=== PATIENT | male | born 1930 | race Caucasian/White ===

== ENCOUNTER 2017-07-25 10:52 | Outpatient (CLI) | END 2017-07-25 10:53 | disposition home or self-care (01) | LOC: LAB 10:52 | PROVIDERS: ATTEND Internal Medicine | DX: D64.9 Anemia, unspecified (principal) | CPT/HCPCS: 82272 ==

== ENCOUNTER 2018-10-27 13:25 | Emergency (ER) | payer OTHER ==
[2018-10-27 13:37] VITALS: BP 143/61; TEMP 97; BMI 21.4
--- NOTE | 2018-10-27 13:46 | ED.PDOC ---
General ED Provider: Dr. 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 Has been constipated with no BM x 4-5 days. Has taken OTC laxative pills without relief. Time Seen by Physician: 13:42 Mode of Arrival: Wheelchair Information Source: Patient, Family Primary Care Provider: RONI GALVEZ Nursing and Triage Documentation Reviewed and Agree: Yes Does patient meet sepsis criteria?: No System Inflammatory Response Syndrome: Not Applicable Sepsis Protocol: For patient's 13 years and over: Temp is 96.8 and below OR 101 and greater Pulse >90 BPM Resp >20/minute Acutely Altered Mental Status Are patient's symptoms suggestive of a new infection, such as: -Pneumonia -Skin, Soft Tissue -Endocarditis -UTI -Bone, Joint Infection -Implantable Device -Acute Abdominal Infection -Wound Infection -Meningitis -Blood Stream Catheter Infection -Unknown Review of Systems - Review Of Systems Constitutional: Reports: Loss of appetite Ears, Nose, Mouth, Throat: Reports: No symptoms Respiratory: Reports: No symptoms Cardiac: Reports: No symptoms GI: Reports: Constipated, Poor appetite : Reports: No symptoms Musculoskeletal: Reports: Back pain Skin: Reports: No symptoms Neurological: Reports: Anxiety Endocrine: Reports: No symptoms Hematologic/Lymphatic: Reports: No symptoms All Other Systems: Reviewed and Negative Past Medical History - Past Medical History Previously Healthy: Yes Endocrine: Reports: Dyslipidemia Cardiovascular: Reports: Hypertension Respiratory: Reports: None Hematological: Reports: Anemia Gastrointestinal: Reports: None Genitourinary: Reports: None Neuro/Psych: Reports: None Musculoskeletal: Reports: None Cancer: Reports: None - Surgical History General Surgical History: Reports: Unknown - Family History Family History: Reports: Unknown - Social History Smoking Status: Never smoker Hx Substance Use: No Alcohol Screening: None Physical Exam - Physical Exam Appearance: Well-appearing Pain Distress: Moderate Interpretation - Radiology Interpretation Radiology Interpretation By: Radiologist Radiology Results: No acute changes Exam Interpreted: CT Scan (Abdomen and Pelvis ) Re-Evaluation - Re-Evaluation Time of Re-Evaluation: 15:50 Status: Improved Pain Level: better Critical Care Note - Critical Care Note Total Time (mins): 0 Course - Course Hematology/Chemistry: 10/27/18 14:37 10/27/18 14:37 Orders, Labs, Meds: Lab Review 10/27/18 10/27/18 10/27/18 14:37 14:37 15:16 WBC 5.07 RBC 2.55 L Hgb 8.3 L Hct 24.6 L MCV 96.5 H MCH 32.5 H MCHC 33.7 RDW Coeff of Tika 13.9 Plt Count 122 L Immature Gran % (Auto) 0.8 Neut % (Auto) 71.4 Lymph % (Auto) 19.1 [place] % (Auto) 8.3 Eos % (Auto) 0.2 Baso % (Auto) 0.2 Immature Gran # (Auto) 0.0 Neut # (Auto) 3.6 Lymph # (Auto) 1.0 [place] # (Auto) 0.4 Eos # (Auto) 0.0 Baso # (Auto) 0.0 Sodium 132.0 L Potassium 4.22 Chloride 98.8 Carbon Dioxide 24.7 Anion Gap 12.72 BUN 38.0 H Creatinine 1.62 H Estimated GFR (MDRD) 41.00 BUN/Creatinine Ratio 23.45 Glucose 105.8 Calcium 8.41 Total Bilirubin 0.63 AST 42.5 ALT 21.9 Alkaline Phosphatase 64.9 Total Protein 5.72 L Albumin 3.33 L Globulin 2.39 Albumin/Globulin Ratio 1.39 Amylase 77.2 Lipase 249.1 Urine Color Yellow Urine Clarity Slightly Urine pH 7.5 Ur Specific [place] 1.015 Urine Protein Negative Urine Glucose (UA) Negative Urine Ketones Negative Urine Blood Negative Urine Nitrite Negative Urine Bilirubin Negative Urine Urobilinogen 4.0 Ur Leukocyte Esterase Negative Orders Category Date Time Status ED IV/MEDIPORT/POWERPORT .ONCE EMERGENCY 10/27/18 14:12 Active AMYLASE Stat LAB 10/27/18 14:37 Completed CBC W/ AUTO DIFF Stat LAB 10/27/18 14:37 Completed COMPREHENSIVE METABOLIC PANEL Stat LAB 10/27/18 14:37 Completed LIPASE Stat LAB 10/27/18 14:37 Completed UA [URINALYSIS C & S IF INDICATED] Stat LAB 10/27/18 15:16 Completed Morphine Sulfate [Morphine 2 mg/ml Syringe] MEDS 10/27/18 14:37 Discontinued 2 mg IM ONCE STA CT ABDOMEN/PELVIS WO CONTRAST Stat RADS 10/27/18 13:48 Completed Medications Discontinued Medications Generic Name Dose Route Start Last Admin Trade Name Freq PRN Reason Stop Dose Admin Morphine Sulfate 2 mg 10/27/18 14:37 10/27/18 15:09 Morphine 2 Mg/Ml Syringe IM 10/27/18 14:38 2 mg ONCE STA Administration Vital Signs: Temp Pulse Resp BP Pulse Ox 10/27/18 13:28 97.0 F L 73 20 143/61 H 98 Departure - Departure Time of Disposition: 15:55 Disposition: HOME SELF-CARE Discharge Problem: Back pain Qualifiers: Back pain location: low back pain Chronicity: acute Back pain laterality: bilateral Sciatica presence: without sciatica Qualified Code(s): M54.5 - Low back pain Constipation Qualifiers: Constipation type: slow transit constipation Qualified Code(s): K59.01 - Slow transit constipation Instructions: Constipation (DC), Back Pain (ED) Condition: Stable Pt referred to PMD for follow-up: Yes IPMP verified?: No Additional Instructions: Push fluids Take Medications as needed for pain Followup with PCP in 3 days Prescriptions: Magnesium Citrate [Citrate of Magnesia] 5 oz PO ONCE #1 ml Polyethylene Glycol 3350 [Miralax] 17 gm PO DAILY #510 powd.pack Sennosides/Docusate Sodium [Senna-S Tablet] 1 each PO DAILY LAB #30 tablet Tramadol HCl [Ultram] 50 mg PO Q6H PRN #14 tablet PRN Reason: Severe Pain Allergies/Adverse Reactions: Allergies No Known Allergies Allergy (Unverified 10/27/18 13:37) Home Medications: Ambulatory Orders Aspirin 325 mg PO DAILY 10/27/18 Benazepril HCl [Lotensin] 40 mg PO BEDTIME 10/27/18 Fenofibrate,Micronized [Fenofibrate] 134 mg PO EVERY OTHER DAY 10/27/18 Ferrous Sulfate, Dried [Iron] 159 mg PO DAILY 10/27/18 Lisinopril/Hydrochlorothiazide [Zestoretic 20-12.5 mg Tab] 1 tab PO DAILY Lovastatin [Mevacor] 20 mg PO BEDTIME 10/27/18 Magnesium Citrate [Citrate of Magnesia] 5 oz PO ONCE #1 ml 10/27/18 Polyethylene Glycol 3350 [Miralax] 17 gm PO DAILY #510 powd.pack 10/27/18 Sennosides/Docusate Sodium [Senna-S Tablet] 1 each PO DAILY LAB #30 tablet 10/27 Tramadol HCl [Ultram] 50 mg PO Q6H PRN #14 tablet 10/27/18
--- NOTE | 2018-10-27 14:33 | CT ---
EXAM: CT abdomen and pelvis without contrast. HISTORY: Lower back pain with constipation TECHNIQUE: Multi-slice transaxial helical CT. Coronal and sagittal reformatons were performed. COMPARISON: None FINDINGS: The heart is normal in size. Heavily calcified coronary arteries are seen. Minimal fibrotic changes of the lung bases are seen. Evaluation of the solid organs is limited without IV contrast. The spleen is normal in size and cont ains calcified granulomas. Numerous calcified gallstones are present within the normal sized gallbla dder. No pericholecystic inflammation is seen. The pancreas and the bilateral adrenal glands appear grossly unremarkable. Punctate nonobstructing stones are seen within the right kidney. Multiple le ft-sided renal cysts are seen measuring up to 3.6 cm in size. No evidence of hydronephrosis is seen. No intrahepatic biliary ductal dilation is seen. Exophytic solid lesion from the lateral right live r is seen measuring approximately 19 x 7 mm in size as seen on axial image 42. The bowel is not dilated. Prostate is mildly enlarged measuring up to 4.6 cm in transverse diameter. Scattered diverticuli are seen within the colon. Moderate amount of stool throughout the colon is seen. The appendix is not definitively identified. A duodenal diverticulum is seen which measures up to 2.9 cm in size. No pelvic free fluid is seen. Heavy calcified plaques are present within the ab dominal aorta and its major branch vessels. High-grade stenotic lesion is suggested at the superior mesenteric artery secondary calcified plaques. The bones are osteopenic. The hip joint space narrow ing is present. Mild compression fracture of L1 is suggested. Focal concavity in the superior endpl ate of L2 is seen. Focal concavity in the superior endplate of L3 is seen. IMPRESSION: 1. No acute abdominal findings. 2. Moderate stool throughout the colon which is nonspecific. 3. Cholelithiasis. 4. Colonic and duodenal diverticulosis. 5. Indeterminate exophytic solid lesion at the right liver measuring up to 19 mm. Recommend MRI of the abdomen before and after administration of IV contrast for further evaluation. 6. Punctate nonobstructing right renal calculi. No hydronephrosis. 7. Mild prostatic enlargement. 8. Heavy atherosclerosis including coronary disease. 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 9. Other incidental findings as detailed above.
[2018-10-27] MEDS ORDERED: MORPHINE 2 MG/ML SYRINGE IM STA (14:37)
== END 2018-10-27 15:50 | disposition home or self-care (01) ==
LOC: ED 13:25
DX: K59.01 Slow transit constipation (principal); R63.0 Anorexia; M54.5 Low back pain; F41.8 Other specified anxiety disorders
CPT/HCPCS: 36415; 80053; 81001; 82150; 83690; 85025; 96372; 99283

== ENCOUNTER 2018-10-30 08:40 | Inpatient (IN) ==
--- NOTE | 2018-10-30 09:11 | ED.PDOC ---
General ED Provider: Dr. ANNIE RANDOLPH Chief Complaint: Constipation Stated Complaint: Remain constipated with lower abdominal pain and low back pain. Was here this past Sunday for similar problems. Given Miralax and Mag Citrate. Has taken Mag citrate with out results and did not take Miralax until last PM. Denied Rectal Bleeding. State hx Iron Defiency. States has never had a colonoscopy,. In ER was given Morphine for his back pain and was prescribe NARCOTICS for home for his pain Time Seen by Physician: 08:50 Mode of Arrival: Wheelchair Information Source: Patient Exam Limitations: No limitations Primary Care Provider: RONI GALVEZ Referred to ED by: PCP Seen Within Last 72 Hours for Same Complaint By: ED Nursing and Triage Documentation Reviewed and Agree: Yes Does patient meet sepsis criteria?: No System Inflammatory Response Syndrome: Not Applicable Sepsis Protocol: For patient's 13 years and over: Temp is 96.8 and below OR 101 and greater Pulse >90 BPM Resp >20/minute Acutely Altered Mental Status Are patient's symptoms suggestive of a new infection, such as: -Pneumonia -Skin, Soft Tissue -Endocarditis -UTI -Bone, Joint Infection -Implantable Device -Acute Abdominal Infection -Wound Infection -Meningitis -Blood Stream Catheter Infection -Unknown GI Complaint Exam - Abdominal Pain Complaint/Exam Onset: Gradual Duration: Several weeks Symptoms Are: Still present Timing: Constant Initial Severity: Moderate Current Severity: Moderate Location of Pain: RUQ, RLQ, LUQ Character: Reports: Dull, Cramping Aggravating: Reports: None Alleviating: Reports: None Associated Signs and Symptoms: Reports: Back pain. Denies: Diaphoresis, Fever, Cough, Chest pain, Dizziness, Constipation, Blood in stool, Dysuria, Urinary frequency, Decreased urine output, Decreased appetite, Discharge, Nausea, Vomiting, Diarrhea, Decreased activity Related History: Reports: Similar episode AAA Risk Factors: Reports: None Cardiac Risk Factors: Reports: None Testicular Torsion Risk Factors: Reports: None Surgical Obstruction Risk Factors: Reports: None Related Surgical History: Reports: None Abdominal Findings: Present: None Differential Diagnoses: Constipation Review of Systems - Review Of Systems Constitutional: Reports: Weakness Eyes: Reports: No symptoms Ears, Nose, Mouth, Throat: Reports: No symptoms Respiratory: Reports: No symptoms Cardiac: Reports: No symptoms GI: Reports: Constipated, Poor appetite, Poor fluid intake : Reports: No symptoms Musculoskeletal: Reports: Back pain Skin: Reports: Dryness Neurological: Reports: No symptoms Endocrine: Reports: No symptoms Hematologic/Lymphatic: Reports: Anemia, Easy bleeding, Easy bruising All Other Systems: Reviewed and Negative Past Medical History - Past Medical History Previously Healthy: Yes Endocrine: Reports: Dyslipidemia Cardiovascular: Reports: Hypertension Respiratory: Reports: None Hematological: Reports: Anemia Gastrointestinal: Reports: None Genitourinary: Reports: None Neuro/Psych: Reports: None Musculoskeletal: Reports: None Cancer: Reports: None - Surgical History General Surgical History: Reports: Unknown - Family History Family History: Reports: Unknown - Social History Smoking Status: Never smoker Hx Substance Use: No Alcohol Screening: None Physical Exam - Physical Exam Appearance: Ill-appearing, Thin (Frail) Pain Distress: Mild Eyes: NICOLASA, EOMI, Conjunctiva clear ENT: Ears normal, Nose normal, Oropharynx normal Neck: Supple Respiratory: Airway patent, Breath sounds clear, Breath sounds equal, Respirations nonlabored Cardiovascular: RRR, Pulses normal, No rub, No murmur GI/: Soft, Nontender, No masses, Bowel sounds normal, No Organomegaly Musculoskeletal: Normal strength Skin: Warm, Dry, Normal color Neurological: Sensation intact, Motor intact, Reflexes intact, Cranial nerves intact, Alert, Oriented Psychiatric: Affect appropriate Physician Notification - Case Discussed Physician Notified: Dr Galvez-agreed to treat patient for symptomatic anemia/ constipaiton Time of Notification: 11:45 Critical Care Note - Critical Care Note Total Time (mins): 60 Course - Course Hematology/Chemistry: 10/30/18 09:20 10/30/18 09:20 Orders, Labs, Meds: Lab Review 10/30/18 10/30/18 10/30/18 09:20 09:20 09:20 WBC 5.49 RBC 2.33 L Hgb 7.5 L Hct 22.9 L MCV 98.3 H MCH 32.2 H MCHC 32.8 RDW Coeff of Tika 13.8 Plt Count 129 L Immature Gran % (Auto) 0.4 Neut % (Auto) 77.8 Lymph % (Auto) 12.6 [place] % (Auto) 8.6 Eos % (Auto) 0.4 Baso % (Auto) 0.2 Reticulocyte % (Auto) Immature Gran # (Auto) 0.0 Neut # (Auto) 4.3 Lymph # (Auto) 0.7 [place] # (Auto) 0.5 Eos # (Auto) 0.0 Baso # (Auto) 0.0 Absolute Retic Retic Hgb Equivalent Sodium 129.0 L Potassium 4.38 Chloride 94.5 L Carbon Dioxide 26.3 Anion Gap 12.58 BUN 39.5 H Creatinine 1.98 H Estimated GFR (MDRD) 32.00 BUN/Creatinine Ratio 19.94 Glucose 87.5 Calcium 8.12 L Iron TIBC % Saturation Ferritin 21.20 Total Bilirubin 0.71 AST 36.5 ALT 23.0 Alkaline Phosphatase 68.3 Total Protein 5.56 L Albumin 3.18 L Globulin 2.38 Albumin/Globulin Ratio 1.33 Vitamin B12 TSH 1.570 Free T4 Stl Occult Blood (IFOB) Stool Occult Blood #2 Stool Occult Blood #3 Blood Type 10/30/18 10/30/18 10/30/18 09:20 09:20 09:20 WBC RBC Hgb Hct MCV MCH MCHC RDW Coeff of Tika Plt Count Immature Gran % (Auto) Neut % (Auto) Lymph % (Auto) [place] % (Auto) Eos % (Auto) Baso % (Auto) Reticulocyte % (Auto) 4.13 Immature Gran # (Auto) Neut # (Auto) Lymph # (Auto) [place] # (Auto) Eos # (Auto) Baso # (Auto) Absolute Retic 0.0966 Retic Hgb Equivalent 33.8 Sodium Potassium Chloride Carbon Dioxide Anion Gap BUN Creatinine Estimated GFR (MDRD) BUN/Creatinine Ratio Glucose Calcium Iron 36.8 L TIBC 375 % Saturation 10 Ferritin Total Bilirubin AST ALT Alkaline Phosphatase Total Protein Albumin Globulin Albumin/Globulin Ratio Vitamin B12 736 TSH Free T4 1.53 Stl Occult Blood (IFOB) Stool Occult Blood #2 Stool Occult Blood #3 Blood Type 10/30/18 10/30/18 09:20 10:02 WBC RBC Hgb Hct MCV MCH MCHC RDW Coeff of Tika Plt Count Immature Gran % (Auto) Neut % (Auto) Lymph % (Auto) Coal % (Auto) Eos % (Auto) Baso % (Auto) Reticulocyte % (Auto) Immature Gran # (Auto) Neut # (Auto) Lymph # (Auto) [place] # (Auto) Eos # (Auto) Baso # (Auto) Absolute Retic Retic Hgb Equivalent Sodium Potassium Chloride Carbon Dioxide Anion Gap BUN Creatinine Estimated GFR (MDRD) BUN/Creatinine Ratio Glucose Calcium Iron TIBC % Saturation Ferritin Total Bilirubin AST ALT Alkaline Phosphatase Total Protein Albumin Globulin Albumin/Globulin Ratio Vitamin B12 TSH Free T4 Stl Occult Blood (IFOB) Negative Stool Occult Blood #2 No specimen received Stool Occult Blood #3 No specimen received Blood Type A POSITIVE Orders Category Date Time Status ORDER H&H 1HR POST TRANSFUSION ONCE CARE 10/30/18 10:27 Active PRBC LEUKOREDUCED ONCE CARE 10/30/18 10:27 Active IV [ED IV/MEDIPORT/POWERPORT] .ONCE EMERGENCY 10/30/18 10:08 Active CBC W/ AUTO DIFF Stat LAB 10/30/18 09:20 Completed CMP [COMPREHENSIVE METABOLIC PANEL] Stat LAB 10/30/18 09:20 Completed FERRITIN Stat LAB 10/30/18 09:20 Completed FOLATE Routine LAB 10/30/18 09:20 Received FREE T4 (FREE THYROXINE) Stat LAB 10/30/18 09:20 Completed IRON AND TIBC Stat LAB 10/30/18 09:20 Completed OCCULT BLOOD, STOOL Stat LAB 10/30/18 10:02 Completed PACKED CELLS Routine LAB 10/30/18 10:40 Received RETIC COUNT Routine LAB 10/30/18 09:20 Completed THYROID STIMULATING HORMONE Stat LAB 10/30/18 09:20 Completed TRANSFERRIN Routine LAB 10/30/18 09:20 Received TYPE AND SCREEN Routine LAB 10/30/18 10:40 Received VITAMIN B12 Routine LAB 10/30/18 09:20 Received 0.9 % Sodium Chloride [Saline Flush] MEDS 10/30/18 10:08 Active 1 syr IVF PRN PRN Diphenhydramine HCl [Benadryl] MEDS 10/30/18 10:27 Discontinued 25 mg PO ONCE STA Hydrocortisone Sod Succ/Pf [Solu-Cortef 250 mg] MEDS 10/30/18 10:31 Discontinued 125 mg IVP ONCE STA Sodium Chloride 0.9% [Sodium Chloride] 1,000 ml MEDS 10/30/18 10:08 Active IV 125 mls/hr ABDOMEN, SERIES FLAT & UPRIGHT Stat RADS 10/30/18 09:14 Completed CHEST, 2 VIEWS PA & LAT Stat RADS 10/30/18 09:14 Completed Medications Generic Name Dose Route Start Last Admin Trade Name Freq PRN Reason Stop Dose Admin Sodium Chloride 1,000 mls @ 125 mls/hr 10/30/18 10:08 10/30/18 10:31 Sodium Chloride IV 10/30/18 18:07 125 mls/hr .Q8H STA Administration Sodium Chloride 1 syr 10/30/18 10:08 10/30/18 10:34 Saline Flush IVF 1 syr PRN PRN Administration To flush IV Discontinued Medications Generic Name Dose Route Start Last Admin Trade Name Freq PRN Reason Stop Dose Admin Diphenhydramine HCl 25 mg 10/30/18 10:27 10/30/18 10:33 Benadryl PO 10/30/18 10:28 25 mg ONCE STA Administration Hydrocortisone Sodium Succinate 125 mg 10/30/18 10:31 10/30/18 10:33 Solu-Cortef 250 Mg IVP 10/30/18 10:32 125 mg ONCE STA Administration Vital Signs: Temp Pulse Resp BP Pulse Ox 10/30/18 08:42 97.4 F L 64 20 100/59 L 92 L Departure - Departure Time of Disposition: 10:35 Disposition: PLACED OBSERVATION Discharge Problem: Symptomatic anemia, Weakness, Constipation, Hyponatremia, Dehydration, Iron deficiency Condition: Fair Pt referred to PMD for follow-up: Yes IPMP verified?: No Allergies/Adverse Reactions: Allergies No Known Allergies Allergy (Unverified 10/27/18 13:37) Home Medications: Ambulatory Orders Aspirin 325 mg PO DAILY 10/27/18 Benazepril HCl [Lotensin] 40 mg PO BEDTIME 10/27/18 Fenofibrate,Micronized [Fenofibrate] 134 mg PO EVERY OTHER DAY 10/27/18 Ferrous Sulfate, Dried [Iron] 159 mg PO DAILY 10/27/18 Lisinopril/Hydrochlorothiazide [Zestoretic 20-12.5 mg Tab] 1 tab PO DAILY Lovastatin [Mevacor] 20 mg PO BEDTIME 10/27/18 Magnesium Citrate [Citrate of Magnesia] 5 oz PO ONCE #1 ml 10/27/18 Polyethylene Glycol 3350 [Miralax] 17 gm PO DAILY #510 powd.pack 10/27/18 Sennosides/Docusate Sodium [Senna-S Tablet] 1 each PO DAILY LAB #30 tablet 10/27 Tramadol HCl [Ultram] 50 mg PO Q6H PRN #14 tablet 10/27/18 Clopidogrel Bisulfate [Plavix] 75 mg PO DAILY 10/30/18
--- NOTE | 2018-10-30 10:03 | DI ---
EXAM: CHEST FRONTAL AND LATERAL VIEWS HISTORY: Pain. COMPARISON: None FINDINGS: Heart size is within normal limits. Moderate atherosclerotic disease. There is diffuse, chronic appearing interstitial accentuation. Mild hyperinflation. No acute infiltrates are seen. N o vascular congestion. There is no consolidation, visible pleural fluid or pneumothorax. A wedge-sh aped compression deformity of the upper lumbar vertebral body which is likely chronic. IMPRESSION: 1. Atherosclerosis. No acute cardiopulmonary process.
--- NOTE | 2018-10-30 10:06 | DI ---
EXAM: KUB supine, KUB upright HISTORY: Constipation. FINDINGS / IMPRESSION: There is excess fecal retention suggested within the right and portions of th e transverse colon. Otherwise the colon has normal retention and there is no evidence of fecal impac tion of the rectum or abnormal bowel gas pattern. There is no free air. Multiple gallstones are not ed. Vascular calcifications are present.
[2018-10-30] MEDS ORDERED: SODIUM CHLORIDE 1,000 ML IV STA (10:08)
[2018-10-30] MEDS ORDERED: BENADRYL PO STA (10:27)
[2018-10-30] MEDS ORDERED: SOLU-CORTEF 250 MG IVP STA (10:31)
[2018-10-30] MEDS ORDERED: CITRATE OF MAGNESIA PO STA (11:38)
[2018-10-30 11:48] VITALS: BMI 22.5
[2018-10-30] MEDS: TORADOL IVP SCH ×2 (12:03→20:33)
[2018-10-30] MEDS: MIRALAX PO SCH (13:13)
--- NOTE | 2018-10-30 15:09 | DI ---
EXAM: Lumbar spine five views HISTORY: Low back pain FINDINGS: Bones are demineralized. No noticeable scoliosis. Moderate arthropathy of the sacroiliac joints. Lateral projections reveal diffuse moderate degenerative disc and facet disease. Multileve l mild loss of vertebral body height secondary to compression deformities. This is most noticeable p robably at L1 where there is about 20% loss of height. None of these fractures appear obviously acut e radiographically. Oblique views reveal intact pars interarticularis structures. There is no spond ylolisthesis. Heavy vascular calcifications. Multiple gallstones are incidentally noted. IMPRESSION: 1. Demineralization and diffuse degenerative and compression deformities of the spine.
--- NOTE | 2018-10-30 15:13 | DI ---
EXAM: Thoracic spine three view HISTORY: Low back pain for 2 weeks COMPARISON: None FINDINGS: Minimal compression deformity T11 suggested with sclerosis superior endplate, age indeterm inate. Mild compression deformity L1, age indeterminate. Central concavity inferior endplate L2. Mi ld multilevel chronic discogenic degenerative disease with intervertebral disc space narrowing, andrea nal osteophyte formation. IMPERSSION: 1. Minimal compression deformity T11 and mild compression deformity L1, age indeterminate. Central cavity inferior endplate L2. 2. Chronic discogenic degenerative disease.
[2018-10-30] MEDS ORDERED: NORVASC PO PRN (16:44)
[2018-10-30] MEDS ORDERED: LOTENSIN PO ONE (16:46)
[2018-10-30] MEDS ORDERED: LOTENSIN ONE (17:03)
[2018-10-30] MEDS: PROTONIX PO SCH (17:19)
[2018-10-30] MEDS ORDERED: NORCO 5-325 PO PRN (17:33)
[2018-10-30] MEDS: LOTENSIN PO SCH (20:32)
[2018-10-30] MEDS ORDERED: NON-FORMULARY MEDICATION (Benazepril Hcl [Lotensin] 40 MG) PO SCH (21:00)
[2018-10-31] MEDS ORDERED: SODIUM CHLORIDE 1,000 ML IV SCH (01:30)
[2018-10-31] MEDS: TORADOL IVP SCH ×3 (05:31→20:24)
[2018-10-31] MEDS: PROTONIX PO SCH ×2 (05:31→16:19)
[2018-10-31] MEDS ORDERED: NON-FORMULARY MEDICATION (Sennosides/Docusate Sodium [Senna-S Tablet] 1 EACH) PO SCH (06:00)
[2018-10-31] MEDS: MIRALAX PO SCH (08:45)
[2018-10-31] MEDS ORDERED: COLACE PO SCH (09:00)
[2018-10-31] MEDS ORDERED: SENNA PO SCH (09:00)
--- NOTE | 2018-10-31 09:21 | PCM.PROG ---
Attending Provider: ATTENDING PROVIDER: Dr. RONI GALVEZ DATE OF SERVICE: 10/31/18 SUBJECTIVE: This 87 year old WHITE/ M was hospitalized 10/30/18 with anemia. The patient has no evidence of active GI bleed. Hemoglobin 9.2 with hematocrit of 27. Yesterday hemoglobin was 10 with hematocrit of 30 after 2 units of PRBCs. Likely, the patient had hemodilution or fluctuations in the lab technique. Creatinine and BUN stable. He looks better and hydration status improved. REVIEW OF SYSTEMS: CONSTITUTIONAL: No night sweats. No fatigue, malaise, lethargy. No fever or chills. HEENT: Eyes: No visual changes. No eye pain. No eye discharge. ENT: No runny nose. No epistaxis. No sinus pain. No odynophagia. No congestion. RESPIRATORY: No cough, no congestion. No hemoptysis. No shortness of breath. CARDIOVASCULAR: No angina symptoms. No CHF symptoms. No atypical chest pain for CAD. No palpitations. No orthopnea.. GASTROINTESTINAL: No abdominal pain. No nausea or vomiting. No diarrhea or constipation. No hematemesis. No hematochezia. GENITOURINARY: No urgency. No frequency. No dysuria. No hematuria. No obstructive symptoms. No discharge. No pain. No significant abnormal bleeding. MUSCULOSKELETAL: No musculoskeletal pain; no joint swelling. NEUROLOGICAL: Awake, alert, oriented to time, place and person. No headache. No neck pain. No syncope. No seizures. No dizziness. PSYCHIATRIC: Not anxious. No depression. No suicidal thoughts. No homicidal thoughts. SKIN: No rash. No lesions. No wounds. ENDOCRINE: No unexplained weight loss. No weight gain. HEMATOLOGIC/LYMPHATIC: No anemia. No purpura. No petechiae. No prolonged or excessive bleeding. No palpable lymph nodes. PHYSICAL EXAMINATION: GENERAL: The patient is awake, alert and oriented, lying in bed in no distress. VITAL SIGNS: Temperature 97.7 F, Pulse 60, Respiratory Rate 17, BP 137/45, Pulse Ox 100% HEENT: Head normocephalic, atraumatic. Eyes: Extraocular muscles are intact. Pupils are equal, round and reactive to light and accommodation. Ears: No lesions. Nose appeared normal. Throat: No exudate or erythema. NECK: Supple. No JVD, no carotid bruit. No lymphadenopathy or thyromegaly. LUNGS: Clear to auscultation. Percussion note normal. Chest symmetrical. HEART: S1, S2, no S3. No murmurs. No cyanosis or clubbing. No ascites. Pulses: Dorsalis pedis and posterior tibial pulses feeble bilaterally. ABDOMEN: Soft. Non-tender. Bowel sounds active. No CVA tenderness. No mass felt. EXTREMITIES: No edema. Full range of motion of all extremities, equal. NEUROLOGIC: No focal deficit. Cranial nerves II through XII are grossly intact. No headache, no double vision or headache. SKIN: Warm and dry. Intact. Turgor-normal. LYMPHATIC: No palpable lymph nodes/no lymphedema. MUSCULOSKELETAL: Normal joints with no swelling. Muscle tone is normal. LAB REVIEW: 10/31/18 05:05 10/31/18 05:05 10/31/18 05:05: Sodium 131.2 L, Potassium 4.49, Chloride 99.2, Carbon Dioxide 26.8, Anion Gap 9.69, BUN 40.1 H, Creatinine 1.74 H, Estimated GFR (MDRD) 37.00 , BUN/Creatinine Ratio 23.04, Glucose 97.9, Calcium 7.35 L, Total Bilirubin 1.08 , AST 34.4, ALT 21.4, Alkaline Phosphatase 64.6, Total Protein 4.86 L, Albumin 2.65 L, Globulin 2.21, Albumin/Globulin Ratio 1.19 10/31/18 05:05: WBC 5.36, RBC 2.95 L, Hgb 9.2 L, Hct 27.5 L, MCV 93.2 D, MCH 31.2 H, MCHC 33.5, RDW Coeff of [place] 15.0 H, Plt Count 93 L, Immature Gran % ( Auto) 0.9, Neut % (Auto) 78.0, Lymph % (Auto) 12.9, [place] % (Auto) 8.0, Eos % ( Auto) 0.2, Baso % (Auto) 0.0, Immature Gran # (Auto) 0.1, Neut # (Auto) 4.2, Lymph # (Auto) 0.7, [place] # (Auto) 0.4, Eos # (Auto) 0.0, Baso # (Auto) 0.0 10/30/18 20:27: Hgb 10.2 L, Hct 30.8 L D 10/30/18 13:17: Urine Color Yellow, Urine Clarity Clear, Urine pH 6.0, Ur Specific [place] 1.010, Urine Protein Negative, Urine Glucose (UA) Negative, Urine Ketones Negative, Urine Blood Negative, Urine Nitrite Negative, Urine Bilirubin Negative, Urine Urobilinogen 0.2, Ur Leukocyte Esterase Negative 10/30/18 10:40: Blood Type A POSITIVE, Antibody Screen Negative, Crossmatch (AHG ) See Detail 10/30/18 10:02: Stl Occult Blood (IFOB) Negative, Stool Occult Blood #2 Positive , Stool Occult Blood #3 No specimen received 10/30/18 09:20: Blood Type A POSITIVE 10/30/18 09:20: Transferrin 279 10/30/18 09:20: Vitamin B12 736 10/30/18 09:20: Folate 13.40 10/30/18 09:20: Reticulocyte % (Auto) 4.13, Absolute Retic 0.0966, Retic Hgb Equivalent 33.8 10/30/18 09:20: Iron 36.8 L, TIBC 375, % Saturation 10, Free T4 1.53 10/30/18 09:20: Ferritin 21.20, TSH 1.570 10/30/18 09:20: Sodium 129.0 L, Potassium 4.38, Chloride 94.5 L, Carbon Dioxide 26.3, Anion Gap 12.58, BUN 39.5 H, Creatinine 1.98 H, Estimated GFR (MDRD) 32.00 , BUN/Creatinine Ratio 19.94, Glucose 87.5, Calcium 8.12 L, Total Bilirubin 0.71 , AST 36.5, ALT 23.0, Alkaline Phosphatase 68.3, Total Protein 5.56 L, Albumin 3.18 L, Globulin 2.38, Albumin/Globulin Ratio 1.33 10/30/18 09:20: WBC 5.49, RBC 2.33 L, Hgb 7.5 L, Hct 22.9 L, MCV 98.3 H, MCH 32.2 H, MCHC 32.8, RDW Coeff of [place] 13.8, Plt Count 129 L, Immature Gran % (Auto ) 0.4, Neut % (Auto) 77.8, Lymph % (Auto) 12.6, [place] % (Auto) 8.6, Eos % (Auto) 0.4, Baso % (Auto) 0.2, Immature Gran # (Auto) 0.0, Neut # (Auto) 4.3, Lymph # ( Auto) 0.7, [place] # (Auto) 0.5, Eos # (Auto) 0.0, Baso # (Auto) 0.0 ASSESSMENT: 1. Anemia, etiology unknown. 2. Renal azotemia. 3. Dehydration. 4. The patient has severe carotid occlusive disease. The patient elected not to do anything about the severe carotid stenosis for the past 10 years. He has no history of TIA in the past 2 to 3 years. PLAN: 1. The patient's overall condition is stable. The POA wants the patient to be placed in swing bed or further PT at the intermediate. The patient lives alone and is not being taken care of properly. 2. Resume Plavix. 3. Ferrous Sulfate. 4. Encouraged the patient to eat more protein. 5. D/C IV fluids to 50 cc/hr. Plan and coordination of the patient's care discussed in the presence of Clinical Support Associate and nurse. CONDITION: Stable SCRIBED BY: SHASTA THOMPSON Top Lift Scourer scribed while in presence of service performed by Dr. RONI GALVEZ on 10/31/18 ([id number])
[2018-10-31] MEDS ORDERED: ULTRAM PO PRN (09:22)
[2018-10-31] MEDS ORDERED: NON-FORMULARY MEDICATION (Aspirin [Aspirin] 325 MG) PO SCH (09:30)
[2018-10-31] MEDS ORDERED: FERROUS SULFATE DRIED 65 MG PO SCH (09:30)
[2018-10-31] MEDS ORDERED: NON-FORMULARY MEDICATION (Fenofibrate,Micronized [Fenofibrate] 134 MG) PO SCH (09:30)
[2018-10-31] MEDS: PLAVIX PO SCH (10:11)
[2018-10-31] MEDS: ZESTORETIC 20-12.5 MG TAB PO SCH (10:11)
--- NOTE | 2018-10-31 13:48 | HP ---
DATE OF SERVICE: 10/30/18 HISTORY OF PRESENT ILLNESS: 87-year-old white male who presented to the emergency room for the second time complaining of constipation, low back pain. He was previously at the emergency room two days ago with a hemoglobin of 8.3. Today he is being seen with a hemoglobin of 7.5 and still no bowel movement. PAST MEDICAL HISTORY: Chronic kidney disease History of anemia Hypertension Dyslipidemia Forgetfulness Generalized osteoarthritis PAST SURGICAL HISTORY: Unknown REVIEW OF SYSTEMS: CONSTITUTIONAL: Positive for generalized weakness. No night sweats. No fatigue , malaise, lethargy. No fever or chills. HEENT: Eyes: No visual changes. No eye pain. No eye discharge. ENT: No runny nose. No epistaxis. No sinus pain. No sore throat. No odynophagia. No ear pain. No congestion. RESPIRATORY: No cough, no congestion. No hemoptysis. No shortness of breath. CARDIOVASCULAR: No angina symptoms. No CHF symptoms. No atypical chest pain for CAD. No palpitations. No PND. No orthopnea. GASTROINTESTINAL: Constipation. No abdominal pain. No nausea or vomiting. No diarrhea. No hematemesis. No hematochezia. GENITOURINARY: No urgency. No frequency. No dysuria. No hematuria. No obstructive symptoms. No discharge. No pain. No significant abnormal bleeding. MUSCULOSKELETAL: Back pain. NEUROLOGICAL: Forgetfulness. No headache. No neck pain. No syncope. No seizures. No dizziness. PSYCHIATRIC: Not anxious. No depression. No suicidal thoughts. No homicidal thoughts. SKIN: No rash. No lesions. No wounds. ENDOCRINE: No unexplained weight loss. No weight gain. HEMATOLOGIC/LYMPHATIC: No anemia. No purpura. No petechiae. No prolonged or excessive bleeding. No palpable lymph nodes. PERSONAL/FAMILY/SOCIAL HISTORY: He is unmarried. He lives alone. He is a jensne. No alcohol or ilicit drug use. MEDICATIONS: (HOME) Lisinopril/Hydrochlorothiazide one tab p.o. daily Fenofibrate 134 mg p.o. every other day Lotensin 40 mg p.o. bedtime Aspirin 325 mg p.o. daily Miralax 17 gm p.o. daily Sennosides/Docusate one each p.o. daily Ultram 50 mg p.o. q.6hr p.r.n. Lovastatin 20 mg p.o. bedtime Magnesium Citrate 5 oz p.o. once Plavix 75 mg p.o. aily Ferrous Sulfate 65 mg p.o. daily ALLERGIES: NKDA PHYSICAL EXAMINATION: GENERAL: The patient is alert and oriented to person, place and time. Pallor positive. VITAL SIGNS: Temperature 97.4, heart rate 64, respirations 20, BP 100/59, pulse ox 92% on room air. HEENT: Head normocephalic, atraumatic. Eyes: Extraocular muscles are intact. Pupils are equal, round and reactive to light and accommodation. Ears: No lesions. Nose appeared normal. Throat: No exudate or erythema. NECK: Supple. No JVD, no carotid bruit. No lymphadenopathy or thyromegaly. LUNGS: Diminished breath sounds bilaterally. Clear to auscultation. Percussion note normal. Chest symmetrical. HEART: S1, S2, no S3. No murmurs. No cyanosis or clubbing. No ascites. Pulses: Dorsalis pedis and posterior tibial pulses +1 to +2 bilaterally. ABDOMEN: Abdominal firmness, tenderness to the lumbar spine. Bowel sounds active. No CVA tenderness. No mass felt. EXTREMITIES: No edema. Full range of motion of all extremities, equal. NEUROLOGIC: The patient is alert No focal deficit. Cranial nerves II through XII are grossly intact. No headache, no double vision or headache. SKIN: Not dry. Intact. Turgor - normal. LYMPHATIC: No palpable lymph nodes/no lymphedema. MUSCULOSKELETAL: Normal joints with no swelling. Muscle tone is normal. LABS: White count 5.49, hemoglobin 7.5, hematocrit 22.9, platelets 129. Sodium 129, potassium 4.3, BUN 39.5, creatinine 1.98, glucose 87. CT of the abdomen shows diffuse constipation. No impaction or obstruction. Chest x-ray is normal. ASSESSMENT: 1. SYMPTOMATIC ANEMIA 2. DEHYDRATION 3. ACUTE ON CHRONIC RENAL FAILURE 4. HYPONATREMIA 5. CONSTIPATION 6. ACUTE LOW BACK PAIN PLAN: 1. We will admit. 2. Type and cross and administer 2 units of packed red blood cells. 3. CBC, CMP daily. 4. Routine telemetry orders. 5. Stool for occult blood. 6. Anemia profile. 7. One bottle of Mag Citrate and if no results within two hours Fleet's enema. 8. Protonix 40 mg p.o. b.i.d. 9. Toradol [address] [facility] for back pain. 10. X-rays of the L-spine and T-spine. 11. Normal Saline IV at 125 cc/hr. 12. Regular diet. 13. Continue all home medications. 14. Oxygen at 1 to 2L as needed. 15. CBC, CMP daily. 16. Anemia profile. 17. We will follow closely. TIME SPENT: More than 70 minutes. MTDD
--- NOTE | 2018-10-31 14:56 | PN ---
DATE OF SERVICE: 10/30/18 SUBJECTIVE: Mr. Farnsworth was hospitalized with hemoglobin of 8.3 with high BUN and creatinine with evidence of dehydration on physical exam with dry skin, symptomatic with anemia because of shortness of breath, weakness and fatigue. The patient was seen and examined two days ago in the emergency room and was sent home. Hemoglobin has dropped further and with hydration the patient's hemoglobin will drop further and I expect it to be lower than even 7. He will be given two units of packed red cells. His cardiovascular status will be monitored. He also has severe constipation and will workup on that while the patient is in the hospital. The patient has ASHD and severe carotid artery stenosis for which he has decided a long time ago not to be operated on. The patient was seen and examined with the nurse practitioner. The History and Physical was done by Geovanna Johnson, Nurse Practitioner and other evaluations were all done under supervision. TIME SPENT: More than 30 minutes. Plan and coordination of the patient's care discussed in the presence of nurse. HERMES
[2018-10-31] MEDS: SODIUM CHLORIDE 1,000 ML IV SCH (15:24)
[2018-10-31] MEDS: MEVACOR PO SCH (16:19)
[2018-10-31] MEDS ORDERED: LOTENSIN PO ONE (16:46)
[2018-10-31] MEDS: SENNA PO SCH (20:24)
[2018-10-31] MEDS: LOTENSIN PO SCH (20:24)
[2018-11-01] MEDS: TORADOL IVP SCH ×3 (05:51→21:12)
[2018-11-01] MEDS: FERROUS SULFATE PO SCH (05:51)
[2018-11-01] MEDS: PROTONIX PO SCH ×2 (05:51→16:37)
[2018-11-01] MEDS ORDERED: ZOFRAN 4 MG/2 ML IVP PRN (08:13)
[2018-11-01] MEDS: MIRALAX PO SCH (08:30)
[2018-11-01] MEDS: CARAFATE PO SCH ×3 (08:30→16:37)
[2018-11-01] MEDS: PLAVIX PO SCH (08:31)
[2018-11-01] MEDS: ASPIRIN EC PO SCH (08:31)
[2018-11-01] MEDS: ZESTORETIC 20-12.5 MG TAB PO SCH (08:31)
[2018-11-01] MEDS: BACTROBAN TP SCH ×2 (08:36→21:14)
--- NOTE | 2018-11-01 08:37 | PCM.PROG ---
Attending Provider: ATTENDING PROVIDER: Dr. RONI GALVEZ This patient is seen with Geovanna Johnson, Nurse Practitioner. DATE OF SERVICE: 11/01/18 SUBJECTIVE: This 87 year old WHITE/ M was hospitalized 10/30/18. The patient is lying in bed resting comfortably. He states he is not feeling well this morning , doesn't have much appetite. Hemoglobin is down to 8.8. He is slightly short of breath, had several large bowel movements yesterday. REVIEW OF SYSTEMS: CONSTITUTIONAL: Positive for fatigue and weakness. No night sweats. No malaise, lethargy. No fever or chills. HEENT: Eyes: No visual changes. No eye pain. No eye discharge. ENT: No runny nose. No epistaxis. No sinus pain. No odynophagia. No congestion. RESPIRATORY: No cough, no congestion. No hemoptysis. Shortness of breath. CARDIOVASCULAR: No angina symptoms. No CHF symptoms. No atypical chest pain for CAD. No palpitations. No orthopnea.. GASTROINTESTINAL: No abdominal pain. No nausea or vomiting. No diarrhea or constipation. No hematemesis. No hematochezia. GENITOURINARY: No urgency. No frequency. No dysuria. No hematuria. No obstructive symptoms. No discharge. No pain. No significant abnormal bleeding. MUSCULOSKELETAL: No musculoskeletal pain; no joint swelling. NEUROLOGICAL: Awake, alert, oriented to time, place and person. No headache. No neck pain. No syncope. No seizures. No dizziness. PSYCHIATRIC: Not anxious. No depression. No suicidal thoughts. No homicidal thoughts. SKIN: No rash. No lesions. No wounds. ENDOCRINE: No unexplained weight loss. No weight gain. HEMATOLOGIC/LYMPHATIC: Anemia. No purpura. No petechiae. No prolonged or excessive bleeding. No palpable lymph nodes. PHYSICAL EXAMINATION: GENERAL: The patient is awake, alert and oriented, lying in bed in no distress. Pallor positive. VITAL SIGNS: Temperature 98 F, Pulse 60, Respiratory Rate 20, BP 122/56, Pulse Ox 93% HEENT: Head normocephalic, atraumatic. Eyes: Extraocular muscles are intact. Pupils are equal, round and reactive to light and accommodation. Ears: No lesions. Nose appeared normal. Throat: No exudate or erythema. NECK: Supple. No JVD, no carotid bruit. No lymphadenopathy or thyromegaly. LUNGS: Diminished breath sounds. Clear to auscultation. Percussion note normal. Chest symmetrical. HEART: S1, S2, no S3. No murmurs. No cyanosis or clubbing. No ascites. Pulses: Dorsalis pedis and posterior tibial pulses +1 to +2 both sides. ABDOMEN: Soft. Non-tender. Bowel sounds active. No CVA tenderness. No mass felt. EXTREMITIES: No edema. Full range of motion of all extremities, equal. NEUROLOGIC: No focal deficit. Cranial nerves II through XII are grossly intact. No headache, no double vision or headache. SKIN: Not dry. Intact. Turgor-normal. LYMPHATIC: No palpable lymph nodes/no lymphedema. MUSCULOSKELETAL: Normal joints with no swelling. Muscle tone is normal. LAB REVIEW: 11/01/18 04:55 11/01/18 04:55 11/01/18 04:55: Sodium 130.5 L, Potassium 4.72, Chloride 101.0, Carbon Dioxide 24.9, Anion Gap 9.32, BUN 45.8 H, Creatinine 1.67 H, Estimated GFR (MDRD) 39.00 , BUN/Creatinine Ratio 27.42, Glucose 90.6, Calcium 6.89 L, Total Bilirubin 0.55 , AST 31.1, ALT 18.2, Alkaline Phosphatase 61.1, Total Protein 4.42 L, Albumin 2.26 L, Globulin 2.16, Albumin/Globulin Ratio 1.04 11/01/18 04:55: WBC 5.16, RBC 2.87 L, Hgb 8.8 L, Hct 26.9 L, MCV 93.7, MCH 30.7 , MCHC 32.7, RDW Coeff of [place] 15.0 H, Plt Count 84 L, Immature Gran % (Auto) 0.4 , Neut % (Auto) 79.8, Lymph % (Auto) 11.4, [place] % (Auto) 7.6, Eos % (Auto) 0.6, Baso % (Auto) 0.2, Immature Gran # (Auto) 0.0, Neut # (Auto) 4.1, Lymph # (Auto ) 0.6, [place] # (Auto) 0.4, Eos # (Auto) 0.0, Baso # (Auto) 0.0 10/31/18 10:10: Stl Occult Blood (IFOB) Positive, Stool Occult Blood #2 No specimen received, Stool Occult Blood #3 No specimen received ASSESSMENT: 1. Anemia, etiology unknown. 2. Renal azotemia. 3. Dehydration. 4. The patient has severe carotid occlusive disease. The patient elected not to do anything about the severe carotid stenosis for the past 10 years. He has no history of TIA in the past 2 to 3 years. PLAN: 1. Continue slow IV fluids. 2. Will monitor hemoglobin. 3. Carafate before meals. 4. Zofran 4 mg IV q.6hr p.r.n. for nausea. 5. Bactroban to left arm twice a day. 6. Stool for occult blood. Plan and coordination of the patient's care discussed in the presence of Loan Auditor and nurse. CONDITION: Stable SCRIBED BY: SHASTA THOMPSON Food Stylist scribed while in presence of service performed by Dr. Galvez/Geovanna Johnson APRN on 11/01/18 ([id number])
[2018-11-01] MEDS ORDERED: BACTROBAN OINTMENT 1 GRAM APPLICATOR (ER) TP SCH (09:00)
[2018-11-01] MEDS ORDERED: COLACE PO SCH (13:00)
[2018-11-01] MEDS: SODIUM CHLORIDE 1,000 ML IV SCH (13:19)
[2018-11-01] MEDS ORDERED: DECADRON 4 MG/ML SDV IM STA (14:41)
[2018-11-01] MEDS: MEVACOR PO SCH (16:37)
[2018-11-01] MEDS: LOTENSIN PO SCH (21:11)
[2018-11-01] MEDS: SENNA PO SCH (21:12)
[2018-11-02 05:17] VITALS: BP 143/53; TEMP 97.4
[2018-11-02] MEDS: TORADOL IVP SCH (05:30)
[2018-11-02] MEDS: FERROUS SULFATE PO SCH (05:32)
[2018-11-02] MEDS: PROTONIX PO SCH (05:32)
[2018-11-02] MEDS: CARAFATE PO SCH (05:32)
[2018-11-02] MEDS ORDERED: NON-FORMULARY MEDICATION (Fenofibrate,Micronized [Fenofibrate] 134 MG) PO SCH (08:00)
[2018-11-02] MEDS: MIRALAX PO SCH (08:30)
[2018-11-02] MEDS: ZESTORETIC 20-12.5 MG TAB PO SCH (08:31)
[2018-11-02] MEDS: ASPIRIN EC PO SCH (08:31)
[2018-11-02] MEDS: PLAVIX PO SCH (08:31)
[2018-11-02] MEDS: BACTROBAN TP SCH (08:36)
--- NOTE | 2018-11-04 11:43 | PN ---
DATE OF SERVICE: 11/01/18 SUBJECTIVE: Mr. Farnsworth was seen and examined with the nurse practitioner. The patient's condition is stable. He is going to be in the swing bed. Hemoglobin and hematocrit is stable. The patient's status has improved. Kidney functions are improving. The patient is going to be in the swing bed with IV fluids and for renal failure. TIME SPENT: More than 30 minutes. Plan and coordination of the patient's care discussed in the presence of nurse. HERMES
--- NOTE | 2018-11-05 14:48 | DS ---
DATE OF SERVICE: 11/02/18 (DISCHARGE FROM ACUTE) FINAL DIAGNOSIS: 1. SYMPTOMATIC ANEMIA 2. GI BLEED 3. DEHYDRATION 4. ACUTE ON CHRONIC RENAL FAILURE 5. COMPRESSION FRACTURES WITH INTRACTABLE BACK PAIN OF THE T-SPINE 6. MULTIPLE COMPRESSION FRACTURES 7. CORONARY ARTERY DISEASE 8. SIGNIFICANT CAROTID STENOSIS DISCHARGE INSTRUCTIONS: Admission to Transitional Care. MEDICATIONS AT DISCHARGE: Lisinopril/Hydrochlorothiazide one tab p.o. daily Fenofibrate 134 mg p.o. every other day Benazepril 40 mg p.o. bedtime Aspirin 325 mg p.o. daily Miralax 17 gm p.o. daily Sennosides/Docusate Sodium one each p.o. daily Tramadol 50 mg p.o. q.6h p.r.n. Lovastatin 20 mg p.o. bedtime Magnesium Citrate 5 oz p.o. once Plavix 75 mg p.o. daily Ferrous Sulfate 65 mg p.o. daily NEW PRESCRIPTIONS: None DISCONTINUED MEDICATIONS: None DIET INSTRUCTIONS: Regular diet ACTIVITY: As patient tolerates SMOKING: N/A DISEASE SPECIFIC EDUCATION: Admission to Transitional Care HOSPITAL COURSE: This is an 87-year-old white male who had presented to the emergency room twice. Initially two days before admission he had presented to the emergency room, had not had a bowel movement in five days. His hemoglobin was 8.3. He was sent home by the emergency room. We came upon this information, called the patient and he was still having extreme back pain and constipation, went back to the emergency room and we then admitted him with a hemoglobin of 7.8. He was short of breath, pale, very weak. He was having intractable back pain. We typed, crossed and administered two units of packed red blood cells. We did hold his Plavix. His kidney function was significantly elevated. We placed him on Normal Saline at 125 cc an hour times one liter and then on 100 cc/hr as we did not want to fluid overload him. He was hypotensive on admission. We started him on Protonix 40 mg b.i.d. along with Carafate. His hemoglobin did improve after the administration of two units. Then over a couple of days his hemoglobin began to drop again. His kidney function was not improving quickly enough and we felt that he was going to require additional blood as well as continuation of slow IV fluids as not to fluid overload him. He was still requiring IV pain medication for his back pain. X-rays of the T-spine and L- spine revealed multiple compression fractures. His stool was positive for occult blood so we felt that he qualifies for swing bed admission for continuation of slow IV fluids and stabilization of hemoglobin and hematocrit as well as for pain control. TIME SPENT: More than 60 minutes. MTDD
== END 2018-11-02 08:45 | disposition swing bed (61) | DRG 378 ==
LOC: ED 08:40 → MEDSURG B 10:33
PROVIDERS: ADMIT Internal Medicine; ATTEND Internal Medicine
DX: K92.2 Gastrointestinal hemorrhage, unspecified (principal); N17.9 Acute kidney failure, unspecified; E87.1 Hypo-osmolality and hyponatremia; S22.009A Unspecified fracture of unspecified thoracic vertebra, initial encounter for closed fracture; N18.9 Chronic kidney disease, unspecified; E86.0 Dehydration; E61.1 Iron deficiency; D64.9 Anemia, unspecified; M54.5 Low back pain; I25.10 Atherosclerotic heart disease of native coronary artery without angina pectoris; I65.29 Occlusion and stenosis of unspecified carotid artery; R10.9 Unspecified abdominal pain; R53.1 Weakness; R63.0 Anorexia; R79.89 Other specified abnormal findings of blood chemistry
CPT/HCPCS: 36415; 36430; 80053; 81001; 82272; 82607; 82728; 82746; 82962; 83540; 83550; 84439; 84443; 84466; 85014; 85018; 85025; 85045; 86850; 86900; 86922; 93005; 93010; 96374; 97802; 99284

== ENCOUNTER 2018-11-02 08:46 | Inpatient (IN) ==
[2018-11-02] MEDS ORDERED: ULTRAM PO PRN ×2 (10:04→10:18)
[2018-11-02] MEDS ORDERED: NORCO 5-325 PO PRN (10:09)
[2018-11-02] MEDS ORDERED: ZOFRAN 4 MG/2 ML IVP PRN (10:15)
[2018-11-02] MEDS: SODIUM CHLORIDE 1,000 ML IV SCH (10:20)
[2018-11-02] MEDS: CARAFATE PO SCH ×2 (10:35→16:20)
[2018-11-02] MEDS ORDERED: NORVASC PO PRN (11:24)
[2018-11-02] MEDS: COLACE PO SCH (12:00)
[2018-11-02] MEDS: TORADOL IVP SCH ×2 (13:53→21:11)
[2018-11-02] MEDS: MEVACOR PO SCH (16:21)
[2018-11-02] MEDS: PROTONIX PO SCH (16:21)
[2018-11-02] MEDS: LOTENSIN PO SCH (20:57)
[2018-11-02] MEDS: BACTROBAN TP SCH (20:58)
[2018-11-02] MEDS ORDERED: SENNA PO SCH (21:00)
[2018-11-02] MEDS ORDERED: NON-FORMULARY MEDICATION (Benazepril Hcl [Lotensin] 40 MG) PO SCH (21:00)
[2018-11-02] MEDS ORDERED: NORVASC PO SCH (21:00)
[2018-11-03] MEDS: TORADOL IVP SCH ×3 (04:46→20:45)
[2018-11-03] MEDS: FERROUS SULFATE PO SCH (05:41)
[2018-11-03] MEDS: PROTONIX PO SCH ×2 (05:41→16:07)
[2018-11-03] MEDS: CARAFATE PO SCH ×3 (05:42→16:07)
[2018-11-03] MEDS: SODIUM CHLORIDE 1,000 ML IV SCH (05:42)
[2018-11-03] MEDS: MIRALAX PO SCH (08:36)
[2018-11-03] MEDS: PLAVIX PO SCH (08:37)
[2018-11-03] MEDS: ASPIRIN EC PO SCH (08:37)
[2018-11-03] MEDS: BACTROBAN TP SCH ×2 (08:37→20:46)
[2018-11-03] MEDS: ZESTORETIC 20-12.5 MG TAB PO SCH (08:37)
[2018-11-03] MEDS ORDERED: NON-FORMULARY MEDICATION (Aspirin [Aspirin] 325 MG) PO SCH (09:00)
[2018-11-03] MEDS: COLACE PO SCH (12:57)
[2018-11-03] MEDS: MEVACOR PO SCH (16:07)
[2018-11-03] MEDS: LOTENSIN PO SCH (20:45)
[2018-11-04] MEDS: SODIUM CHLORIDE 1,000 ML IV SCH ×2 (01:09→13:18)
[2018-11-04] MEDS: PROTONIX PO SCH ×2 (05:44→16:48)
[2018-11-04] MEDS: CARAFATE PO SCH ×3 (05:44→16:47)
[2018-11-04] MEDS: FERROUS SULFATE PO SCH (05:44)
[2018-11-04] MEDS: TORADOL IVP SCH (05:44)
[2018-11-04] MEDS ORDERED: TORADOL IVP PRN (08:14)
[2018-11-04] MEDS ORDERED: NON-FORMULARY MEDICATION (Fenofibrate,Micronized [Fenofibrate] 134 MG) PO SCH (09:00)
--- NOTE | 2018-11-04 10:02 | PCM.PROG ---
Attending Provider: ATTENDING PROVIDER: Dr. RONI GALVEZ This patient is seen with Geovanna Johnson, Nurse Practitioner. DATE OF SERVICE: 11/04/18 SUBJECTIVE: This 87 year old WHITE/ M was hospitalized 11/02/18. The patient is resting comfortably. He states that he is still having some mild back pain due to compression fracture. He is have regular bowel movements. Kidney function improving. Hgb slowly going down. Diminished appetite REVIEW OF SYSTEMS: CONSTITUTIONAL: No night sweats. No fatigue, malaise, lethargy. No fever or chills. HEENT: Eyes: No visual changes. No eye pain. No eye discharge. ENT: No runny nose. No epistaxis. No sinus pain. No odynophagia. No congestion. RESPIRATORY: No cough, no congestion. No hemoptysis. No shortness of breath. CARDIOVASCULAR: No angina symptoms. No CHF symptoms. No atypical chest pain for CAD. No palpitations. No orthopnea.. GASTROINTESTINAL: No abdominal pain. No nausea or vomiting. No diarrhea or constipation. No hematemesis. No hematochezia. GENITOURINARY: No urgency. No frequency. No dysuria. No hematuria. No obstructive symptoms. No discharge. No pain. No significant abnormal bleeding. MUSCULOSKELETAL: No musculoskeletal pain; no joint swelling. Back pain. Weakness. NEUROLOGICAL: Awake, alert, oriented to time, place and person. No headache. No neck pain. No syncope. No seizures. No dizziness. PSYCHIATRIC: Not anxious. No depression. No suicidal thoughts. No homicidal thoughts. SKIN: No rash. No lesions. No wounds. ENDOCRINE: No unexplained weight loss. No weight gain. HEMATOLOGIC/LYMPHATIC: Anemia. No purpura. No petechiae. No prolonged or excessive bleeding. No palpable lymph nodes. PHYSICAL EXAMINATION: GENERAL: The patient is awake, alert and oriented, lying in bed in no distress. VITAL SIGNS: Temperature 97.5 F, Pulse 63, Respiratory Rate 16, BP 131/51, Pulse Ox 99% HEENT: Head normocephalic, atraumatic. Eyes: Extraocular muscles are intact. Pupils are equal, round and reactive to light and accommodation. Ears: No lesions. Nose appeared normal. Throat: No exudate or erythema. NECK: Supple. No JVD, no carotid bruit. No lymphadenopathy or thyromegaly. LUNGS: Diminished breath sounds. Clear to auscultation. Percussion note normal. Chest symmetrical. HEART: S1, S2, no S3. No murmurs. No cyanosis or clubbing. No ascites. Pulses: Dorsalis pedis and posterior tibial pulses +1 to +2 both sides. ABDOMEN: Soft. Non-tender. Bowel sounds active. No CVA tenderness. No mass felt. EXTREMITIES: No edema. Full range of motion of all extremities, equal. NEUROLOGIC: No focal deficit. Cranial nerves II through XII are grossly intact. No headache, no double vision or headache. SKIN: Not dry. Intact. Turgor-normal. Pallor. LYMPHATIC: No palpable lymph nodes/no lymphedema. MUSCULOSKELETAL: Normal joints with no swelling. Muscle tone is normal. LAB REVIEW: 11/04/18 04:50 11/04/18 04:50 11/04/18 04:50: Sodium 133.2 L, Potassium 4.20, Chloride 106.7, Carbon Dioxide 23.9, Anion Gap 6.80, BUN 41.8 H, Creatinine 1.57 H, Estimated GFR (MDRD) 42.00 , BUN/Creatinine Ratio 26.62, Glucose 80.1, Calcium 7.11 L, Total Bilirubin 0.47 , AST 31.1, ALT 17.7, Alkaline Phosphatase 68.0, Total Protein 4.09 L, Albumin 1.96 L, Globulin 2.13, Albumin/Globulin Ratio 0.92 11/04/18 04:50: WBC 3.45 L, RBC 2.59 L, Hgb 8.0 L, Hct 24.4 L, MCV 94.2 H, MCH 30.9, MCHC 32.8, RDW Coeff of [place] 14.5, Plt Count 90 L, Immature Gran % (Auto) 0.9, Neut % (Auto) 69.2, Lymph % (Auto) 20.9, [place] % (Auto) 6.4, Eos % (Auto) 2.3, Baso % (Auto) 0.3, Immature Gran # (Auto) 0.0, Neut # (Auto) 2.4, Lymph # ( Auto) 0.7, [place] # (Auto) 0.2 L, Eos # (Auto) 0.1, Baso # (Auto) 0.0 ASSESSMENT: Please see below. 1. Acute anemia 2. Acute on chronic renal failure 3. Compression fracture, T spine PLAN: 1. Type and hold one unit packed red blood cells 2. Discontinue IV fluids 3. Toradol 30mg PRN 4. [place] 5-325 twice a day Plan and coordination of the patient's care discussed in the presence of Grid Trimmer and nurse. SCRIBED BY: EVA MCNEIL Levelman scribed while in presence of service performed by Dr. Galvez/Geovanna Johnson APRN on 11/04/18 ([id number])
--- NOTE | 2018-11-04 10:11 | RS.PTINEVL ---
Subjective - Patient information Date of Evaluation: 11/04/18 Date of Arrival on Unit: 11/02/18 Admitted From:: Facility Transfer (pt transferred to swing bed.) Diagnosis: symptomatic anemia, weakness, lumbar compression fx Usual Living Arrangement: Alone Living Arrangement Comments: has a nephew who checks on him. Home Environment: House, Stairs (few), Rail Medical History: Hypertension Medical History Comments:: dehydration, BLE edema, constipation LATEX ALLERGY?: No Surgical History Comments:: cataract surgery Medications: see chart Subjective Information/ Patient Comments:: pt states that he is doing better. States he would like to get up and walk. - Level of function Prior to this admission, the patient could do the following:: Independent ADL's , Independent Ambulation Abilities prior to this admission: pt amb short distances with walking stick. Current Level of Function: Partially Dependent Current Equipment Used at Home: Walking stick Pain Assessement - Location low back pain Description: Aching Intensity: 5 (with movement) Effects of Pain: pt states at rest no pain Interventions - Objective Patient Orientation: Person, Place, Time Observation: pt seen in bed, had just gotten back in bed from [facility] independently. Range of Motion - ROM Right Upper Extremity AROM: WFL's Left Upper Extremity AROM: WFL's Right Lower Extremity AROM: WFL's Left Lower Extremity AROM: WFL's Muscle Strength - Muscle Strength Right Upper Extremity Strength: Mild Weakness (grossly 4/5) Left Upper Extremity Strength: Mild Weakness (grossly 4/5) Right Lower Extremity Strength: Mild Weakness (grossly 4 to 4+/5) Left Lower Extremity Strength: Mild Weakness (grossly 4 to 4+/5) Sensation - Sensation Right Upper Extremity Sensation: Intact/Normal Left Upper Extremity Sensation: Intact/Normal Right Lower Extremity Sensation: Intact/Normal Left Lower Extremity Sensation: Intact/Normal Palpation Palpation Findings: None/Normal Balance - Sitting Balance and Reactions Static Sitting Balance: Good Dynamic Sitting Balance: Good - Standing Balance and Reactions Static Standing Balance: Good Dynamic Standing Balance: Fair - Comments Balance Assessment Comments: pt stood independently without LOB while buttoning shirt, as well as pulling up jeans Functional Mobility - Bed Mobility Rolling R/L: Independent Scooting: Independent Supine to Sit: Independent Sit to Supine: Independent - Transfers Sit to Stand: Supervision Stand to Sit: Supervision - Safety Awareness Safety Awareness: Fair JAMARI INDEX SCORE: 90 Ambulation - Ambulation Assistive Device Used: Rolling Walker Orthotic/Prosthetic Device: No Distance: 300+ Assistance needed with Ambulation: Supervision Ambulation Comments: pt amb with flexed posture and decreased step length. Feel pt would benefit from rolling walker for home. pt c/o some low back pain with amb. Factors Affecting Ambulation: Pain, Weakness Treatment time - Time with patient Length of Evaluation: 21 Total treatment time: 24 Patient Education - Education Patient Education: Home Exercise Program, Education of Plan of Care Teaching Recipient: Patient Teaching Methods: Discussion Assessment - Assessment Further Therapy Indicated?: No Candidate for Swing Bed for Therapy Services?: pt is not a candidiate for swing bed for therapy due to pt is independent with transfers, amb with SBA. Recommend pt amb with nursing for supervision with rolling walker Comments: pt will need a rolling walker for home if dc home and may benefit from home health PT if dc home to instruct on safety with rwx in the home. Evaluation Complexity: HISTORY: Low, EXAM OF BODY SYSTEMS: Low, CLINICAL PRESENTATION: Low, CLINICAL DECISION MAKING: Low Plan Other:: eval only pt does not require skilled PT at this time. Frequency of Treatment: One time treatment Duration of Treatment: One Time Treatment Anticipated Discharge Destination: Group Home Care Facility (per case management) Treatment Diagnosis (ICD 10 Codes): m 62.81 Has the Physician been added for Co-signature?: Yes
[2018-11-04] MEDS: MIRALAX PO SCH (10:41)
[2018-11-04] MEDS: ZESTORETIC 20-12.5 MG TAB PO SCH (10:42)
[2018-11-04] MEDS: NORCO 5-325 PO SCH ×2 (10:42→21:43)
[2018-11-04] MEDS: PLAVIX PO SCH (10:42)
[2018-11-04] MEDS: BACTROBAN TP SCH ×2 (10:46→21:42)
[2018-11-04] MEDS: ASPIRIN EC PO SCH (10:48)
--- NOTE | 2018-11-04 12:58 | HP ---
DATE OF SERVICE: 11/02/18 - SWING BED ADMISSION HISTORY OF PRESENT ILLNESS: 87-year-old white male hospitalized with symptomatic anemia. The patient is feeling better. He has been given two units of packed red cells and his hemoglobin is 9.8 with hematocrit of 26. The patient's potassium is 4.7, creatinine 1.7, BUN 42 complaining of back pain as usual which is less than when he came in with. The patient has compression fractures. 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 History of hypertension Dyslipidemia PAST SURGICAL HISTORY: Bilateral cataracts removed 2011 REVIEW OF SYSTEMS: CONSTITUTIONAL: No night sweats. No fatigue, malaise, lethargy. No fever or chills. HEENT: Eyes: No visual changes. No eye pain. No eye discharge. ENT: No runny nose. No epistaxis. No sinus pain. No sore throat. No odynophagia. No ear pain. No congestion. RESPIRATORY: No cough, no congestion. No hemoptysis. No shortness of breath. CARDIOVASCULAR: No angina symptoms. No CHF symptoms. No atypical chest pain for CAD. No palpitations. No PND. No orthopnea. GASTROINTESTINAL: No abdominal pain. No nausea or vomiting. No diarrhea or constipation. No hematemesis. No hematochezia. GENITOURINARY: No urgency. No frequency. No dysuria. No hematuria. No obstructive symptoms. No discharge. No pain. No significant abnormal bleeding. MUSCULOSKELETAL: No musculoskeletal pain. No joint swelling. No arthritis. NEUROLOGICAL: No headache. No neck pain. No syncope. No seizures. No dizziness. PSYCHIATRIC: Not anxious. No depression. No suicidal thoughts. No homicidal thoughts. SKIN: No rash. No lesions. No wounds. ENDOCRINE: No unexplained weight loss. No weight gain. HEMATOLOGIC/LYMPHATIC: No anemia. No purpura. No petechiae. No prolonged or excessive bleeding. No palpable lymph nodes. PERSONAL/FAMILY/SOCIAL HISTORY: The patient is , lives by himself. He does all activity of daily living. He is somewhat forgetful but still intelligent. His family is his nephew, Aron Farnsworth. MEDICATIONS: Aspirin Benazepril Fenofibrate Lovastatin Tramadol Clopidogrel Ferrous Sulfate ALLERGIES: NKDA PHYSICAL EXAMINATION: GENERAL: The patient is oriented to time, place and person, looks somewhat pale but the color looks a lot better than when he came in with temperature 97.4 , pulse 58, respiratory rate 18, blood pressure 140/53, pulse ox 96%. HEENT: Head normocephalic, atraumatic. Eyes: Extraocular muscles are intact. Pupils are equal, round and reactive to light and accommodation. Ears: No lesions. Nose appeared normal. Throat: No exudate or erythema. NECK: Supple. No JVD. Mild bruit on the right side. No lymphadenopathy or thyromegaly. LUNGS: Decreased breath sounds but clear to auscultation. Percussion note normal. Chest symmetrical. HEART: S1, S2, no S3. No murmurs. No cyanosis or clubbing. No ascites. Pulses: Dorsalis pedis and posterior tibial pulses feeble bilaterally. ABDOMEN: Soft. Nontender. Bowel sounds active. No CVA tenderness. No mass felt. EXTREMITIES: No edema. Full range of motion of all extremities, equal. NEUROLOGIC: No focal deficit. Cranial nerves II through XII are grossly intact. No headache, no double vision or headache. SKIN: Not dry. Intact. Turgor - normal. LYMPHATIC: No palpable lymph nodes/no lymphedema. MUSCULOSKELETAL: Normal joints with no swelling. Muscle tone is normal. ASSESSMENT/PLAN: 1. Dehydration with renal failure. 2. The patient has history of TIA. 3. Severe carotid occlusive disease. The patient is off plavix because recently some drop with blood pressure, possibility of GI bleed. The patient doesn't want any EGD or colonoscopy. I explained to the nephew and he is also of the same opinion. The patient will need IV fluids. We will monitor CBC because of the symptomatic anemia. 4. The patient's appetite is improving. His main problem at the present time is back pain which is being treated with IV Toradol. helping him some. The patient has compression fracture. CONDITION: Stable. TIME SPENT: More than 70 minutes. [facility]
--- NOTE | 2018-11-04 13:28 | RS.OTINEVL ---
Subjective - Patient information Date of Evaluation: 11/04/18 Date of Arrival on Unit: 11/02/18 Admitted From:: Facility Transfer (pt transferred to swing bed.) Diagnosis: cardiac disorders, hypercholesterolemia PRECAUTIONS: Anemia Usual Living Arrangement: Alone Living Arrangement Comments: has a nephew who checks on him. Home Environment: House, Stairs (few), Rail Medical History: Hypertension Medical History Comments:: dehydration, BLE edema, constipation LATEX ALLERGY?: No Surgical History Comments:: cataract surgery Medications: see chart Subjective Information/ Patient Comments:: "Yes. I moved from that to the bed by myself." - Level of function Prior to this admission, the patient could do the following:: Independent ADL's , Independent Ambulation Abilities prior to this admission: Pt was living at home alone. Pt was independent with his self cares. Current Level of Function: Independent Current Equipment Used at Home: Walking stick Pain Assessment - Pain Pain Score: 3 Side: bilateral Pain Location Body Site: Back Pain Aggravating Factors: ADL's, Changing Position Pain Alleviating Factors: Medication Interventions - Objective Patient Orientation: Person, Place, Time Observation: Pt sat up to EOB independently. Pt reported his completed personal hygiene after toileting on the BSC. Pt then dressed himself independently both UB and LB. Pt then stood independently and grabbed the walker to walk. Interventions - ROM Right Upper Extremity AROM: No movement - Strength Right Upper Extremity Strength: Normal Left Upper Extremity Strength: Normal - Sensation Right Upper Extremity Sensation: Intact/Normal Left Upper Extremity Sensation: Intact/Normal Balance - Sitting Balance Static Sitting Balance: Good Dynamic Sitting Balance: Good - Standing Balance Static Standing Balance: Fair Dynamic Standing Balance: Fair ADL Skills - Self Feeding Self Feeding: Independent - Grooming Grooming: Independent - Dressing Dressing UE: Independent Dressing LE: Independent - Toilet Management Toileting Management: Independent Functional Mobility - Bed Mobility Rolling R/L: Independent Scooting: Independent Supine to Sit: Independent Sit to Supine: Independent - Transfers Sit to Stand: Independent Stand to Sit: Independent Stand Pivot Transfers: Independent Comments:: Pt is independent with a rolling walker to transfer. - Ambulation Weight Bearing Status: FWB Assistive Device Used: Rolling Walker Assistance needed with Ambulation: Independent - Safety Awareness Safety Awareness: Fair JAMARI INDEX SCORE: . Additional Treatment Performed - Time with patient Length of Evaluation: 20 Total treatment time: 20 Activities Do you enjoy playing games?: No Would you be interested in leaving your room for activities?: Yes Would you enjoy group activities?: Yes Do you have difficulty with your vision?: Yes Patient Interests:: Watching Television Patient Education Patient Education: Education of diagnosis, Education of Plan of Care Teaching Recipient: Patient Teaching Methods: Discussion Assessment Further Therapy Indicated?: No Candidate for Swing Bed for Therapy Services?: No Comments: Pt functioning on a high level at this time. Evaluation Complexity: HISTORY: Low, EXAM OF BODY SYSTEMS: Low, CLINICAL DECISION MAKING: Low Plan Treatment Diagnosis (ICD 10 Codes): M62.81 Has the Physician been added for Co-signature?: Yes
[2018-11-04] MEDS: COLACE PO SCH (13:31)
[2018-11-04] MEDS: MEVACOR PO SCH (16:48)
[2018-11-04] MEDS: LOTENSIN PO SCH (21:43)
[2018-11-05] MEDS: FERROUS SULFATE PO SCH (05:54)
[2018-11-05] MEDS: CARAFATE PO SCH ×3 (05:54→16:39)
[2018-11-05] MEDS: PROTONIX PO SCH ×2 (05:55→16:39)
[2018-11-05] MEDS: BACTROBAN TP SCH (09:56)
[2018-11-05] MEDS: ASPIRIN EC PO SCH (10:00)
[2018-11-05] MEDS: PLAVIX PO SCH (10:01)
[2018-11-05] MEDS: MIRALAX PO SCH (10:01)
[2018-11-05] MEDS: ZESTORETIC 20-12.5 MG TAB PO SCH (10:01)
[2018-11-05] MEDS: NORCO 5-325 PO SCH ×2 (10:01→21:12)
[2018-11-05] MEDS: COLACE PO SCH (13:18)
[2018-11-05] MEDS: MEVACOR PO SCH (16:39)
[2018-11-05] MEDS: LOTENSIN PO SCH (21:12)
[2018-11-06] MEDS: FERROUS SULFATE PO SCH (05:43)
[2018-11-06] MEDS: CARAFATE PO SCH ×2 (05:43→11:53)
[2018-11-06] MEDS: PROTONIX PO SCH (05:43)
--- NOTE | 2018-11-06 08:16 | HP ---
DATE OF SERVICE: 11/02/18 - SWING BED ADMISSION HISTORY OF PRESENT ILLNESS: 87-year-old white male who presented to the emergency room with weakness, back pain, constipation. He was found to have a hemoglobin of 7.8, required several units of packed red blood cells. He was in acute renal failure, severely dehydrated with hypernatremia. He was in acute care, placed on IV fluids and given packed red blood cells although his hemoglobin is still falling. Kidney function is not quite improved so he was placed on swing bed. After continuation of slow IV fluids, stabilization of H & H as well as pain control as he is still receiving IV Toradol for his intractable back pain. PAST MEDICAL HISTORY: Recent multiple level compression fractures of the T-spine and L-spine Symptomatic anemia Acute GI bleed Stool positive for occult blood Dehydration Acute on chronic renal failure Hyponatremia Hypertension Coronary artery disease Carotid stenosis Dyslipidemia History of iron deficiency anemia PAST SURGICAL HISTORY: None REVIEW OF SYSTEMS: CONSTITUTIONAL: Positive for weakness, pallor. No night sweats. No malaise, lethargy. No fever or chills. HEENT: Eyes: No visual changes. No eye pain. No eye discharge. ENT: No runny nose. No epistaxis. No sinus pain. No sore throat. No odynophagia. No ear pain. No congestion. RESPIRATORY: No cough, no congestion. No hemoptysis. No shortness of breath. CARDIOVASCULAR: No angina symptoms. No CHF symptoms. No atypical chest pain for CAD. No palpitations. No PND. No orthopnea. GASTROINTESTINAL: No abdominal pain. No nausea or vomiting. No diarrhea or constipation. No hematemesis. No hematochezia. GENITOURINARY: No urgency. No frequency. No dysuria. No hematuria. No obstructive symptoms. No discharge. No pain. No significant abnormal bleeding. MUSCULOSKELETAL: Back pain. NEUROLOGICAL: No headache. No neck pain. No syncope. No seizures. No dizziness. PSYCHIATRIC: Not anxious. No depression. No suicidal thoughts. No homicidal thoughts. SKIN: No rash. No lesions. No wounds. ENDOCRINE: No unexplained weight loss. No weight gain. HEMATOLOGIC/LYMPHATIC: No anemia. No purpura. No petechiae. No prolonged or excessive bleeding. No palpable lymph nodes. PERSONAL/FAMILY/SOCIAL HISTORY: The patient is , lives by himself. No alcohol or illicit drug use. MEDICATIONS: Aspirin Benazepril Fenofibrate Lovastatin Tramadol Clopidogrel Ferrous Sulfate ALLERGIES: NKDA PHYSICAL EXAMINATION: GENERAL: Pallor. HEENT: Head normocephalic, atraumatic. Eyes: Extraocular muscles are intact. Pupils are equal, round and reactive to light and accommodation. Ears: No lesions. Nose appeared normal. Throat: No exudate or erythema. NECK: Supple. No JVD. Mild bruit on the right side. No lymphadenopathy or thyromegaly. LUNGS: Diminished breath sounds but clear to auscultation. Percussion note normal. Chest symmetrical. HEART: S1, S2, no S3. No murmurs. No cyanosis or clubbing. No ascites. Pulses: Dorsalis pedis and posterior tibial pulses feeble bilaterally. ABDOMEN: Soft. Nontender. Bowel sounds active. No CVA tenderness. No mass felt. EXTREMITIES: No edema. Full range of motion of all extremities, equal. NEUROLOGIC: No focal deficit. Cranial nerves II through XII are grossly intact. No headache, no double vision or headache. SKIN: Not dry. Intact. Turgor - normal. LYMPHATIC: No palpable lymph nodes/no lymphedema. MUSCULOSKELETAL: Normal joints with no swelling. Muscle tone is normal. LABS: 11/02/18 WBC 5.59, RBC 2.82, Hgb 8.8, HCT 26.5, platelet count 104. Sodium 131.8 , potassium 4.52, chloride 103.1, carbon dioxide 24.2, BUN 42.4, creatinine 1.70 , glucose 92.2, calcium 7.15, AST 25.1, ALT 18.1, alkaline phosphatase 66.7, total protein 4.36, albumin 2.23. ASSESSMENT: 1. SYMPTOMATIC ANEMIA 2. ACUTE ON CHRONIC RENAL FAILURE 3. ACUTE DEHYDRATION 4. GI BLEED - POSITIVE STOOL FOR OCCULT BLOOD 5. ACUTE COMPRESSION FRACTURES OF THE T-SPINE MULTILEVEL WITH INTRACTABLE BACK PAIN. PLAN: 1. We will admit to swing bed. 2. We will type, cross and hold two units again. 3. CBC, CMP daily to monitor his kidney function and hemoglobin. 4. He will continue with IV Toradol. 5. We will attempt to place him on p.o. medication to see if this can control his pain. 6. Continue IV fluids, Normal Saline at 75 cc/hr. 7. Continue Protonix. 8. We will follow him closely. CONDITION: Stable. TIME SPENT: More than 70 minutes. MTDD
[2018-11-06] MEDS ORDERED: CITRATE OF MAGNESIA PO STA (08:18)
--- NOTE | 2018-11-06 08:43 | PCM.PROG ---
Attending Provider: ATTENDING PROVIDER: Dr. RONI GALVEZ This patient is seen with Geovanna Johnson, Nurse Practitioner. DATE OF SERVICE: 11/06/18 SUBJECTIVE: This 87 year old WHITE/ M was hospitalized 11/02/18. The patient is resting comfortably. His back pain seems to be under control with Hydrocodone. Hgb is stable as well as kidney function. He is in agreement that he wants no further evaluation for anemia or coronary stenosis. Agreed to go to [facility] for rehab. REVIEW OF SYSTEMS: CONSTITUTIONAL: No night sweats. No fatigue, malaise, lethargy. No fever or chills. Weakness. HEENT: Eyes: No visual changes. No eye pain. No eye discharge. ENT: No runny nose. No epistaxis. No sinus pain. No odynophagia. No congestion. RESPIRATORY: No cough, no congestion. No hemoptysis. No shortness of breath. CARDIOVASCULAR: No angina symptoms. No CHF symptoms. No atypical chest pain for CAD. No palpitations. No orthopnea.. GASTROINTESTINAL: No abdominal pain. No nausea or vomiting. No diarrhea or constipation. No hematemesis. No hematochezia. GENITOURINARY: No urgency. No frequency. No dysuria. No hematuria. No obstructive symptoms. No discharge. No pain. No significant abnormal bleeding. MUSCULOSKELETAL: No musculoskeletal pain; no joint swelling. Back pain. NEUROLOGICAL: Awake, alert, oriented to time, place and person. No headache. No neck pain. No syncope. No seizures. No dizziness. PSYCHIATRIC: Not anxious. No depression. No suicidal thoughts. No homicidal thoughts. SKIN: No rash. No lesions. No wounds. ENDOCRINE: No unexplained weight loss. No weight gain. HEMATOLOGIC/LYMPHATIC: Anemia. No purpura. No petechiae. No prolonged or excessive bleeding. No palpable lymph nodes. PHYSICAL EXAMINATION: GENERAL: The patient is awake, alert and oriented, lying in bed in no distress. VITAL SIGNS: Temperature 98.8 F, Pulse 59, Respiratory Rate 16, BP 155/59, Pulse Ox 96% HEENT: Head normocephalic, atraumatic. Eyes: Extraocular muscles are intact. Pupils are equal, round and reactive to light and accommodation. Ears: No lesions. Nose appeared normal. Throat: No exudate or erythema. NECK: Supple. No JVD, no carotid bruit. No lymphadenopathy or thyromegaly. LUNGS: Diminished breath sounds. Clear to auscultation. Percussion note normal. Chest symmetrical. HEART: S1, S2, no S3. No murmurs. No cyanosis or clubbing. No ascites. Pulses: Dorsalis pedis and posterior tibial pulses +1 to +2 both sides. ABDOMEN: Soft. Non-tender. Bowel sounds active. No CVA tenderness. No mass felt. EXTREMITIES: No edema. Full range of motion of all extremities, equal. NEUROLOGIC: No focal deficit. Cranial nerves II through XII are grossly intact. No headache, no double vision or headache. SKIN: Not dry. Intact. Turgor-normal. LYMPHATIC: No palpable lymph nodes/no lymphedema. MUSCULOSKELETAL: Normal joints with no swelling. Muscle tone is normal. LAB REVIEW: 11/06/18 05:05 11/06/18 05:05 11/06/18 05:05: Sodium 133.5 L, Potassium 4.25, Chloride 105.8, Carbon Dioxide 24.1, Anion Gap 7.85, BUN 34.5 H, Creatinine 1.49 H, Estimated GFR (MDRD) 45.00 , BUN/Creatinine Ratio 23.15, Glucose 75.7, Calcium 7.53 L, Total Bilirubin 0.54 , AST 30.5, ALT 17.7, Alkaline Phosphatase 82.3, Total Protein 4.24 L, Albumin 2.16 L, Globulin 2.08, Albumin/Globulin Ratio 1.03 11/06/18 05:05: WBC 3.53 L, RBC 2.77 L, Hgb 8.5 L, Hct 26.2 L, MCV 94.6 H, MCH 30.7, MCHC 32.4, RDW Coeff of Tika 14.3, Plt Count 101 L, Immature Gran % (Auto) 0.8, Neut % (Auto) 57.3, Lymph % (Auto) 30.3, [place] % (Auto) 8.2, Eos % (Auto) 2.8, Baso % (Auto) 0.6, Immature Gran # (Auto) 0.0, Neut # (Auto) 2.0, Lymph # ( Auto) 1.1, [place] # (Auto) 0.3 L, Eos # (Auto) 0.1, Baso # (Auto) 0.0 ASSESSMENT: Please see below. 1. Anemia, stable 3. Chronic kidney disease 3. Multiple compression fractures to T spine, pain controlled with Hydrocodone. 4. Generalized weakness. 5. Constipation. PLAN: 1. Discharge to [facility] today 2. CBC on Sunday 3. Bottle of Magnesium Citrate 4. Discontinue aspirin 5. Will continue Plavix due to severe carotid stenosis for which he refuses further treatment. 6. Megace 40mg daily 7. [place] three times a day 8. Movantik 12.5 QAM one hour before meals. 9. Norvasc 10mg at bedtime 10.Discussed anemia in detail with the patient and he does not wish for GI evaluation for colonoscopy. Plan and coordination of the patient's care discussed in the presence of Sand Technician and nurse. SCRIBED BY: Virgil JANE scribed while in presence of service performed by Dr. Galvez/Geovanna Johnson APRN on 11/06/18 ([id number])
[2018-11-06] MEDS: ASPIRIN EC PO SCH (08:57)
[2018-11-06] MEDS: MIRALAX PO SCH (08:59)
[2018-11-06] MEDS ORDERED: MEGACE PO SCH (09:00)
[2018-11-06] MEDS ORDERED: HYDROCHLOROTHIAZIDE PO SCH (09:00)
[2018-11-06] MEDS ORDERED: LOTENSIN PO SCH (09:00)
[2018-11-06] MEDS: NORCO 5-325 PO SCH ×2 (09:01→15:46)
[2018-11-06] MEDS: PLAVIX PO SCH (09:01)
[2018-11-06 10:11] VITALS: BP 120/60; TEMP 98.6
--- NOTE | 2018-11-06 11:05 | CM.DICTOOL ---
ADMISSION: 11/02/18 08:46 DISCHARGE: NOVEMBER 06, 2018 DATE OF SERVICE: 11/06/18 FINAL DIAGNOSIS DEHYDRATION, RESOLVED ANEMIA, STABLE HYPONATREMIA CHRONIC RENAL FAILURE WEAKNESS CONSTIPATION RENAL AZOTEMIA IRON DEFICIT WEAKNESS CONSTIPATION HYPERTENSION HYPERLIPIDEMIA CAROTID OCCLUSIVE DISEASE COMPRESSION FRACTURE T11, L1 DEGENERATIVE DISK DISEASE BILATERAL CATARACT 2011 LAST VITALS Temp Pulse Resp BP Pulse Ox 98.6 F 60 L 18 120/60 99% 11/06/18 10:00 11/06/18 10:00 11/06/18 10:00 11/06/18 10:00 11/06/18 10:00 TAKE THESE MEDICATIONS AT HOME Hydrocodone Bitart/Acetaminophen ([place] 5-325) 1 tab PO TID [facility] Amlodipine Besylate (Norvasc) 10 mg PO BEDTIME [facility] Benazepril HCl (Lotensin) 40 mg PO DAILY [facility] Clopidogrel Bisulfate (Plavix) 75 mg PO DAILY [facility] Last Admin: 11/05/18 10:01 Dose: 75 mg Docusate Sodium (Colace) 100 mg PO 1300 [facility] Last Admin: 11/05/18 13:18 Dose: 100 mg Ferrous Sulfate (Ferrous Sulfate) 324 mg PO QDAC [facility] Last Admin: 11/06/18 05:43 Dose: 324 mg Hydrochlorothiazide (Hydrochlorothiazide) 12.5 mg PO DAILY [facility] Lovastatin (Mevacor) 20 mg PO QPM [facility] Last Admin: 11/05/18 16:39 Dose: 20 mg Megestrol Acetate (Megace) 40 mg PO DAILY [facility] Pantoprazole Sodium (Protonix) 40 mg PO BIDAC [facility] Last Admin: 11/06/18 05:43 Dose: 40 mg Polyethylene Glycol (Miralax) 17 gm PO DAILY [facility] Last Admin: 11/05/18 10:01 Dose: 17 gm Sucralfate (Carafate) 1 gm PO TIDAC [facility] Last Admin: 11/06/18 05:43 Dose: 1 gm ALLERGIES No Known Allergies Allergy (Unverified 10/27/18 13:37) DISCONTINUED MEDICATIONS Aspirin (Aspirin Ec) 81 mg PO DAILYWM [facility] Lisinopril/HCTZ (Zestoretic 20-12.5 Mg Tab) 1 tab PO DAILY [facility] Non-Formulary Medication (Fenofibrate,Micronized [Fenofibrate]) 134 mg PO EVERY OTHER DAY [facility] Last Admin: 11/04/18 10:43 Dose: 134 mg Tramadol (Ultram) 50 mg PO Q6HR PRN NEW PRESCRIPTIONS: MOVANTIK 12.5 MG 1 TABLET BY MOUTH EVERY MORNING; ONE HOUR PRIOR TO BREAKFAST MEGACE 40 MG PO DAILY, TO BE GIVEN IN THE MORNING NORCO 5/325 MG 1 TABLET BY MOUTH THREE TIMES A DAY, INCREASED FROM TWICE A DAY NORVASC 10 MG 1 TABLET BY MOUTH AT BEDTIME; INCREASED FROM 5 MG BID NEEDED LOTENSIN 40 MG 1 TABLET BY MOUTH DAILY, TO BE GIVEN IN THE MORNING INSTEAD OF AT BEDTIME HYDROCHLOROTHIAZIDE 12.5 MG 1 TABLET BY MOUTH DAILY; TO BE GIVEN EVERY MORNING. CARAFATE 1 GRAM BY MOUTH THREE TIMES A DAY BEFORE MEALS. SMOKING: NON SMOKER DISEASE SPECIFIC EDUCATION: DEHYDRATION ANEMIA CHRONIC PAIN CONSTIPATION LAB REVIEW: 11/06/18 05:05 11/06/18 05:05 11/06/18 05:05: Sodium 133.5 L, Potassium 4.25, Chloride 105.8, Carbon Dioxide 24.1, Anion Gap 7.85, BUN 34.5 H, Creatinine 1.49 H, Estimated GFR (MDRD) 45.00 , BUN/Creatinine Ratio 23.15, Glucose 75.7, Calcium 7.53 L, Total Bilirubin 0.54 , AST 30.5, ALT 17.7, Alkaline Phosphatase 82.3, Total Protein 4.24 L, Albumin 2.16 L, Globulin 2.08, Albumin/Globulin Ratio 1.03 11/06/18 05:05: WBC 3.53 L, RBC 2.77 L, Hgb 8.5 L, Hct 26.2 L, MCV 94.6 H, MCH 30.7, MCHC 32.4, RDW Coeff of Tika 14.3, Plt Count 101 L, Immature Gran % (Auto) 0.8, Neut % (Auto) 57.3, Lymph % (Auto) 30.3, [place] % (Auto) 8.2, Eos % (Auto) 2.8, Baso % (Auto) 0.6, Immature Gran # (Auto) 0.0, Neut # (Auto) 2.0, Lymph # ( Auto) 1.1, [place] # (Auto) 0.3 L, Eos # (Auto) 0.1, Baso # (Auto) 0.0 PLAN: DISCHARGE TO [facility] TODAY 11/06/2018 DIET: REGULAR DIET WITH REGULAR CONSISTENCY AND THIN LIQUIDS INCREASE PROTEIN FOODS ACTIVITY: UP TO DINING ROOM FOR MEALS MAY PARTICIPATE IN ACTIVITY PROGRAM VITAL SIGNS DAILY FOR ONE WEEK, THEN WEEKLY WEIGHT MONTHLY CBC ON SundayOctober, CALL RESULTS CBC, CMP EVERY 3 MONTHS LIPIDS, TSH EVERY 6 MONTHS PT/OT EVALUATION PATIENT TO BE SEEN ON NURSING ROUNDS BY NIESHA ZAVALA APRN IN 7-10 DAYS CODE STATUS: FULL CODE ALERT, ORIENTED TIMES THREE. HE IS AWARE OF DISCHARGE TO [facility] FOR THERAPY. HIS NEPHEW SIOBHAN IS AGREEABLE WITH PLAN. SPEECH IS CLEAR. HE IS ABLE TO PERFORM ALL ACTIVITIES OF DAILY LIVING WITH MINIMAL ASSISTANCE WITH BATHING. HE IS ABLE TO TRANSFER WITH ONE ASSIST AND ROLLING WALKER. HE IS CONTINENT OF BOWEL AND BLADDER. APPETITE IS POOR. SKIN TURGOR HAS IMPROVED. HYDRATION STATUS IS ADEQUATE. SKIN IS INTACT. RONI GALVEZ M.D. NIESHA ZAVALA APRN
[2018-11-06] MEDS: COLACE PO SCH (13:24)
--- NOTE | 2018-11-06 13:54 | PN ---
DATE OF SERVICE: 11/05/18 SUBJECTIVE: The patient is seen and examined with the nurse practitoner. The patient's condition is stable. He is feeling better. Hemoglobin and hematocrit seem to be dropping slow. Hemoglobin and hematocrit seem to be up today at 8.5 and 26. The IV fluids have been discontinued. Creatinine 1.6 and BUN 39 practically more or less stable. Mobility seems to be improving with physical therapy. CONDITION: Stable. TIME SPENT: More than 30 minutes. Plan and coordination of the patient's care discussed in the presence of nurse. HERMES
[2018-11-06] MEDS ORDERED: NORVASC PO SCH (21:00)
--- NOTE | 2018-11-08 14:42 | PN ---
DATE OF SERVICE: 11/06/18 SUBJECTIVE: The patient was seen and examined with Nurse Practitioner. The patient's condition is stable. The patient [facility]. Hgb and hct is stable. He denied any colonoscopy, he declined any further workup in a way of carotid scan and declined EGD. He doesn't want any further testing. The patient is full code. He is oriented to time, place and person. CONDITION: Stable. TIME SPENT: More than 30 minutes. Plan and coordination of the patient's care discussed in the presence of nurse. HERMES
--- NOTE | 2018-11-08 14:43 | PN ---
11/02/18: Level 5 11/03/18: Intermediate 11/04/18: Intermediate 11/05/18: Intermediate 11/06/18: D as in discharge MTDD
--- NOTE | 2018-11-14 14:03 | DS ---
DATE OF SERVICE: 11/06/18 (DISCHARGED FROM [facility]) FINAL DIAGNOSIS: 1. DEHYDRATION, RESOLVED 2. ANEMIA, STABLE 3. HYPONATREMIA 4. CHRONIC RENAL FAILURE 5. WEAKNESS 6. CONSTIPATION 7. RENAL AZOTEMIA 8. IRON DEFICIT 9. WEAKNESS 10. CONSTIPATION 11. HYPERTENSION 12. HYPERLIPIDEMIA 13. CAROTID OCCLUSIVE DISEASE 14. COMPRESSION FRACTURE T11, L1 15. DEGENERATIVE DISK DISEASE 16. BILATERAL CATARACT 2011 DISCHARGE INSTRUCTIONS: 1. DISCHARGE TO [facility] TODAY 11/06/2018 2. VITAL SIGNS DAILY FOR ONE WEEK, THEN WEEKLY 3. WEIGHT MONTHLY 4. CBC ON SundayOctober, CALL RESULTS 5. CBC, CMP EVERY 3 MONTHS 6. LIPIDS, TSH EVERY 6 MONTHS 7. PT/OT EVALUATION 8. PATIENT TO BE SEEN ON NURSING ROUNDS BY NIESHA ZAVALA APRN IN 7-10 DAYS MEDICATIONS AT DISCHARGE: Hydrocodone Bitart/Acetaminophen ([place] 5-325) 1 tab PO TID [facility] Amlodipine Besylate (Norvasc) 10 mg PO BEDTIME [facility] Benazepril HCl (Lotensin) 40 mg PO DAILY [facility] Clopidogrel Bisulfate (Plavix) 75 mg PO DAILY [facility] Last Admin: 11/05/18 10:01 Dose: 75 mg Docusate Sodium (Colace) 100 mg PO 1300 [facility] Last Admin: 11/05/18 13:18 Dose: 100 mg Ferrous Sulfate (Ferrous Sulfate) 324 mg PO QDAC [facility] Last Admin: 11/06/18 05:43 Dose: 324 mg Hydrochlorothiazide (Hydrochlorothiazide) 12.5 mg PO DAILY [facility] Lovastatin (Mevacor) 20 mg PO QPM [facility] Last Admin: 11/05/18 16:39 Dose: 20 mg Megestrol Acetate (Megace) 40 mg PO DAILY [facility] Pantoprazole Sodium (Protonix) 40 mg PO BIDAC [facility] Last Admin: 11/06/18 05:43 Dose: 40 mg Polyethylene Glycol (Miralax) 17 gm PO DAILY [facility] Last Admin: 11/05/18 10:01 Dose: 17 gm Sucralfate (Carafate) 1 gm PO TIDAC [facility] Last Admin: 11/06/18 05:43 Dose: 1 gm NEW PRESCRIPTIONS: MOVANTIK 12.5 MG 1 TABLET BY MOUTH EVERY MORNING; ONE HOUR PRIOR TO BREAKFAST MEGACE 40 MG PO DAILY, TO BE GIVEN IN THE MORNING NORCO 5/325 MG 1 TABLET BY MOUTH THREE TIMES A DAY, INCREASED FROM TWICE A DAY NORVASC 10 MG 1 TABLET BY MOUTH AT BEDTIME; INCREASED FROM 5 MG BID NEEDED LOTENSIN 40 MG 1 TABLET BY MOUTH DAILY, TO BE GIVEN IN THE MORNING INSTEAD OF AT BEDTIME HYDROCHLOROTHIAZIDE 12.5 MG 1 TABLET BY MOUTH DAILY; TO BE GIVEN EVERY MORNING. CARAFATE 1 GRAM BY MOUTH THREE TIMES A DAY BEFORE MEALS. DISCONTINUED MEDICATIONS: Aspirin (Aspirin Ec) 81 mg PO DAILYWM [facility] Lisinopril/HCTZ (Zestoretic 20-12.5 Mg Tab) 1 tab PO DAILY [facility] Non-Formulary Medication (Fenofibrate,Micronized [Fenofibrate]) 134 mg PO EVERY OTHER DAY [facility] Last Admin: 11/04/18 10:43 Dose: 134 mg Tramadol (Ultram) 50 mg PO Q6HR PRN DIET INSTRUCTIONS: REGULAR DIET WITH REGULAR CONSISTENCY AND THIN LIQUIDS INCREASE PROTEIN FOODS ACTIVITY: UP TO DINING ROOM FOR MEALS MAY PARTICIPATE IN ACTIVITY PROGRAM SMOKING: NON SMOKER DISEASE SPECIFIC EDUCATION: DEHYDRATION ANEMIA CHRONIC PAIN CONSTIPATION HOSPITAL COURSE: This is an 87-year-old white male who initially presented for acute care to the emergency room with back pain, constipation, was found to have a hemoglobin of 8.3. He was given two units of packed red blood cells. Stool was positive for occult blood. He was severely dehydrated. We placed him on swing bed for continuation of IV fluids as well as to monitor his hemoglobin. For the past two days, his hemoglobin on the was 8, has been 8.5 both the and . We stopped his IV fluids two days ago. His kidney function has stabilized and today his BUN is 34 and creatinine 1.4, which is the best it has been. On the BUN was 41 and creatinine 1.5 and this has been off of IV fluids. He did have some hyponatremia initially. This has since resolved. He is going to be discharged in stable condition. He has declined a referral to Gi for blood loss for evaluation of a colonoscopy. He has agreed to go to [facility] for physical therapy. He did have severe constipation on admission as well as multilevel compression fractures of the T- spine. He was also continued on swing bed for pain control. For the past two days I have discontinued the IV Toradol and he has been getting p.o. [place] so we believe his pain will be controlled with [place] 5 t.i.d. which he will have at the halfway. His blood pressure was elevated. We have increased his blood pressure medication and changed it. We discontinued his Zestoretic and added Norvasc 10 at bedtime, Lotensin 40 in the morning and hydrochlorothiazide 12.5 every morning. We also started him on Protonix and Carafate which he will continue. Will start him on Megace 40 mg daily in hopes to increase his appetite. He is a full code. We have discussed this in great detail. He continues to wish to be a full code however he does not want any further evaluation for the blood loss as well as he has carotid occlusive disease which he has refused treatment and evaluation for a number of years. We will repeat a CBC on Sunday and that will be sent here to the office. I will follow with him in the halfway. He has been up walking with assistance of his walker. Today on day of discharge, blood pressure stable at 120/60. Again hemoglobin is 8.5, kidney function has improved. We will monitor at the halfway and followup with him closely. He is discharged in stable condition. TIME SPENT: More than 60 minutes. HERMES
== END 2018-11-06 15:55 | DRG 812 ==
LOC: MEDSURG B 08:46
PROVIDERS: ADMIT Internal Medicine; ATTEND Internal Medicine
DX: D64.9 Anemia, unspecified (principal); E87.1 Hypo-osmolality and hyponatremia; M48.54XA Collapsed vertebra, not elsewhere classified, thoracic region, initial encounter for fracture; N18.9 Chronic kidney disease, unspecified; R53.1 Weakness; K59.00 Constipation, unspecified; I10 Essential (primary) hypertension; E78.5 Hyperlipidemia, unspecified; I65.29 Occlusion and stenosis of unspecified carotid artery
CPT/HCPCS: 36415; 80053; 85025; 86850; 86900; 97802

== ENCOUNTER 2019-01-14 11:14 | Inpatient (IN) ==
--- NOTE | 2019-01-14 12:19 | ED.PDOC ---
General ED Provider: Dr. ANNIE RANDOLPH Chief Complaint: Back Pain Stated Complaint: Back and pelvic pain. Weakness. Brought to ER from his residence by his POA who states he went to check on him this morning and found him on the floor where he had been all night. Apparently fell and could not get up. C/ O severe low back pain. Known Past hx of Lumbar 1 compression fracture prev managed conservatively. Prev consult by Dr Lechuga ortho patient financial services specialist. POA stated he was advised Bashir was not a surgical candidate and procedure to risky due to advanced age and comorbid conditions. In additon he stated Bashir preiously stated he would not consent to any surgical interventon. Had prev been in rehab assisted living but most recently has been living at home. Currently pt complains up previoulsy having difficulty with up ambulation and currently has similar problem. Denies radiculating sx in BL-LE Time Seen by Physician: 12:05 Mode of Arrival: Wheelchair Information Source: Patient Primary Care Provider: RONI STEVEN Nursing and Triage Documentation Reviewed and Agree: Yes Does patient meet sepsis criteria?: No System Inflammatory Response Syndrome: Not Applicable Sepsis Protocol: For patient's 13 years and over: Temp is 96.8 and below OR 101 and greater Pulse >90 BPM Resp >20/minute Acutely Altered Mental Status Are patient's symptoms suggestive of a new infection, such as: -Pneumonia -Skin, Soft Tissue -Endocarditis -UTI -Bone, Joint Infection -Implantable Device -Acute Abdominal Infection -Wound Infection -Meningitis -Blood Stream Catheter Infection -Unknown Musculoskeletal Complaint Exam - Back Pain Complaint/Exam Mechanism of Injury: Reports: Trauma Onset/Duration: chronic/acute on chronic Symptoms Are: Worse Timing: Intermittent Episodes Lasting: Minutes Initial Severity: Moderate Current Severity: Moderate Location: Reports: Diffuse Character: Reports: Sharp, Aching Aggravating: Reports: Movements Alleviating: Reports: Rest Associated Signs and Symptoms: Reports: Weakness. Denies: Swelling, Redness, Bruising, Fever, Numbness, Tingling, Abdominal pain, Flank pain, Bladder incontinence, Bowel incontinence, Weight loss, Pain with weight bearing Related History: Reports: Similar episode TAD Risk Factors: Reports: None AAA Risk Factors: Reports: None Cauda Equina Risk Factors: Reports: Lower extremity weakness Epidural Abcess Risk Factors: Reports: None Related Surgical History: Reports: None Focal Tenderness: Yes Paraspinal Muscle Tenderness: Yes Paraspinal Muscle Spasm: No Scoliosis: No Lordosis: No Kyphosis: No SLR Test: Right Negative, Left Negative Hip Motion Testing Pain: Right Negative, Left Negative Focal Weakness: Present: None Focal Sensory Loss: Present: None Gait: Present: Unable Differential Diagnoses: Arthritis, Strain, Other (compression fractures) Review of Systems - Review Of Systems Constitutional: Reports: No symptoms Eyes: Reports: No symptoms Ears, Nose, Mouth, Throat: Reports: No symptoms Respiratory: Reports: No symptoms Cardiac: Reports: No symptoms GI: Reports: No symptoms : Reports: No symptoms Musculoskeletal: Reports: Back pain Skin: Reports: No symptoms Neurological: Reports: No symptoms Endocrine: Reports: No symptoms Hematologic/Lymphatic: Reports: No symptoms All Other Systems: Reviewed and Negative Past Medical History - Past Medical History Previously Healthy: Yes Endocrine: Reports: Dyslipidemia Cardiovascular: Reports: Hypertension Respiratory: Reports: None Hematological: Reports: Anemia Gastrointestinal: Reports: None Genitourinary: Reports: None Neuro/Psych: Reports: None Musculoskeletal: Reports: None Cancer: Reports: None - Surgical History General Surgical History: Reports: Unknown - Family History Family History: Reports: Unknown - Social History Smoking Status: Never smoker Hx Substance Use: No Alcohol Screening: None Physical Exam - Physical Exam Appearance: Ill-appearing Ill-appearing: Moderate Pain Distress: Moderate Eyes: NICOLASA, EOMI, Conjunctiva clear ENT: Ears normal, Nose normal, Oropharynx normal Neck: Supple Respiratory: Airway patent, Breath sounds clear, Breath sounds equal, Respirations nonlabored Cardiovascular: RRR, Pulses normal, No rub, No murmur GI/: Soft, Nontender, No masses, Bowel sounds normal, No Organomegaly Musculoskeletal: Normal strength, Limited ROM, Limited strength Skin: Warm, Dry, Normal color Neurological: Sensation intact, Motor intact, Reflexes intact, Cranial nerves intact, Alert, Oriented Psychiatric: Affect appropriate, Mood appropriate Physician Notification - Case Discussed Physician Notified: Dr Steven Time of Notification: 14:00 (agreed to accept patient for admit) Critical Care Note - Critical Care Note Total Time (mins): 60 Course - Course Hematology/Chemistry: 01/14/19 12:30 01/14/19 12:30 Orders, Labs, Meds: Lab Review 01/14/19 01/14/19 01/14/19 12:30 12:30 12:30 WBC 7.14 RBC 2.87 L Hgb 9.5 L Hct 28.3 L MCV 98.6 H MCH 33.1 H MCHC 33.6 RDW Coeff of Tika 15.3 H Plt Count 104 L Immature Gran % (Auto) 0.7 Neut % (Auto) 87.4 Lymph % (Auto) 4.5 L [place] % (Auto) 7.4 Eos % (Auto) 0.0 Baso % (Auto) 0.0 Immature Gran # (Auto) 0.1 Neut # (Auto) 6.2 Lymph # (Auto) 0.3 L [place] # (Auto) 0.5 Eos # (Auto) 0.0 Baso # (Auto) 0.0 Sodium 135.8 Potassium 4.65 Chloride 102.0 Carbon Dioxide 23.3 Anion Gap 15.15 BUN 29.3 H Creatinine 1.16 H Estimated GFR (MDRD) 60.00 BUN/Creatinine Ratio 25.25 Glucose 99.9 Calcium 8.11 L Magnesium 2.16 Iron 60.6 TIBC 286 % Saturation 21 Total Bilirubin 2.32 H AST 62.9 H ALT 28.8 Alkaline Phosphatase 113.4 Total Protein 5.70 L Albumin 3.00 L Globulin 2.70 Albumin/Globulin Ratio 1.11 Orders Category Date Time Status EKG-(ED ONLY) Stat CARDIO 01/14/19 12:15 Completed IV [ED IV/MEDIPORT/POWERPORT] .ONCE EMERGENCY 01/14/19 13:34 Active CBC W/ AUTO DIFF Stat LAB 01/14/19 12:30 Completed CMP [COMPREHENSIVE METABOLIC PANEL] Stat LAB 01/14/19 12:30 Completed IRON AND TIBC Stat LAB 01/14/19 12:30 Completed MAGNESIUM Stat LAB 01/14/19 12:30 Completed UA [URINALYSIS C & S IF INDICATED] Stat LAB 01/14/19 16:58 Completed 0.9 % Sodium Chloride [Saline Flush] MEDS 01/14/19 13:34 Active 1 syr IVF PRN PRN Sodium Chloride 0.9% [Sodium Chloride] 1,000 ml MEDS 01/14/19 13:34 Discontinued IV BOLUS CHEST, 1V AP ONLY Stat RADS 01/14/19 12:[address] ABDOMEN/PELVIS WO CONTRAST Stat RADS 01/14/19 12:[address] LUMBAR SPINE W/O CONTRAST Stat RADS 01/14/19 12:16 Completed Medications Generic Name Dose Route Start Last Admin Trade Name Yonathanq PRN Reason Stop Dose Admin Benazepril HCl 10 mg 01/15/19 09:00 Lotensin PO DAILY [facility] Clopidogrel Bisulfate 75 mg 01/14/19 15:00 01/14/19 15:19 Plavix PO 75 mg DAILY [facility] Administration Docusate Sodium 100 mg 01/15/19 13:00 Colace PO 1300 [facility] Docusate Sodium 100 mg 01/15/19 09:00 Colace PO DAILY [facility] Enoxaparin Sodium 30 mg 01/14/19 15:00 01/14/19 15:20 Lovenox SUBCUT 30 mg DAILY [facility] Administration Ferrous Sulfate 324 mg 01/15/19 06:30 Ferrous Sulfate PO QDAC [facility] Hydrochlorothiazide 12.5 mg 01/15/19 09:00 Hydrochlorothiazide PO DAILY [facility] Hydromorphone HCl 1 mg 01/14/19 14:35 Dilaudid 1 Mg/Ml Syringe IVP Q4HR PRN Severe Pain Sodium Chloride 1,000 mls @ 75 mls/hr 01/14/19 15:00 01/14/19 16:47 Sodium Chloride IV 75 mls/hr .[id number] [facility] Administration Lovastatin 20 mg 01/14/19 21:00 Mevacor PO BEDTIME [facility] Megestrol Acetate 40 mg 01/15/19 09:00 Megace PO DAILY [facility] Non-Formulary Medication 12.5 mg 01/15/19 09:00 Naloxegol Oxalate [Movantik] PO DAILY [facility] Ondansetron HCl 4 mg 01/14/19 14:35 Zofran 4 Mg/2 Ml IVP Q6H PRN Nausea and vomiting Oxycodone/Acetaminophen 1 tab 01/14/19 14:35 Percocet 5-325 PO Q6H PRN MODERATE PAIN Pantoprazole Sodium 40 mg 01/15/19 06:30 Protonix PO QDAC [facility] Polyethylene Glycol 17 gm 01/15/19 09:00 Miralax PO DAILY [facility] Sennosides 8.6 mg 01/15/19 09:00 Senna PO DAILY [facility] Sodium Chloride 1 syr 01/14/19 13:34 Saline Flush IVF PRN PRN To flush IV Discontinued Medications Generic Name Dose Route Start Last Admin Trade Name Shahbaz PRN Reason Stop Dose Admin Sodium Chloride 1,000 mls @ 500 mls/hr 01/14/19 13:34 01/14/19 14:19 Sodium Chloride IV 01/14/19 15:33 500 mls/hr BOLUS STA Administration Non-Formulary Medication 1 each 01/15/19 09:00 Benazepril/Hydrochlorothiazide [Lotensin Hct 10-12.5 Mg Tablet] PO DAILY [facility] Non-Formulary Medication 1 each 01/15/19 09:00 Sennosides/Docusate Sodium [Senna-S Tablet] PO DAILY [facility] Oxycodone/Acetaminophen tab 01/14/19 14:45 Percocet 5-325 PO Q6HR PRN severe low back pain Vital Signs: Temp Pulse Resp BP Pulse Ox 01/14/19 11:15 98.6 F 72 20 125/55 L 100 Departure - Departure Time of Disposition: 14:30 Disposition: ADMITTED INPATIENT Discharge Problem: Dehydration, Compression fracture of lumbar vertebra, Chronic anemia Condition: Fair Pt referred to PMD for follow-up: Yes IPMP verified?: No Allergies/Adverse Reactions: Allergies No Known Allergies Allergy (Verified 01/14/19 11:25) Home Medications: Ambulatory Orders Lovastatin [Mevacor] 20 mg PO BEDTIME 10/27/18 Polyethylene Glycol 3350 [Miralax] 17 gm PO DAILY #510 powd.pack 10/27/18 Clopidogrel Bisulfate [Plavix] 75 mg PO DAILY 10/30/18 Sennosides/Docusate Sodium [Senna-S Tablet] 1 - 2 each PO DAILY 11/02/18 Docusate Sodium [Colace] 100 mg PO 1300 capsule 11/06/18 Ferrous Sulfate 324 mg PO QDAC tablet. 11/06/18 Megestrol Acetate [Megace] 40 mg PO DAILY tablet 11/06/18 Benazepril/Hydrochlorothiazide [Lotensin Hct 10-12.5 mg Tablet] 1 each PO DAILY 01/14/19 Oxycodone HCl/Acetaminophen [Percocet 5-325 mg Tablet] 1 each PO Q6HR PRN Pantoprazole Sodium [Protonix] 40 mg PO QDAC 01/14/19 Disposition Discussed With: Patient, Family, Other (Dr Steven) Additional Information: 1345Hrs Explained findings to patient and his POA. POA Again indicated prev ortho consult advised against any operative intervention for Lumbar spine compression fracture and deg spine disease Recommended to admit to service of Dr Steven/ Consented. 1445: Discussed CT Scan findings with Dr Steven and the information conveyed to me by the POA. I advised with consult with Dr Lechuga and send copy of CT interpretation to Dr Medrano Office. Manjinder HUI RN Director assisted in sending report and I spoke with grants assistant at his office. Explained findings in she indicated Dr Lechuga was in surgery and she would convey message to him plus would have him contact me after out of surgery Currently patient on bed rest on medical floor and receiving pain managemet. Advised Dr Steven of my discussion with patients POA and the fact no surgical intervention was desired by POA or the patient
--- NOTE | 2019-01-14 13:24 | DI ---
EXAM: Single view of the chest. History: Chest trauma. Comparison: Chest radiograph 10/20/2018 Findings: Heart size is normal. No focal consolidation. No appreciable pleural fluid and no pneumo thorax. Atherosclerotic vascular calcifications. Impression: No acute cardiopulmonary process
[2019-01-14] MEDS ORDERED: SODIUM CHLORIDE 1,000 ML IV STA (13:34)
--- NOTE | 2019-01-14 13:36 | CT ---
EXAM: CT of the lumbar spine without contrast History: Lower back trauma. Comparison: CT abdomen pelvis 01/14/2019, comparison CT abdomen pelvis 07/29/2018 Technique: Multiplanar CT images through the lumbar spine were obtained without the administration o f IV contrast Findings: Atherosclerotic vascular calcifications. Multiple gallstones. A few punctate bilateral r enal calculi. Left renal cysts. Colonic diverticulosis. Small amount of pelvic fluid. Please see dedicated CT abdomen pelvis done on the same day for additional details. Since the prior prior abdominal CT. There is a new compression fracture at L5 with about 50% loss of vertebral body height. There is also a new compression fracture at L4 with about 30% loss of acute body height. Stable mild chronic compression deformity involving superior endplate of L3 and stable chronic compression deformity involving the inferior endplate of L2. Severe interval progression of the compression fracture at L1 with now vertebra plana and some bony retropulsion which causes a mild to moderate degree of central canal stenosis. There is now severe bilateral bony neural foraminal n arrowing at L1-L2 secondary to ligamentous and facet hypertrophy. Severe bilateral bony neural chad inal narrowing at L4-L5 secondary to ligamentous and facet hypertrophy. There is moderate to severe central canal stenosis at L4-L5 and moderate at L3-L4. Impression: 1. New compression fractures at L5 and L4. 2. Progressed severe compression fracture at L1 with now vertebra plana causing moderate central can al stenosis. 3. Degenerative changes as detailed above
--- NOTE | 2019-01-14 13:42 | CT ---
EXAM: CT abdomen pelvis without contrast HISTORY: Left-sided abdominal pain, fell a couple weeks ago COMPARISON: None TECHNIQUE: CT abdomen pelvis performed without intravenous contrast. Coronal and sagittal reformatt ed images obtained. FINDINGS: Mild bibasilar subsegmental atelectasis and/or scarring. No free air. Severe compression fracture L1 is progressed from 10/27/2018 with retropulsion causing moderate central canal narrowing . Mild compression fracture L4 is new and mild to moderate compression fracture L5 is new. Mild chr onic compression deformities of L2 and T11, L2, L3. Heart top normal in size. Evaluation organ pare nchyma limited without contrast. Nodular contour of the liver suggested. Stable indeterminate exoph ytic nodule arising from right liver measuring 1.8 cm measuring 1.8 x 0.9 cm. Recanalized paraumbilic al vein. Gallbladder is distended. Multiple gallstones. Pancreas unremarkable. Granulomatous calc ification in the spleen. Spleen otherwise unremarkable. Adrenals unremarkable. Left renal cysts in cluding parapelvic cysts. A few punctate right renal calculi. Nonspecific bilateral perinephric str anding. No hydronephrosis. Bladder unremarkable. Prostate mildly enlarged.. Aorta normal in calib er. Extensive atherosclerosis aorta and is branches. Ovoid region in the right inguinal region jessica ures 2.7 cm. Stomach unremarkable. Duodenal diverticulum. No lymphadenopathy or ascites. Appendix not visualized. Colonic diverticulosis. IMPRESSION: 1. Cholelithiasis with gallbladder distension. Recommend correlation with prior prior ultrasound 2. Cirrhotic configuration of the liver suggested. Recanalized periumbilical vein, suggesting komal l hypertension. 3. Redemonstration of indeterminate exophytic solid lesion arising from right liver. Recommend bandar elation with MRI abdomen liver protocol. 4. Severe compression fracture L1 is progressed from 10/27/2018 with retropulsion causing moderate c entral canal narrowing. Mild compression fracture L4 is new and mild to moderate compression fractur e L5 is new. Additional chronic compression deformities. 5. Punctate right nephrolithiasis. No hydronephrosis. Nonspecific bilateral perinephric stranding 6. Extensive atherosclerosis. 7. Colonic diverticulosis. Duodenal diverticula. 9. Nonspecific bilateral perinephric stranding. No hydronephrosis 10. Prostate mildly enlarged. 11. Ovoid region in the right inguinal region may represent retractile testes or possibly small foca l fluid.
[2019-01-14] MEDS ORDERED: ZOFRAN 4 MG/2 ML IVP PRN (14:35)
[2019-01-14] MEDS ORDERED: DILAUDID 1 MG/ML SYRINGE IVP PRN (14:35)
[2019-01-14] MEDS ORDERED: PERCOCET 5-325 PO PRN (14:45)
[2019-01-14] MEDS: PLAVIX PO SCH (15:19)
[2019-01-14] MEDS: LOVENOX SUBCUT SCH (15:20)
--- NOTE | 2019-01-14 15:24 | CT ---
EXAM: CT of the head without contrast History: Confusion and head trauma. Comparison: None available. Technique: Multiplanar CT images through the head were obtained without the administration of IV con trast Findings: There is complete opacification of the visualized left maxillary sinus. Trace left mastoi d effusion. No acute calvarial abnormalities. Intracranially there is mild to moderate diffuse cerebral atrophy. No midline shift and no hydroceph alus. No acute intracranial hemorrhage or abnormal extraaxial fluid collections. Mild periventricul ar and subcortical white matter hypodensities. Impression: 1. No acute intracranial process. 2. Atrophy and chronic small vessel ischemic disease is age appropriate. 3. Severe left maxillary sinus disease
[2019-01-14 15:27] VITALS: BMI 20.7
[2019-01-14] MEDS: SODIUM CHLORIDE 1,000 ML IV SCH (16:47)
[2019-01-14] MEDS ORDERED: PROTONIX PO SCH (17:00)
[2019-01-14] MEDS: MEVACOR PO SCH (20:06)
[2019-01-15] MEDS: SODIUM CHLORIDE 1,000 ML IV SCH ×2 (05:25→19:15)
[2019-01-15] MEDS: PROTONIX PO SCH (05:33)
[2019-01-15] MEDS: FERROUS SULFATE PO SCH (05:34)
[2019-01-15] MEDS ORDERED: NON-FORMULARY MEDICATION (Sennosides/Docusate Sodium [Senna-S Tablet] 1 EACH) PO SCH (09:00)
[2019-01-15] MEDS: HYDROCHLOROTHIAZIDE PO SCH (09:04)
[2019-01-15] MEDS: SENNA PO SCH (09:06)
[2019-01-15] MEDS: COLACE PO SCH ×2 (09:06→15:12)
[2019-01-15] MEDS: PERCOCET 5-325 PO SCH ×2 (09:07→20:25)
[2019-01-15] MEDS: MEGACE PO SCH (09:07)
[2019-01-15] MEDS: LOTENSIN PO SCH (09:07)
[2019-01-15] MEDS: PLAVIX PO SCH (09:07)
[2019-01-15] MEDS: MIRALAX PO SCH (09:08)
[2019-01-15] MEDS: LOVENOX SUBCUT SCH (09:08)
--- NOTE | 2019-01-15 09:55 | PCM.PROG ---
Attending Provider: ATTENDING PROVIDER: Dr. RONI STEVEN This patient is seen with Geovanna Johnson, Nurse Practitioner. DATE OF SERVICE: 01/15/19 SUBJECTIVE: This 88 year old WHITE/ M was hospitalized 01/14/19. The patient is lying in bed resting comfortably. He had mild pain, states no pain unless standing The patient was instructed by Dr. Lechuga to wear back brace, which is not here but nephew will bring it. The patient has already seen Dr. Lechuga and the patient is not a surgical candidate. The patient does not wish for any surgery either. He is experiencing weakness and mild shortness of breath. REVIEW OF SYSTEMS: CONSTITUTIONAL: Weakness. No night sweats. No fatigue, malaise, lethargy. No fever or chills. HEENT: Eyes: No visual changes. No eye pain. No eye discharge. ENT: No runny nose. No epistaxis. No sinus pain. No odynophagia. No congestion. RESPIRATORY: Shortness of breath. No cough, no congestion. No hemoptysis. CARDIOVASCULAR: No angina symptoms. No CHF symptoms. No atypical chest pain for CAD. No palpitations. No orthopnea.. GASTROINTESTINAL: No abdominal pain. No nausea or vomiting. No diarrhea or constipation. No hematemesis. No hematochezia. GENITOURINARY: No urgency. No frequency. No dysuria. No hematuria. No obstructive symptoms. No discharge. No pain. No significant abnormal bleeding. MUSCULOSKELETAL: Back pain. NEUROLOGICAL: Awake, alert, oriented to time, place and person. No headache. No neck pain. No syncope. No seizures. No dizziness. PSYCHIATRIC: Not anxious. No depression. No suicidal thoughts. No homicidal thoughts. SKIN: No rash. No lesions. No wounds. ENDOCRINE: No unexplained weight loss. No weight gain. HEMATOLOGIC/LYMPHATIC: No anemia. No purpura. No petechiae. No prolonged or excessive bleeding. No palpable lymph nodes. PHYSICAL EXAMINATION: GENERAL: The patient is awake, alert and oriented, lying in bed in no distress. Pallor positive. VITAL SIGNS: Temperature 98.2 F, Pulse 57, Respiratory Rate 16, BP 136/40, Pulse Ox 99% HEENT: Head normocephalic, atraumatic. Eyes: Extraocular muscles are intact. Pupils are equal, round and reactive to light and accommodation. Ears: No lesions. Nose appeared normal. Throat: No exudate or erythema. NECK: Supple. No JVD, no carotid bruit. No lymphadenopathy or thyromegaly. LUNGS: Diminished breath sounds. Clear to auscultation. Percussion note normal. Chest symmetrical. HEART: S1, S2, no S3. No murmurs. No cyanosis or clubbing. No ascites. Pulses: Dorsalis pedis and posterior tibial pulses +1 to +2 both sides. ABDOMEN: Soft. Non-tender. Bowel sounds active. No CVA tenderness. No mass felt. EXTREMITIES: No edema. Full range of motion of all extremities, equal. NEUROLOGIC: No focal deficit. Cranial nerves II through XII are grossly intact. No headache, no double vision or headache. SKIN: Not dry. Intact. Turgor-normal. LYMPHATIC: No palpable lymph nodes/no lymphedema. MUSCULOSKELETAL: Normal joints with no swelling. Muscle tone is normal. LAB REVIEW: 01/15/19 05:00 01/15/19 05:00 01/15/19 05:00: Sodium 136.4, Potassium 4.21, Chloride 105.7, Carbon Dioxide 25.1, Anion Gap 9.81, BUN 28.4 H, Creatinine 0.96, Estimated GFR (MDRD) 74.00, BUN/Creatinine Ratio 29.58, Glucose 80.4, Calcium 7.34 L, Total Bilirubin 1.48 H , AST 48.5, ALT 24.7, Alkaline Phosphatase 91.5, Total Protein 4.62 L, Albumin 2.27 L, Globulin 2.35, Albumin/Globulin Ratio 0.96 01/15/19 05:00: WBC 3.41 L, RBC 2.39 L, Hgb 7.8 L, Hct 23.8 L, MCV 99.6 H, MCH 32.6 H, MCHC 32.8, RDW Coeff of Tika 15.4 H, Plt Count 78 L, Immature Gran % ( Auto) 0.3, Neut % (Auto) 74.4, Lymph % (Auto) 14.4, Gentry % (Auto) 9.7, Eos % ( Auto) 0.9, Baso % (Auto) 0.3, Immature Gran # (Auto) 0.0, Neut # (Auto) 2.5, Lymph # (Auto) 0.5 L, Gentry # (Auto) 0.3 L, Eos # (Auto) 0.0, Baso # (Auto) 0.0 01/14/19 16:58: Urine Color Yellow, Urine Clarity Clear, Urine pH 5.5, Ur Specific Dimock 1.020, Urine Protein 2+, Urine Glucose (UA) Negative, Urine Ketones Negative, Urine Blood Trace-lysed, Urine Nitrite Negative, Urine Bilirubin Negative, Urine Urobilinogen 2.0, Ur Leukocyte Esterase Negative, Urine Microscopic RBC 0-2, Ur Squamous Epith Cells Not present 01/14/19 12:30: Iron 60.6, TIBC 286, % Saturation 21 01/14/19 12:30: Sodium 135.8, Potassium 4.65, Chloride 102.0, Carbon Dioxide 23.3, Anion Gap 15.15, BUN 29.3 H, Creatinine 1.16 H, Estimated GFR (MDRD) 60.00 , BUN/Creatinine Ratio 25.25, Glucose 99.9, Calcium 8.11 L, Magnesium 2.16, Total Bilirubin 2.32 H, AST 62.9 H, ALT 28.8, Alkaline Phosphatase 113.4, Total Protein 5.70 L, Albumin 3.00 L, Globulin 2.70, Albumin/Globulin Ratio 1.11 01/14/19 12:30: WBC 7.14, RBC 2.87 L, Hgb 9.5 L, Hct 28.3 L, MCV 98.6 H, MCH 33.1 H, MCHC 33.6, RDW Coeff of Tika 15.3 H, Plt Count 104 L, Immature Gran % ( Auto) 0.7, Neut % (Auto) 87.4, Lymph % (Auto) 4.5 L, Gentry % (Auto) 7.4, Eos % ( Auto) 0.0, Baso % (Auto) 0.0, Immature Gran # (Auto) 0.1, Neut # (Auto) 6.2, Lymph # (Auto) 0.3 L, Gentry # (Auto) 0.5, Eos # (Auto) 0.0, Baso # (Auto) 0.0 ASSESSMENT: Please see below. 1. Recent fall with worsening compression fracture of L1 with retropulsion. 2. Anemia. 3. Dehydration. 4. Shortness of breath. PLAN: 1. Fall precautions. 2. Percocet b.i.d. SANDRA as well as q.6hr p.r.n. 3. Will have back brace to be brought in from home. 4. Type and crossmatch, transfuse 2 units PRBC 5. Decrease IV fluids to 50 cc. 6. X-ray hips bilaterally. Discussed in detail, the patient does not wish for any surgical intervention and is not a candidate for surgery due to multiple comorbidities. Dr. Lechuga has been notified of change in compression fracture. We have discussed the risks of paraplegia associated with severity of compression fracture. The patient and POA understand. The patient is on strict fall precautions. The patient is to be on bed rest only to transfer from bed to chair with assistance. Aron, the POA is to bring back brace. Plan and coordination of the patient's care discussed in the presence of Batch Tester and nurse. CONDITION: Stable SCRIBED BY: Virgil WILLIAMSON scribed while in presence of service performed by Dr. Steven/Geovanna Johnson APRN on 01/15/19 ([id number])
[2019-01-15] MEDS: NALOXEGOL OXALATE 12.5 MG PO SCH (12:19)
--- NOTE | 2019-01-15 12:29 | PN ---
DATE OF SERVICE: 01/14/19 SUBJECTIVE: Mr. Camejo was seen the emergency room and examined. The patient's POA and nephew was in the room. The patient was oriented to time, place and person. He recognized me. The patient said that he fell and was unable to get up. At present time he is moving all his extremities. The patient's labs shows that he probably maybe dehydrated. REVIEW OF SYSTEMS: CONSTITUTIONAL: No night sweats. No fatigue, malaise, lethargy. No fever or chills. HEENT: Eyes: No visual changes. No eye pain. No eye discharge. ENT: No runny nose. No epistaxis. No sinus pain. No sore throat. No odynophagia. No congestion. Mucous membrane dry. RESPIRATORY: No cough, no congestion. No hemoptysis. No shortness of breath. CARDIOVASCULAR: No angina symptoms. No CHF symptoms. No atypical chest pain for CAD. No palpitations. No PND. No orthopnea. GASTROINTESTINAL: No abdominal pain. No nausea or vomiting. No diarrhea or constipation. No hematemesis. No hematochezia. GENITOURINARY: No urgency. No frequency. No dysuria. No hematuria. No obstructive symptoms. No discharge. No pain. No significant abnormal bleeding. MUSCULOSKELETAL: No musculoskeletal pain; no joint swelling. NEUROLOGICAL: No headache. No neck pain. No syncope. No seizures. No dizziness. PSYCHIATRIC: Not anxious. No depression. No suicidal thoughts. No homicidal thoughts. SKIN: No rash. No lesions. No wounds. Dry. ENDOCRINE: No unexplained weight loss. No weight gain. HEMATOLOGIC/LYMPHATIC: No anemia. No purpura. No petechiae. No prolonged or excessive bleeding. No palpable lymph nodes. PHYSICAL EXAMINATION: VITAL SIGNS: Normal. HEENT: Head normocephalic, atraumatic. Eyes: Extraocular muscles are intact. Pupils are equal, round and reactive to light and accommodation. Ears: No lesions. Nose appeared normal. Throat: No exudate or erythema. NECK: Supple. No JVD, no carotid bruit. No lymphadenopathy or thyromegaly. LUNGS: Clear to auscultation. Percussion note normal. Chest symmetrical. HEART: S1, S2, no S3. No murmurs. No cyanosis or clubbing. No ascites. Pulses: Dorsalis pedis and posterior tibial pulses +1 to +2 bilaterally. ABDOMEN: Soft. Nontender. Bowel sounds active. No CVA tenderness. No mass felt. EXTREMITIES: No edema. Full range of motion of all extremities, equal. NEUROLOGIC: No focal deficit. Cranial nerves II through XII are grossly intact. No headache, no double vision or headache. SKIN: Not dry. Intact. Turgor - normal. LYMPHATIC: No palpable lymph nodes/no lymphedema. MUSCULOSKELETAL: Normal joints with no swelling. Muscle tone is normal. CT scan of the lumbar spine shows worsening of compression fracture with retropulsion that was previously noted. There was an acute in October and this fracture has worsened and there is several other compression fractures. I explained to the POA and the patient that this fracture seems to be serious and could paralyze him incase of another fall, needs attention by Neurosurgeon.The patient clearly mentioned along with POA that he was seen by Dr. Ankush van who instructed to wear a brace and didn't think that he was a candidate for any surgical intervention. The patient's that I don't want any form or any kind of surgery. He may or may not wear the brace. It is very uncomfortable to him. POA also voiced the same opinion that the patient's overall physical status with medical conditions makes him extremely high risk surgical candidate to which I agree. 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 Poor nutritional status likely coronary artery disease and peripheral arterial disease. CT scan showed portal hypertension with possibility of cirrhosis of the liver, Cholelithiasis with distended gallbladder. He is definitely a poor candidate. He has multiple compression fractures so by repairing one it may not make any difference. The patient [facility]. The patient was hospitalized. I talked to the nurse on the floor, Katie and gave an order for complete bed rest and fall risk precautions. Talked to ER doctor and he had talked to the patient and the POA and they both declined any form surgical intervention or transfer to fix his back. Both of them understand the consequences of not having the intervention. I agreed with the fact that the patient is extremely poor surgical risk. Explained to both of them about my feelings. CONDITION: Stable. TIME SPENT: More than 30 minutes. Plan and coordination of the patient's care discussed in the presence of nurse. HERMES
--- NOTE | 2019-01-15 13:14 | RS.OTINEVL ---
Subjective - Patient information Date of Evaluation: 01/15/19 Date of Arrival on Unit: 01/14/19 Admitted From:: Jail Diagnosis: Fall, Lower back pain, dehydration PRECAUTIONS: Fall risk, only transfers, stand to urinate, and sits in chair wears brace Usual Living Arrangement: Alone Living Arrangement Comments: Pt was living at [facility] and will return there next week. Medical History Comments:: CAD, hypercholestrolemia, edema, gastro, diverticulosis, benign prostatis hyperplasia, MSD, Anemia, Cirrhosis, Anemia, Compression fx Subjective Information/ Patient Comments:: "It hurts too bad." "If I am still it doesn't hurt too much." - Level of function Prior to this admission, the patient could do the following:: Independent ADL's , Independent Ambulation Abilities prior to this admission: Pt was living at [facility] and was getting therapy. Pt was walking with a RW. Current Equipment Used at Home: Rolling WALKER Pain Assessment - Pain Pain Score: 9 Side: bilateral Pain Location Body Site: Back Pain Aggravating Factors: Changing Position, Sitting Pain Alleviating Factors: Medication, Position Change, Lying Supine Interventions - Objective Patient Orientation: Person, Place, Situation Current Interventions: IV's, Oxygen, Telemetry Observation: Pt is weak and has difficulty with supine to sit. Pt has increased weakness and difficulty with standing and transfers. Pt has weakness and increased pain. Pt yelled when he was moved from supine to sit. Interventions - ROM Left Upper Extremity AROM: WFL's - Strength Right Upper Extremity Strength: Mild Weakness Left Upper Extremity Strength: Mild Weakness - Sensation Right Upper Extremity Sensation: Intact/Normal Left Upper Extremity Sensation: Intact/Normal Balance - Sitting Balance Static Sitting Balance: Poor Dynamic Sitting Balance: Poor - Standing Balance Static Standing Balance: Poor Dynamic Standing Balance: Poor - Comments Balance Assessment Comments: Poor ADL Skills - Self Feeding Self Feeding: Independent - Grooming Grooming: Max Assist - Bathing Bathing UE: Max Assist Bathing LE: Max Assist - Dressing Dressing UE: Min Assist Dressing LE: Max Assist - Toilet Management Toileting Management: Max Assist Functional Mobility - Bed Mobility Rolling R/L: CGA Scooting: CGA Supine to Sit: Max Assist, 2 person assist Sit to Supine: Max Assist, 2 person assist - Transfers Sit to Stand: Mod Assist, 2 person assist Stand to Sit: Mod Assist, 2 person assist Stand Pivot Transfers: Mod Assist, 2 person assist - Ambulation Weight Bearing Status: FWB Assistive Device Used: Gait belt Assistance needed with Ambulation: Mod Assist, 2 person assist - Safety Awareness Safety Awareness: Fair JAMARI INDEX SCORE: . Additional Treatment Performed - Additional units charged ADL: 15 - Time with patient Length of Evaluation: 20 Total treatment time: 36 Activities Do you enjoy playing games?: No Would you be interested in leaving your room for activities?: No Would you enjoy group activities?: No Do you have difficulty with your vision?: No What types of things do you enjoy doing? Any Hobbies?: tv Patient Interests:: Watching Television Patient Education Patient Education: Education of diagnosis, Body/Joint mechanics, Home Exercise Program, Education of Plan of Care Teaching Recipient: Patient, Family Teaching Methods: Teach Back Method Used, Discussion Assessment Problem List:: Decreased level of function, Requires training/education, Decreased safety/Risk of falls, Weakness, Pain limits previous level of function Rehab Potential: Good Further Therapy Indicated?: Yes Evaluation Complexity: HISTORY: Medium, EXAM OF BODY SYSTEMS: Medium, CLINICAL DECISION MAKING: Medium Short Term Goals - Goals GOAL 1: Pt to be moderate assist with donning his back brace. Goal to be met by: 01/17/19 GOAL 2: Pt to increase BUE strength to 4/5. Goal to be met by: 01/17/19 GOAL 3: Pt to increase activity tolerance to 10 minutes for self cares. Goal to be met by: 01/17/19 Half-Way Goals GOAL 1: Pt to be moderate assist with donning his back brace. Goal to be met by: 01/21/19 GOAL 2: Pt to increase BUE strength to 4+/5. Goal to be met by: 01/21/19 GOAL 3: Pt to increase activity tolerance to 15 minutes for self cares. Goal to be met by: 01/21/19 Plan Plan of Care: Therapeutic EX, Neuromuscular Re-Educ, Therapeutic Activity, Self- Care/Home Management Frequency of Treatment: 1-2 X day, as tolerated Duration of Treatment: 1 Week Anticipated Discharge Destination: [facility] Care Facility Treatment Diagnosis (ICD 10 Codes): Z74.1 Need for assistance with personal care. R26.81 impaired balance. Has the Physician been added for Co-signature?: Yes
--- NOTE | 2019-01-15 14:02 | RS.PTINEVL ---
Subjective - Patient information Date of Evaluation: 01/15/19 Date of Arrival on Unit: 01/14/19 Admitted From:: Home Diagnosis: Fall at home, dehydration, compression fracture L4 and L5 Usual Living Arrangement: Alone Living Arrangement Comments: pt had been at long term but had returned home where he suffered a fall. Home Environment: House Medical History: Hypertension Medical History Comments:: CAD, diverticulosis, BPH, Cirrhosis, Anemia, Compression fx L1 LATEX ALLERGY?: No Medications: see chart Subjective Information/ Patient Comments:: pt states he will be going to [facility] when DC. pt states he was walking with rwx at home. - Level of function Prior to this admission, the patient could do the following:: Independent ADL's , Independent Ambulation Abilities prior to this admission: pt amb independently at home, however has a history of falls. Current Level of Function: Partially Dependent Current Equipment Used at Home: rolling walker Pain Assessement - Location low back pain Description: Sharp, Aching Intensity: 7 Pain Behavior: Moaning, Restlessness, Facial Grimacing Pain Aggravating Factors: ADL's, Changing Position, Standing Pain Alleviating Factors: Medication Interventions - Objective Patient Orientation: Person, Place Current Interventions: IV's, Oxygen, Telemetry Observation: pt with skin tear to L elbow. Nursing notified. Also noted open area to R medial knee and L lat knee Range of Motion - ROM Right Upper Extremity AROM: WFL's Left Upper Extremity AROM: WFL's Right Lower Extremity AROM: WFL's Left Lower Extremity AROM: WFL's Muscle Strength - Muscle Strength Right Upper Extremity Strength: Mild Weakness (grossly 4-/5) Left Upper Extremity Strength: Mild Weakness (grossly 4-/5) Right Lower Extremity Strength: Mild Weakness (hip flex 3+/5, knee flex/ext 4-/5 , ankle DF/PF 4-/5) Left Lower Extremity Strength: Mild Weakness (hip flex 3+/5, knee flex/ext 4-/5 , ankle DF/PF 4-/5) Sensation - Sensation Right Upper Extremity Sensation: Intact/Normal Left Upper Extremity Sensation: Intact/Normal Right Lower Extremity Sensation: Intact/Normal Left Lower Extremity Sensation: Intact/Normal Palpation Palpation Findings: Tenderness Comments:: lumbar area tender to touch Balance - Sitting Balance and Reactions Static Sitting Balance: Poor Dynamic Sitting Balance: Poor Sitting Equilibrium Reactions: Delayed Left, Delayed Right Sitting Protective Reactions: Delayed Left, Delayed Right - Standing Balance and Reactions Static Standing Balance: Poor Dynamic Standing Balance: Poor Standing Equilibrium Reactions: Delayed Left, Delayed Right Standing Protective Reactions: Delayed Left, Delayed Right - Comments Balance Assessment Comments: pt requires CGA to min to maintain static sitting balance without challenges to balance. Functional Mobility - Bed Mobility Rolling R/L: Mod Assist Supine to Sit: Mod Assist, 2 person assist - Transfers Sit to Stand: Mod Assist, 2 person assist Stand to Sit: Mod Assist, 2 person assist Stand Pivot Transfers: Mod Assist, 2 person assist Comments:: pt transferred stand pivot bed to chair with TLSO brace in place. Orders to work on bed mobility, transfers with TLSO brace in place, no ambulation at this time due to new compression fractures. - Safety Awareness Safety Awareness: Poor JAMARI INDEX SCORE: n/a Treatment time - Time with patient Length of Evaluation: 19 Total treatment time: 27 Patient Education - Education Patient Education: Home Exercise Program, Education of Plan of Care Teaching Recipient: Patient Teaching Methods: Discussion Comments: discussion regarding POC with patient. Also discussed with nursing wound noted to L elbow. Assessment - Assessment Problem List:: Decreased level of function, Requires training/education, Decreased safety/Risk of falls, Weakness, Pain limits previous level of function , Cognitive status limits abilities Rehab Potential: Fair Further Therapy Indicated?: Yes Candidate for Swing Bed for Therapy Services?: Do not feel pt would be a candidate for swing bed due to low functional ability and may require longer rehab time when DC. Evaluation Complexity: HISTORY: Medium (HTN, comp fx, anemia, dehydration), EXAM OF BODY SYSTEMS: Medium (balance, pain, transfer, gait), CLINICAL PRESENTATION: Medium, CLINICAL DECISION MAKING: Medium Short Term Goals GOAL #1: pt demonstrate rolling with bedrails with min x 1 Goal to be met by: 01/17/19 GOAL #2: Transfer sup to/from sit min x 2 Goal to be met by: 01/17/19 GOAL #3: Sit to/from stand min x1 Goal to be met by: 01/17/19 GOAL #4: pt transfer stand pivot bed to/from chair with min to mod x 1 with TLSO Goal to be met by: 01/17/19 GOAL #5: pt able to sit up at side of bed unsupported x 5 mins Goal to be met by: 01/17/19 [facility] Goals GOAL #1: pt demonstrate rolling with bed rails independently with bedrails Goal to be met by: 01/20/19 GOAL #2: Transfer sup to/from sit min x 1, sit to/from stand CGA Goal to be met by: 01/20/19 GOAL #3: Transfer stand pivot bed to/from chair min to CGA x 1 with TLSO Goal to be met by: 01/20/19 Plan Plan of Care: Therapeutic EX, Therapeutic Activity Other:: transfer training Frequency of Treatment: 1-2 X day, as tolerated Duration of Treatment: 5 days Anticipated Discharge Destination: [facility] Treatment Diagnosis (ICD 10 Codes): M54.5 LBP. R 26.81 balance impaired. R 26.2 difficulty walking Has the Physician been added for Co-signature?: Yes
--- NOTE | 2019-01-15 14:36 | DI ---
EXAM: Left hip two-view HISTORY: Left hip pain COMPARISON: None FINDINGS: No fracture or dislocation. Mild osteoarthritis left hip with joint space narrowing osteop hyte formation. Extensive atherosclerotic vascular calcification. IMPERSSION: 1. No fracture or dislocation. 2. Mild osteoarthritis left hip.
--- NOTE | 2019-01-15 14:38 | DI ---
EXAM: Right hip two-view HISTORY: Fall, pain with movement COMPARISON: None FINDINGS: No fracture or dislocation. Mild osteoarthritis right hip with joint space narrowing osteo phyte formation. Extensive atherosclerotic vascular calcification. IMPERSSION: 1. No fracture or dislocation. 2. Mild osteoarthritis right hip.
[2019-01-15] MEDS: PERCOCET 5-325 PO PRN (15:12)
[2019-01-15] MEDS: MEVACOR PO SCH (20:25)
[2019-01-16] MEDS: PROTONIX PO SCH (05:40)
[2019-01-16] MEDS: FERROUS SULFATE PO SCH (05:40)
[2019-01-16] MEDS: MEGACE PO SCH (09:18)
[2019-01-16] MEDS: SENNA PO SCH (09:18)
[2019-01-16] MEDS: COLACE PO SCH ×2 (09:18→13:07)
[2019-01-16] MEDS: MIRALAX PO SCH (09:18)
[2019-01-16] MEDS: PLAVIX PO SCH (09:18)
[2019-01-16] MEDS: HYDROCHLOROTHIAZIDE PO SCH (09:19)
[2019-01-16] MEDS: PERCOCET 5-325 PO SCH ×2 (09:19→20:06)
[2019-01-16] MEDS: LOVENOX SUBCUT SCH (09:19)
[2019-01-16] MEDS: LOTENSIN PO SCH (09:19)
[2019-01-16] MEDS: NALOXEGOL OXALATE 12.5 MG PO SCH (10:49)
[2019-01-16] MEDS: SODIUM CHLORIDE 1,000 ML IV SCH (13:22)
[2019-01-16] MEDS ORDERED: LASIX IVP STA (14:20)
--- NOTE | 2019-01-16 14:21 | DI ---
EXAM: Single, portable AP view(s) chest. HISTORY: Rales. Increase in edema. COMPARISON: 01/14/2019 TECHNIQUE: Single, portable APview(s) of the chest. FINDINGS: Lungs: The lung voulmes are normal. There is atelectasis in the left lung base which has increased in comparison to the prior study. There are no suspicious nodules. There is no pneumothorax. Cardiovascular: The heart size and pulmonary vasculature is normal.. The aorta is Tortuous and calcified Silvia/Mediastinum: Normal. Osseous structures. Normal for age. IMPRESSION: 1. Left lower lobe atelectasis. Developing pneumonia cannot be excluded. 2. Atherosclerotic disease of the aorta.
[2019-01-16] MEDS: VITAMIN B-12 IM SCH (17:11)
[2019-01-16] MEDS: PERCOCET 5-325 PO PRN (17:11)
[2019-01-16] MEDS: MEVACOR PO SCH (20:06)
[2019-01-17] MEDS: SODIUM CHLORIDE 1,000 ML IV SCH (03:43)
[2019-01-17 05:09] VITALS: BP 144/51; TEMP 98.2
[2019-01-17] MEDS: FERROUS SULFATE PO SCH (05:32)
[2019-01-17] MEDS: LOTENSIN PO SCH (08:54)
[2019-01-17] MEDS: MEGACE PO SCH (08:54)
[2019-01-17] MEDS: SENNA PO SCH (08:54)
[2019-01-17] MEDS: COLACE PO SCH (08:54)
[2019-01-17] MEDS: PLAVIX PO SCH (08:54)
[2019-01-17] MEDS: PERCOCET 5-325 PO SCH (08:55)
[2019-01-17] MEDS: HYDROCHLOROTHIAZIDE PO SCH (08:55)
[2019-01-17] MEDS: MIRALAX PO SCH (08:58)
[2019-01-17] MEDS: VITAMIN B-12 IM SCH (08:58)
[2019-01-17] MEDS: NALOXEGOL OXALATE 12.5 MG PO SCH (09:02)
--- NOTE | 2019-01-17 10:55 | CM.DICTOOL ---
ADMISSION: 01/14/19 14:09 DISCHARGE: JANUARY 17, 2019 DATE OF SERVICE: 01/17/19 FINAL DIAGNOSIS COMPRESSION FRACTURE, L4 AND L5 PROGESSION OF COMPRESSION FRACTURE L1 RECENT FALL DEHYDRATION ANEMIA, TRANSFUSION OF 2 UNITS PACKED CELLS (JANUARY AND OCTOBER 2018) CHRONIC COMPRESSION FRACTURE L2, L3 AND T11 CHOLELITHIASIS DIVERTICULOSIS DYSLIPIDEMIA LAST VITALS Temp Pulse Resp BP Pulse Ox 98.2 F 73 16 144/51 H 96 01/17/19 05:08 01/17/19 05:08 01/17/19 05:08 01/17/19 05:08 01/17/19 05:08 TAKE THESE MEDICATIONS AT HOME Benazepril HCl (Lotensin) 10 mg PO DAILY [facility] Last Admin: 01/17/19 08:54 Dose: 10 mg Clopidogrel Bisulfate (Plavix) 75 mg PO DAILY [facility] Last Admin: 01/17/19 08:54 Dose: 75 mg Docusate Sodium (Colace) 100 mg PO 1300 [facility] Last Admin: 01/16/19 13:07 Dose: 100 mg Ferrous Sulfate (Ferrous Sulfate) 324 mg PO QDAC [facility] Last Admin: 01/17/19 05:32 Dose: 324 mg Hydrochlorothiazide (Hydrochlorothiazide) 12.5 mg PO DAILY [facility] Last Admin: 01/17/19 08:55 Dose: 12.5 mg Lovastatin (Mevacor) 20 mg PO BEDTIME [facility] Last Admin: 01/16/19 20:06 Dose: 20 mg Megestrol Acetate (Megace) 40 mg PO DAILY [facility] Last Admin: 01/17/19 08:54 Dose: 40 mg Non-Formulary Medication (Naloxegol Oxalate [Movantik]) 12.5 mg PO DAILY [facility] Last Admin: 01/17/19 09:02 Dose: Not Given Oxycodone/Acetaminophen (Percocet 5-325) 1 tab PO Q6H PRN PRN Reason: MODERATE PAIN Last Admin: 01/16/19 17:11 Dose: 1 tab Oxycodone/Acetaminophen (Percocet 5-325) 1 tab PO BID [facility] Last Admin: 01/17/19 08:55 Dose: 1 tab Polyethylene Glycol (Miralax) 17 gm PO DAILY [facility] Last Admin: 01/17/19 08:58 Dose: 17 gm Sennosides (Senna) 8.6 mg 1-2 TABLETS PO DAILY [facility] Last Admin: 01/17/19 08:54 Dose: 8.6 mg Pantoprazole (Protonix) 40 mg PO DAILY Last Admin: ALLERGIES No Known Allergies Allergy (Verified 01/14/19 11:25) DISCONTINUED MEDICATIONS NONE NEW PRESCRIPTIONS: PERCOCET 5-325 MG BID SCHEDULED AND PRN EVERY 6 HOURS FOR PAIN PERCOCET 5-325 MG Q 6 HOURS PRN PAIN BACTOBAN OINTMENT BID TO ABRASIONS AFTER CLEANING SMOKING: NOT APPLICABLE DISEASE SPECIFIC EDUCATION: ACTIVITY LIMITATION BACK BRACE PAIN NUTRITION LAB REVIEW: 01/17/19 04:48 01/17/19 04:48 01/17/19 04:48: Sodium 136.7, Potassium 3.62, Chloride 105.5, Carbon Dioxide 24.9, Anion Gap 9.92, BUN 21.3 H, Creatinine 0.88, Estimated GFR (MDRD) 82.00, BUN/Creatinine Ratio 24.20, Glucose 106.1 H, Calcium 6.74 L, Total Bilirubin 1.04, AST 41.8, ALT 25.4, Alkaline Phosphatase 100.8, NT-Pro-B Natriuret Pep 3340.000 H, Total Protein 4.10 L, Albumin 1.92 L, Globulin 2.18, Albumin/ Globulin Ratio 0.88 01/17/19 04:48: WBC 3.62 L, RBC 3.09 L, Hgb 9.7 L, Hct 29.2 L, MCV 94.5 H, MCH 31.4 H, MCHC 33.2, RDW Coeff of Tika 17.3 H, Plt Count 74 L, Immature Gran % ( Auto) 0.3, Neut % (Auto) 68.1, Lymph % (Auto) 21.0, [place] % (Auto) 8.6, Eos % ( Auto) 1.7, Baso % (Auto) 0.3, Immature Gran # (Auto) 0.0, Neut # (Auto) 2.5, Lymph # (Auto) 0.8, [place] # (Auto) 0.3 L, Eos # (Auto) 0.1, Baso # (Auto) 0.0 01/17/19 04:48: 25-OH Vitamin D Total 22.4 L 01/16/19 04:31: NT-Pro-B Natriuret Pep 4390.000 H PLAN: DISCHARGE: TO [facility] DIET: REGULAR DIETITIAN TO SEE FOR OPTIMAL NUTRITIONAL INTAKE ACTIVITY: PATIENT MAY TRANSFER FROM THE BED TO THE CHAIR AND TO THE BSC ONLY HE MAY STAND TO USE THE URINAL ONLY. WEAR BACK BRACE WHEN UP PHYSICAL THERAPY EVALUATION: TRANSFERS FROM BED TO CHAIR WITH BACK BRACE, SAFETY WITH TRANSFERS STANDING ONLY FOR URINATION/ BSC FOR ELIMINATION APPLICATION OF BACK BRACE PRIOR TO TRANSFERS OCCUPATIONAL THERAPY EVALUATION TO INCLUDE APPLICATION OF BACK BRACE PRIOR TO OUT OF BED ACTIVITIES CBC, CMP IN ONE WEEK AND WEEKLY LIPIDS, TSH EVERY 6 MONTHS VITAL SIGNS DAILY FOR 1 WEEK WEIGH WEEKLY INCONTINENT CARE PRN DECUBITUS PRECAUTIONS CLEAN ABRASIONS WITH MILD SOAP/WATER AND APPLY BACTROBAN OINTMENT TWICE DAILY CODE STATUS: DO NOT RESUSCITATE PER PATIENT REQUEST PATIENT TO BE SEEN ON USP ROUNDS BY NIESHA ZAVALA APRN IN 7-10 DAYS MR. CORRALES IS ALERT AND ORIENTED X 3. HE IS AWARE AND AGREEABLE WITH PLANS TO DISCHARGE TODAY. HE PLANS TO RETURN TO [facility] AT THIS TIME. HE IS INTERESTED IN FURTHER THERAPY, BUT IS AWARE THAT HIS ACTIVITY IS LIMITED TO TRANSFERS FROM THE BED TO THE CHAIR OR BEDSIDE COMMODE ONLY. HE IS AWARE HE CAN STAND TO USE THE URINAL IF NEEDED. HE IS AWARE OF THE NEED TO WEAR HIS BACK BRACE WHEN OUT OF BED, BUT REPORTS HE HAS DIFFICULTY IN APPLYING THE BRACE. MR. CORRALES IS INDEPENDENT WITH ADL'S NORMALLY. HE REQUIRES ASSISTANCE WITH PERSONAL CARE AND DRESSING AT THIS TIME. HE IS ABLE TO TRANSFER FROM THE BED TO THE CHAIR WITH ASSISTANCE OF 2 STAFF MEMBERS, USE OF BACK BRACE AND A ROLLING WALKER. GAIT IS UNSTEADY AND HE NEEDS REMINDERS TO REACH BACK FOR THE CHAIR PRIOR TO SITTING. MEAL INTAKES ARE GOOD AT 25-100%, HE IS ABLE TO FEED HIMSELF. HE IS CONTINENT OF BOWEL AND HAS PERIODS OF URINARY INCONTINENCE/DRIBBLING. HE HAS BEEN WEARING DEPENDS UNDERGARMENTS. HYDRATION STATUS IS GOOD. SKIN TURGOR HAS IMPROVED. SEVERAL ABRASIONS ARE NOTED TO BOTH KNEES, RIGHT ELBOW AND A SMALL BRUISE IS NOTED TO THE LEFT KNEE. A SMALL INTACT BLISTER IS NOTED TO THE LEFT HIP. MD NIESHA GRIFFIN APRN
--- NOTE | 2019-01-28 14:04 | PN ---
DATE OF SERVICE: 01/16/19 SUBJECTIVE: This is a of Maurizio, whom I am following since he is out of town. He mentioned to me that he is going to be discharged tomorrow, 01/17/19 and Geovanna the Nurse Practitioner was working with him. We will discharge the patient. This patient was given two units of blood yesterday and the hgb is up to 10.5 from 7.8 prior to transfusion and hct is 31.7 from 23.8. The patient had an elevated MCV and MCH as well as an elevated RDW. Reviewed the medications and I discontinue the PPI. This patient is already receiving Iron one tablet daily. The B12 1,000mcg intermuscularly daily will be initiated. The patient has some cognitive improvement and hopefully this will improve. The patient has more rales today heard in both lungs mc as well as anteriorly, no wheezing. She is not dyspneic nor tachypneic and no cyanosis. He still has edema on both lower extremities more on the left leg. No pedal pulses are palpable. NT PRO BNP was requested and is elevated. His NT PRO BNP is 4,390 which equals the physical findings of rales on both lungs mc as well as anteriorly. I do not have any previous records of the same. His previous admission was in the distant past some 2 months ago. This patient had a compression fracture of L5 and L4. Increasing compression fracture of L1 causing some narrowing of the central canal. Maybe something that one has to address. The patient however does not have any radicular symptoms at this time due to the compression of the cord. There is also previous compressions of L2 and L3. 25 Hydroxy Vitamin D will be requested. Might need Forteo and also a bone density will be requested. The patient had a chest x-ray this morning but only one view. I ordered a two view x-ray however we would wait for the results and may need a CT scan if there is a question of congested heart failure. The patient will be given Lasix intervenously today. HERMES
--- NOTE | 2019-02-09 11:51 | DS ---
DATE OF SERVICE: 01/17/19 FINAL DIAGNOSIS: 1. COMPRESSION FRACTURE, L4 AND L5 2. PROGRESSION OF COMPRESSION FRACTURE L1 3. RECENT FALL 4. DEHYDRATION 5. ANEMIA, TRANSFUSION OF 2 UNITS PACKED CELLS (JANUARY AND OCTOBER 2018) 6. CHRONIC COMPRESSION FRACTURE L2, L3 AND T11 7. CHOLELITHIASIS 8. DIVERTICULOSIS 9. DYSLIPIDEMIA LAST VITALS Temp Pulse Resp BP Pulse Ox 98.2 F 73 16 144/51 H 96 01/17/19 05:08 01/17/19 05:08 01/17/19 05:08 01/17/19 05:08 05:08 DISCHARGE INSTRUCTIONS: 1. CBC, CMP IN ONE WEEK AND WEEKLY, LIPIDS, TSH EVERY 6 MONTHS 2. VITAL SIGNS DAILY FOR 1 WEEK 3. WEIGH WEEKLY 4. INCONTINENT CARE PRN 5. DECUBITUS PRECAUTIONS 6. CLEAN ABRASIONS WITH MILD SOAP/WATER AND APPLY BACTROBAN OINTMENT TWICE DAILY 7. PATIENT TO BE SEEN ON USP ROUNDS BY NIESHA ZAVALA APRN IN 7-10 DAYS 8. DISCHARGE TO [facility] MEDICATIONS AT DISCHARGE: Benazepril HCl (Lotensin) 10 mg PO DAILY [facility] Last Admin: 01/17/19 08:54 Dose: 10 mg Clopidogrel Bisulfate (Plavix) 75 mg PO DAILY [facility] Last Admin: 01/17/19 08:54 Dose: 75 mg Docusate Sodium (Colace) 100 mg PO 1300 [facility] Last Admin: 01/16/19 13:07 Dose: 100 mg Ferrous Sulfate (Ferrous Sulfate) 324 mg PO QDAC [facility] Last Admin: 01/17/19 05:32 Dose: 324 mg Hydrochlorothiazide (Hydrochlorothiazide) 12.5 mg PO DAILY [facility] Last Admin: 01/17/19 08:55 Dose: 12.5 mg Lovastatin (Mevacor) 20 mg PO BEDTIME [facility] Last Admin: 01/16/19 20:06 Dose: 20 mg Megestrol Acetate (Megace) 40 mg PO DAILY [facility] Last Admin: 01/17/19 08:54 Dose: 40 mg Non-Formulary Medication (Naloxegol Oxalate ) 12.5 mg PO DAILY [facility] Last Admin: 01/17/19 09:02 Dose: Not Given Oxycodone/Acetaminophen (Percocet 5-325) 1 tab PO Q6H PRN PRN Reason: MODERATE PAIN Last Admin: 01/16/19 17:11 Dose: 1 tab Oxycodone/Acetaminophen (Percocet 5-325) 1 tab PO BID [facility] Last Admin: 01/17/19 08:55 Dose: 1 tab Polyethylene Glycol (Miralax) 17 gm PO DAILY [facility] Last Admin: 01/17/19 08:58 Dose: 17 gm Sennosides (Senna) 8.6 mg 1-2 TABLETS PO DAILY [facility] Last Admin: 01/17/19 08:54 Dose: 8.6 mg Pantoprazole (Protonix) 40 mg PO DAILY Last Admin: NEW PRESCRIPTIONS: PERCOCET 5-325 MG BID SCHEDULED AND PRN EVERY 6 HOURS FOR PAIN PERCOCET 5-325 MG Q 6 HOURS PRN PAIN BACTROBAN OINTMENT BID TO ABRASIONS AFTER CLEANING DISCONTINUED MEDICATIONS: NONE DIET INSTRUCTIONS: REGULAR DIETITIAN TO SEE FOR OPTIMAL NUTRITIONAL INTAKE ACTIVITY: PATIENT MAY TRANSFER FROM THE BED TO THE CHAIR AND TO THE BSC ONLY HE MAY STAND TO USE THE URINAL ONLY. WEAR BACK BRACE WHEN UP PHYSICAL THERAPY EVALUATION: TRANSFERS FROM BED TO CHAIR WITH BACK BRACE, SAFETY WITH TRANSFERS STANDING ONLY FOR URINATION/ BSC FOR ELIMINATION APPLICATION OF BACK BRACE PRIOR TO TRANSFERS OCCUPATIONAL THERAPY EVALUATION TO INCLUDE APPLICATION OF BACK BRACE PRIOR TO OUT OF BED ACTIVITIES SMOKING: NOT APPLICABLE DISEASE SPECIFIC EDUCATION: ACTIVITY LIMITATION BACK BRACE PAIN NUTRITION HOSPITAL COURSE: This is an 88-year-old white male who had been hospitalized about 45 days ago with a fall and GI bleed requiring transfusion. He went to [facility] for about one month and then went home despite our advisement. His nephew found him in the floor after he had fallen. It is unclear how long exactly he had been there. On his previous hospitalization it was found that he had an L1 compression fracture. He had been seeing Dr. Lechuga, neurosurgeon. He was not a surgical candidate due to age and multiple comorbidities and his recurrence of falls. He had recommended that he wear a back brace which he had not been wearing at home. He states it was too hard to put on. When he was in the ER the scan showed worsening compression fracture of L1 with retropulsion. The results were called and discussed with Dr. Lechuga's office, his PA, which again further confirmed that he is not a surgical candidate. He does need to wear the back brace. He was admitted for pain control. Dr. Lechuga had started him on Percocet 5 mg q.6hr p.r.n. We instructed the nephew to bring the brace. Hemoglobin was down to 7.8 the day after admission. He was short of breath, pale. We typed, crossed and transfused 2 units of packed red blood cells. Hemoglobin went up to 10.9, today is 9.8. He did have some leg edema yesterday probably a combination of IV fluids as well as receiving the [address] Bautista gave him 40 mg of IV Lasix. Leg edema has since resolved. He has been eating well. Pain controlled with Percocet 5 mg b.i.d. scheduled. All of his other medications have remained the same. We have discussed with him and his nephew in detail the severity of his compression fracture, the fact that if he were to fall again or even up and about walking, he has an increased risk of paraplegia due to the retropulsion on the spinal cord. He understands this. Again, he does not wish for any further surgical intervention. He will continue on Iron and Protonix for the chronic anemia. Will continue him on the Percocet. He is to be on strict fall precautions. He is to wear the back brace at all times. PT is to help him with the back brace and safety with transfers. He can stand for urination and basic elimination otherwise he is not to be up and about walking around. Will follow him closely. Again, he is a very high fall risk. He has agreed to go to [facility] and will send him there and followup with him next week. TIME SPENT: More than 60 minutes. HERMES
--- NOTE | 2019-02-10 11:50 | HP ---
DATE OF SERVICE: 01/14/19 HISTORY OF PRESENT ILLNESS: 88-year-old white male who was found at home by his nephew after having fallen. He was found on the floor, unsure how long he had been there. He was recently hospitalized approximately two months ago after experiencing a fall, had L1 compression fracture. He is complaining of severe low back pain now. He had previously seen Dr. Lechuga for evaluation of the compression fracture. PAST MEDICAL HISTORY: Severe carotid stenosis Dyslipidemia Hypertension Anemia History of falls L1 Compression fracture Weight loss Hypertension Chronic back pain GERD Atherosclerotic heart disease Peripheral vascular disease PAST SURGICAL HISTORY: Unknown - do not believe he has any REVIEW OF SYSTEMS: CONSTITUTIONAL: Positive for confusion. No night sweats. No fatigue, malaise, lethargy. No fever or chills. HEENT: Eyes: No visual changes. No eye pain. No eye discharge. ENT: No runny nose. No epistaxis. No sinus pain. No sore throat. No odynophagia. No ear pain. No congestion. RESPIRATORY: No cough, no congestion. No hemoptysis. No shortness of breath. CARDIOVASCULAR: No angina symptoms. No CHF symptoms. No atypical chest pain for CAD. No palpitations. No PND. No orthopnea. GASTROINTESTINAL: No abdominal pain. No nausea or vomiting. No diarrhea or constipation. No hematemesis. No hematochezia. GENITOURINARY: No urgency. No frequency. No dysuria. No hematuria. No obstructive symptoms. No discharge. No pain. No significant abnormal bleeding. MUSCULOSKELETAL: Severe low back pain. NEUROLOGICAL: No headache. No neck pain. No syncope. No seizures. No dizziness. PSYCHIATRIC: Not anxious. No depression. No suicidal thoughts. No homicidal thoughts. SKIN: No rash. No lesions. No wounds. ENDOCRINE: No unexplained weight loss. No weight gain. HEMATOLOGIC/LYMPHATIC: No anemia. No purpura. No petechiae. No prolonged or excessive bleeding. No palpable lymph nodes. PERSONAL/FAMILY/SOCIAL HISTORY: He has never been a smoker. He has never been . He is currently living at home by himself. No alcohol or ilicit drug use. MEDICATIONS: (HOME) Polyethylene Glycol 17 gm p.o. daily Lovastatin 20 mg p.o. bedtime Clopidogrel 75 mg p.o. daily Sennosides/Docusate Sodium 1-2 each p.o. daily Docusate Sodium 100 mg p.o 1300 Ferrous Sulfate 324 mg p.o. q.d a.c. Megestrol 40 mg p.o. daily Oxycodone HCI/Acetaminophen one each p.o. q.6hr p.r.n. Pantoprazole Sodium 40 mg p.o. q.d a.c. Benazepril/Hydrochlorothiazide one each p.o. daily ALLERGIES: NKDA PHYSICAL EXAMINATION: GENERAL: The patient is , lying/sitting in bed in no distress. VITAL SIGNS: Temperature 98.6, heart rate 72, respiratory rate 20, blood pressure 125/55, pulse ox 100% on 2L. Pallor positive. HEENT: Head normocephalic, atraumatic. Eyes: Extraocular muscles are intact. Pupils are equal, round and reactive to light and accommodation. Ears: No lesions. Nose appeared normal. Throat: No exudate or erythema. NECK: Supple. No JVD, no carotid bruit. No lymphadenopathy or thyromegaly. LUNGS: Diminished breath sounds. Clear to auscultation. Percussion note normal. Chest symmetrical. HEART: S1, S2, no S3. No murmurs. No cyanosis or clubbing. No ascites. Pulses: Dorsalis pedis and posterior tibial pulses +1 to +2 bilaterally. ABDOMEN: Soft. Nontender. Bowel sounds active. No CVA tenderness. No mass felt. EXTREMITIES: No leg edema. Full range of motion of all extremities, equal. Palpable tenderness in lower back. NEUROLOGIC: No focal deficit. Cranial nerves II through XII are grossly intact. No headache, no double vision or headache. SKIN: Not dry. Intact. Turgor - normal. LYMPHATIC: No palpable lymph nodes/no lymphedema. MUSCULOSKELETAL: Normal joints with no swelling. Muscle tone is normal. White count 7.14, hemoglobin 9.5, hematocrit 28.3, platelets 104. Sodium 135, potassium 4.6, BUN 29, creatinine 1.16. Glucose 99. AST 62, ALT 28, total bilirubin 2.32, alkaline phosphatase 113, total protein 5.7. CT of the L-spine shows severe compression deformity which has worsened of L1 with retropulsion. This has definitely changed from the previous. CT of the abdomen shows that he has some gallbladder distention, possible portal hypertension, gallstones. Again this is somewhat worsened from previous. Chest x-ray is normal. ASSESSMENT: 1. ACUTE COMPRESSION FRACTURE OF L1 WHICH IS WORSENING WITH RETROPULSION. 2. ANEMIA. 3. DEHYDRATION. 4. FALL. 5. ACUTE INTRACTABLE BACK PAIN. PLAN: 1. We will admit. 2. Routine telemetry orders. 3. CBC, CMP daily. 4. Percocet 5 mg q.6hr p.r.n. for pain. 5. Continue home medications. 6. X-ray bilateral hips. 7. Normal saline at 75 cc/hr. The results of the CT scan were faxed to Dr. Lechuga. Dr. Goodman spoke to Dr. Lechuga's PA regarding the worsening of the compression fracture on the CT scan. The POA and the patient had discussed previously with Dr. Lechuga but he is not a candidate for surgical intervention due to multiple comorbidities and age. Both Tammy and the POA have been made aware of the changes in the CT of the L-spine along with changes associated in the abdomen. They do not wish for anything to be done. He understands the risks of possible ____paraplegia with retropulsion on the L1. He was [id number] to be wearing a back brace as prescribed by Dr. Lechuga however he was not found with a back brace on. We will get the back brace from home. He is to be on strict bed rest. He is not to be up and about. Will follow him closely. TIME SPENT: More than 70 minutes. [facility]
== END 2019-01-17 13:43 | DRG 552 ==
LOC: ED 11:14 → MEDSURG B 14:09
PROVIDERS: ADMIT Internal Medicine; ATTEND Internal Medicine
DX: K80.20 Calculus of gallbladder without cholecystitis without obstruction; M54.9 Dorsalgia, unspecified; E86.0 Dehydration; S32.009A Unspecified fracture of unspecified lumbar vertebra, initial encounter for closed fracture; E78.5 Hyperlipidemia, unspecified; R53.1 Weakness; K57.90 Diverticulosis of intestine, part unspecified, without perforation or abscess without bleeding; D64.9 Anemia, unspecified

== ENCOUNTER 2019-03-03 13:49 | Outpatient (CLI) | END 2019-03-03 13:50 | disposition home or self-care (01) | LOC: NONPT 13:49 | PROVIDERS: ATTEND Internal Medicine | DX: D50.9 Iron deficiency anemia, unspecified (principal) | CPT/HCPCS: 85025 ==

== ENCOUNTER 2019-04-04 12:05 | Inpatient (IN) ==
[2019-04-04] MEDS ORDERED: MORPHINE 2 MG/ML SYRINGE IVP STA (12:52)
[2019-04-04] MEDS ORDERED: ZOFRAN 4 MG/2 ML IM STA (12:52)
[2019-04-04] MEDS ORDERED: ZOFRAN 4 MG/2 ML IVP STA (13:29)
--- NOTE | 2019-04-04 13:54 | CT ---
EXAM: CT THORAX HISTORY: Cough. TECHNIQUE: CT thorax without intravenous contrast. Multiplanar images presented. COMPARISON: None FINDINGS: Cardiomegaly is present. Trace pericardial effusion. There is moderately severe atherosclerotic dis ease. The thoracic aorta is ectatic. Limited evaluation of the mediastinum and hilar structures wit hout the administration of intravenous contrast agent. A few nonspecific lymph nodes are seen in the mediastinum. No gross hilar mass. There is a small to moderate volume right pleural effusion. There is mild to moderate adjacent conso lidation which may represent a combination of atelectasis and pneumonia. The lungs are otherwise enrique ssly clear. No central vascular congestion or interstitial edema. No pneumothorax. Bones are demineralized. There is a severe vertebral body compression fracture at L1 which is stable since the 01/14/2019 CT abdomen and pelvis. See also same day CT abdomen and pelvis report. IMPRESSION: 1. Small to moderate right pleural effusion with at least mild adjacent consolidation (atelectasis v ersus pneumonia). 2. Cardiomegaly. 3. Atherosclerosis. 4. Stable L1 compression fracture.
--- NOTE | 2019-04-04 14:01 | CT ---
EXAM: CT lumbar spine without contrast HISTORY: Low back pain COMPARISON: MRI 02/11/[address] 01/14/2019 TECHNIQUE: CT lumbar spine performed without intravenous contrast. Coronal and sagittal reformatted images obtained. FINDINGS: Bones are demineralized. Severe compression fracture of L1 that is mildly progressed from 01/14/2019 with retropulsion causing moderate central canal narrowing that is similar to prior exami nation. Compression fracture deformity L4 with kyphoplasty with new mild retropulsion superior endpl ate contributing to central canal narrowing. Compression fracture deformity of L5 with kyphoplasty. Compression deformities T11, T12 and L2 and L3 appear unchanged. Sacroiliac joints intact with mild degenerative change. T12-L1: Posterior disc osteophyte complex and facet arthrosis and retropulsion superior endplate L1 causing mild central canal and moderate bilateral neural foraminal narrowing. L1-L2: Posterior disc osteophyte complex and facet arthrosis and retropulsion causing mild to modera te central canal and severe bilateral neural foraminal narrowing. L2-L3: Posterior disc osteophyte complex and facet arthrosis causing moderate to causing moderate ce ntral canal and mild to moderate bilateral neural foramen and L4-L5: Posterior discs and complex and facet arthrosis causing severe central canal and moderate natalia ateral neural foraminal narrowing. L4-L5: Posterior disc and complex and facet arthrosis causing severe central canal and moderate to s evere bilateral neural foraminal narrowing. L5-S1: Posterior disc osteophyte complex and facet arthrosis causing moderate bilateral neural chad inal narrowing. IMPRESSION: 1. Severe compression fracture L1 that is mildly progressed from 01/14/2019. Compression fracture d eformities L4 and L5 with kyphoplasty. Additional compression deformities appear unchanged. Areas o f retropulsion as described. 2. 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 Please see segmental mian sis.
--- NOTE | 2019-04-04 14:12 | CT ---
EXAM: CT abdomen pelvis without contrast HISTORY: Back pain COMPARISON: None TECHNIQUE: CT abdomen pelvis performed without intravenous contrast. Coronal and sagittal reformatt ed images obtained. FINDINGS: Small to moderate right pleural effusion. Right basilar atelectasis and/or consolidation. Mild left basilar atelectasis. No free air. No acute abnormalities of the bones. Bones appear de mineralized. Multilevel compression fractures. Please refer to separate report CT lumbar spine. Evaluation organ parenchyma limited without contrast. Heart mildly enlarged. Nodular contour of the liver suggested. Stable 1.8 cm nodule right abdomen appears separate from the liver with interspers ed ascites. Recanalized periumbilical vein. Multiple gallstones fill the gallbladder lumen. Pancre as unremarkable. Spleen unremarkable. Granulomas calcification spleen. Spleen otherwise unremarkab le. Adrenals unremarkable. 2 mm nonobstructing right renal calculus. Left renal cysts including pa rapelvic cysts. No hydronephrosis. Nonspecific bilateral perinephric stranding. Aorta normal in ca liber. Extensive atherosclerosis of the aorta and is branches. Body wall edema. Bladder unremarkab le. Small bilateral fat containing inguinal hernias. Prostate normal in size. No lymphadenopathy i dentified. Stomach unremarkable. Duodenal diverticulum. No dilated loops small bowel. Appendix no t visualized. Mild wall thickening in the right colon. Colonic diverticulosis. Small to moderate v olume ascites in the perihepatic and perisplenic regions. Small bilateral fat containing inguinal he rnias with small fluid in the right inguinal hernia IMPRESSION: 1. Cirrhotic configuration of the liver suggested. Recanalized periumbilical vein, suggesting komal l hypertension. 2. Small to moderate volume ascites. 3. Wall thickening of the right colon. This may be due to colitis versus changes secondary to under lying liver disease. 4. Compression fractures. Please refer to separate report CT lumbar spine. 5. Redemonstration of an indeterminate exophytic nodule in the right abdomen. 6. Extensive atherosclerosis. 7. Punctate right nephrolithiasis. No hydronephrosis. Nonspecific bilateral perinephric stranding . 8. Duodenal diverticulum. 9. Small moderate right pleural effusion with adjacent atelectasis and/or pneumonia. 10. Cardiomegaly. 11. Body wall edema
--- NOTE | 2019-04-04 14:22 | ED.PDOC ---
General ED Provider: Dr. UNIQUE HDEZ Chief Complaint: Back Pain Stated Complaint: back pain Time Seen by Physician: 12:12 (seen with shrry and nursing clerk) Mode of Arrival: Ambulance Information Source: Patient, Family Exam Limitations: No limitations Primary Care Provider: RONI GALVEZ Nursing and Triage Documentation Reviewed and Agree: Yes Does patient meet sepsis criteria?: No System Inflammatory Response Syndrome: Not Applicable Sepsis Protocol: For patient's 13 years and over: Temp is 96.8 and below OR 101 and greater Pulse >90 BPM Resp >20/minute Acutely Altered Mental Status Are patient's symptoms suggestive of a new infection, such as: -Pneumonia -Skin, Soft Tissue -Endocarditis -UTI -Bone, Joint Infection -Implantable Device -Acute Abdominal Infection -Wound Infection -Meningitis -Blood Stream Catheter Infection -Unknown Musculoskeletal Complaint Exam - Back Pain Complaint/Exam Mechanism of Injury: Reports: No known trauma Onset/Duration: chronic pain Symptoms Are: Still present Timing: Intermittent Episodes Lasting: Weeks Initial Severity: Mild Current Severity: Mild Location: Reports: Discrete Character: Reports: Aching Aggravating: Reports: Movements Alleviating: Reports: Rest Associated Signs and Symptoms: Reports: Flank pain. Denies: Redness, Bruising, Fever, Weakness, Numbness, Tingling, Abdominal pain, Bladder incontinence, Bowel incontinence, Weight loss, Pain with weight bearing TAD Risk Factors: Reports: Hypertension AAA Risk Factors: Reports: None Cauda Equina Risk Factors: Denies: Saddle anesthesia, Perineal anesthesia, Bladder dysfuntion, Bowel dysfunction, Lower extremity numbness, Lower extremity weakness Epidural Abcess Risk Factors: Reports: None Related Surgical History: Reports: None Focal Tenderness: No Paraspinal Muscle Tenderness: No Paraspinal Muscle Spasm: No Scoliosis: No Lordosis: No Kyphosis: No Hip Motion Testing Pain: Right Negative, Left Negative Focal Weakness: Present: None Focal Sensory Loss: Present: None Gait: Present: Normal Differential Diagnoses: Arthritis, Fracture, Renal Colic, Strain, Sprain Review of Systems - Review Of Systems Constitutional: Reports: No symptoms Eyes: Reports: No symptoms Ears, Nose, Mouth, Throat: Reports: No symptoms Respiratory: Reports: No symptoms Cardiac: Reports: No symptoms GI: Reports: No symptoms : Reports: No symptoms Musculoskeletal: Reports: Back pain Skin: Reports: No symptoms Neurological: Reports: No symptoms Endocrine: Reports: No symptoms Hematologic/Lymphatic: Reports: No symptoms All Other Systems: Reviewed and Negative Past Medical History - Past Medical History Previously Healthy: Yes Endocrine: Reports: Dyslipidemia Cardiovascular: Reports: Hypertension Respiratory: Reports: None Hematological: Reports: Anemia Gastrointestinal: Reports: None Genitourinary: Reports: None Neuro/Psych: Reports: None Musculoskeletal: Reports: None Cancer: Reports: None - Surgical History General Surgical History: Reports: Unknown - Family History Family History: Reports: Unknown - Social History Smoking Status: Never smoker Hx Substance Use: No Alcohol Screening: None - Immunizations Tetanus Shot up to Date: Yes Physical Exam - Physical Exam Appearance: Well-appearing, No pain distress, Well-nourished Eyes: NICOLASA, EOMI, Conjunctiva clear ENT: Ears normal, Nose normal, Oropharynx normal Respiratory: Airway patent, Breath sounds clear, Breath sounds equal, Respirations nonlabored Cardiovascular: RRR, Pulses normal, No rub, No murmur GI/: Soft, Nontender, No masses, Bowel sounds normal, No Organomegaly Musculoskeletal: Normal strength, ROM intact, No edema, No calf tenderness Skin: Warm, Dry, Normal color Neurological: Sensation intact, Motor intact, Reflexes intact, Cranial nerves intact, Alert, Oriented Psychiatric: Affect appropriate, Mood appropriate Interpretation - Radiology Interpretation Radiology Interpretation By: Radiologist Radiology Results: Positive (l1 stable fracture) - Gyro Mechanic Rate: Normal Ectopy: PVCs - EKG Interpretation Rate: Normal Rhythm: Sinus Ectopy: PVCs Physician Notification - Case Discussed Physician Notified: pmd Time of Notification: 14:26 (admitt imaging discuused in detail chest abd/pelvis ) Admit/Transition Orders Entered by ED Provider: Yes Admit To: Inpatient Critical Care Note - Critical Care Note Total Time (mins): 0 Course - Course Hematology/Chemistry: 04/04/19 12:49 04/04/19 12:49 Orders, Labs, Meds: Lab Review 04/04/19 04/04/19 04/04/19 12:49 12:49 13:04 WBC 4.37 RBC 2.58 L Hgb 8.7 L Hct 26.8 L MCV 103.9 H MCH 33.7 H MCHC 32.5 RDW Coeff of Tika 14.1 Plt Count 97 L Immature Gran % (Auto) 0.2 Neut % (Auto) 70.8 Lymph % (Auto) 18.1 [place] % (Auto) 8.2 Eos % (Auto) 2.5 Baso % (Auto) 0.2 Immature Gran # (Auto) 0.0 Neut # (Auto) 3.1 Lymph # (Auto) 0.8 [place] # (Auto) 0.4 Eos # (Auto) 0.1 Baso # (Auto) 0.0 Sodium 134.7 Potassium 4.11 Chloride 106.8 Carbon Dioxide 25.3 Anion Gap 6.71 BUN 18.5 Creatinine 1.07 Estimated GFR (MDRD) 66.00 BUN/Creatinine Ratio 17.28 Glucose 98.8 Calcium 7.64 L Total Bilirubin 0.70 AST 25.6 ALT 15.6 Alkaline Phosphatase 116.3 Total Protein 5.07 L Albumin 2.41 L Globulin 2.66 Albumin/Globulin Ratio 0.90 Urine Color Yellow Urine Clarity Clear Urine pH 5.0 Ur Specific [place] 1.015 Urine Protein 1+ Urine Glucose (UA) Negative Urine Ketones Negative Urine Blood Trace-intact Urine Nitrite Negative Urine Bilirubin Negative Urine Urobilinogen 0.2 Ur Leukocyte Esterase Negative Urine Microscopic RBC 0-2 Ur Squamous Epith Cells Not present Urine Mucus Trace Orders Category Date Time Status EKG-(ED ONLY) Stat CARDIO 04/04/19 12:42 Completed Bladder [ED BLADDER SCAN] .ONCE EMERGENCY 04/04/19 12:40 Active BLOOD CULTURE Stat LAB 04/04/19 14:13 Ordered CBC W/ AUTO DIFF Stat LAB 04/04/19 12:49 Completed COMPREHENSIVE METABOLIC PANEL Stat LAB 04/04/19 12:49 Completed FREE T4 (FREE THYROXINE) Stat LAB 04/04/19 14:18 Ordered THYROID STIMULATING HORMONE Stat LAB 04/04/19 14:18 Ordered URINALYSIS C & S IF INDICATED Stat LAB 04/04/19 13:04 Completed Morphine Sulfate [Morphine 2 mg/ml Syringe] MEDS 04/04/19 12:52 Discontinued 2 mg IVP ONCE STA Ondansetron HCl/Pf [Zofran 4 mg/2 ml] MEDS 04/04/19 13:29 Discontinued 4 [address]P ONCE STA CT ABD/PEL WO RENAL STONE PROT Stat RADS 04/04/19 12:[address] CHEST W/O CONTRAST Stat RADS 04/04/19 13:[address] LUMBAR SPINE W/O CONTRAST Stat RADS 04/04/19 12:39 Completed Medications Discontinued Medications Generic Name Dose Route Start Last Admin Trade Name Freq PRN Reason Stop Dose Admin Morphine Sulfate 2 mg 04/04/19 12:52 04/04/19 13:33 Morphine 2 Mg/Ml Syringe IVP 04/04/19 12:53 2 mg ONCE STA Administration Ondansetron HCl 4 mg 04/04/19 13:29 04/04/19 13:34 Zofran 4 Mg/2 Ml IVP 04/04/19 13:30 4 mg ONCE STA Administration Vital Signs: Temp Pulse Resp BP Pulse Ox 04/04/19 13:37 70 17 151/54 H 96 04/04/19 12:09 98.0 F 70 15 174/54 H 98 Departure - Departure Time of Disposition: 14:26 Disposition: ADMITTED INPATIENT Discharge Problem: Pleural effusion Anemia Qualifiers: Anemia type: unspecified type Qualified Code(s): D64.9 - Anemia, unspecified Chronic low back pain Qualifiers: Back pain laterality: right Sciatica presence: without sciatica Qualified Code( s): M54.5 - Low back pain; G89.29 - Other chronic pain Instructions: Anemia (ED) Condition: Good Pt referred to PMD for follow-up: Yes IPMP verified?: No Additional Instructions: Please call your Family Physician as soon as possible to schedule a follow-up appointment. Allergies/Adverse Reactions: Allergies No Known Allergies Allergy (Verified 04/04/19 13:11) Home Medications: Ambulatory Orders Lovastatin [Mevacor] 20 mg PO BEDTIME 10/27/18 Polyethylene Glycol 3350 [Miralax] 17 gm PO DAILY #510 powd.pack 10/27/18 Clopidogrel Bisulfate [Plavix] 75 mg PO DAILY 10/30/18 Sennosides/Docusate Sodium [Senna-S Tablet] 1 each PO DAILY 11/02/18 Ferrous Sulfate 324 mg PO QDAC tablet. 11/06/18 Benazepril/Hydrochlorothiazide [Lotensin Hct 10-12.5 mg Tablet] 10 mg PO DAILY 01/14/19 Pantoprazole Sodium [Protonix] 40 mg PO QDAC 01/14/19 Oxycodone HCl/Acetaminophen [Percocet 5-325 mg Tablet] 1 each PO Q6HR PRN #60 tablet 01/17/19 Acetaminophen 650 mg PO Q4HR PRN MDD 3 gm 04/04/19 Acetaminophen 650 mg PO Q4HR PRN MDD 3 gm 04/04/19 Docusate Sodium [Colace] 100 mg PO BID 04/04/19 Furosemide [Lasix Tab] 20 mg PO QDAC 04/04/19 Megestrol Acetate [Megace] 40 mg PO BID 04/04/19 Naloxegol Oxalate [Movantik] 12.5 mg PO DAILY 04/04/19 Oxycodone HCl/Acetaminophen [Percocet 5-325 mg Tablet] 1 each PO BID 04/04/19 Potassium Chloride 1 tab PO DAILY 04/04/19 Sucralfate [Carafate] 1 gm PO TID 04/04/19 Disposition Discussed With: Patient, Family
[2019-04-04] MEDS ORDERED: ROCEPHIN 1 GM VIAL IV STA (14:32)
[2019-04-04] MEDS ORDERED: SODIUM CHLORIDE 1,000 ML IV SCH (15:00)
[2019-04-04 15:25] VITALS: BMI 24.7
[2019-04-04] MEDS: CARAFATE PO SCH (16:06)
[2019-04-04] MEDS: MEVACOR PO SCH (16:07)
[2019-04-04] MEDS ORDERED: LASIX IVP STA (16:43)
[2019-04-04] MEDS: MORPHINE 2 MG/ML SYRINGE IVP PRN (19:47)
[2019-04-04] MEDS: COLACE PO SCH (20:48)
[2019-04-04] MEDS: MEGACE PO SCH (20:48)
[2019-04-04] MEDS: PERCOCET 5-325 PO SCH (20:48)
[2019-04-05] MEDS: PERCOCET 5-325 PO PRN (04:28)
[2019-04-05] MEDS: FERROUS SULFATE PO SCH (05:36)
[2019-04-05] MEDS: LASIX TAB PO SCH (05:36)
[2019-04-05] MEDS: CARAFATE PO SCH ×3 (05:36→16:05)
[2019-04-05] MEDS: PROTONIX PO SCH (05:36)
[2019-04-05] MEDS: ROCEPHIN 1 GM/50 ML D5W 1 GM/50 ML BAG IV SCH (08:59)
[2019-04-05] MEDS: MEGACE PO SCH ×2 (08:59→20:30)
[2019-04-05] MEDS: COLACE PO SCH ×2 (08:59→20:30)
[2019-04-05] MEDS: PERCOCET 5-325 PO SCH ×2 (08:59→20:30)
[2019-04-05] MEDS: SENNA PO SCH (08:59)
[2019-04-05] MEDS: MICRO-K CAP PO SCH (08:59)
[2019-04-05] MEDS: PLAVIX PO SCH (08:59)
[2019-04-05] MEDS: MIRALAX PO SCH (08:59)
[2019-04-05] MEDS: HYDROCHLOROTHIAZIDE PO SCH (09:00)
[2019-04-05] MEDS ORDERED: NALOXEGOL OXALATE 12.5 MG PO SCH (09:00)
[2019-04-05] MEDS: LOTENSIN PO SCH (09:00)
[2019-04-05] MEDS ORDERED: NON-FORMULARY MEDICATION (Sennosides/Docusate Sodium [Senna-S Tablet] 1 EACH) PO SCH (09:00)
[2019-04-05] MEDS ORDERED: COLACE PO SCH (09:00)
[2019-04-05] MEDS ORDERED: POTASSIUM CHLORIDE PO SCH (09:00)
[2019-04-05] MEDS: NALOXEGOL OXALATE 12.5 MG PO SCH (13:25)
[2019-04-05] MEDS: MEVACOR PO SCH (16:05)
[2019-04-05] MEDS: MORPHINE 2 MG/ML SYRINGE IVP PRN ×2 (16:08→22:33)
[2019-04-06] MEDS: NALOXEGOL OXALATE 12.5 MG PO SCH (05:33)
[2019-04-06] MEDS: PROTONIX PO SCH (05:33)
[2019-04-06] MEDS: CARAFATE PO SCH ×3 (05:33→17:11)
[2019-04-06] MEDS: FERROUS SULFATE PO SCH (05:33)
[2019-04-06] MEDS: LASIX TAB PO SCH (05:33)
[2019-04-06] MEDS: PERCOCET 5-325 PO PRN ×2 (06:41→17:11)
[2019-04-06] MEDS: PLAVIX PO SCH (08:36)
[2019-04-06] MEDS: HYDROCHLOROTHIAZIDE PO SCH (08:36)
[2019-04-06] MEDS: MEGACE PO SCH ×2 (08:36→20:24)
[2019-04-06] MEDS: COLACE PO SCH ×2 (08:36→20:24)
[2019-04-06] MEDS: MICRO-K CAP PO SCH (08:36)
[2019-04-06] MEDS: ROCEPHIN 1 GM/50 ML D5W 1 GM/50 ML BAG IV SCH (08:36)
[2019-04-06] MEDS: LOTENSIN PO SCH (08:36)
[2019-04-06] MEDS: SENNA PO SCH (08:36)
[2019-04-06] MEDS: PERCOCET 5-325 PO SCH ×2 (08:37→20:24)
[2019-04-06] MEDS: MIRALAX PO SCH (08:37)
[2019-04-06] MEDS: ALDACTONE PO SCH (13:06)
[2019-04-06] MEDS: MEVACOR PO SCH (17:11)
[2019-04-07] MEDS: LASIX TAB PO SCH (05:55)
[2019-04-07] MEDS: NALOXEGOL OXALATE 12.5 MG PO SCH (05:55)
[2019-04-07] MEDS: FERROUS SULFATE PO SCH (05:55)
[2019-04-07] MEDS: PROTONIX PO SCH (05:55)
[2019-04-07] MEDS: CARAFATE PO SCH ×3 (05:55→17:01)
[2019-04-07] MEDS: PERCOCET 5-325 PO PRN (06:03)
[2019-04-07] MEDS: LOTENSIN PO SCH (08:45)
[2019-04-07] MEDS: ALDACTONE PO SCH (08:45)
[2019-04-07] MEDS: PLAVIX PO SCH (08:45)
[2019-04-07] MEDS: MICRO-K CAP PO SCH (08:46)
[2019-04-07] MEDS: MEGACE PO SCH ×2 (08:46→20:18)
[2019-04-07] MEDS: PERCOCET 5-325 PO SCH ×3 (08:47→20:18)
[2019-04-07] MEDS: ROCEPHIN 1 GM/50 ML D5W 1 GM/50 ML BAG IV SCH (08:48)
--- NOTE | 2019-04-07 09:30 | ECHO2D ---
Date of Exam: 04/06/19 Ordering Physician: DR. RONI GALVEZ Room #: 114 Reason for Echo: SHORTNESS OF AIR, CAD, HTN M-Mode Normal Adult Results LV Dimensions Normal Adult Results AoV Opening excursions >1.6 >1.6 LVEDD-base- 3.5-5.8 5.6 Ao root dimensions 2.0-3.7 3.6 LVESD-base- 3.1-4.6 L. Atrium dimensions 1.9-3.8 5.1 Post. Wall thickness 0.8-1.1 1.4 IV septum (thickness) 0.7-1.2 1.4 Post. Wall excursion 0.72-1.3 NORMAL Septal motion 0.8 Systolic motion R. Ventricular cavity 1.5-2.0 NORMAL LVEF 60% 50% Paradoxical septal wall motion NORMAL 2-D : ENLARGED LEFT ATRIAL CAVITY--BORDERLINE LEFT VENTRICLE CAVITIES, MILD PERICARDIAL EFFUSION M-MODE: MV: NORMAL AV: NORMAL TV: NORMAL PV: CHAMBER SIZE: ENLARGED LEFT ATRIAL CAVITY--BORDERLINE LEFT VENTRICLE CAVITY WALL MOTION: NORMAL PERICARDIUM: MILD PERICARDIAL EFFUSION INTERPRETATION: 1. LEFT VENTRICULAR HYPERTROPHY WITH ENLARGED LEFT ATRIAL CAVITY 2. BORDERLINE LEFT VENTRICULAR CONTRACTILITY 3. MILD PERICARDIAL EFFUSION 4. LEFT VENTRICULAR EJECTION FRACTION 50% --VALVES NORMAL MTDD
[2019-04-07] MEDS ORDERED: FLAGYL PO SCH (13:00)
--- NOTE | 2019-04-07 16:15 | RS.PTINEVL ---
Subjective - Patient information Date of Evaluation: 04/07/19 Date of Arrival on Unit: 04/04/19 Admitted From:: Group Home Diagnosis: pleural effusion, anemia, back pain, C diff positive Usual Living Arrangement: Group Home Home Environment: Level/No stairs Medical History: Hypertension, Arthritis Medical History Comments:: chronic degenerative disc disease, compression fx L1 , anemia LATEX ALLERGY?: No Surgical History Comments:: kyphoplasty L 4- L5 Medications: see chart Subjective Information/ Patient Comments:: pt states he isn't sure how much he can walk due to back pain. States he will try because he wants to be stronger. - Level of function Prior to this admission, the patient could do the following:: Independent ADL's , Independent Ambulation Current Level of Function: Partially Dependent Current Equipment Used at Home: rolling walker Pain Assessement - Location low back Description: Sharp Pain Behavior: Moaning, Facial Grimacing Pain Aggravating Factors: Changing Position, Sitting Pain Alleviating Factors: Medication Effects of Pain: pt unable to rate pain. Interventions - Objective Patient Orientation: Person, Place, Time, Situation Current Interventions: IV's, Telemetry Observation: pt with red area on medial aspect of R knee. Range of Motion - ROM Right Upper Extremity AROM: WFL's Left Upper Extremity AROM: WFL's Right Lower Extremity AROM: WFL's Left Lower Extremity AROM: WFL's Muscle Strength - Muscle Strength Right Upper Extremity Strength: Mild Weakness (grossly 4-/5) Left Upper Extremity Strength: Mild Weakness (grossly 4-/5) Right Lower Extremity Strength: Mild Weakness (hip flex 4-/5, knee flex/ext 4/5 , ankle DF/PF 4/5) Left Lower Extremity Strength: Mild Weakness (hip flex 4-/5, knee flex/ext 4/5, ankle DF/PF 4/5) Sensation - Sensation Right Upper Extremity Sensation: Intact/Normal Left Upper Extremity Sensation: Intact/Normal Right Lower Extremity Sensation: Intact/Normal Left Lower Extremity Sensation: Intact/Normal Palpation Palpation Findings: Tenderness Comments:: tenderness to palpation in lumbar spine. Balance - Sitting Balance and Reactions Static Sitting Balance: Fair Dynamic Sitting Balance: Fair - Standing Balance and Reactions Static Standing Balance: Fair Dynamic Standing Balance: Poor Standing Equilibrium Reactions: Delayed Left, Delayed Right Standing Protective Reactions: Delayed Left, Delayed Right Functional Mobility - Bed Mobility Rolling R/L: Min Assist Scooting: Min Assist, Mod Assist, 1 person assist Supine to Sit: Min Assist, 1 person assist Sit to Supine: Min Assist, 1 person assist - Transfers Sit to Stand: Min Assist, 1 person assist Stand to Sit: Min Assist, 1 person assist - Safety Awareness Safety Awareness: Fair JAMARI INDEX SCORE: n/a Ambulation - Ambulation Assistive Device Used: Rolling Walker Orthotic/Prosthetic Device: No Distance: 40ft Assistance needed with Ambulation: CGA, Min Assist, 1 person assist Gait Deviations: Forward posture, Short stride Ambulation Comments: pt amb with flexed posture, decreased step length as well as decreased ERICK. pt with no LOB. Factors Affecting Ambulation: Decreased Balance, Pain, Weakness, Decreased Safety, Limited Endurance Treatment time - Time with patient Length of Evaluation: 21 Total treatment time: 26 Patient Education - Education Patient Education: Activity Modification, Education of Plan of Care Teaching Recipient: Patient Teaching Methods: Discussion Comments: discussion regarding POC Assessment - Assessment Problem List:: Decreased level of function, Requires training/education, Decreased safety/Risk of falls, Weakness, Pain limits previous level of function Rehab Potential: Good Further Therapy Indicated?: Yes Candidate for Swing Bed for Therapy Services?: Feel pt may not be a candidate for swing bed due to plans to return to [facility]. Evaluation Complexity: HISTORY: Medium, EXAM OF BODY SYSTEMS: Medium, CLINICAL PRESENTATION: Medium, CLINICAL DECISION MAKING: Medium Short Term Goals GOAL #1: pt demonstrate rolling with bedrails with min x 1 Goal to be met by: 04/09/19 GOAL #2: Transfer sup to/from sit CGA x 1 Goal to be met by: 04/09/19 GOAL #3: Sit to/from stand CGA Goal to be met by: 04/09/19 GOAL #4: pt amb with rwx 75 ft with no LOB with CGA Goal to be met by: 04/09/19 GOAL #5: . Detention Goals GOAL #1: pt demonstrate rolling with bed rails independently with bedrails Goal to be met by: 04/11/19 GOAL #2: Transfer sup to/from sit to/from stand CGA to SBA Goal to be met by: 04/11/19 GOAL #3: pt amb 100ft with rwx with CGA with no LOB with improved posture Goal to be met by: 04/11/19 Plan Plan of Care: Therapeutic EX, Therapeutic Activity Other:: gait training Frequency of Treatment: 1-2 X day, as tolerated Duration of Treatment: 5 days Anticipated [facility]charge Dest[facility] Treatment Diagnosis (ICD 10 Codes): M54.5 LBP. R 26.2 difficulty walking. R 26.81 balance impaired Has the Physician been added for Co-signature?: Yes
--- NOTE | 2019-04-07 16:37 | RS.OTINEVL ---
Subjective - Patient information Date of Evaluation: 04/07/19 Date of Arrival on Unit: 04/04/19 Admitted From:: Emergency Dept Diagnosis: Back pain, Anemia, PRECAUTIONS: fatigued, C-diff Usual Living Arrangement: Intermediate Living Arrangement Comments: Pt was currently living at [facility] because he was receiving therapy after his back surgery (Kyphoplasty). He has a house he was living in alone. Home Environment: House Medical History Comments:: cardiomegally, altered mental status, small Right PE , atherosclerosis, Stable L1 compression Fracture. Subjective Information/ Patient Comments:: "I don't know if I feel like it." - Level of function Prior to this admission, the patient could do the following:: Independent ADL's , Independent Ambulation Abilities prior to this admission: Pt was living in [facility] for rehabilitation following his kyphoplasty. Current Level of Function: Partially Dependent Current Equipment Used at Home: Rolling Walker Pain Assessment - Pain Pain Score: 6 Side: bilateral Pain Location Body Site: Back Pain Aggravating Factors: Changing Position, Standing, Walking Pain Alleviating Factors: Medication, Position Change, Lying Supine Interventions - Objective Patient Orientation: Person Current Interventions: IV's Observation: Pt is weak and fatigues quickly with activity. Pt requires minimal assistance for functional mobility. Balance - Sitting Balance Static Sitting Balance: Fair Dynamic Sitting Balance: Fair - Standing Balance Static Standing Balance: Poor Dynamic Standing Balance: Poor Functional Mobility - Bed Mobility Rolling R/L: Independent Supine to Sit: Min Assist Sit to Supine: Min Assist - Transfers Sit to Stand: Min Assist Stand to Sit: Min Assist Stand Pivot Transfers: Min Assist - Ambulation Weight Bearing Status: FWB Assistive Device Used: Rolling Walker Assistance needed with Ambulation: Min Assist - Safety Awareness Safety Awareness: Fair JAMARI INDEX SCORE: . Additional Treatment Performed - Time with patient Length of Evaluation: 25 Total treatment time: 0 Patient Education Patient Education: Education of diagnosis, Home Exercise Program, Home Safety, Education of Plan of Care Teaching Recipient: Patient Teaching Methods: Teach Back Method Used, Discussion Assessment Problem List:: Decreased level of function, Requires training/education, Decreased safety/Risk of falls, Weakness, Pain limits previous level of function Rehab Potential: Fair Further Therapy Indicated?: Yes Evaluation Complexity: HISTORY: Medium, EXAM OF BODY SYSTEMS: Medium, CLINICAL DECISION MAKING: Medium Short Term Goals - Goals GOAL 1: Pt to be CGA for Sink level ADLS. Goal to be met by: 04/11/19 GOAL 2: Pt to increase BUE strength to 4/5. Goal to be met by: 04/11/19 GOAL 3: Pt to increase activity tolerance to 10 minutes for self cares. Goal to be met by: 04/11/19 Patient Relations Specialist Goals GOAL 1: Pt to be (Mod-I) with self cares. Goal to be met by: 04/15/19 GOAL 2: Pt to increase BUE strength to 4+/5. Goal to be met by: 04/15/19 GOAL 3: Pt to increase activity tolerance to 15 minutes for self cares. Goal to be met by: 04/15/19 Plan Plan of Care: Therapeutic EX, Neuromuscular Re-Educ, Therapeutic Activity, Self- Care/Home Management Modalities: Cold Pack/Cryotherapy Frequency of Treatment: 1-2 X day, as tolerated Duration of Treatment: 2 Weeks Anticipated [facility]charge [facility] Treatment Diagnosis (ICD 10 Codes): M62.81 Muscle weakness, Z74.1 Need for assistance with personal care. Has the Physician been added for Co-signature?: Yes
[2019-04-07] MEDS: MEVACOR PO SCH (17:01)
[2019-04-07] MEDS: FLAGYL PO SCH (20:17)
[2019-04-08] MEDS: FLAGYL PO SCH ×3 (04:12→20:32)
[2019-04-08] MEDS: FERROUS SULFATE PO SCH (06:10)
[2019-04-08] MEDS: CARAFATE PO SCH ×3 (06:10→16:30)
[2019-04-08] MEDS: NALOXEGOL OXALATE 12.5 MG PO SCH (06:11)
[2019-04-08] MEDS: PROTONIX PO SCH (06:12)
[2019-04-08] MEDS: LASIX TAB PO SCH (06:15)
[2019-04-08] MEDS: PERCOCET 5-325 PO SCH ×2 (08:29→20:33)
[2019-04-08] MEDS: MICRO-K CAP PO SCH (08:29)
[2019-04-08] MEDS: MEGACE PO SCH ×2 (08:29→20:32)
[2019-04-08] MEDS: LOTENSIN PO SCH (08:29)
[2019-04-08] MEDS: ALDACTONE PO SCH (08:29)
[2019-04-08] MEDS: PLAVIX PO SCH (08:30)
[2019-04-08] MEDS: MEVACOR PO SCH (16:30)
[2019-04-09] MEDS: FERROUS SULFATE PO SCH (05:45)
[2019-04-09] MEDS: NALOXEGOL OXALATE 12.5 MG PO SCH (05:45)
[2019-04-09] MEDS: LASIX TAB PO SCH (05:45)
[2019-04-09] MEDS: CARAFATE PO SCH ×3 (05:45→16:55)
[2019-04-09] MEDS: PROTONIX PO SCH (05:45)
[2019-04-09] MEDS: FLAGYL PO SCH ×3 (05:45→20:49)
[2019-04-09] MEDS: MEGACE PO SCH ×2 (08:19→20:50)
[2019-04-09] MEDS: PERCOCET 5-325 PO SCH ×2 (08:19→20:49)
[2019-04-09] MEDS: PLAVIX PO SCH (08:19)
[2019-04-09] MEDS: ALDACTONE PO SCH (08:20)
[2019-04-09] MEDS: LOTENSIN PO SCH (08:20)
[2019-04-09] MEDS: MICRO-K CAP PO SCH (08:20)
[2019-04-09] MEDS: LIDODERM PATCH 5% TP SCH (08:28)
--- NOTE | 2019-04-09 09:01 | PCM.PROG ---
Attending Provider: ATTENDING PROVIDER: Dr. RONI GALVEZ DATE OF SERVICE: 04/09/19 SUBJECTIVE: This 88 year old WHITE/ M was hospitalized 04/04/19 with back pain and compression fracture. He has anemia and was given 2 units of packed red cells. 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 REVIEW OF SYSTEMS: CONSTITUTIONAL: No night sweats. No fatigue, malaise, lethargy. No fever or chills. HEENT: Eyes: No visual changes. No eye pain. No eye discharge. ENT: No runny nose. No epistaxis. No sinus pain. No odynophagia. No congestion. RESPIRATORY: No cough, no congestion. No hemoptysis. No shortness of breath. CARDIOVASCULAR: No angina symptoms. No CHF symptoms. No atypical chest pain for CAD. No palpitations. No orthopnea.. GASTROINTESTINAL: No abdominal pain. No nausea or vomiting. No diarrhea or constipation. No hematemesis. No hematochezia. GENITOURINARY: No urgency. No frequency. No dysuria. No hematuria. No obstructive symptoms. No discharge. No pain. No significant abnormal bleeding. MUSCULOSKELETAL: Back pain. NEUROLOGICAL: Awake, alert, oriented to time, place and person. No headache. No neck pain. No syncope. No seizures. No dizziness. PSYCHIATRIC: Not anxious. No depression. No suicidal thoughts. No homicidal thoughts. SKIN: No rash. No lesions. No wounds. ENDOCRINE: No unexplained weight loss. No weight gain. HEMATOLOGIC/LYMPHATIC: Anemia. No purpura. No petechiae. No prolonged or excessive bleeding. No palpable lymph nodes. PHYSICAL EXAMINATION: GENERAL: The patient is awake, alert and oriented, lying/sitting in bed in no distress. VITAL SIGNS: Temperature 98.1 F, Pulse 78, Respiratory Rate 16, BP 127/88, Pulse Ox 96% HEENT: Head normocephalic, atraumatic. Eyes: Extraocular muscles are intact. Pupils are equal, round and reactive to light and accommodation. Ears: No lesions. Nose appeared normal. Throat: No exudate or erythema. NECK: Supple. No JVD, no carotid bruit. No lymphadenopathy or thyromegaly. LUNGS: Clear to auscultation. Percussion note normal. Chest symmetrical. HEART: S1, S2, no S3. No murmurs. No cyanosis or clubbing. No ascites. Pulses: Dorsalis pedis and posterior tibial pulses +1 to +2 both sides. ABDOMEN: Soft. Non-tender. Bowel sounds active. No CVA tenderness. No mass felt. EXTREMITIES: No edema. Full range of motion of all extremities, equal. NEUROLOGIC: No focal deficit. Cranial nerves II through XII are grossly intact. No headache, no double vision or headache. SKIN: Warm and dry. Intact. Turgor-normal. LYMPHATIC: No palpable lymph nodes/no lymphedema. MUSCULOSKELETAL: Normal joints with no swelling. Muscle tone is normal. LAB REVIEW: 04/09/19 05:55 04/09/19 05:55 04/09/19 05:55: Sodium 133.2 L, Potassium 3.97, Chloride 106.4, Carbon Dioxide 23.9, Anion Gap 6.87, BUN 22.6 H, Creatinine 0.85, Estimated GFR (MDRD) 85.00, BUN/Creatinine Ratio 26.58, Glucose 82.0, Calcium 7.53 L, Total Bilirubin 0.91, AST 28.1, ALT 15.1, Alkaline Phosphatase 114.9, Total Protein 4.74 L, Albumin 2.14 L, Globulin 2.60, Albumin/Globulin Ratio 0.82 04/09/19 05:55: WBC 5.52, RBC 3.30 L, Hgb 10.6 L, Hct 32.1 L, MCV 97.3 H, MCH 32.1 H, MCHC 33.0, RDW Coeff of Tika 15.9 H, Plt Count 69 L D, Immature Gran % ( Auto) 0.4, Neut % (Auto) 67.9, Lymph % (Auto) 19.9, Heard % (Auto) 8.5, Eos % ( Auto) 2.9, Baso % (Auto) 0.4, Immature Gran # (Auto) 0.0, Neut # (Auto) 3.8, Lymph # (Auto) 1.1, Heard # (Auto) 0.5, Eos # (Auto) 0.2, Baso # (Auto) 0.0 ASSESSMENT: Please see below. 1. Back pain 2. Anemia 3. C. diff positive 4. Liver cirrhosis with ascites 5. Carotid stenosis 6. Dementia - mental status improved 7. All the above stable. PLAN: The patient has been going to Dr. Lechuga and according to him, it didn't help last month when he gave him a shot and not willing to go back. Dr. Lechuga says the patient is not a surgical candidate and will have to depend on oral medication to control his pain. Plan and coordination of the patient's care discussed in the presence of Staff Submarine Warfare Officer and nurse. CONDITION: Stable SCRIBED BY: SHASTA THOMPSON, Electrical And Radio Mock Up Mechanic scribed while in presence of service performed by Dr. RONI GALVEZ on 04/09/19 ([id number])
[2019-04-09] MEDS: PERCOCET 5-325 PO PRN (14:45)
[2019-04-09] MEDS: MEVACOR PO SCH (16:55)
[2019-04-10] MEDS: CARAFATE PO SCH ×3 (05:57→16:44)
[2019-04-10] MEDS: NALOXEGOL OXALATE 12.5 MG PO SCH (05:57)
[2019-04-10] MEDS: FERROUS SULFATE PO SCH (05:57)
[2019-04-10] MEDS: FLAGYL PO SCH ×3 (05:57→21:18)
[2019-04-10] MEDS: LASIX TAB PO SCH (05:57)
[2019-04-10] MEDS: PROTONIX PO SCH (05:58)
--- NOTE | 2019-04-10 09:45 | PCM.PROG ---
Attending Provider: ATTENDING PROVIDER: Dr. RONI GALVEZ DATE OF SERVICE: 04/10/19 SUBJECTIVE: This 88 year old WHITE/ M was hospitalized 04/04/19. The patient is lying in bed resting comfortably. He had a large loose stool through the night. The number of stools are decreasing however pain still not quite controlled. REVIEW OF SYSTEMS: CONSTITUTIONAL: No night sweats. No fatigue, malaise, lethargy. No fever or chills. HEENT: Eyes: No visual changes. No eye pain. No eye discharge. ENT: No runny nose. No epistaxis. No sinus pain. No odynophagia. No congestion. RESPIRATORY: No cough, no congestion. No hemoptysis. No shortness of breath. CARDIOVASCULAR: No angina symptoms. No CHF symptoms. No atypical chest pain for CAD. No palpitations. No orthopnea.. GASTROINTESTINAL: Positive for diarrhea. No abdominal pain. No nausea or vomiting. No constipation. No hematemesis. No hematochezia. GENITOURINARY: No urgency. No frequency. No dysuria. No hematuria. No obstructive symptoms. No discharge. No pain. No significant abnormal bleeding. MUSCULOSKELETAL: Back pain. Weakness. NEUROLOGICAL: Awake, alert, oriented to time, place and person. No headache. No neck pain. No syncope. No seizures. No dizziness. PSYCHIATRIC: Not anxious. No depression. No suicidal thoughts. No homicidal thoughts. SKIN: No rash. No lesions. No wounds. ENDOCRINE: No unexplained weight loss. No weight gain. HEMATOLOGIC/LYMPHATIC: No anemia. No purpura. No petechiae. No prolonged or excessive bleeding. No palpable lymph nodes. PHYSICAL EXAMINATION: GENERAL: The patient is awake, alert and oriented, lying/sitting in bed in no distress. VITAL SIGNS: Temperature 98.1 F, Pulse 66, Respiratory Rate 16, BP 142/58, Pulse Ox 96% HEENT: Head normocephalic, atraumatic. Eyes: Extraocular muscles are intact. Pupils are equal, round and reactive to light and accommodation. Ears: No lesions. Nose appeared normal. Throat: No exudate or erythema. NECK: Supple. No JVD, no carotid bruit. No lymphadenopathy or thyromegaly. LUNGS: Diminished breath sounds. Clear to auscultation. Percussion note normal. Chest symmetrical. HEART: S1, S2, no S3. No murmurs. No cyanosis or clubbing. No ascites. Pulses: Dorsalis pedis and posterior tibial pulses +1 to +2 both sides. ABDOMEN: Soft. Non-tender. Bowel sounds active. No CVA tenderness. No mass felt. EXTREMITIES: +1 bilateral leg edema. Full range of motion of all extremities, equal. NEUROLOGIC: No focal deficit. Cranial nerves II through XII are grossly intact. No headache, no double vision or headache. SKIN: Warm and dry. Intact. Turgor-normal. LYMPHATIC: No palpable lymph nodes/no lymphedema. MUSCULOSKELETAL: Normal joints with no swelling. Muscle tone is normal. LAB REVIEW: 04/10/19 04:45 04/10/19 04:45 04/10/19 04:45: Sodium 133.3 L, Potassium 3.87, Chloride 105.6, Carbon Dioxide 25.8, Anion Gap 5.77, BUN 21.0 H, Creatinine 0.96, Estimated GFR (MDRD) 74.00, BUN/Creatinine Ratio 21.87, Glucose 84.4, Calcium 7.42 L, Total Bilirubin 0.69, AST 26.9, ALT 15.1, Alkaline Phosphatase 120.9 H, Total Protein 4.62 L, Albumin 2.10 L, Globulin 2.52, Albumin/Globulin Ratio 0.83 04/10/19 04:45: WBC 4.62, RBC 3.08 L, Hgb 10.1 L, Hct 29.7 L, MCV 96.4 H, MCH 32.8 H, MCHC 34.0, RDW Coeff of Tika 15.9 H, Plt Count 109 L D, Immature Gran % ( Auto) 0.4, Neut % (Auto) 63.6, Lymph % (Auto) 23.4, Winston % (Auto) 8.7, Eos % ( Auto) 3.5, Baso % (Auto) 0.4, Immature Gran # (Auto) 0.0, Neut # (Auto) 2.9, Lymph # (Auto) 1.1, Winston # (Auto) 0.4, Eos # (Auto) 0.2, Baso # (Auto) 0.0 ASSESSMENT: Please see below. 1. Back pain 2. Anemia 3. C. diff positive 4. Liver cirrhosis with ascites 5. Carotid stenosis 6. Dementia - mental status improved 7. All the above stable. PLAN: 1. Hold Movantik. 2. Continue Flagyl for two more days. 3. Probiotic twice a day. 4. Percocet t.i.d. SANDRA. Plan and coordination of the patient's care discussed in the presence of Rn Digestive and nurse. CONDITION: Stable SCRIBED BY: SHASTA THOMPSON, Child Psychometrist scribed while in presence of service performed by Dr. RONI GALVEZ on 04/10/19 ([id number])
[2019-04-10] MEDS: ALDACTONE PO SCH (10:19)
[2019-04-10] MEDS: FLORASTOR PO SCH ×2 (10:20→21:18)
[2019-04-10] MEDS: LOTENSIN PO SCH (10:20)
[2019-04-10] MEDS: LIDODERM PATCH 5% TP SCH (10:21)
[2019-04-10] MEDS: MICRO-K CAP PO SCH (10:21)
[2019-04-10] MEDS: MEGACE PO SCH ×2 (10:21→21:18)
[2019-04-10] MEDS: PLAVIX PO SCH (10:22)
[2019-04-10] MEDS: PERCOCET 5-325 PO SCH ×2 (12:34→21:18)
--- NOTE | 2019-04-10 13:36 | PN ---
DATE OF SERVICE: 04/08/19 SUBJECTIVE: 88 year old white male hospitalized with back pain, compression fractures. Also had anemia that the main reason he was sent to the emergency room. The patient has been given a couple of units of packed red cells. He has no evidence of active GI bleed. The patient has liver cirrhosis with ascites with pleural effusion and leg edema which seems to be resolving. The patient's overall medical status seems to be improving. He was found to have C-diff which could be carrier stage but again. I will give him Flagyl to make sure that if he has active infection that could be brought under control. The patient is not in distress. REVIEW OF SYSTEMS: CONSTITUTIONAL: No night sweats. No fatigue, malaise, lethargy. No fever or chills. HEENT: Eyes: No visual changes. No eye pain. No eye discharge. ENT: No runny nose. No epistaxis. No sinus pain. No sore throat. No odynophagia. No congestion. RESPIRATORY: No cough, no congestion. No hemoptysis. No shortness of breath. CARDIOVASCULAR: No angina symptoms. No CHF symptoms. No atypical chest pain for CAD. No palpitations. No PND. No orthopnea. GASTROINTESTINAL: No abdominal pain. No nausea or vomiting. No diarrhea or constipation. No hematemesis. No hematochezia. GENITOURINARY: No urgency. No frequency. No dysuria. No hematuria. No obstructive symptoms. No discharge. No pain. No significant abnormal bleeding. MUSCULOSKELETAL: No musculoskeletal pain; no joint swelling. NEUROLOGICAL: No headache. No neck pain. No syncope. No seizures. No dizziness. PSYCHIATRIC: Not anxious. No depression. No suicidal thoughts. No homicidal thoughts. SKIN: No rash. No lesions. No wounds. ENDOCRINE: No unexplained weight loss. No weight gain. HEMATOLOGIC/LYMPHATIC: No anemia. No purpura. No petechiae. No prolonged or excessive bleeding. No palpable lymph nodes. PHYSICAL EXAMINATION: VITAL SIGNS: His vitals are stable with temperature of 98, pulse 80, respiratory rate 18, blood pressure 140/60 and pulse ox 97%. HEENT: Head normocephalic, atraumatic. Eyes: Extraocular muscles are intact. Pupils are equal, round and reactive to light and accommodation. Ears: No lesions. Nose appeared normal. Throat: No exudate or erythema. NECK: Supple. No JVD, no carotid bruit. No lymphadenopathy or thyromegaly. LUNGS:Decreased breath sounds but clear to auscultation. Percussion note normal. Chest symmetrical. HEART: S1, S2, no S3. No murmurs. No cyanosis or clubbing. No ascites. Pulses: Dorsalis pedis and posterior tibial pulses +1 to +2 bilaterally. ABDOMEN: Soft. Nontender. Bowel sounds active. No CVA tenderness. No mass felt. EXTREMITIES: No edema. Full range of motion of all extremities, equal. NEUROLOGIC: No focal deficit. Cranial nerves II through XII are grossly intact. No headache, no double vision or headache. SKIN: Not dry. Intact. Turgor - normal. LYMPHATIC: No palpable lymph nodes/no lymphedema. MUSCULOSKELETAL: Normal joints with no swelling. Muscle tone is normal. ASSESSMENT: 1. Back pain seems to be under control. Has it when he moves 2. Compression fractures, followed by Dr. Lechuga 3. Anemia, stable. He was given a couple of units of packed red cells 4. Liver cirrhosis with ascites with effusion and leg edema which seems to be resolving 5. Atherosclerosis with severe carotid artery stenosis. neurologically no deficit. PLAN: 1. The patient is DNR. Has multiple medical problems. 2. Over all medical conditions are improving. C-Diff is being treated with Flagyl TIME SPENT: More than 30 minutes. Plan and coordination of the patient's care discussed in the presence of nurse. HERMES
[2019-04-10] MEDS: MEVACOR PO SCH (16:44)
[2019-04-11 04:54] VITALS: BP 144/60; TEMP 98.3
[2019-04-11] MEDS: FERROUS SULFATE PO SCH (06:01)
[2019-04-11] MEDS: FLAGYL PO SCH (06:01)
[2019-04-11] MEDS: CARAFATE PO SCH ×2 (06:01→11:22)
[2019-04-11] MEDS: PROTONIX PO SCH (06:01)
[2019-04-11] MEDS: PERCOCET 5-325 PO SCH (06:01)
[2019-04-11] MEDS: LASIX TAB PO SCH (06:02)
[2019-04-11] MEDS: LOTENSIN PO SCH (09:12)
[2019-04-11] MEDS: LIDODERM PATCH 5% TP SCH (09:12)
[2019-04-11] MEDS: MEGACE PO SCH (09:13)
[2019-04-11] MEDS: ALDACTONE PO SCH (09:13)
[2019-04-11] MEDS: FLORASTOR PO SCH (09:13)
[2019-04-11] MEDS: PLAVIX PO SCH (09:13)
[2019-04-11] MEDS: MICRO-K CAP PO SCH (09:13)
--- NOTE | 2019-04-11 10:20 | PN ---
DATE OF VISIT: 04/07/19 Bashir Farnsworth was seen and examined with the nurse practitioner. The patient has much less back pain than before. He is oriented to time, place and person. No evidence of bleeding. PHYSICAL EXAMINATION: CVS: S1 and S2 normal. LUNGS: Clear. ABDOMEN: Soft. Bowel sounds are active. The ascites seems to be decreasing on physical exam with trace edema. Yesterday the echo showed normal LV contractility with mild pericardial effusion. Appetite has improved. Condition: Stable. MTDD
--- NOTE | 2019-04-11 10:46 | PN ---
DATE OF SERVICE: 04/06/19 Bashir Farnsworth was seen and examined with the nurse practitioner. The patient's condition is improving. Hemoglobin is 9.7, hematocrit 28, WBC 5600 with normal differential. The patient had diarrhea with positive C-diff. The patient is now on Flagyl. TIME SPENT: More than 30 minutes. Plan and coordination of the patient's care discussed in the presence of nurse. HERMES
--- NOTE | 2019-04-11 11:30 | CM.DICTOOL ---
ADMISSION: 04/04/19 14:24 DISCHARGE: 2018 DATE OF SERVICE: 04/11/19 FINAL DIAGNOSIS ANEMIA, TRANSFUSION 2 UNITS C-DIFF COLITIS ( POSITIVE 04/07) BACK PAIN H/O GI BLEED LIVER CIRRHOSIS W/ ASCITES HYPERTENSION CKD DYSLIPIDEMIA POLYOSTEOARTHRITIS CHOLELITHIASIS H/O GI BLEED VIT. B 12 DEFICIENCY CAROTID STENOSIS GREATER THAN 70% LEFT, 50%-69% RIGHT COMPRESSION FRACTURE L1 COMPRESSION FRACTURE L2, L3 COMPRESSION FRACTURE L4, L5 COMPRESSION FRACTURE T11, T12 KYPHOPLASTY L4 AND L5 ECHO 04/07: LVH WITH ENLARGED LAC BORDERLINE LVC, MILD PERICARDIAL EFFUSION LVEF 50% LAST VITALS Temp Pulse Resp BP Pulse Ox 98.3 F 80 16 144/60 H 97 04/11/19 04:54 04/11/19 04:54 04/11/19 04:54 04/11/19 04:54 04/10/19 14:00 TAKE THESE MEDICATIONS AT HOME Benazepril HCl (Lotensin) 10 mg PO DAILY [facility] Last Admin: 04/11/19 09:12 Dose: 10 mg Clopidogrel Bisulfate (Plavix) 75 mg PO DAILY [facility] Last Admin: 04/11/19 09:13 Dose: 75 mg Docusate Sodium (Colace) 100 mg PO BID PRN PRN reason: constipation Last Admin: 04/06/19 20:24 Dose: 100 mg Ferrous Sulfate (Ferrous Sulfate) 324 mg PO QDAC [facility] Last Admin: 04/11/19 06:01 Dose: 324 mg Furosemide (Lasix Tab) 20 mg PO QDAC [facility] Last Admin: 04/11/19 06:02 Dose: 20 mg Lidocaine (Lidoderm Patch 5%) 1 patch TP DAILY [facility] Last Admin: 04/11/19 09:12 Dose: 1 patch Lovastatin (Mevacor) 20 mg PO QPM [facility] Last Admin: 04/10/19 16:44 Dose: 20 mg Megestrol Acetate (Megace) 40 mg PO BID [facility] Last Admin: 04/11/19 09:13 Dose: 40 mg Metronidazole (Flagyl) 500 mg PO Q8HR [facility] FOR SEVEN DAYS STOP DATE: April Last Admin: 04/11/19 06:01 Dose: 500 mg Naloxegol Oxalate [Movantik] 12.5 mg PO QDAC [facility] HOLD FOR ONE WEEK Last Admin: 04/10/19 05:57 Dose: 12.5 mg RESUME ON APRIL 18, 2019 Oxycodone/Acetaminophen (Percocet 5-325) 1 tab PO Q8H [facility] Last Admin: 04/11/19 06:01 Dose: 1 tab Pantoprazole Sodium (Protonix) 40 mg PO QDAC [facility] Last Admin: 04/11/19 06:01 Dose: 40 mg Polyethylene Glycol (Miralax) 17 gm PO DAILY PRN PRN reason: constipation Last Admin: 04/06/19 08:37 Dose: 17 gm Potassium Chloride (Micro-K Cap) 10 meq PO DAILYWM [facility] Last Admin: 04/11/19 09:13 Dose: 10 meq Saccharomyces Boulardii (Florastor) 250 mg PO BID [facility] FOR 30 DAYS Last Admin: 04/11/19 09:13 Dose: 250 mg STOP DATE: 05/10/2019 Sennosides (Senna) 8.6 mg PO DAILY PRN PRN reason: constipation Last Admin: 04/06/19 08:36 Dose: 8.6 mg Spironolactone (Aldactone) 25 mg PO DAILY [facility] Last Admin: 04/11/19 09:13 Dose: 25 mg Sucralfate (Carafate) 1 gm PO TIDAC [facility] Last Admin: 04/11/19 06:01 Dose: 1 gm ALLERGIES No Known Allergies Allergy (Verified 04/04/19 13:11) DISCONTINUED MEDICATIONS Hydrochlorothiazide (Hydrochlorothiazide) 12.5 mg PO DAILY [facility] Last Admin: 04/06/19 08:36 Dose: 12.5 mg MEDICATION CHANGES COLACE 100 MG PO BID PRN FOR CONSTIPATION SENNA 8.6 MG PO DAILY PRN FOR CONSTIPATION MIRALAX 17 GM PO DAILY PRN FOR CONSTIPATION HOLD MOVANTIK 12.5 MG PO DAILY FOR ONE WEEK, RESUME ON 04/18/19 NEW PRESCRIPTIONS: PERCOCET 5/325 MG 1 TABLET BY MOUTH EVERY EIGHT HOURS LIDODERM PATCH 5% APPLY ONE PATCH TO MOST PAINFUL AREA. PATCH MAY REMAIN IN PLACE FOR UP TO 12 HOURS. REAPPLY NEW PATCH DAILY. SPIRONOLACTONE 25 MG 1 TABLET BY MOUTH DAILY FLORASTOR 250 MG 1 CAPSULE BY MOUTH TWICE A DAY FOR THIRTY DAYS - STOP DATE FLAGYL 500 MG ONE TABLET BY MOUTH EVERY EIGHT HOURS FOR SEVEN DAYS - STOP DATE 04/19/2019 SMOKING: NON SMOKER DISEASE SPECIFIC EDUCATION: ANEMIA BLOOD TRANSFUSION C DIFF BACK PAIN PAIN MANAGEMENT FLAGYL PHYSICAL/OCCUPATIONAL THERAPY LAB REVIEW: 04/11/19 04:30 04/11/19 04:30 04/11/19 04:30: Sodium 132.1 L, Potassium 3.93, Chloride 106.3, Carbon Dioxide 24.8, Anion Gap 4.93, BUN 18.7, Creatinine 0.92, Estimated GFR (MDRD) 78.00, BUN /Creatinine Ratio 20.32, Glucose 89.7, Calcium 7.48 L, Total Bilirubin 0.79, AST 30.2, ALT 15.5, Alkaline Phosphatase 119.9 H, Total Protein 4.53 L, Albumin 2.04 L, Globulin 2.49, Albumin/Globulin Ratio 0.81 04/11/19 04:30: WBC 3.71 L, RBC 2.98 L, Hgb 9.7 L, Hct 28.6 L, MCV 96.0 H, MCH 32.6 H, MCHC 33.9, RDW Coeff of Tika 15.8 H, Plt Count 103 L, Immature Gran % ( Auto) 0.8, Neut % (Auto) 60.4, Lymph % (Auto) 25.3, [place] % (Auto) 9.4, Eos % ( Auto) 3.8, Baso % (Auto) 0.3, Immature Gran # (Auto) 0.0, Neut # (Auto) 2.2, Lymph # (Auto) 0.9, [place] # (Auto) 0.4, Eos # (Auto) 0.1, Baso # (Auto) 0.0 PLAN: DISCHARGE BACK TO [facility] TODAY 2018 DIET: REGULAR BUSINESS PERFORMANCE SPECIALIST TO SEE FOR OPTIMAL NUTRITIONAL INTAKE ACTIVITY: MAY PARTICIPATE IN ASSISTED ACTIVITIES TOLERATED PHYSICAL THERAPY EVALUATION: MAY WORK ON TRANSFERS FROM BED TO CHAIR SAFETY WITH TRANSFERS WEAKNESS RELATED TO PAIN WITH TRANSFERS OCCUPATIONAL THERAPY EVALUATION: MAY WORK ON SELF CARE ACTIVITIES/ADL'S ENERGY CONSERVATION TECHNIQUES WEAKNESS RELATED TO PAIN WITH MOVEMENT CBC, CMP ON SUNDAY CBC, CMP EVERY 3 MONTHS LIPIDS, TSH EVERY 6 MONTHS VITAL SIGNS DAILY FOR ONE WEEK WEIGH WEEKLY INCONTINENT CARE PRN DECUBITUS PRECAUTIONS PATIENT TO BEE SEEN ON ASSISTED ROUNDS BY NIESHA ZAVALA APRN IN 7-10 DAYS. CODE STATUS: DO NOT RESUSCITATE MR. CORRALES IS ALERT AND ORIENTED. HE S AWARE AND AGREEABLE WITH DISCHARGE PLANS , HE WILL BE RETURNING TO [facility]. HE IS AGREEABLE AND INTERESTED IN PHYSICAL AND OCCUPATIONAL THERAPY. HE IS AWARE DR. STEVEN WANTS PHYSICAL THERAPY TO WORK ON TRANSFERS AND SAFETY AND OCCUPATIONAL THERAPY TO WORK WITH HIM ON SELF CARE/ADL'S. HE HAS BEEN USING A ROLLING WALKER WITH ASSIST OF ONE STAFF, GAIT IS UNSTEADY. APPETITE HAS BEEN FAIR TO GOOD, MEAL INTAKE 25%-50%. HE IS ABLE TO FEED HIMSELF. HE HAS HAD NO FURTHER NAUSEA, NO VOMITING, NO ABDOMINAL PAIN. HE ONLY HAD TWO STOOLS IN THE LAST 24 HOURS, THE DIARRHEA HAS RESOLVED. HYDRATION STATUS IS GOOD. SKIN REMAINS INTACT. Addi Steven M.D. Niesha Zavala APRN
--- NOTE | 2019-04-17 11:19 | PN ---
DATE OF SERVICE: 04/06/19 SUBJECTIVE: 88-year-old white male hospitalized with back pain, anemia and liver cirrhosis with ascites, leg edema and pleural effusion. The patient's condition is stabilizing. He is feeling better. His hemoglobin count was 7.9. It was decided to give him blood because of the patient's failure to thrive, weakness and fatigue along with generalized anasarca with liver cirrhosis with ascites, all would fair well with the patient's hemoglobin at least rising up to 9 to 9.5. Hematocrit of 28-29. The patient is not actively bleeding. I think it is just a bone marrow dysfunction with lots of medical problems he has. The patient is feeling tired but he says his appetite seems to be improving. REVIEW OF SYSTEMS: CONSTITUTIONAL: Tired feeling. No night sweats. No malaise, lethargy. No fever or chills. HEENT: Eyes: No visual changes. No eye pain. No eye discharge. ENT: No runny nose. No epistaxis. No sinus pain. No sore throat. No odynophagia. No congestion. RESPIRATORY: Breathing is somewhat better. No cough, no congestion. No hemoptysis. No shortness of breath. CARDIOVASCULAR: No angina symptoms. No CHF symptoms. No atypical chest pain for CAD. No palpitations. No PND. No orthopnea. Edema is much less. GASTROINTESTINAL: Appetite improving. No abdominal pain. No nausea or vomiting. No diarrhea or constipation. No hematemesis. No hematochezia. GENITOURINARY: No urgency. No frequency. No dysuria. No hematuria. No obstructive symptoms. No discharge. No pain. No significant abnormal bleeding. MUSCULOSKELETAL: No musculoskeletal pain; no joint swelling. NEUROLOGICAL: Confusion seems to have resolved. He is oriented to time, place and person. No headache. No neck pain. No syncope. No seizures. No dizziness. PSYCHIATRIC: Not anxious. No depression. No suicidal thoughts. No homicidal thoughts. SKIN: No rash. No lesions. No wounds. ENDOCRINE: No unexplained weight loss. No weight gain. HEMATOLOGIC/LYMPHATIC: No anemia. No purpura. No petechiae. No prolonged or excessive bleeding. No palpable lymph nodes. PHYSICAL EXAMINATION: GENERAL: The patient is oriented to time, place and person. VITAL SIGNS: Temperature 97.9, pulse 100/min, respiratory rate 16, blood pressure 132/62, pulse ox 93%. The patient looks pale. HEENT: Head normocephalic, atraumatic. Eyes: Extraocular muscles are intact. Pupils are equal, round and reactive to light and accommodation. Ears: No lesions. Nose appeared normal. Throat: No exudate or erythema. NECK: Supple. No JVD, no carotid bruit. No lymphadenopathy or thyromegaly. LUNGS: Decreased breath sounds but good air entry. Percussion note normal. Chest symmetrical. HEART: S1, S2, no S3. No murmur. No cyanosis or clubbing. No ascites. Pulses: Dorsalis pedis and posterior tibial pulses +1 to +2 bilaterally. ABDOMEN: Soft. Nontender. Bowel sounds active. No CVA tenderness. No mass felt. EXTREMITIES: +1 pitting edema, ascites maybe. Full range of motion of all extremities, equal. NEUROLOGIC: No focal deficit. Cranial nerves II through XII are grossly intact. No headache, no double vision or headache. SKIN: Not dry. Intact. Turgor - normal. LYMPHATIC: No palpable lymph nodes/no lymphedema. MUSCULOSKELETAL: Normal joints with no swelling. Muscle tone is normal. LABS: Hemoglobin 7.9, hematocrit 23, WBC 4,400, normal differential. Platelet count 82,000, creatinine 1, BUN 22, potassium 3.8. ASSESSMENT: 1. Severe anemia which is symptomatic with fatigue, tired feeling, shortness of breath. Anemia seems to be from myelodysplastic syndrome. 2. Liver cirrhosis with ascites, leg edema and pleural effusion. 3. Back pain with multiple compression fractures. The patient says the pain is much less. 4. The patient has generalized atherosclerosis with severe carotid occlusive disease seems to be asymptomatic at the present time. PLAN: 1. Give two units of packed red cells. 2. We will discontinue Hydrochlorothiazide. 3. Will add Aldactone 25 mg p.o. daily. 4. For back pain, continue the same treatment with Ultram and [place]. 5. The patient is DNR. The patient's power of financial legal assistant for health is present in the room. Agree with the ict managers and the patient underwent echocardiographic examination today which showed LVH with enlarged LA cavity. Mild pericardial effusion noted. The valves are normal. Tricuspid regurgitation noted moderate. The patient's condition is stable, prognosis is poor. TIME SPENT: More than 30 minutes. Plan and coordination of the patient's care discussed in the presence of nurse. HERMES
--- NOTE | 2019-04-21 14:31 | PN ---
DATE OF SERVICE: 04/10/19 SUBJECTIVE: The patient was seen and examined with the Nurse Practitioner. He has a large bowel movement of lose stool. No fever or chills. He is being treated for C- Diff. His cardiovascular status is stable. Still has back pain. We are going to increase the Percocet. The patient is practically endstage for a lot of medical problems. CONDITION: Stable He is DNR. TIME SPENT: More than 30 minutes. Plan and coordination of the patient's care discussed in the presence of nurse. HERMES
--- NOTE | 2019-04-22 11:36 | DS ---
DATE OF SERVICE: 04/11/19 FINAL DIAGNOSIS: 1. ANEMIA, TRANSFUSION 2 UNITS 2. C-DIFF COLITIS ( POSITIVE 04/07) 3. BACK PAIN 4. H/O GI BLEED 5. LIVER CIRRHOSIS W/ ASCITES 6. HYPERTENSION 7. CKD 8. DYSLIPIDEMIA 9. 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 B 12 DEFICIENCY 13.CAROTID STENOSIS GREATER THAN 70% LEFT, 50%-69% RIGHT 14.COMPRESSION FRACTURE L1 15.COMPRESSION FRACTURE L2, L3 16.COMPRESSION FRACTURE L4, L5 17.COMPRESSION FRACTURE T11, T12 18.KYPHOPLASTY L4 AND L5 19.ECHO 04/07: LVH WITH ENLARGED LAC BORDERLINE LVC, MILD PERICARDIAL EFFUSION LVEF 50% LAST VITALS: Temp Pulse Resp BP Pulse Ox 98.3 F 80 16 144/60 H 97 04/11/19 04:54 04/11/19 04:54 04/11/19 04:54 04/11/19 04:54 04/10/19 14:00 DISCHARGE INSTRUCTIONS: DISCHARGE BACK TO [facility] TODAY 2018. PHYSICAL THERAPY EVALUATION: MAY WORK ON TRANSFERS FROM BED TO CHAIR, SAFETY WITH TRANSFERS, WEAKNESS RELATED TO PAIN WITH TRANSFERS. OCCUPATIONAL THERAPY EVALUATION: MAY WORK ON SELF CARE ACTIVITIES/ADL'S, ENERGY CONSERVATION TECHNIQUES AND WEAKNESS RELATED TO PAIN WITH MOVEMENT. CBC, CMP ON SUNDAY, CBC, CMP EVERY 3 MONTHS, LIPIDS, TSH EVERY 6 MONTHS VITAL SIGNS DAILY FOR ONE WEEK, WEIGH WEEKLY. INCONTINENT CARE PRN. DECUBITUS PRECAUTIONS. PATIENT TO BEE SEEN ON [facility] BY NIESHA ZAVALA APRN IN 7-10 DAYS. CODE STATUS: DO NOT RESUSCITATE. TAKE THESE MEDICATIONS AT HOME: Benazepril HCl (Lotensin) 10 mg PO DAILY [facility] Clopidogrel Bisulfate (Plavix) 75 mg PO DAILY [facility] Docusate Sodium (Colace) 100 mg PO BID PRN Ferrous Sulfate (Ferrous Sulfate) 324 mg PO QDAC [facility] Furosemide (Lasix Tab) 20 mg PO QDAC [facility] Lidocaine (Lidoderm Patch 5%) 1 patch TP DAILY [facility] Lovastatin (Mevacor) 20 mg PO QPM [facility] Megestrol Acetate (Megace) 40 mg PO BID [facility] Metronidazole (Flagyl) 500 mg PO Q8HR [facility] FOR SEVEN DAYS Naloxegol Oxalate [Movantik] 12.5 mg PO QDAC [facility] HOLD FOR ONE WEEK Oxycodone/Acetaminophen (Percocet 5-325) 1 tab PO Q8H [facility] Pantoprazole Sodium (Protonix) 40 mg PO QDAC [facility] Polyethylene Glycol (Miralax) 17 gm PO DAILY PRN Potassium Chloride (Micro-K Cap) 10 meq PO DAILYWM [facility] Saccharomyces Boulardii (Florastor) 250 mg PO BID [facility] FOR 30 DAYS Sennosides (Senna) 8.6 mg PO DAILY PRN Spironolactone (Aldactone) 25 mg PO DAILY [facility] Sucralfate (Carafate) 1 gm PO TIDAC [facility] ALLERGIES: No Known Allergies Allergy (Verified 04/04/19 13:11) DISCONTINUED MEDICATIONS: Hydrochlorothiazide (Hydrochlorothiazide) 12.5 mg PO DAILY [facility] MEDICATION CHANGES: COLACE 100 MG PO BID PRN FOR CONSTIPATION SENNA 8.6 MG PO DAILY PRN FOR CONSTIPATION MIRALAX 17 GM PO DAILY PRN FOR CONSTIPATION HOLD MOVANTIK 12.5 MG PO DAILY FOR ONE WEEK, RESUME ON 04/18/19 NEW PRESCRIPTIONS: PERCOCET 5/325 MG 1 TABLET BY MOUTH EVERY EIGHT HOURS LIDODERM PATCH 5% APPLY ONE PATCH TO MOST PAINFUL AREA. PATCH MAY REMAIN IN PLACE FOR UP TO 12 HOURS. REAPPLY NEW PATCH DAILY. 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 He has a history of multiple compression fracture with retropulsion. He has been seeing Dr. Lechuga along with a history of falls. Hgb at the care home was 7.8 and he was brought here for further evaluation and transfusion. He had a history of GI bleed within the past 6 months. Upon arrival in the emergency room hgb was low, back pain was worse. CT scan of the L spine showed worsening compression fractures. CT of the abdomen showed some ascites, portal hypertension and liver cirrhosis. He was admitted for pain control as well as anemia. He required two units of packed red blood cells. Hgb has been stable between 9 and 10 since the two units. Back pain required IV Morphine as well as IV Toradol. We have changed around his pain medication and added a Lidoderm patch seems to be that he is more controlled with [place] three times daily scheduled along with the Lidoderm patch in the lower back. He then developed some diarrhea however he does have a long history of constipation and was on three different medications for the constipation. He was tested for C-Diff and was positive and started on Flagyl 500mg PO Q 8 hours. Over the course of several days pain has been controlled, diarrhea was pretty severe for several days and seems to have been controlled. He was also started on Probiotics twice a day. We held all the medication to help with the constipation. He has decided at this hospital visit that he is going to be a DNR. He doesn't wish to see Dr. Lechuga anymore. He had been getting injections for his back and those had not helped. They had thought about referring him to Pain Management and I believe that we can control his pain. At this point I think that his options are limited regarding improvement with the pain given the severity of his osteoarthritis. He will discharged back to [facility] today. He has only had one stool in the past 24 hours. He will continue on Flagyl 500mg TID for the next 7 days along with Probiotics twice daily for the next month. He is to have repeat CBC and CMP on Sunday and then he will have those every two weeks. The Colace, Senna, Miralax as well as Movantik are all on hold until the C-Diff resolves. We will follow him closely at the care home. TIME SPENT: More than 60 minutes. MTDD
--- NOTE | 2019-05-07 08:01 | PN ---
DATE OF SERVICE: 04/11/19 SUBJECTIVE: The patient was seen and examined this morning with Nurse Practitioner. 88 year old white male hospitalized with back pain. The patient has multiple compression fractures. His problem was anemia. He was given a couple of units of packed red cells. The patient had symptomatic anemia with shortness of breath. The patient's hgb at the time of discharge is 9.7 with hct of 28. He has no evidence of active GI bleed. The patient's other problem that was notice this time was liver cirrhosis with ascites with leg edema and pleural effusion. The patient was given Lasix with Aldactone combination. His leg edema has practical resolved. Ascites has practical gone. He is feeling better. At rest the patient doesn't have much back pain. He has no PND. No orthopnea. His cardiovascular status is stable. The patient has severe carotid artery stenosis for which he never wanted anything to be done. He doesn't have any symptoms of TIA. The patient is to be discharged to detention. REVIEW OF SYSTEMS: CONSTITUTIONAL: No night sweats. No fatigue, malaise, lethargy. No fever or chills. HEENT: Eyes: No visual changes. No eye pain. No eye discharge. ENT: No runny nose. No epistaxis. No sinus pain. No sore throat. No odynophagia. No congestion. RESPIRATORY: No cough, no congestion. No hemoptysis. No shortness of breath. CARDIOVASCULAR: No angina symptoms. No CHF symptoms. No atypical chest pain for CAD. No palpitations. No PND. No orthopnea. GASTROINTESTINAL: No abdominal pain. No nausea or vomiting. No diarrhea or constipation. No hematemesis. No hematochezia. GENITOURINARY: No urgency. No frequency. No dysuria. No hematuria. No obstructive symptoms. No discharge. No pain. No significant abnormal bleeding. MUSCULOSKELETAL: No musculoskeletal pain; no joint swelling. NEUROLOGICAL: No headache. No neck pain. No syncope. No seizures. No dizziness. PSYCHIATRIC: Not anxious. No depression. No suicidal thoughts. No homicidal thoughts. SKIN: No rash. No lesions. No wounds. ENDOCRINE: No unexplained weight loss. No weight gain. HEMATOLOGIC/LYMPHATIC: No anemia. No purpura. No petechiae. No prolonged or excessive bleeding. No palpable lymph nodes. PHYSICAL EXAMINATION: GENERAL: The patient is oriented to time, place and person. VITAL SIGNS: Temperature 98.3, pulse 80, respiratory rate 16, blood pressure 144/60 and pulse ox 97%. HEENT: Head normocephalic, atraumatic. Eyes: Extraocular muscles are intact. Pupils are equal, round and reactive to light and accommodation. Ears: No lesions. Nose appeared normal. Throat: No exudate or erythema. NECK: Supple. No JVD, no carotid bruit. No lymphadenopathy or thyromegaly. LUNGS: Clear to auscultation. Percussion note normal. Chest symmetrical. HEART: S1, S2, no S3. No murmurs. No cyanosis or clubbing. No ascites. Pulses: Dorsalis pedis and posterior tibial pulses +1 to +2 bilaterally. ABDOMEN: Soft. Nontender. Bowel sounds active. No CVA tenderness. No mass felt. EXTREMITIES: No edema. Full range of motion of all extremities, equal. NEUROLOGIC: No focal deficit. Cranial nerves II through XII are grossly intact. No headache, no double vision or headache. SKIN: Not dry. Intact. Turgor - normal. LYMPHATIC: No palpable lymph nodes/no lymphedema. MUSCULOSKELETAL: Normal joints with no swelling. Muscle tone is normal. CONDITION: Stable PROGNOSIS: Guarded The patient is DNR. The patient also has problem with C-Diff. I don't think that it may be active infection but in any case we are going to treat him with Flagyl to be taken for 7 days. TIME SPENT: More than 30 minutes. Plan and coordination of the patient's care discussed in the presence of nurse. HERMES
--- NOTE | 2019-05-07 08:03 | PN ---
04/04/19: Level 5 04/05/19: Intermediate 04/06/19: Intermediate 04/07/19: Intermediate 04/08/19: Intermediate 04/09/19: Intermediate 04/10/19: Intermediate 04/11/19: D as in discharge MTDD
--- NOTE | 2019-05-07 09:42 | HP ---
DATE OF SERVICE: 04/04/19 HISTORY OF PRESENT ILLNESS: 88-year-old white male who is a resident at [facility], presents with worsening back pain. PAST MEDICAL HISTORY: Anemia Chronic back pain with compression fractures L1-2, L3-4, L5, T11, T12, history of kyphoplasty, has retropulsion of the L1-2. He sees Dr. Nirav Lechuga at [facility]. History of GI bleed Hypertension Chronic kidney disease, Stage 3 Dyslipidemia Polyarthritis Cholelithiasis Carotid stenosis with complete occlusion on the left B12 deficiency Dementia PAST SURGICAL HISTORY: Kyphoplasty L4-L5 REVIEW OF SYSTEMS: CONSTITUTIONAL: No night sweats. No fatigue, malaise, lethargy. No fever or chills. HEENT: Eyes: No visual changes. No eye pain. No eye discharge. ENT: No runny nose. No epistaxis. No sinus pain. No sore throat. No odynophagia. No ear pain. No congestion. RESPIRATORY: No cough, no congestion. No hemoptysis. No shortness of breath. CARDIOVASCULAR: No angina symptoms. No CHF symptoms. No atypical chest pain for CAD. No palpitations. No PND. No orthopnea. GASTROINTESTINAL: No abdominal pain. No nausea or vomiting. No diarrhea or constipation. No hematemesis. No hematochezia. GENITOURINARY: No urgency. No frequency. No dysuria. No hematuria. No obstructive symptoms. No discharge. No pain. No significant abnormal bleeding. MUSCULOSKELETAL: Positive for back pain. No joint swelling. No arthritis. NEUROLOGICAL: No headache. No neck pain. No syncope. No seizures. No dizziness. PSYCHIATRIC: Not anxious. No depression. No suicidal thoughts. No homicidal thoughts. SKIN: No rash. No lesions. No wounds. ENDOCRINE: No unexplained weight loss. No weight gain. HEMATOLOGIC/LYMPHATIC: Anemia. No purpura. No petechiae. No prolonged or excessive bleeding. No palpable lymph nodes. PERSONAL/FAMILY/SOCIAL HISTORY: He has never been . He is currently at [facility]. He has one living relative, Aron, which is his nephew. No alcohol or ilicit drug use. Nonsmoker. MEDICATIONS: (HOME) Miralax 17 gm p.o. daily Mevacor 20 mg p.o. bedtime Plavix 75 mg p.o. daily Senna 5 one each p.o. daily Ferrous Sulfate 324 mg p.o. q.d a.c. Protonix 40 mg p.o. q.d a.c. Benazepril/Hydrochlorothiazide 10 mg p.o. daily Oxycodone one each p.o. q.6h p.r.n. Potassium Chloride 10 mEq one tab p.o. daily Movantik 12.5 mg p.o. daily Carafate 1 gm p.o. t.i.d. Acetaminophen 650 mg p.o. q.4hr p.r.n. Furosemide 20 mg p.o. q.d a.c. Colace 100 mg p.o. b.i.d. Megace 40 mg p.o. b.i.d. Oxycodone/Acetamiophen one each p.o. b.i.d. ALLERGIES: NKDA PHYSICAL EXAMINATION: GENERAL: The patient is alert and oriented to person and place. Pallor positive. VITAL SIGNS: Temperature 98, pulse 70, respiratory rate 15, BP 174/54, 02 sat 98 on room air. HEENT: Head normocephalic, atraumatic. Eyes: Extraocular muscles are intact. Pupils are equal, round and reactive to light and accommodation. Ears: No lesions. Nose appeared normal. Throat: No exudate or erythema. NECK: Supple. No JVD, no carotid bruit. No lymphadenopathy or thyromegaly. LUNGS: Diminished breath sounds bilaterally. Clear to auscultation. Percussion note normal. Chest symmetrical. HEART: S1, S2, no S3. No murmur. No cyanosis or clubbing. No ascites. Pulses: Dorsalis pedis and posterior tibial pulses +1 to +2 bilaterally. ABDOMEN: Soft. Nontender. Bowel sounds active. No CVA tenderness. No mass felt. EXTREMITIES: No edema. Full range of motion of all extremities, equal. NEUROLOGIC: No focal deficit. Cranial nerves II through XII are grossly intact. No headache, no double vision or headache. SKIN: Not dry. Intact. Turgor - normal. LYMPHATIC: No palpable lymph nodes/no lymphedema. MUSCULOSKELETAL: Normal joints with no swelling. Muscle tone is normal. LABS/X-RAYS: CT of the chest shows mild to moderate right pleural effusion with possible consolidation, cardiomegaly, L1 compression fracture. CT of the L-spine shows severe compression fracture L1, L4-5, severe degenerative joint disease. CT of the abdomen and pelvis shows cirrhotic configuration of the liver, small ascites, thickening of the colon maybe due to colitis, compression fractures. White count 4.3, hemoglobin 8.7, hematocrit 26.8, platelets 97. Sodium 134, potassium 4.1, BUN 18, creatinine 1.07, glucose 98. ASSESSMENT: 1. ANEMIA 2. COLITIS 3. INTRACTABLE BACK PAIN 4. HISTORY OF GI BLEED 5. LIVER CIRRHOSIS 6. HYPERTENSION 7. CHRONIC KIDNEY DISEASE PLAN: 1. We will admit. 2. Routine telemetry orders. 3. CBC, CMP daily. 4. Continue home medications. 5. Toradol 15 mg IV q.6hr. 6. Protonix 40 mg b.i.d. 7. Carafate q.i.d. before meals. 8. Continue Percocet. 9. Regular diet. 10. Rocephin 1 gm IV daily. 11. Fall precautions. 12. Will follow closely. TIME SPENT: More than 70 minutes. MTDD
== END 2019-04-11 11:55 | DRG 812 ==
LOC: ED 12:05 → MEDSURG B 14:24
PROVIDERS: ADMIT Internal Medicine; ATTEND Internal Medicine

== ENCOUNTER 2019-04-22 06:24 | Inpatient (IN) ==
--- NOTE | 2019-04-22 07:29 | ED.PDOC ---
General ED Provider: Dr. ANNIE RANDOLPH Chief Complaint: Fall Mode of Arrival: Ambulance Information Source: Patient, Care Home and EMT Primary Care Provider: RONI GALVEZ Sepsis Protocol: For patient's 13 years and over: Temp is 96.8 and below OR 101 and greater Pulse >90 BPM Resp >20/minute Acutely Altered Mental Status Are patient's symptoms suggestive of a new infection, such as: -Pneumonia -Skin, Soft Tissue -Endocarditis -UTI -Bone, Joint Infection -Implantable Device -Acute Abdominal Infection -Wound Infection -Meningitis -Blood Stream Catheter Infection -Unknown Trauma/Injury Complaint Exam Head Injury Complaint/Exam Location of Pain: Reports Right and Forehead (3 cm laceration mid forehead extending into subutaneous tissue; 2nd superficial laceration rt lat over orbit.) Mechanism of Injury: Reports Trauma (Apparently fell out of bed) Onset/Duration: This AM Symptoms Are: Still present Initial Severity: Moderate Current Severity: Mild Character: Reports Sharp Aggravating: Reports None Loss of Consciousness: None Related History: Reports Anticoagulants SDH Risk Factors: Present Male, Recent trauma and Anticoagulant use Cervical Spine Injury Risk Factors: Present None Head Injury Findings: Present Normal findings Glascow Coma Scale (see protocol): 15 Focal Weakness: Present None Focal Sensory Loss: Present None Gait: Unable Gag Reflex Present: Yes Nexus Low Risk Criteria: No post-midline CS tender, No evidence of intoxicat., No Altered LOC, No focal neuro deficit and No distracting injuries Head Picture: 1. Differential Diagnoses: Trauma Review of Systems Review Of Systems Constitutional: Reports No symptoms Eyes: Reports No symptoms Ears, Nose, Mouth, Throat: Reports No symptoms Respiratory: Reports No symptoms GI: Reports No symptoms : Reports No symptoms Musculoskeletal: Reports No symptoms Skin: Reports No symptoms Neurological: Reports No symptoms Endocrine: Reports No symptoms Hematologic/Lymphatic: Reports No symptoms All Other Systems: Reviewed and Negative [facility] Social History (Updated 04/22/19 @ 07:32 by CARLEY CHAVEZ RN) Do you feel safe at home: Yes Smoking and tobacco status: Never smoker Alcohol intake: never History of recent travel: No Physical Exam Physical Exam Appearance: Well-appearing, Well-nourished and Thin Pain Distress: Mild Eyes: NICOLASA, EOMI and Conjunctiva clear ENT: Ears normal Neck: Supple Respiratory: Airway patent, Breath sounds clear and Breath sounds equal Cardiovascular: RRR, Pulses normal and No murmur GI/: Soft, Nontender, No masses and Bowel sounds normal Musculoskeletal: Normal strength, ROM intact and No edema Skin: Warm and Normal color Neurological: Sensation intact, Motor intact, Reflexes intact, Cranial nerves intact and Oriented Psychiatric: Affect appropriate and Mood appropriate Procedures Laceration/Wound Repair Forehead: Wound Description: Linear (right to mid forehead) Wound Length (cm): 4.0 Wound Width: 25 mm Wound Depth: 5 mm Wound Explored: Clean Wound Irrigated: Yes (NS copiously) Wound Prep: Saline and Betadine Anesthesia: Lidocaine Wound Repaired With: Sutures Suture Size and Type: Prolene Number of Sutures: 4 Layer Closure?: No Sterile Dressing Applied?: Yes Course Course Orders, Labs, Meds: Orders Category Date Time Status Diphth,Pertuss(Acell),Tet Vac [Boostrix] MEDS 04/22/19 07:36 Once 0.5 ml IM .ONCE ONE Lidocaine HCl/Pf [Lidocaine HCl 1% Sdv] MEDS 04/22/19 07:33 Stat 5 ml SUBCUT ONCE STA CT CERVICAL SPINE W/O CONTRAST Stat RADS 04/22/19 06:[address] HEAD W/O CONTRAST Stat RADS 04/22/19 06:[address] LUMBAR SPINE W/O CONTRAST Stat RADS 04/22/19 06:[address] PELVIS W/O CONTRAST Stat RADS 04/22/19 06:[address] THORACIC SPINE W/O CONTRAST Stat RADS 04/22/19 06:45 Ordered Medications Discontinued Medications Generic Name Dose Route Start Last Admin Trade Name Freq PRN Reason Stop Dose Admin Diphtheria/Pertussis/Tetanus Vacc 0.5 ml 04/22/19 07:36 Boostrix IM 04/22/19 07:37 .ONCE ONE Lidocaine HCl 5 ml 04/22/19 07:33 Lidocaine Hcl 1% Sdv SUBCUT 04/22/19 07:34 ONCE STA Vital Signs: Temp Pulse Resp BP Pulse Ox 04/22/19 06:26 98 F 71 20 188/65 H 97 Discharge Plan Discharge Prescriptions: No Action lovastatin 20 MG tablet 20 mg PO BEDTIME RF: 0 ferrous sulfate 324 MG tablet,delayed release (DR/EC) 324 mg PO QDAC RF: 0 pantoprazole 40 MG tablet,delayed release (DR/EC) 40 mg PO QDAC RF: 0 clopidogrel [Plavix] 75 MG tablet 75 mg PO DAILY RF: 0 sucralfate 1 GM tablet 1 g PO TID RF: 0 potassium chloride 10 MEQ tablet extended release 1 tab PO DAILY RF: 0 furosemide 20 MG tablet 20 mg PO QDAC RF: 0 megestrol 40 MG tablet 40 mg PO BID RF: 0 metronidazole 250 MG tablet 500 mg PO Q8HR Qty: 1 RF: 0 spironolactone 25 MG tablet 25 mg PO DAILY Qty: 1 RF: 0 oxycodone-acetaminophen 1 TAB tablet 1 tab PO Q8H Qty: 1 RF: 0 benazepril 10 MG tablet 10 mg PO DAILY Qty: 1 RF: 0 Florastor 250 MG capsule 250 mg PO BID RF: 0 polyethylene glycol 3350 [Miralax] 17 GM powder in packet 17 g PO DAILY PRN (Reason: Constipation) Qty: 1 RF: 0 sennosides-docusate sodium [Senna-S] 1 EACH tablet 1 ea PO DAILY PRN (Reason: Constipation) Qty: 1 RF: 0 docusate sodium 100 MG capsule 100 mg PO BID PRN (Reason: Constipation) Qty: 1 RF: 0 Movantik 12.5 MG tablet 12.5 mg PO DAILY Qty: 1 RF: 0 lidocaine-transparent dressing 5 %- 6 cm X 7 cm Kit 0 % TOPICAL .COMPLEX RF: 0 ED Provider: ANNIE RANDOLPH
[2019-04-22] MEDS ORDERED: LIDOCAINE HCL 1% SDV SUBCUT STA (07:33)
[2019-04-22] MEDS ORDERED: BOOSTRIX IM ONE (07:36)
--- NOTE | 2019-04-22 11:04 | CT ---
EXAM: CT cervical spine without contrast HISTORY: Fall, head injury TECHNIQUE: Multi-slice transaxial helical with coronal and sagittal reformatted views. COMPARISON: Thoracic spine radiograph dated 10/30/1989 FINDINGS: Age indeterminate compression deformity of C7 with anterior wedging, which may have been present on c hest CT dated 04/04/2019. Mild chronic anterior wedging of C6. Remaining vertebral body heights are preserved. Straightening of the normal cervical lordosis. Anatomic alignment of the facet joints. Multilevel facet arthrosis. Paraspinal soft tissues are unremarkable. Moderate chronic left maxillary sinusitis, slightly decreased from prior exam. Mild mucosal thickeni ng in the right maxillary sinus. Bilateral carotid atherosclerotic calcifications. Bilateral dental caries and periapical lucencies, most prominent in the left maxilla and right mandible. Lung apices are clear. IMPRESSION: 1. Age indeterminate compression deformity with anterior wedging of the C7 vertebral body, which may have been present on CT dated 04/04/2019 although this is not well visualized. Correlate with point tenderness. Otherwise, no cervical spine fracture. 2. Chronic left maxillary sinus disease. 3. Other findings as above.
--- NOTE | 2019-04-22 11:04 | CT ---
Exam: CT lumbar spine without intravenous contrast. Comparison: 04/04/2019. Reason for exam: Back pain after fall. FINDINGS: Image interpretation is limited by osseous demineralization. There is a new compression d eformity in the L3 vertebral body with approximately 10% loss of vertebral body height and sclerotic change. Similar appearing compression deformities are seen in the L5-L4 an L1 vertebral bodies. Ath erosclerotic disease is seen within the aorta and distal arterial vasculature. Moderately sized right-sided and a small left-sided pleural effusions. Marked degenerative disease is seen throughout the lumbosacral spine. T12 - L1: Calcified ligamentous disc complex resulting in mild to moderate central canal and foramin al narrowing. L1-L2: Calcified ligamentous disc complex with facet hypertrophy resulting in moderate to marked michelle tral canal and foraminal narrowing. L2-3: Calcified ligamentous disc complex with facet hypertrophy resulting in moderate to severe centr al canal and foraminal narrowing. L3-L4: Calcified ligamentous disc complex with osseous retropulsion resulting in moderate to severe central canal and foraminal narrowing. L4-L5: Calcified ligamentous disc complex with osseous retropulsion and facet hypertrophy resulting in moderate to severe central canal and foraminal narrowing. L5-S1: Calcified ligamentous disc complex with facet hypertrophy resulting in moderate to severe michelle tral canal and foraminal narrowing. Impression: 1. There is a new compression deformity in the L3 vertebral body with approximately 10% loss of vert ebral body height. 2. Similar appearing compression deformities in the lumbar spine with the kyphoplasty/vertebral plas ty changes and vertebra plana in the L1 vertebral body. 3. Similar appearing multilevel moderate to severe degenerative disease with osseous demineralizatio n which limits interpretation. Impression:
--- NOTE | 2019-04-22 11:04 | DI ---
EXAM: Right rib series. HISTORY: Blunt trauma to right hemithorax COMPARISON: CT chest dated 04/04/2019. FINDINGS: Mildly displaced fractures of the right anterior lateral eighth, ninth , tenth and elevent h ribs. Degenerative change of the osseous structures. Lumbar vertebroplasty changes. Visualized ch est is clear. Calcified gallstones, similar to prior imaging. Atherosclerotic calcifications. IMPRESSION: 1. Mildly displaced fractures of the right anterolateral 8th-11th ribs. 2. Cholelithiasis.
--- NOTE | 2019-04-22 11:04 | CT ---
EXAM: CT Head HISTORY: Fall, head injury COMPARISON: 01/14/2019 TECHNIQUE: CT head performed without contrast FINDINGS: There is no mass effect, midline shift, or intracranial hemmorhage. [place] white differenti ation is preserved. There is no extra-axial collection. Basal cisterns are patent. Similar moderat e generalized atrophy. Patchy periventricular subcortical white matter hypoattenuation, likely repre senting chronic small vessel ischemic changes, which are similar to prior exam. There is no depresse d calvarial fracture. The mastoid air cells are clear. Moderate chronic-appearing mucosal thickening within the left maxillary sinus. Mild mucosal thickening in the right maxillary sinus. Right latera l frontal temporal scalp swelling and hematoma. IMPRESSION: 1. No acute intracranial abnormality. 2. Similar chronic findings as above. 3. Right frontal temporal scalp hematoma. 4. Slightly decreased chronic left maxillary sinus disease.
--- NOTE | 2019-04-22 11:04 | CT ---
EXAM: CT bony pelvis without contrast. HISTORY: Pelvic pain after fall TECHNIQUE: Multi-slice transaxial helical CT. Coronal and sagital reformations were performed. COMPARISON: None FINDINGS: Osteopenia. Bony pelvis is intact. No acute fracture. Chronic compression deformities of L4 and L5 . Symmetric mild degenerative change of the SI joints. Pubic symphysis is unremarkable. Status pos t vertebroplasty. Partially visualized water density left inferior pole renal cysts. Extensive aortoiliac atherosclero tic calcifications. Colonic diverticulosis. Nonspecific hypodense ascites in the pelvis and right l ower quadrant. Ovoid soft tissue densities in the bilateral inguinal canals. Asymmetric right anterior hip/pelvis subcutaneous fat stranding. IMPRESSION: 1. No acute fracture. Asymmetric mild right anterior hip/pelvis fat stranding, possibly representing hematoma. 2. Nonspecific hypodense ascites in the pelvis and right lower quadrant of uncertain etiology. 3. Colonic diverticulosis. 4. Ovoid soft tissue densities in the bilateral inguinal canals, correlate for suspected high-riding testes. 5. Extensive atherosclerosis.
--- NOTE | 2019-04-22 11:04 | CT ---
EXAM: CT Thoracic Spine without contrast HISTORY: Mid back pain after fall COMPARISON: Chest CT dated 04/04/2019 TECHNIQUE: CT Thoracic spine performed without intravenous contrast. Coronal and sagital images obtai yobani. FINDINGS: Redemonstrated age indeterminate vertebral body height loss with anterior wedging of the C7 vertebral body, which may be present on prior CT of the chest. Similar compression deformity of the L1 verteb ral body with marked height loss. Thoracic vertebral body heights are preserved. Spinal alignment a nd intervertebral disc spaces are preserved. Anatomic alignment of the facet joints. Paraspinal sof t tissues are unremarkable. Similar moderate right pleural effusion with adjacent atelectasis/consolidation. Visualized left ana cristina g is clear. Aortic atherosclerotic calcifications. Visualized abdominal aorta measures less than 3 cm. Multiple calcified gallstones. IMPRESSION: 1. No acute thoracic spine fracture. 2. Age indeterminate but possibly chronic C7 compression deformity with anterior wedging. Correlate with point tenderness. 3. Similar chronic L1 compression deformity. 4. Moderate right pleural effusion with adjacent atelectasis/consolidation, similar to prior chest C T. 5. Cholelithiasis . 6. Atherosclerosis
--- NOTE | 2019-04-22 11:14 | DI ---
Exam: Single view of the chest. Comparison: CT chest performed 04/04/2019. Reason for exam: Rib fracture. Assess for pneumothorax. FINDINGS: No pneumothorax or focal airspace consolidation. There is bibasilar atelectasis. Parench ymal changes seen consistent with chronic lung disease. The previously described right-sided rib fra ctures are not well appreciated on this exam. The cardiac silhouette remains prominent in size Impression: 1. No pneumothorax or focal airspace consolidation. 2. The previously described right-sided rib fractures are not well seen on this exam. 4. Bibasilar atelectasis/pneumonia with persistent cardiomegaly
[2019-04-22] MEDS ORDERED: NORCO 7.5-325 MG/15 ML PO STA (11:54)
[2019-04-22 14:23] VITALS: BMI 21.5
[2019-04-22] MEDS ORDERED: MIRALAX PO PRN (15:23)
[2019-04-22] MEDS ORDERED: COLACE PO PRN (15:23)
[2019-04-22] MEDS ORDERED: SENNOSIDES DOCUSATE SODIUM PO PRN (15:23)
[2019-04-22] MEDS ORDERED: LIDOCAINE TP SCH (15:30)
[2019-04-22] MEDS: SOLU-MEDROL 125 MG IVP SCH ×2 (15:43→21:24)
[2019-04-22] MEDS: ROCEPHIN 1 GM/50 ML D5W 1 GM/50 ML BAG IV SCH (15:43)
[2019-04-22] MEDS: CARAFATE PO SCH (16:00)
[2019-04-22] MEDS ORDERED: NUBAIN IVP PRN (18:41)
[2019-04-22] MEDS ORDERED: FLAGYL PO SCH (21:00)
[2019-04-22] MEDS ORDERED: MEVACOR PO SCH (21:00)
[2019-04-22] MEDS: FLORASTOR PO SCH (21:24)
[2019-04-22] MEDS: MEGACE PO SCH (21:24)
[2019-04-22] MEDS: PERCOCET 5-325 PO SCH (21:27)
[2019-04-22] MEDS: NON-FORMULARY MEDICATION (Metronidazole [Flagyl] 500 MG) PO SCH (21:27)
[2019-04-23] MEDS: SOLU-MEDROL 125 MG IVP SCH ×3 (05:32→21:17)
[2019-04-23] MEDS: PERCOCET 5-325 PO SCH ×3 (05:34→21:23)
[2019-04-23] MEDS: NON-FORMULARY MEDICATION (Metronidazole [Flagyl] 500 MG) PO SCH ×3 (05:34→21:22)
[2019-04-23] MEDS: CARAFATE PO SCH ×3 (05:34→17:01)
[2019-04-23] MEDS ORDERED: FERROUS SULFATE PO SCH (06:30)
[2019-04-23] MEDS ORDERED: LASIX TAB PO SCH (06:30)
[2019-04-23] MEDS ORDERED: PROTONIX PO SCH (06:30)
[2019-04-23] MEDS ORDERED: MICRO-K CAP PO SCH (08:00)
[2019-04-23] MEDS ORDERED: LOTENSIN PO SCH (09:00)
[2019-04-23] MEDS ORDERED: ALDACTONE PO SCH (09:00)
[2019-04-23] MEDS: ROCEPHIN 1 GM/50 ML D5W 1 GM/50 ML BAG IV SCH (10:17)
[2019-04-23] MEDS: FLORASTOR PO SCH ×2 (10:21→21:18)
[2019-04-23] MEDS: MEGACE PO SCH ×2 (10:24→21:19)
[2019-04-23] MEDS: PLAVIX PO SCH (10:25)
[2019-04-23] MEDS: NALOXEGOL 12.5 MG PO SCH (10:25)
[2019-04-23] MEDS ORDERED: COLACE PO PRN (12:30)
[2019-04-23] MEDS ORDERED: MIRALAX PO PRN (12:30)
[2019-04-23] MEDS ORDERED: SENNA PO PRN (12:34)
--- NOTE | 2019-04-23 14:39 | RS.OTINEVL ---
Subjective - Patient information Date of Evaluation: 04/23/19 Date of Arrival on Unit: 04/22/19 Diagnosis: Back pain, Anemia, rib fractures, PRECAUTIONS: fatigued, rib fractures Usual Living Arrangement: Assisted Living Arrangement Comments: Pt was currently living at [facility] because he was receiving therapy after his back surgery (Kyphoplasty). He has a house he was living in alone. Patient is still at [facility] Home Environment: House Medical History: Hypertension, Arthritis Medical History Comments:: cardiomegally, altered mental status, small Right PE, atherosclerosis, Stable L1 compression Fracture. LATEX ALLERGY?: No Surgical History Comments:: kyphoplasty L 4- L5 Medications: see chart Subjective Information/ Patient Comments:: "I need to go find a bathroom." - Level of function Prior to this admission, the patient could do the following:: Independent ADL's, Independent Ambulation Abilities prior to this admission: [facility] Current Level of Function: Partially Dependent Comments: Pt is confused and leans back where he will fall if not assisted at all times while standing. Current Equipment Used at Home: walker Pain Assessment - Pain Pain Score: 4 Side: bilateral Pain Location Body Site: Back Pain Aggravating Factors: Changing Position, Standing, Walking Pain Alleviating Factors: Medication, Lying Supine Interventions - Objective Patient Orientation: Person Current Interventions: Telemetry Observation: Pt requires minimal assistance for standing to complete urinating in the toilet with his RW. Pt is confused some of the time. Interventions - ROM Right Upper Extremity AROM: WFL's Left Upper Extremity AROM: WFL's - Strength Right Upper Extremity Strength: Mild Weakness Left Upper Extremity Strength: Mild Weakness - Sensation Right Upper Extremity Sensation: Intact/Normal Left Upper Extremity Sensation: Intact/Normal Balance - Sitting Balance Static Sitting Balance: Poor Dynamic Sitting Balance: Poor - Standing Balance Static Standing Balance: Poor Dynamic Standing Balance: Poor ADL Skills - Self Feeding Self Feeding: CGA - Grooming Grooming: Min Assist - Dressing Dressing LE: Max Assist - Toilet Management Toileting Management: Min Assist Functional Mobility - Bed Mobility Rolling R/L: CGA Scooting: CGA Supine to Sit: Min Assist Sit to Supine: Min Assist - Transfers Sit to Stand: Supervision Stand to Sit: Supervision Stand Pivot Transfers: Min Assist - Ambulation Weight Bearing Status: FWB Assistive Device Used: Rolling Walker Assistance needed with Ambulation: Min Assist, 1 person assist - Safety Awareness Safety Awareness: Poor JAMARI INDEX SCORE: . Additional Treatment Performed - Time with patient Length of Evaluation: 22 Total treatment time: 22 Activities Do you enjoy playing games?: No Would you be interested in leaving your room for activities?: Yes Would you enjoy group activities?: Yes What types of things do you enjoy doing? Any Hobbies?: Watching the news Patient Interests:: Watching Television, Visiting/Socializing Patient Education Patient Education: Education of diagnosis, Home Exercise Program, Education of Plan of Care Teaching Recipient: Patient Teaching Methods: Discussion Assessment Problem List:: Decreased level of function, Requires training/education, Decreased safety/Risk of falls, Weakness Rehab Potential: Good Further Therapy Indicated?: Yes Evaluation Complexity: HISTORY: Medium, EXAM OF BODY SYSTEMS: Medium, CLINICAL DECISION MAKING: Medium Short Term Goals - Goals GOAL 1: Pt to be CGA for Sink level ADLS. Goal to be met by: 04/27/19 GOAL 2: Pt to increase BUE strength to 4/5. Goal to be met by: 04/27/19 GOAL 3: Pt to increase activity tolerance to 10 minutes for self cares. Goal to be met by: 04/27/19 [employer]or Goals GOAL 1: Pt to be Mod-Independent for Sink level ADLS. Goal to be met by: 04/30/19 GOAL 2: Pt to increase BUE strength to 4+/5. Goal to be met by: 04/30/19 GOAL 3: Pt to increase activity tolerance to 15 minutes for self cares. Goal to be met by: 04/30/19 Plan Plan of Care: Therapeutic EX, Therapeutic Activity, Self-Care/Home Management Frequency of Treatment: 1-2 X day, as tolerated Duration of Treatment: 1 Week Anticipated Discharge Destination: [facility] Treatment Diagnosis (ICD 10 Codes): M62.81 Muscle Weakness, Z74.1 Need for assistance with self care. Has the Physician been added for Co-signature?: Yes
[2019-04-23] MEDS: MEVACOR PO SCH (21:18)
[2019-04-24] MEDS: NON-FORMULARY MEDICATION (Metronidazole [Flagyl] 500 MG) PO SCH ×2 (05:02→12:13)
[2019-04-24] MEDS: SOLU-MEDROL 125 MG IVP SCH (05:32)
[2019-04-24] MEDS: PERCOCET 5-325 PO SCH ×3 (05:33→20:10)
[2019-04-24] MEDS: PROTONIX PO SCH (05:33)
[2019-04-24] MEDS: FERROUS SULFATE PO SCH (05:33)
[2019-04-24] MEDS: CARAFATE PO SCH ×3 (05:33→16:43)
[2019-04-24] MEDS: LASIX TAB PO SCH (06:37)
[2019-04-24] MEDS: PLAVIX PO SCH (08:52)
[2019-04-24] MEDS: MEGACE PO SCH ×2 (08:52→20:09)
[2019-04-24] MEDS: ALDACTONE PO SCH (08:52)
[2019-04-24] MEDS: MICRO-K CAP PO SCH (08:52)
[2019-04-24] MEDS: LOTENSIN PO SCH (08:52)
[2019-04-24] MEDS: FLORASTOR PO SCH ×2 (08:54→20:09)
[2019-04-24] MEDS: KEFLEX PO SCH ×2 (08:54→20:09)
[2019-04-24] MEDS: NALOXEGOL 12.5 MG PO SCH (08:54)
[2019-04-24] MEDS: DUONEB NEB SCH ×7 (09:23→20:20)
--- NOTE | 2019-04-24 13:20 | PN ---
DATE OF SERVICE: 04/22/19 SUBJECTIVE: The patient was hospitalized after he fell out of the bed in the group home and had hematoma laceration on the right forehead. The patient also had 4 rib fractures on the right side. The patient complains of pain given new pain with some response. The patient does not have any pneumothorax. C spine and L spine shows compression fractures which are chronic. The patient is on Flagyl for his C-Diff infection. He has nearly 10 days ago when he was hospitalized. The patient's CT scan of the head is negative. I examined the patient in the emergency room where RAVEN, his nephew, was present. The patient was oriented to time, place and person. Right head hematoma was noted. REVIEW OF SYSTEMS: CONSTITUTIONAL: No night sweats. No fatigue, malaise, lethargy. No fever or chills. HEENT: Eyes: No visual changes. No eye pain. No eye discharge. ENT: No runny nose. No epistaxis. No sinus pain. No sore throat. No odynophagia. No congestion. RESPIRATORY: No cough, no congestion. No hemoptysis. No shortness of breath. CARDIOVASCULAR: No angina symptoms. No CHF symptoms. No atypical chest pain for CAD. No palpitations. No PND. No orthopnea. GASTROINTESTINAL: No abdominal pain. No nausea or vomiting. No diarrhea or constipation. No hematemesis. No hematochezia. GENITOURINARY: No urgency. No frequency. No dysuria. No hematuria. No obstructive symptoms. No discharge. No pain. No significant abnormal bleeding. MUSCULOSKELETAL: No musculoskeletal pain; no joint swelling. NEUROLOGICAL: No headache. No neck pain. No syncope. No seizures. No dizziness. PSYCHIATRIC: Not anxious. No depression. No suicidal thoughts. No homicidal thoughts. SKIN: No rash. No lesions. No wounds. ENDOCRINE: No unexplained weight loss. No weight gain. HEMATOLOGIC/LYMPHATIC: No anemia. No purpura. No petechiae. No prolonged or excessive bleeding. No palpable lymph nodes. PHYSICAL EXAMINATION: HEENT: Head normocephalic, atraumatic. Eyes: Extraocular muscles are intact. Pupils are equal, round and reactive to light and accommodation. Ears: No lesions. Nose appeared normal. Throat: No exudate or erythema. NECK: Supple. No JVD, no carotid bruit. No lymphadenopathy or thyromegaly. LUNGS: Clear to auscultation. Percussion note normal. Chest symmetrical. HEART: S1, S2, no S3. No murmurs. No cyanosis or clubbing. No ascites. Pulses: Dorsalis pedis and posterior tibial pulses +1 to +2 bilaterally. ABDOMEN: Soft. Nontender. Bowel sounds active. No CVA tenderness. No mass felt. EXTREMITIES: No edema. Full range of motion of all extremities, equal. NEUROLOGIC: No focal deficit. Cranial nerves II through XII are grossly intact. No headache, no double vision or headache. SKIN: Not dry. Intact. Turgor - normal. LYMPHATIC: No palpable lymph nodes/no lymphedema. MUSCULOSKELETAL: Normal joints with no swelling. Muscle tone is normal. ASSESSMENT: 1. Head injury with hematoma with probably concussion with negative CT scan 2. 4 rib fractures 3. Severe atherosclerotic generalized disease with bilateral carotid stenosis, critical 4. C-Diff infection being treated with Flagyl PLAN: 1. Advised to hospitalize 2. IV fluids 3. IV pain medications 4. Watch for neurological status 5. Repeat CT scan in couple of days CONDITION: Stable PROGNOSIS: Guarded TIME SPENT: More than 30 minutes. Plan and coordination of the patient's care discussed in the presence of nurse. HERMES
--- NOTE | 2019-04-24 14:28 | RS.PTINEVL ---
Subjective - Patient information Date of Evaluation: 04/24/19 Date of Arrival on Unit: 04/22/19 Admitted From:: Custodial Diagnosis: fall with rib fx as well as new L3 compression fx Usual Living Arrangement: Custodial Home Environment: Level/No stairs Medical History: Hypertension Medical History Comments:: CAD, BPH, diverticulosis, kidney disease, anemia, L1,L4, L5 compression fx(chronic) and new L3 compression fx. LATEX ALLERGY?: No Medications: see chart Subjective Information/ Patient Comments:: pt states he is sore but would like to get up and walk. - Level of function Prior to this admission, the patient could do the following:: Partially Dependent Ambulation Current Level of Function: Partially Dependent Current Equipment Used at Home: rolling walker Pain Assessement - Location ribs and back Description: Sharp Pain Behavior: Moaning, Facial Grimacing Pain Aggravating Factors: Changing Position, Standing, Walking Pain Alleviating Factors: Medication Interventions - Objective Patient Orientation: Person, Place Current Interventions: IV's, Telemetry Observation: pt with pitting edema BLE's Range of Motion - ROM Right Upper Extremity AROM: WFL's Left Upper Extremity AROM: WFL's Right Lower Extremity AROM: WFL's Left Lower Extremity AROM: WFL's Muscle Strength - Muscle Strength Right Upper Extremity Strength: Mild Weakness (grossly 4-/5) Left Upper Extremity Strength: Mild Weakness (grossly 4-/5) Right Lower Extremity Strength: Mild Weakness (hip flex 4-/5, knee flex/ext 4/5, ankle DF/PF 4/5) Left Lower Extremity Strength: Mild Weakness (hip flex 4-/5, knee flex/ext 4/5, ankle DF/PF 4/5) Sensation - Sensation Right Upper Extremity Sensation: Intact/Normal Left Upper Extremity Sensation: Intact/Normal Right Lower Extremity Sensation: Intact/Normal Left Lower Extremity Sensation: Intact/Normal Palpation Palpation Findings: Tenderness (R ribs and lumbar spine) Balance - Sitting Balance and Reactions Static Sitting Balance: Fair Dynamic Sitting Balance: Poor Sitting Equilibrium Reactions: Delayed Left, Delayed Right Sitting Protective Reactions: Delayed Left, Delayed Right - Standing Balance and Reactions Static Standing Balance: Poor Dynamic Standing Balance: Poor Standing Equilibrium Reactions: Delayed Left, Delayed Right Standing Protective Reactions: Delayed Left, Delayed Right Functional Mobility - Bed Mobility Rolling R/L: Mod Assist Scooting: Mod Assist, 2 person assist Supine to Sit: Mod Assist, 2 person assist Sit to Supine: Mod Assist, 2 person assist - Transfers Sit to Stand: Min Assist Stand to Sit: Min Assist Comments:: minx 1 sit to/stand from bed, mod x 1 sit to/from stand from low toilet. - Safety Awareness Safety Awareness: Poor JAMARI INDEX SCORE: n/a Ambulation - Ambulation Assistive Device Used: Rolling Walker Orthotic/Prosthetic Device: No Distance: 120ft Assistance needed with Ambulation: Min Assist, 1 person assist, 2 person assist Gait Deviations: Shuffling gait, Forward posture, Short stride, Deviates from path Ambulation Comments: pt requires assist to guide rwx as well as cues for step length Factors Affecting Ambulation: Decreased Balance, Pain, Weakness, Decreased Safety, Cognitive Status, Limited Endurance Treatment time - Time with patient Length of Evaluation: 22 Total treatment time: 26 Patient Education - Education Patient Education: Activity Modification, Education of Plan of Care Teaching Recipient: Patient Teaching Methods: Discussion, Demonstration Comments: discussion regarding POC as well as safety. Assessment - Assessment Problem List:: Decreased level of function, Requires training/education, Decreased safety/Risk of falls, Weakness, Pain limits previous level of function, Cognitive status limits abilities Rehab Potential: Fair Further Therapy Indicated?: Yes Candidate for Swing Bed for Therapy Services?: Feel pt may not be a candidate for swing bed due to going back to [facility] at [place]. 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 difficulty walking R 26.2. balance impaired R 26.81, Has the Physician been added for Co-signature?: Yes
[2019-04-24] MEDS: MEVACOR PO SCH (20:09)
[2019-04-25] MEDS: DUONEB NEB SCH ×4 (04:55→19:30)
[2019-04-25] MEDS: CARAFATE PO SCH ×3 (05:42→17:12)
[2019-04-25] MEDS: PROTONIX PO SCH (05:42)
[2019-04-25] MEDS: FERROUS SULFATE PO SCH (05:42)
[2019-04-25] MEDS: LASIX TAB PO SCH (05:43)
[2019-04-25] MEDS: PERCOCET 5-325 PO SCH ×3 (05:43→20:58)
[2019-04-25] MEDS ORDERED: TORADOL IVP STA ×2 (08:44→08:54)
[2019-04-25] MEDS ORDERED: TORADOL IVP PRN ×2 (08:46→08:55)
[2019-04-25] MEDS ORDERED: NUBAIN IM STA ×2 (08:46→11:29)
[2019-04-25] MEDS: LOTENSIN PO SCH (09:12)
[2019-04-25] MEDS: NALOXEGOL 12.5 MG PO SCH (09:12)
[2019-04-25] MEDS: MICRO-K CAP PO SCH (09:13)
[2019-04-25] MEDS: PLAVIX PO SCH (09:13)
[2019-04-25] MEDS: ALDACTONE PO SCH (09:13)
[2019-04-25] MEDS: PREDNISONE PO SCH (09:13)
[2019-04-25] MEDS: MEGACE PO SCH ×2 (09:14→20:57)
[2019-04-25] MEDS: KEFLEX PO SCH ×2 (09:14→20:57)
[2019-04-25] MEDS: FLORASTOR PO SCH ×2 (09:14→20:58)
--- NOTE | 2019-04-25 09:56 | PN ---
DATE OF SERVICE: 04/24/19 SUBJECTIVE: 88 year old white male hospitalized with multiple rib fractures on the right side and large hematoma on the right frontal head. The patient's condition has improved. He looks a lot better. He is more alert. REVIEW OF SYSTEMS: CONSTITUTIONAL: No night sweats. No fatigue, malaise, lethargy. No fever or chills. HEENT: Eyes: No visual changes. No eye pain. No eye discharge. ENT: No runny nose. No epistaxis. No sinus pain. No sore throat. No odynophagia. No congestion. RESPIRATORY: No cough, no congestion. No hemoptysis. No shortness of breath. CARDIOVASCULAR: No angina symptoms. No CHF symptoms. No atypical chest pain for CAD. No palpitations. No PND. No orthopnea. GASTROINTESTINAL: No abdominal pain. No nausea or vomiting. No diarrhea or constipation. No hematemesis. No hematochezia. GENITOURINARY: No urgency. No frequency. No dysuria. No hematuria. No obstructive symptoms. No discharge. No pain. No significant abnormal bleeding. MUSCULOSKELETAL: No musculoskeletal pain; no joint swelling. Soreness of the right rib cage. NEUROLOGICAL: No headache. No neck pain. No syncope. No seizures. No dizziness. PSYCHIATRIC: Not anxious. No depression. No suicidal thoughts. No homicidal thoughts. SKIN: No rash. No lesions. No wounds. ENDOCRINE: No unexplained weight loss. No weight gain. HEMATOLOGIC/LYMPHATIC: No anemia. No purpura. No petechiae. No prolonged or excessive bleeding. No palpable lymph nodes. PHYSICAL EXAMINATION: GENERAL: The patient is oriented to time, place and person. VITAL SIGNS: Temperature 97.7, pulse 80, respiratory rate 16, blood pressure 150/66 and pulse ox 97%. HEENT: Head normocephalic, atraumatic. Eyes: Extraocular muscles are intact. Pupils are equal, round and reactive to light and accommodation. Ears: No lesions. Nose appeared normal. Throat: No exudate or erythema. NECK: Supple. No JVD, no carotid bruit. No lymphadenopathy or thyromegaly. LUNGS: Decreased breath sounds but clear to auscultation. Percussion note normal. Chest symmetrical. HEART: S1, S2, no S3. No murmurs. No cyanosis or clubbing. No ascites. Pulses: Dorsalis pedis and posterior tibial pulses +1 to +2 bilaterally. ABDOMEN: Soft. Nontender. Bowel sounds active. No CVA tenderness. No mass felt. EXTREMITIES: No edema. Full range of motion of all extremities, equal. NEUROLOGIC: No focal deficit. Cranial nerves II through XII are grossly intact. No headache, no double vision or headache. SKIN: Not dry. Intact. Turgor - normal. LYMPHATIC: No palpable lymph nodes/no lymphedema. MUSCULOSKELETAL: Normal joints with no swelling. Muscle tone is normal. LABS: Hgb 10.4, hct 31, WBC 6,700 normal differential, creatinine 1.1, BUN 28, potassium 4.1 ASSESSMENT: 1. Head injury with hematoma with concussion right frontal area on the scalp seems to be resolving. 2. Multiple rib fractures, 4 of them on the right side 3. Severe carotid stenosis 4. Hypertension 5. Dyslipidemia 6. Anemia PLAN: 1. Continue supportive measures 2. Continue to treat patient's pain 3. Continue to encourage the patient to eat 4. The patient is going to be ambulatory from tomorrow 5. His GFR is 62, improving 6. Neurological status is stable, the patient is able to move all his extremities CONDITION: Stable. TIME SPENT: More than 30 minutes. Plan and coordination of the patient's care discussed in the presence of nurse. HERMES
[2019-04-25] MEDS ORDERED: NUBAIN IVP PRN (10:44)
--- NOTE | 2019-04-25 10:54 | PCM.PROG ---
Attending Provider: ATTENDING PROVIDER: Dr. RONI GALVEZ DATE OF SERVICE: 04/25/19 SUBJECTIVE: This 88 year old /WHITE M was hospitalized 04/22/19 with multiple rib fractures and head injury. The patient's hematoma has resolved. He has four stitches. Neurological status is normal. He has multiple rib fractures with soreness this morning involving right side of chest. The patient is in no distress. REVIEW OF SYSTEMS: CONSTITUTIONAL: No night sweats. No fatigue, malaise, lethargy. No fever or chills. HEENT: Eyes: No visual changes. No eye pain. No eye discharge. ENT: No runny nose. No epistaxis. No sinus pain. No odynophagia. No congestion. RESPIRATORY: No cough, no congestion. No hemoptysis. No shortness of breath. CARDIOVASCULAR: No angina symptoms. No CHF symptoms. No atypical chest pain for CAD. No palpitations. No orthopnea.. GASTROINTESTINAL: Appetite is normal. No abdominal pain. No nausea or vomiting. No diarrhea or constipation. No hematemesis. No hematochezia. GENITOURINARY: No urgency. No frequency. No dysuria. No hematuria. No obstructive symptoms. No discharge. No pain. No significant abnormal bleeding. MUSCULOSKELETAL: Soreness right side of chest. NEUROLOGICAL: Awake, alert, oriented to time, place and person. No headache. No neck pain. No syncope. No seizures. No dizziness. PSYCHIATRIC: Not anxious. No depression. No suicidal thoughts. No homicidal thoughts. SKIN: No rash. No lesions. No wounds. ENDOCRINE: No unexplained weight loss. No weight gain. HEMATOLOGIC/LYMPHATIC: No anemia. No purpura. No petechiae. No prolonged or ex cessive bleeding. No palpable lymph nodes. PHYSICAL EXAMINATION: GENERAL: The patient is awake, alert and oriented, lying/sitting in chair in no distress. VITAL SIGNS: Temperature 97.9 F, Pulse 89, Respiratory Rate 20, BP 140/61, Pulse Ox 94% HEENT: Head normocephalic, atraumatic. Eyes: Extraocular muscles are intact. Pupils are equal, round and reactive to light and accommodation. Ears: No lesions. Nose appeared normal. Throat: No exudate or erythema. No evidence of infection to right forehead. NECK: Supple. No JVD, no carotid bruit. No lymphadenopathy or thyromegaly. LUNGS: Clear to auscultation. Percussion note normal. Chest symmetrical. HEART: S1, S2, no S3. No murmurs. No cyanosis or clubbing. No ascites. Pulses: Dorsalis pedis and posterior tibial pulses +1 to +2 both sides. ABDOMEN: Soft. Non-tender. Bowel sounds active. No CVA tenderness. No mass felt. EXTREMITIES: No edema. Full range of motion of all extremities, equal. NEUROLOGIC: Neurological status is normal. No focal deficit. Cranial nerves II through XII are grossly intact. No headache, no double vision or headache. SKIN: Warm and dry. Intact. Turgor-normal. LYMPHATIC: No palpable lymph nodes/no lymphedema. MUSCULOSKELETAL: Normal joints with no swelling. Muscle tone is normal. LAB REVIEW: 04/25/19 05:10 04/25/19 05:10 04/25/19 05:10: Sodium 133.4 L, Potassium 4.17, Chloride 105.3, Carbon Dioxide 24.2, Anion Gap 8.07, BUN 34.0 H, Creatinine 1.17 H, Estimated GFR (MDRD) 59.00, BUN/Creatinine Ratio 29.05, Glucose 103.9, Calcium 7.69 L, Total Bilirubin 0.58, AST 32.8, ALT 19.8, Alkaline Phosphatase 100.6, Total Protein 5.23 L, Albumin 2.54 L, Globulin 2.69, Albumin/Globulin Ratio 0.94 04/25/19 05:10: WBC 8.16, RBC 2.92 L, Hgb 9.5 L, Hct 28.6 L, MCV 97.9 H, MCH 32.5 H, MCHC 33.2, RDW Coeff of Tika 15.9 H, Plt Count 112 L, Immature Gran % (Auto) 1.1, Neut % (Auto) 87.8, Lymph % (Auto) 5.5 L, [place] % (Auto) 5.6, Eos % (Auto) 0.0, Baso % (Auto) 0.0, Immature Gran # (Auto) 0.1, Neut # (Auto) 7.2 H, Lymph # (Auto) 0.5 L, [place] # (Auto) 0.5, Eos # (Auto) 0.0, Baso # (Auto) 0.0 ASSESSMENT: Please see below. 1. Multiple rib fractures with soreness. PLAN: 1. Will receive Nubain 5 mg IM along with Toradol 15 mg q.6 p.r.n. for pain. 2. Continue the rest of the medications including antibiotics. Plan and coordination of the patient's care discussed in the presence of Assistant Laboratory Director and nurse. CONDITION: Stable. SCRIBED BY: SHASTA THOMPSON Research Chef scribed while in presence of service performed by Kizzy GALVEZ on 04/25/19 ([id number])
[2019-04-25] MEDS: MEVACOR PO SCH (20:57)
[2019-04-26] MEDS: DUONEB NEB SCH ×4 (04:55→19:25)
[2019-04-26] MEDS: PERCOCET 5-325 PO SCH ×3 (05:51→21:42)
[2019-04-26] MEDS: CARAFATE PO SCH ×3 (05:51→16:23)
[2019-04-26] MEDS: LASIX TAB PO SCH (05:51)
[2019-04-26] MEDS: PROTONIX PO SCH (05:52)
[2019-04-26] MEDS: FERROUS SULFATE PO SCH (05:52)
[2019-04-26] MEDS: MEGACE PO SCH ×2 (08:03→21:41)
[2019-04-26] MEDS: ALDACTONE PO SCH (08:03)
[2019-04-26] MEDS: PREDNISONE PO SCH (08:03)
[2019-04-26] MEDS: KEFLEX PO SCH ×2 (08:03→21:41)
[2019-04-26] MEDS: PLAVIX PO SCH (08:03)
[2019-04-26] MEDS: MICRO-K CAP PO SCH (08:03)
[2019-04-26] MEDS: LOTENSIN PO SCH (08:03)
[2019-04-26] MEDS: NALOXEGOL 12.5 MG PO SCH (08:03)
[2019-04-26] MEDS: FLORASTOR PO SCH ×2 (08:04→21:41)
[2019-04-26] MEDS: MEVACOR PO SCH (21:41)
[2019-04-27] MEDS: DUONEB NEB SCH ×4 (04:50→20:15)
[2019-04-27] MEDS: PERCOCET 5-325 PO SCH ×3 (05:29→21:43)
[2019-04-27] MEDS: PROTONIX PO SCH (05:30)
[2019-04-27] MEDS: FERROUS SULFATE PO SCH (05:30)
[2019-04-27] MEDS: CARAFATE PO SCH ×3 (05:30→16:06)
[2019-04-27] MEDS: LASIX TAB PO SCH (05:30)
[2019-04-27] MEDS: NALOXEGOL 12.5 MG PO SCH (09:04)
[2019-04-27] MEDS: PREDNISONE PO SCH (09:05)
[2019-04-27] MEDS: KEFLEX PO SCH ×2 (09:05→21:43)
[2019-04-27] MEDS: LOTENSIN PO SCH (09:05)
[2019-04-27] MEDS: MICRO-K CAP PO SCH (09:05)
[2019-04-27] MEDS: ALDACTONE PO SCH (09:05)
[2019-04-27] MEDS: MEGACE PO SCH ×2 (09:05→21:43)
[2019-04-27] MEDS: FLORASTOR PO SCH ×2 (09:08→21:44)
[2019-04-27] MEDS: MEVACOR PO SCH (21:43)
[2019-04-28] MEDS: DUONEB NEB SCH ×4 (05:05→22:56)
[2019-04-28] MEDS: FERROUS SULFATE PO SCH (06:15)
[2019-04-28] MEDS: PROTONIX PO SCH (06:15)
[2019-04-28] MEDS: PERCOCET 5-325 PO SCH ×3 (06:15→22:00)
[2019-04-28] MEDS: CARAFATE PO SCH ×3 (06:15→16:49)
[2019-04-28] MEDS: LASIX TAB PO SCH (06:16)
[2019-04-28] MEDS: NALOXEGOL 12.5 MG PO SCH (09:25)
[2019-04-28] MEDS: LOTENSIN PO SCH (09:25)
[2019-04-28] MEDS: KEFLEX PO SCH ×2 (09:25→22:00)
[2019-04-28] MEDS: MICRO-K CAP PO SCH (09:26)
[2019-04-28] MEDS: MEGACE PO SCH ×2 (09:26→22:00)
[2019-04-28] MEDS: ALDACTONE PO SCH (09:26)
[2019-04-28] MEDS: FLORASTOR PO SCH ×2 (09:26→22:00)
--- NOTE | 2019-04-28 11:41 | PN ---
DATE OF SERVICE: 04/27/19 SUBJECTIVE: 88 year old white male hospitalized with multiple rib fractures and right sided frontal head hematoma. The patient's condition seems to be improving. He was supposed to be discharged today but developed bloody diarrhea last night. The patient has a history of GI bleed. The patient is oriented to time, place and person. This morning he denied of any chest pain. REVIEW OF SYSTEMS: CONSTITUTIONAL: No night sweats. No fatigue, malaise, lethargy. No fever or chills. HEENT: Eyes: No visual changes. No eye pain. No eye discharge. ENT: No runny nose. No epistaxis. No sinus pain. No sore throat. No odynophagia. No congestion. RESPIRATORY: No cough, no congestion. No hemoptysis. No shortness of breath. CARDIOVASCULAR: No angina symptoms. No CHF symptoms. No atypical chest pain for CAD. No palpitations. No PND. No orthopnea. GASTROINTESTINAL: No abdominal pain. No nausea or vomiting. No diarrhea or constipation. No hematemesis. No hematochezia. GENITOURINARY: No urgency. No frequency. No dysuria. No hematuria. No obstructive symptoms. No discharge. No pain. No significant abnormal bleeding. MUSCULOSKELETAL: No musculoskeletal pain; no joint swelling. NEUROLOGICAL: No headache. No neck pain. No syncope. No seizures. No dizziness. PSYCHIATRIC: Not anxious. No depression. No suicidal thoughts. No homicidal thoughts. SKIN: No rash. No lesions. No wounds. ENDOCRINE: No unexplained weight loss. No weight gain. HEMATOLOGIC/LYMPHATIC: No anemia. No purpura. No petechiae. No prolonged or excessive bleeding. No palpable lymph nodes. PHYSICAL EXAMINATION: VITAL SIGNS: Temperature 97.2, pulse 100, respiratory rate 19, blood pressure 130/66, pulse ox 99%. HEENT: Head normocephalic, atraumatic. Eyes: Extraocular muscles are intact. Pupils are equal, round and reactive to light and accommodation. Ears: No lesions. Nose appeared normal. Throat: No exudate or erythema. NECK: Supple. No JVD, no carotid bruit. No lymphadenopathy or thyromegaly. LUNGS:Decreased breath sounds but clear to auscultation. Percussion note normal. Chest symmetrical. HEART: S1, S2, no S3. No murmurs. No cyanosis or clubbing. No ascites. Pulses: Dorsalis pedis and posterior tibial pulses +1 to +2 bilaterally. ABDOMEN: Soft. Nontender. Bowel sounds active. No CVA tenderness. No mass felt. EXTREMITIES: No edema. Full range of motion of all extremities, equal. NEUROLOGIC: No focal deficit. Cranial nerves II through XII are grossly intact. No headache, no double vision or headache. SKIN: Not dry. Intact. Turgor - normal. Looks pale. LYMPHATIC: No palpable lymph nodes/no lymphedema. MUSCULOSKELETAL: Normal joints with no swelling. Muscle tone is normal. ASSESSMENT: 1. Anemia with GI bleed PLAN: 1. Discontinue Toradol 2. Discontinue Plavix 3. The patient is already been given 2 units of packed red cells. The patient explained about this finding. He said that he has had this problem before. He doesn't want any further investigation to be done. He understands the consequences of it. This morning his hgb was 7.3, hct 21, WBC 4,900 normal differential, creatinine 1, BUN 44 and potassium 4.4. Reason for blood transfusion, the patient has severe carotid stenosis, severe peripheral, failure to thrive. The patient is short of breath with minimal exertion. He has symptomatic anemia. CONDITION: STABLE TIME SPENT: More than 30 minutes. Plan and coordination of the patient's care discussed in the presence of nurse. HERMES
[2019-04-28] MEDS: MEVACOR PO SCH (22:00)
[2019-04-29] MEDS: DUONEB NEB SCH ×4 (04:45→19:44)
[2019-04-29] MEDS: PROTONIX PO SCH (06:26)
[2019-04-29] MEDS: PERCOCET 5-325 PO SCH ×3 (06:27→21:51)
[2019-04-29] MEDS: CARAFATE PO SCH ×3 (06:27→16:57)
[2019-04-29] MEDS: FERROUS SULFATE PO SCH (06:27)
[2019-04-29] MEDS: LASIX TAB PO SCH (06:27)
[2019-04-29] MEDS: MICRO-K CAP PO SCH (08:34)
[2019-04-29] MEDS: ALDACTONE PO SCH (08:34)
[2019-04-29] MEDS: LOTENSIN PO SCH (08:34)
[2019-04-29] MEDS: NALOXEGOL 12.5 MG PO SCH (08:35)
[2019-04-29] MEDS: MEGACE PO SCH ×2 (08:35→21:51)
[2019-04-29] MEDS: FLORASTOR PO SCH ×2 (08:35→21:51)
--- NOTE | 2019-04-29 14:40 | PN ---
DATE OF SERVICE: 04/28/19 SUBJECTIVE: 88 year old white male hospitalized with multiple rid fracture, hematoma with laceration on the right forehead. Condition overall as far the body is considered is under control. His new problem is GI bleed. Today his hgb and hct is stable, 9.9 with hct of 29. No abdominal pain. The patient doesn't want anything to be done about his GI bleed. He had this happen to him before. The patient is not stable enough to have any GI workup done in an way of colonoscopy or EGD. REVIEW OF SYSTEMS: CONSTITUTIONAL: No night sweats. No fatigue, malaise, lethargy. No fever or chills. HEENT: Eyes: No visual changes. No eye pain. No eye discharge. ENT: No runny nose. No epistaxis. No sinus pain. No sore throat. No odynophagia. No congestion. RESPIRATORY: No cough, no congestion. No hemoptysis. No shortness of breath. CARDIOVASCULAR: No angina symptoms. No CHF symptoms. No atypical chest pain for CAD. No palpitations. No PND. No orthopnea. GASTROINTESTINAL: No abdominal pain. No nausea or vomiting. No diarrhea or constipation. No hematemesis. No hematochezia. GENITOURINARY: No urgency. No frequency. No dysuria. No hematuria. No obstructive symptoms. No discharge. No pain. No significant abnormal bleeding. MUSCULOSKELETAL: No musculoskeletal pain; no joint swelling. Mild soreness of the right rib cage. NEUROLOGICAL: No headache. No neck pain. No syncope. No seizures. No dizziness. PSYCHIATRIC: Not anxious. No depression. No suicidal thoughts. No homicidal thoughts. SKIN: No rash. No lesions. No wounds. ENDOCRINE: No unexplained weight loss. No weight gain. HEMATOLOGIC/LYMPHATIC: No anemia. No purpura. No petechiae. No prolonged or excessive bleeding. No palpable lymph nodes. PHYSICAL EXAMINATION: VITAL SIGNS: Temperature 97.9, pulse 89, respiratory rate 80, blood pressure 154/69 and pulse ox 100%. HEENT: Head normocephalic, atraumatic. Eyes: Extraocular muscles are intact. Pupils are equal, round and reactive to light and accommodation. Ears: No lesions. Nose appeared normal. Throat: No exudate or erythema. NECK: Supple. No JVD, no carotid bruit. No lymphadenopathy or thyromegaly. LUNGS: Decreased breath sounds but clear to auscultation. Percussion note normal. Chest symmetrical. HEART: S1, S2, no S3. No murmurs. No cyanosis or clubbing. No ascites. Pulses: Dorsalis pedis and posterior tibial pulses +1 to +2 bilaterally. ABDOMEN: Soft. Nontender. Bowel sounds active. No CVA tenderness. No mass felt. EXTREMITIES: No edema. Full range of motion of all extremities, equal. NEUROLOGIC: No focal deficit. Cranial nerves II through XII are grossly intact. No headache, no double vision or headache. SKIN: Not dry. Intact. Turgor - normal. LYMPHATIC: No palpable lymph nodes/no lymphedema. MUSCULOSKELETAL: Normal joints with no swelling. Muscle tone is normal. LABS: hgb 9.9, hct 29, creatinine 1, BUN 36, potassium 4.6 ASSESSMENT: 1. GI bleed with bloody diarrhea has subsided from now. 2. Head injury with laceration seems to be resolving 3. Multiple rid fractures PLAN: 1. He was given 1 unit of packed red cells because of symptomatic anemia. The patient is stable with no evidence of any complications. CONDITION: Stable. TIME SPENT: More than 30 minutes. Plan and coordination of the patient's care discussed in the presence of nurse. HERMES
[2019-04-29] MEDS: MEVACOR PO SCH (21:51)
[2019-04-30] MEDS: DUONEB NEB SCH ×3 (04:33→14:00)
[2019-04-30 05:20] VITALS: BP 133/59; TEMP 98.8
[2019-04-30] MEDS: CARAFATE PO SCH ×2 (06:01→11:33)
[2019-04-30] MEDS: PERCOCET 5-325 PO SCH ×2 (06:01→12:23)
[2019-04-30] MEDS: FERROUS SULFATE PO SCH (06:01)
[2019-04-30] MEDS: LASIX TAB PO SCH (06:01)
[2019-04-30] MEDS: PROTONIX PO SCH (06:01)
[2019-04-30] MEDS: FLORASTOR PO SCH (08:32)
[2019-04-30] MEDS: LOTENSIN PO SCH (08:33)
[2019-04-30] MEDS: MICRO-K CAP PO SCH (08:33)
[2019-04-30] MEDS: ALDACTONE PO SCH (08:34)
[2019-04-30] MEDS: NALOXEGOL 12.5 MG PO SCH (08:35)
[2019-04-30] MEDS: MEGACE PO SCH (08:35)
--- NOTE | 2019-04-30 12:06 | CM.DICTOOL ---
ADMISSION: 04/22/19 12:06 DISCHARGE: APRIL 30, 2019 DATE OF SERVICE: 04/30/19 FINAL DIAGNOSIS HEAD INJURY WITH HEMATOMA/LACERATION RIGHT FOREHEAD RIB FRACTURE, RIGHT ANTEROLATERAL 8,9,10 AND-11TH COMPRESSION FRACTURE L3, NEW S/P FALL ANEMIA GI BLEED, TRANSFUSION REQUIRED 2 UNITS ON THE HISTORY OF C-DIFF COLITIS HYPERTENSION CHRONIC KIDNEY DISEASE DYSLIPIDEMIA POLYOSTEOARTHRITIS CHOLELITHIASIS LIVER CIRRHOSIS HISTORY OF GI BLEED COMPRESSION FRACTURES: L1, L4, L5, T11, T12 KYPHOPLASTY PER HISTORY LAST VITALS Temp Pulse Resp BP Pulse Ox 98.8 F 87 18 133/59 L 94 L 04/30/19 05:18 04/30/19 05:18 04/30/19 05:18 04/30/19 05:18 04/30/19 05:18 TAKE THESE MEDICATIONS AT HOME Albuterol/Ipratropium (Duoneb) 3 ml NEB RT BID [facility] FOR ONE WEEK Last Admin: 04/30/19 10:11 Dose: 3 ml Documented by: Benazepril HCl (Lotensin) 10 mg PO DAILY [facility] Last Admin: 04/30/19 08:33 Dose: 10 mg Documented by: Docusate Sodium (Colace) 100 mg PO BID PRN PRN Reason: Constipation Last Admin: 04/25/19 23:41 Dose: 100 mg Documented by: Ferrous Sulfate (Ferrous Sulfate) 324 mg PO QDAC [facility] Last Admin: 04/30/19 06:01 Dose: 324 mg Documented by: Furosemide (Lasix Tab) 20 mg PO QDAC [facility] Last Admin: 04/30/19 06:01 Dose: 20 mg Documented by: Lovastatin (Mevacor) 20 mg PO BEDTIME [facility] Last Admin: 04/29/19 21:51 Dose: 20 mg Documented by: Megestrol Acetate (Megace) 40 mg PO BID [facility] Last Admin: 04/30/19 08:35 Dose: 40 mg Documented by: Non-Formulary Medication (Naloxegol [Movantik]) 12.5 mg PO DAILY [facility] Last Admin: 04/30/19 08:35 Dose: 12.5 mg Documented by: Oxycodone/Acetaminophen (Percocet 5-325) 1 tab PO Q8HR [facility] Last Admin: 04/30/19 06:01 Dose: 1 tab Documented by: Pantoprazole Sodium (Protonix) 40 mg PO QDAC [facility] Last Admin: 04/30/19 06:01 Dose: 40 mg Documented by: Polyethylene Glycol (Miralax) 17 gm PO DAILY PRN PRN Reason: Constipation Potassium Chloride (Micro-K Cap) 10 meq PO DAILYWM [facility] Last Admin: 04/30/19 08:33 Dose: 10 meq Documented by: Saccharomyces Boulardii (Florastor) 250 mg PO BID [facility] Last Admin: 04/30/19 08:32 Dose: 250 mg Documented by: Sennosides (Senna) 8.6 mg PO DAILY PRN PRN Reason: CONSTIPATION Last Admin: 04/25/19 23:41 Dose: 8.6 mg Documented by: Spironolactone (Aldactone) 25 mg PO DAILY [facility] Last Admin: 04/30/19 08:34 Dose: 25 mg Documented by: Sucralfate (Carafate) 1 gm PO TIDAC [facility] Last Admin: 04/30/19 11:33 Dose: 1 gm Documented by: BABY ASA 81 MG DAILY [facility] LAST ADMIN: ALLERGIES No Known Allergies Allergy (Verified 04/22/19 07:28) DISCONTINUED MEDICATIONS PLAVIX NEW PRESCRIPTIONS: BABY ASPIRIN 81 MG DAILY SMOKING: NOT APPLICABLE DISEASE SPECIFIC EDUCATION: IMPORTANCE OF GOOD NUTRITION; EATING MEALS USING WALKER WITH AMBULATION THERAPY LAB REVIEW: 04/30/19 04:51 04/30/19 04:51 04/30/19 04:51: Sodium 129.2 L, Potassium 4.15, Chloride 102.7, Carbon Dioxide 25.2, Anion Gap 5.45, BUN 30.9 H, Creatinine 1.03, Estimated GFR (MDRD) 68.00, BUN/Creatinine Ratio 30.00, Glucose 101.9, Calcium 7.36 L, Total Bilirubin 0.84, AST 28.1, ALT 21.4, Alkaline Phosphatase 87.2, Total Protein 4.35 L, Albumin 2.07 L, Globulin 2.28, Albumin/Globulin Ratio 0.90 04/30/19 04:51: WBC 7.07, RBC 2.91 L, Hgb 9.4 L, Hct 27.9 L, MCV 95.9 H, MCH 32.3 H, MCHC 33.7, RDW Coeff of Tika 16.1 H, Plt Count 78 L, Immature Gran % (Auto) 0.6, Neut % (Auto) 78.4, Lymph % (Auto) 12.2, [place] % (Auto) 6.5, Eos % (Auto) 2.3, Baso % (Auto) 0.0, Immature Gran # (Auto) 0.0, Neut # (Auto) 5.6, Lymph # (Auto) 0.9, [place] # (Auto) 0.5, Eos # (Auto) 0.2, Baso # (Auto) 0.0 PLAN: DISCHARGE TO [facility] DIET: REGULAR TOLERATED DIETITIAN TO SEE FOR OPTIMAL NUTRITIONAL INTAKE ACTIVITY: DINING ROOM FOR MEALS MAY PARTICIPATE IN ACTIVITY PROGRAM PHYSICAL AND OCCUPATIONAL THERAPY EVALUATION WALKER WITH AMBULATION VITAL SIGNS DAILY AND PRN OXYGEN SATURATION DAILY AND PRN CBC, CMP IN ONE WEEK AND THEN MONTHLY LIPIDS, TSH, FREE T4 EVERY 6 MONTHS CODE STATUS: DNR NIESHA ZAVALA APRN TO SEE ON SNF ROUNDS IN 7-10 DAYS MR. CORRALES IS ALERT TO PERSON, PLACE. HE IS AWARE OF AND AGREEABLE TO DISCHARGE PLANS TO [facility] TODAY. THE NEPHEW, SIOBHAN CORRALES IS ALSO AGREEABLE TO THE DISCHARGE PLANS FOR TODAY. MR. CORRALES IS INDEPENDENT WITH FEEDING AND TOILETING. HE REQUIRES ASSISTANCE OF ONE STAFF MEMBER AND USE OF THE ROLLING WALKER FOR AMBULATION TO THE BATHROOM. HE REQUIRES ASSISTANCE OF ONE STAFF MEMBER FOR TRANSFERS TO THE BEDSIDE CHAIR. HE IS CONTINENT OF BOWEL AND BLADDER. MEAL INTAKES ARE FAIR AT 25-100%. A HEALING LACERATION IS NOTED TO THE FOREHEAD, FOUR SUTURES REMOVED TODAY. FADING AREAS OF ECCHYMOSIS ARE NOTED TO THE FOREHEAD, RIGHT EYEBROW AND RIGHT [employer]. AN AREA OF FADING ECCHYMOSIS IS NOTED TO THE RIGHT LOWER RIB AREA. A SKIN TEAR TO THE RIGHT HAND IS HEALING. SCATTERED AREAS OF ECCHYMOSIS NOTED TO THE EXTREMITIES. RONI GALVEZ MD
--- NOTE | 2019-04-30 13:22 | PN ---
DATE OF SERVICE: 04/26/19 SUBJECTIVE: 88 year old white male hospitalized with multiple rid fractures and right frontal head hematoma. Hematoma has flattened and progressing well. This morning he is complaining of pain in the right rid cage. Appetite has improved. There is no cough or congestion. Confusion is much less than it used to be. REVIEW OF SYSTEMS: CONSTITUTIONAL: No night sweats. No fatigue, malaise, lethargy. No fever or chills. HEENT: Eyes: No visual changes. No eye pain. No eye discharge. ENT: No runny nose. No epistaxis. No sinus pain. No sore throat. No odynophagia. No congestion. RESPIRATORY: No cough, no congestion. No hemoptysis. No shortness of breath. CARDIOVASCULAR: No angina symptoms. No CHF symptoms. No atypical chest pain for CAD. No palpitations. No PND. No orthopnea. GASTROINTESTINAL: No abdominal pain. No nausea or vomiting. No diarrhea or constipation. No hematemesis. No hematochezia. GENITOURINARY: No urgency. No frequency. No dysuria. No hematuria. No obstructive symptoms. No discharge. No pain. No significant abnormal bleeding. MUSCULOSKELETAL: No musculoskeletal pain; no joint swelling. NEUROLOGICAL: No headache. No neck pain. No syncope. No seizures. No dizziness. PSYCHIATRIC: Not anxious. No depression. No suicidal thoughts. No homicidal thoughts. SKIN: No rash. No lesions. No wounds. ENDOCRINE: No unexplained weight loss. No weight gain. HEMATOLOGIC/LYMPHATIC: No anemia. No purpura. No petechiae. No prolonged or excessive bleeding. No palpable lymph nodes. PHYSICAL EXAMINATION: GENERAL: The patient is oriented to time, place and person. VITAL SIGNS: [id number], pulse 90, respiratory rate 16, blood pressure 134/50 and pulse ox 100% on room air. HEENT: Head normocephalic, atraumatic. Eyes: Extraocular muscles are intact. Pupils are equal, round and reactive to light and accommodation. Ears: No lesions. Nose appeared normal. Throat: No exudate or erythema. NECK: Supple. No JVD, no carotid bruit. No lymphadenopathy or thyromegaly. LUNGS: Decreased breath sounds but clear to auscultation. Percussion note normal. Chest symmetrical. HEART: S1, S2, no S3. No murmurs. No cyanosis or clubbing. No ascites. Pulses: Dorsalis pedis and posterior tibial pulses +1 to +2 bilaterally. ABDOMEN: Soft. Nontender. Bowel sounds active. No CVA tenderness. No mass felt. EXTREMITIES: No edema. Full range of motion of all extremities, equal. NEUROLOGIC: No focal deficit. Cranial nerves II through XII are grossly intact. No headache, no double vision or headache. SKIN: Not dry. Intact. Turgor - normal. LYMPHATIC: No palpable lymph nodes/no lymphedema. MUSCULOSKELETAL: Normal joints with no swelling. Muscle tone is normal. LABS: hgb 9.5, hct 28, WBC 3,900 normal differential, creatinine 1, BUN 42, potassium 4.6 ASSESSMENT: 1. Right rid fracture with no complications. 2. Head injury with concussion, recovering very well 3. Laceration and Hematoma seems to be resolving 4. Severe peripheral arterial disease 5. Critical carotid stenosis, bilateral. The patient never wanted anything done about this critical status of the carotid arteries for number of years and he has done well. PLAN: 1. Continue antibiotics with the possibility of developing pneumonia and with questionable abnormal chest x-ray. The patient's doesn't have symptoms of pneumonitis/ pneumonia or bronchitis even CONDITION: Stable TIME SPENT: More than 30 minutes. Plan and coordination of the patient's care discussed in the presence of nurse. HERMES
--- NOTE | 2019-05-02 10:57 | PN ---
DATE OF SERVICE: 04/30/19 DISCHARGE NOTE SUBJECTIVE: The patient is up and about doing well. He is up and about with the walker. He is oriented to time, place and person. REVIEW OF SYSTEMS: CONSTITUTIONAL: No night sweats. No fatigue, malaise, lethargy. No fever or chills. HEENT: Eyes: No visual changes. No eye pain. No eye discharge. ENT: No runny nose. No epistaxis. No sinus pain. No sore throat. No odynophagia. No congestion. RESPIRATORY: No cough, no congestion. No hemoptysis. No shortness of breath. CARDIOVASCULAR: No angina symptoms. No CHF symptoms. No atypical chest pain for CAD. No palpitations. No PND. No orthopnea. GASTROINTESTINAL: No abdominal pain. No nausea or vomiting. No diarrhea or constipation. No hematemesis. No hematochezia. GENITOURINARY: No urgency. No frequency. No dysuria. No hematuria. No obstructive symptoms. No discharge. No pain. No significant abnormal bleeding. MUSCULOSKELETAL: No musculoskeletal pain; no joint swelling. Right rib cage soreness. NEUROLOGICAL: No headache. No neck pain. No syncope. No seizures. No dizziness. PSYCHIATRIC: Not anxious. No depression. No suicidal thoughts. No homicidal thoughts. SKIN: No rash. No lesions. No wounds. ENDOCRINE: No unexplained weight loss. No weight gain. HEMATOLOGIC/LYMPHATIC: No anemia. No purpura. No petechiae. No prolonged or excessive bleeding. No palpable lymph nodes. PHYSICAL EXAMINATION: GENERAL: The patient is oriented to time, place and person. VITAL SIGNS: Temperature 98.8, pulse 80m, respiratory rate 18, blood pressure 133/59 and pulse ox 94%. HEENT: Head normocephalic, atraumatic. Eyes: Extraocular muscles are intact. Pupils are equal, round and reactive to light and accommodation. Ears: No lesions. Nose appeared normal. Throat: No exudate or erythema. NECK: Supple. No JVD, no carotid bruit. No lymphadenopathy or thyromegaly. LUNGS: Decreased breath sounds but clear to auscultation. Percussion note normal. Chest symmetrical. HEART: S1, S2, no S3. No murmurs. No cyanosis or clubbing. No ascites. Pulses: Dorsalis pedis and posterior tibial pulses +1 to +2 bilaterally. ABDOMEN: Soft. Nontender. Bowel sounds active. No CVA tenderness. No mass felt. EXTREMITIES: No edema. Full range of motion of all extremities, equal. NEUROLOGIC: No focal deficit. Cranial nerves II through XII are grossly intact. No headache, no double vision or headache. SKIN: Not dry. Intact. Turgor - normal. LYMPHATIC: No palpable lymph nodes/no lymphedema. MUSCULOSKELETAL: Normal joints with no swelling. Muscle tone is normal. LABS: Hgb 9.4, hct 27.9, creatinine 1, BUN 30. ASSESSMENT: 1. Rib fracture, right sided soreness. The patient is up and about doing well 2. The laceration has healed up with some hematoma left on the right frontal periorbital areas mostly discoloration PLAN: 1. Remove the stitches 2. The patient has decided to go on baby aspirin 3. We will discontinue Plavix. TIME SPENT: More than 30 minutes. Plan and coordination of the patient's care discussed in the presence of nurse. HERMES
--- NOTE | 2019-05-02 11:29 | DS ---
DATE OF SERVICE: 04/30/19 FINAL DIAGNOSIS: 1. HEAD INJURY WITH HEMATOMA/LACERATION RIGHT FOREHEAD 2. RIB FRACTURE, RIGHT ANTEROLATERAL 8,9,10 AND-11TH 3. COMPRESSION FRACTURE L3, NEW 4. S/P FALL 5. ANEMIA 6. GI BLEED, TRANSFUSION REQUIRED 2 UNITS ON THE 7. HISTORY OF C-DIFF COLITIS 8. HYPERTENSION 9. 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 PHYSICAL AND OCCUPATIONAL THERAPY EVALUATION. WALKER WITH AMBULATION. VITAL SIGNS DAILY AND PRN. OXYGEN SATURATION DAILY AND PRN. CBC, CMP IN ONE WEEK AND THEN MONTHLY LIPIDS, TSH, FREE T4 EVERY 6 MONTHS. CODE STATUS: DNR. NIESHA ZAVALA APRN TO SEE ON [facility] ROUNDS IN 7-10 DAYS. TAKE THESE MEDICATIONS AT HOME: Albuterol/Ipratropium (Duoneb) 3 ml NEB RT BID SANDRA FOR ONE WEEK Benazepril HCl (Lotensin) 10 mg PO DAILY SANDRA Docusate Sodium (Colace) 100 mg PO BID PRN Ferrous Sulfate (Ferrous Sulfate) 324 mg PO QDAC SANDRA Furosemide (Lasix Tab) 20 mg PO QDAC SANDRA Lovastatin (Mevacor) 20 mg PO BEDTIME SANDRA Megestrol Acetate (Megace) 40 mg PO BID SANDRA Non-Formulary Medication (Naloxegol [Movantik]) 12.5 mg PO DAILY SANDRA Oxycodone/Acetaminophen (Percocet 5-325) 1 tab PO Q8HR SANDRA Pantoprazole Sodium (Protonix) 40 mg PO QDAC SANDRA Polyethylene Glycol (Miralax) 17 gm PO DAILY PRN Potassium Chloride (Micro-K Cap) 10 meq PO DAILYWM SANDRA Saccharomyces Boulardii (Florastor) 250 mg PO BID SANDRA Sennosides (Senna) 8.6 mg PO DAILY PRN Spironolactone (Aldactone) 25 mg PO DAILY SANDRA Sucralfate (Carafate) 1 gm PO TIDAC SANDRA BABY ASA 81 MG DAILY SANDRA ALLERGIES: No Known Allergies Allergy (Verified 04/22/19 07:28) DISCONTINUED MEDICATIONS: PLAVIX NEW PRESCRIPTIONS: BABY ASPIRIN 81 MG DAILY SMOKING: NOT APPLICABLE DISEASE SPECIFIC EDUCATION: IMPORTANCE OF GOOD NUTRITION; EATING MEALS USING WALKER WITH AMBULATION THERAPY DIET: REGULAR TOLERATED DIETITIAN TO SEE FOR OPTIMAL NUTRITIONAL INTAKE ACTIVITY: DINING ROOM FOR MEALS MAY PARTICIPATE IN ACTIVITY PROGRAM HOSPITAL COURSE: 88 year old white male hospitalized with fall with head injury and right forehead hematoma with laceration requiring a few stitches. The patient's neurological status remained stable and normal. CT scan of the head was negative. The patient also had multiple rib fracture on the right side which made him sore and required pain medication around the clock but at the time of discharge he had mild soreness and was controlled with Percocet. The patient during the stay in the hospital developed GI bleed with bloody diarrhea. He had similar problems before. Plavix was taken off. After long discussion the patient had decided with consultation that he will be off Plavix. We will try him on baby aspirin. The patient has sever carotid artery occlusions for which he had elected not have anything done for number of years. The patient's cardiovascular status is stable. He has peripheral arterial disease, chronic anemia. At the time of discharge the patient's creatinine was 0.9, BUN 33 with Potassium was 4.5 with hgb 9.4 with hct 27.9. The patient is able to walk with a walker. He is oriented to time, place and person. Power of personal development educator for health was present in the room at the time. CONDITION: Stable. TIME SPENT: More than 60 minutes. MTDD
--- NOTE | 2019-05-02 11:31 | PN ---
04/22/19: Level 5 04/23/19: Intermediate 04/24/19: Intermediate 04/25/19: Intermediate 04/26/19: Intermediate 04/27/19: Intermediate 04/28/19: Intermediate 04/29/19: Intermediate 04/30/19: D as in discharge MTDD
--- NOTE | 2019-05-02 11:53 | PN ---
DATE OF SERVICE: 04/29/19 SUBJECTIVE: 88 year old white male hospitalized with fractures and hematoma of the right frontal area with laceration. The patient's condition has improved. There is no blood that he is passing through anymore. Hgb is 10.5 with hct of 31. REVIEW OF SYSTEMS: CONSTITUTIONAL: No night sweats. No fatigue, malaise, lethargy. No fever or chills. HEENT: Eyes: No visual changes. No eye pain. No eye discharge. ENT: No runny nose. No epistaxis. No sinus pain. No sore throat. No odynophagia. No congestion. RESPIRATORY: No cough, no congestion. No hemoptysis. No shortness of breath. CARDIOVASCULAR: No angina symptoms. No CHF symptoms. No atypical chest pain for CAD. No palpitations. No PND. No orthopnea. GASTROINTESTINAL: No abdominal pain. No nausea or vomiting. No diarrhea or constipation. No hematemesis. No hematochezia. Appetite has improved. Bowel movement practically regular and normal, normal color. GENITOURINARY: No urgency. No frequency. No dysuria. No hematuria. No obstructive symptoms. No discharge. No pain. No significant abnormal bleeding. MUSCULOSKELETAL: No musculoskeletal pain; no joint swelling. Mild soreness of the right rib cage area. NEUROLOGICAL: No headache. No neck pain. No syncope. No seizures. No dizziness. PSYCHIATRIC: Not anxious. No depression. No suicidal thoughts. No homicidal thoughts. SKIN: No rash. No lesions. No wounds. ENDOCRINE: No unexplained weight loss. No weight gain. HEMATOLOGIC/LYMPHATIC: No anemia. No purpura. No petechiae. No prolonged or excessive bleeding. No palpable lymph nodes. PHYSICAL EXAMINATION: VITAL SIGNS: Temperature 98, pulse 80, respiratory rate 18, blood pressure 130/66 and pulse ox 96%. HEENT: Head normocephalic, atraumatic. Eyes: Extraocular muscles are intact. Pupils are equal, round and reactive to light and accommodation. Hematoma is more or less flattened on the right forehead. No signs of infection. Ears: No lesions. Nose appeared normal. Throat: No exudate or erythema. NECK: Supple. No JVD, no carotid bruit. No lymphadenopathy or thyromegaly. LUNGS: Decreased breath sounds but clear to auscultation. Percussion note normal. Chest symmetrical. HEART: S1, S2, no S3. No murmurs. No cyanosis or clubbing. No ascites. Pulses: Dorsalis pedis and posterior tibial pulses +1 to +2 bilaterally. ABDOMEN: Soft. Nontender. Bowel sounds active. No CVA tenderness. No mass felt. EXTREMITIES: No edema. Full range of motion of all extremities, equal. NEUROLOGIC: No focal deficit. Cranial nerves II through XII are grossly intact. No headache, no double vision or headache. SKIN: Not dry. Intact. Turgor - normal. LYMPHATIC: No palpable lymph nodes/no lymphedema. MUSCULOSKELETAL: Normal joints with no swelling. Muscle tone is normal. LABS: Hgb 10.5, hct 31, WBC 8,000 normal differential, creatinine 0.9, BUN 33 ASSESSMENT: 1. GI bleed with bloody diarrhea subsided. The patient is off Plavix. The nephew and the patient both agreed not to have any blood thinners anymore. He doesn't want any colonoscopy or further workup. 2. Multiple rib fractures with soreness 3. Concussion with right head laceration healing well. No neurological deficit. TIME SPENT: More than 30 minutes. Plan and coordination of the patient's care discussed in the presence of nurse. HERMES
--- NOTE | 2019-05-07 10:07 | HP ---
DATE OF SERVICE: 04/22/19 HISTORY OF PRESENT ILLNESS: 88-year-old white male from [place] who [facility] a fall [facility] the [facility], hit his head and was brought here for further evaluation. PAST MEDICAL HISTORY: Anemia GI bleed History of C. diff Multiple compression fractures with retropulsion Chronic back pain Carotid stenosis History of GI bleed Anemia Hypertension Dementia B12 deficiency GERD History of falls PAST SURGICAL HISTORY: Kyphoplasty by Dr. Nirav Lechuga REVIEW OF SYSTEMS: CONSTITUTIONAL: No night sweats. No fatigue, malaise, lethargy. No fever or chills. HEENT: Eyes: No visual changes. No eye pain. No eye discharge. ENT: No runny nose. No epistaxis. No sinus pain. No sore throat. No odynophagia. No ear pain. No congestion. RESPIRATORY: No cough, no congestion. No hemoptysis. No shortness of breath. CARDIOVASCULAR: No angina symptoms. No CHF symptoms. No atypical chest pain for CAD. No palpitations. No PND. No orthopnea. GASTROINTESTINAL: No abdominal pain. No nausea or vomiting. No diarrhea or constipation. No hematemesis. No hematochezia. GENITOURINARY: No urgency. No frequency. No dysuria. No hematuria. No obstructive symptoms. No discharge. No pain. No significant abnormal bleeding. MUSCULOSKELETAL: No musculoskeletal pain. No joint swelling. No arthritis. NEUROLOGICAL: Headache, back pain. No syncope. No seizures. No dizziness. PSYCHIATRIC: Not anxious. No depression. No suicidal thoughts. No homicidal thoughts. SKIN: Positive for laceration on the forehead. ENDOCRINE: No unexplained weight loss. No weight gain. HEMATOLOGIC/LYMPHATIC: No anemia. No purpura. No petechiae. No prolonged or excessive bleeding. No palpable lymph nodes. PERSONAL/FAMILY/SOCIAL HISTORY: Single, nonsmoker. No alcohol or illicit drug use. Lives at [facility]. MEDICATIONS: (HOME) Lovastatin 20 mg p.o. bedtime Plavix 75 mg p.o. daily Ferrous Sulfate 324 mg p.o. q.d. a.c. Pantoprazole 40 mg p.o. q. d a.c. Potassium 10 mEq one tab p.o. daily Sucralfate 1 gm p.o. t.i.d. Furosemide 20 mg p.o.q.d a.c. Megestrol 40 mg p.o. b.i.d. Benazepril 10 mg p.o. daily Florastor 250 mg p.o.b.i.d. Spironolactone 25 mg p.o. daily Docusate Sodium 100 mg p.o. b.i.d. p.r.n. Movantik 12.5 mg p.o. daily Miralax 17 gm p.o. daily p.r.n. Senna-S one each p.o. daily p.r.n. Lidocaine dressing Percocet 5-325 mg one tab p.o. q.8h Flagyl 500 mg p.o. q.8hr ALLERGIES: NKDA PHYSICAL EXAMINATION: VITAL SIGNS: Temperature 98.3, pulse 78, BP 148/56, respiratory rate 18, 02 sat 97 on room air. HEENT: Head normocephalic, atraumatic. Eyes: Extraocular muscles are intact. Pupils are equal, round and reactive to light and accommodation. Ears: No lesions. Nose appeared normal. Throat: No exudate or erythema. NECK: Supple. No JVD, no carotid bruit. No lymphadenopathy or thyromegaly. LUNGS: Diminished breath sounds. Clear to auscultation. Percussion note normal. Chest symmetrical. HEART: S1, S2, no S3. No murmur. No cyanosis or clubbing. No ascites. Pulses: Dorsalis pedis and posterior tibial pulses +1 to +2 bilaterally. ABDOMEN: Soft. Tenderness on the right trunk. Bowel sounds active. No CVA tenderness. No mass felt. EXTREMITIES: No edema. Full range of motion of all extremities, equal. NEUROLOGIC: No focal deficit. Cranial nerves II through XII are grossly intact. No headache, no double vision or headache. SKIN: Not dry. Intact. Turgor - normal. LYMPHATIC: No palpable lymph nodes/no lymphedema. MUSCULOSKELETAL: Normal joints with no swelling. Muscle tone is normal. Head CT shows right frontal scalp hematoma, slightly decreased left maxillary sinus no intracranial findings. CT of the c-spine shows compression deformity with wedging of C-7. CT of the L-spine shows new compression deformity at L3 with multiple other compression deformities that are already known. CT of the pelvis shows no acute fracture, mild ascites which was previously there. CT of the T-spine shows same compression fractures, also noted C7 compression fracture. Chest x-ray shows four rib fractures on the right side. ASSESSMENT: 1. Head injury with hematoma with probable concussion. Negative CT scan. 2. Four right-sided rib fractures. 3. Severe atherosclerotic disease with bilateral carotid stenosis. 4. Recent C-diff infection on Flagyl. PLAN: 1. We will admit. 2. Routine telemetry orders. 3. IV fluids. 4. IV pain medicine. 5. Neurochecks q.4hr. 6. Repeat head CT in two days. 7. CBC, CMP daily 8. Toradol 15 mg IV q.8hr. 9. Continue Percocet. 10. Continue Flagyl for C. diff. TIME SPENT: More than 70 minutes. MTDD
== END 2019-04-30 14:45 | DRG 605 ==
LOC: SCU 06:24 → ED 06:24 → OBSVTOIN 12:06 → SCU 13:33 → MEDSURG B 04-26 13:23 → EDSTATUS 05-02 16:34
PROVIDERS: ADMIT Internal Medicine; ATTEND Internal Medicine
DX: D64.9 Anemia, unspecified; M15.9 Polyosteoarthritis, unspecified; W19.XXXA Unspecified fall, initial encounter; S06.0X9A Concussion with loss of consciousness of unspecified duration, initial encounter; I65.23 Occlusion and stenosis of bilateral carotid arteries; S32.039A Unspecified fracture of third lumbar vertebra, initial encounter for closed fracture; N18.9 Chronic kidney disease, unspecified; S01.81XA Laceration without foreign body of other part of head, initial encounter; S22.41XA Multiple fractures of ribs, right side, initial encounter for closed fracture; K92.2 Gastrointestinal hemorrhage, unspecified; I73.9 Peripheral vascular disease, unspecified; E78.5 Hyperlipidemia, unspecified; I10 Essential (primary) hypertension

== ENCOUNTER 2019-06-06 16:31 | Inpatient (IN) ==
[2019-06-06] MEDS ORDERED: SENNOSIDES DOCUSATE SODIUM PO PRN (18:48)
[2019-06-06] MEDS ORDERED: COLACE PO PRN (18:48)
[2019-06-06] MEDS ORDERED: MIRALAX PO PRN (18:48)
[2019-06-06] MEDS ORDERED: LASIX IVP STA (18:51)
--- NOTE | 2019-06-06 18:59 | ED.PDOC ---
General ED Provider: Dr. UNIQUE HDEZ Chief Complaint: Non-specific Complaint Stated Complaint: failure to thrive Time Seen by Physician: 16:33 Mode of Arrival: Ambulance Information Source: Intermediate and EMT Primary Care Provider: RONI GALVEZ Nursing and Triage Documentation Reviewed and Agree: Yes Does patient meet sepsis criteria?: No If yes, has appropriate treatment been initiated?: No System Inflammatory Response Syndrome: Not Applicable Sepsis Protocol: For patient's 13 years and over: Temp is 96.8 and below OR 101 and greater Pulse >90 BPM Resp >20/minute Acutely Altered Mental Status Are patient's symptoms suggestive of a new infection, such as: -Pneumonia -Skin, Soft Tissue -Endocarditis -UTI -Bone, Joint Infection -Implantable Device -Acute Abdominal Infection -Wound Infection -Meningitis -Blood Stream Catheter Infection -Unknown Miscellaneous Complaint Exam Complex/Multi-System Complaint/Exam Onset/Duration: chronic issue with the failure to thrive Symptoms Are: Still present Episodes Lasting: Weeks Initial Severity: Moderate Current Severity: Moderate Location of Pain: chest, abdomen Associated Signs and Symptoms: Reports Weakness, Cough and Abdominal pain; Denies Decreased responsiveness, Confusion, Agitation, Dizziness, Syncope, Headache, Short of air, Wheezing, Hemoptysis, Chest pain, Palpitations, Edema, Nausea, Vomiting, Diarrhea, Back pain, Dysuria, Hematemesis, Melena, Decreased oral intake, Fever, Diaphoresis, Immunocompromised, Anticoagulation Therapy, Recent medication changes, Indwelling medical record clerk, Prior MRSA, Prior VRE, Recent trauma and Remote trauma Recent Echo/LV Function: No Respiratory Distress: None JVD Present: No Tachypnea Present: No Stridor Present: No Glascow Coma Scale (see protocol): 15 Focal Weakness: Present None Focal Sensory Loss: Present None Gait: Unable Gag Reflex Present: No Babinski Sign: Positive Left and Negative Left Skin Findings: Present Normal findings Joint Swelling Present: No In-Dwelling Device Present: No Rectal Exam: Present Swelling Quality Indicators for Cardiac Chest Pain: EKG in 10min. Quality Indicators for AMI: EKG in 10min. Quality Indicator For Non-Traumatic Chest Pain/Syncope: EKG Performed Review of Systems Review Of Systems Constitutional: Reports Weakness Eyes: Reports No symptoms Ears, Nose, Mouth, Throat: Reports No symptoms Respiratory: Reports No symptoms Cardiac: Reports No symptoms GI: Reports No symptoms : Reports No symptoms Musculoskeletal: Reports No symptoms Neurological: Reports No symptoms Endocrine: Reports No symptoms Hematologic/Lymphatic: Reports No symptoms All Other Systems: Reviewed and Negative [facility] Social History Smoking and tobacco status: Never smoker Alcohol intake: never History of recent travel: No Physical Exam Physical Exam Appearance: Well-appearing, No pain distress and Well-nourished Ill-appearing: Mild Pain Distress: Mild Eyes: NICOLASA, EOMI and Conjunctiva clear ENT: Ears normal, Nose normal and Oropharynx normal Neck: Supple Respiratory: Airway patent, Breath sounds clear, Breath sounds equal and Respirations nonlabored Cardiovascular: RRR, Pulses normal, No rub and No murmur GI/: Soft, Nontender, No masses, Bowel sounds normal and No Organomegaly Musculoskeletal: Normal strength, ROM intact, No edema and No calf tenderness Skin: Warm, Dry and Normal color Neurological: Sensation intact, Motor intact, Reflexes intact, Cranial nerves intact, Alert and Oriented Psychiatric: Affect appropriate and Mood appropriate Critical Care Note Critical Care Note Total Time (mins): 0 Course Course Hematology/Chemistry: 06/06/19 17:05 06/06/19 17:05 Orders, Labs, Meds: Lab Review 06/06/19 06/06/19 06/06/19 16:59 17:05 17:05 WBC 4.94 RBC 2.70 L Hgb 9.0 L Hct 26.6 L MCV 98.5 H MCH 33.3 H MCHC 33.8 RDW Coeff of Tika 15.7 H Plt Count 74 L Immature Gran % (Auto) 0.2 Neut % (Auto) 66.0 Lymph % (Auto) 22.9 [place] % (Auto) 6.7 Eos % (Auto) 3.8 Baso % (Auto) 0.4 Immature Gran # (Auto) 0.0 Neut # (Auto) 3.3 Lymph # (Auto) 1.1 [place] # (Auto) 0.3 L Eos # (Auto) 0.2 Baso # (Auto) 0.0 Puncture Site Rbrach O2 Saturation 97.0 ABG pH 7.409 ABG pCO2 28.6 L ABG pO2 85.0 ABG HCO3 18.1 L ABG Total CO2 19 L ABG Base Excess -7 L FiO2 % 21.0 Sodium 133.7 L Potassium 4.30 Chloride 110.7 H Carbon Dioxide 19.4 L Anion Gap 7.90 BUN 45.9 H Creatinine 1.70 H Estimated GFR (MDRD) 38.00 BUN/Creatinine Ratio 27.00 Glucose 95.9 Lactic Acid Calcium 7.22 L Total Bilirubin 0.78 AST 28.4 ALT 17.6 Alkaline Phosphatase 134.0 H Total Creatine Kinase 81.3 Total Protein 4.24 L Albumin 1.75 L Globulin 2.49 Albumin/Globulin Ratio 0.70 Procalcitonin Influ A Molecular Assay Influ B Molecular Assay 06/06/19 06/06/19 06/06/19 17:05 17:05 17:30 WBC RBC Hgb Hct MCV MCH MCHC RDW Coeff of Tika Plt Count Immature Gran % (Auto) Neut % (Auto) Lymph % (Auto) [place] % (Auto) Eos % (Auto) Baso % (Auto) Immature Gran # (Auto) Neut # (Auto) Lymph # (Auto) [place] # (Auto) Eos # (Auto) Baso # (Auto) Puncture Site O2 Saturation ABG pH ABG pCO2 ABG pO2 ABG HCO3 ABG Total CO2 ABG Base Excess FiO2 % Sodium Potassium Chloride Carbon Dioxide Anion Gap BUN Creatinine Estimated GFR (MDRD) BUN/Creatinine Ratio Glucose Lactic Acid 1.39 Calcium Total Bilirubin AST ALT Alkaline Phosphatase Total Creatine Kinase Total Protein Albumin Globulin Albumin/Globulin Ratio Procalcitonin 0.15 Influ A Molecular Assay Negative by naat Influ B Molecular Assay Negative by naat Orders Category Date Time Status ADMIT PATIENT INPATIENT .TO [facility] (MONITORED BED) ADMISSION 06/06/19 18:21 Active ABG DRAW REQUEST Stat CARDIO 06/06/19 16:59 Completed EKG-(ED ONLY) Stat CARDIO 06/06/19 16:57 Completed EKG-(IP & OP ONLY) DAILY CARDIO 06/07/19 06:00 Ordered EKG-(IP & OP ONLY) DAILY CARDIO 06/08/19 06:00 Ordered EKG-(IP & OP ONLY) DAILY CARDIO 06/09/19 06:00 Ordered ACTIVITY .Complete BR CARE 06/06/19 18:52 Ordered BLOOD GLUCOSE MONITORING ACCUCHECK Q6H CARE 06/06/19 18:52 Ordered INTAKE & OUTPUT Q8HR CARE 06/06/19 18:52 Ordered NEUROLOGICAL CHECKS Q4HR CARE 06/06/19 18:51 Ordered TELEMETRY MONITORING TELE CARE 06/06/19 18:26 Active VITAL SIGNS Q8HR CARE 06/06/19 18:52 Ordered REGULAR DIET DIETARY 06/06/19 Dinner Ordered Bladder [ED BLADDER SCAN] .ONCE EMERGENCY 06/06/19 16:45 Active ABG Stat LAB 06/06/19 16:59 Completed CBC W/ AUTO DIFF DAILY@0600 LAB 06/07/19 06:00 Ordered CBC W/ AUTO DIFF DAILY@0600 LAB 06/08/19 06:00 Ordered CBC W/ AUTO DIFF Stat LAB 06/06/19 17:05 Completed COMPREHENSIVE METABOLIC PANEL DAILY@0600 LAB 06/07/19 06:00 Ordered COMPREHENSIVE METABOLIC PANEL DAILY@0600 LAB 06/08/19 06:00 Ordered COMPREHENSIVE METABOLIC PANEL Stat LAB 06/06/19 17:05 Completed CREATINE KINASE Q8H LAB 06/07/19 01:00 Ordered CREATINE KINASE Q8H LAB 06/07/19 09:00 Ordered CREATINE KINASE Stat LAB 06/06/19 17:05 Completed FLU A/B MOLECULAR Stat LAB 06/06/19 17:30 Completed LACTIC ACID Stat LAB 06/06/19 17:05 Completed MOLECULAR GROUP A STREP Stat LAB 06/06/19 17:30 Completed PROCALCITONIN Stat LAB 06/06/19 17:05 Completed TROPONIN I Q8H LAB 06/07/19 01:00 Ordered TROPONIN I Q8H LAB 06/07/19 09:00 Ordered URINALYSIS C & S IF INDICATED Stat LAB 06/06/19 16:57 Uncollected Benazepril HCl [Lotensin] MEDS 06/07/19 09:00 Ordered 10 mg PO DAILY Docusate Sodium [Colace] MEDS 06/06/19 18:48 Ordered 100 mg PO BID PRN Furosemide [Lasix] MEDS 06/06/19 18:51 Stat 20 mg IVP ONCE STA Ipratropium/Albuterol Neb [Duoneb] MEDS 06/06/19 21:00 Ordered 1 ml NEB TID Lovastatin [Mevacor] MEDS 06/06/19 21:00 Ordered 20 mg PO BEDTIME Metoprolol Succinate [Toprol Xl] MEDS 06/07/19 09:00 Ordered 12.5 mg PO DAILY Oxycodone-Acetaminophen 5-325 [Percocet 5-325] MEDS 06/06/19 19:00 Ordered 1 tab PO Q8H Pantoprazole Sodium [Protonix] MEDS 06/07/19 06:30 Ordered 40 mg PO QDAC Polyethylene Glycol 3350 [Miralax] MEDS 06/06/19 18:48 Ordered 17 gm PO DAILY PRN Sodium Chloride 0.9% [Sodium Chloride] 1,000 ml MEDS 06/06/19 19:00 Ordered IV 75 mls/hr Sucralfate [Carafate] MEDS 06/06/19 21:00 Ordered 1 gm PO BEDTIME acetaminophen [Tylenol] MEDS 06/06/19 18:48 Ordered 650 mg PO Q6HR PRN sennosides-docusate sodium [Senna-S] MEDS 06/06/19 18:48 Ordered 1 each PO Q12HR PRN CT ABDOMEN/PELVIS WO CONTRAST Stat RADS 06/06/19 16:[address] CHEST W/O CONTRAST Stat RADS 06/06/19 16:57 Taken Medications Generic Name Dose Route Start Last Admin Trade Name Freq PRN Reason Stop Dose Admin Albuterol/Ipratropium 1 ml 06/06/19 21:00 Duoneb NEB TID SANDRA Benazepril HCl 10 mg 06/07/19 09:00 Lotensin PO DAILY SANDRA Docusate Sodium 100 mg 06/06/19 18:48 Colace PO BID PRN Constipation Sodium Chloride 1,000 mls @ 75 mls/hr 06/06/19 19:00 Sodium Chloride IV .[id number] SANDRA Lovastatin 20 mg 06/06/19 21:00 Mevacor PO BEDTIME SANDRA Metoprolol Succinate 12.5 mg 06/07/19 09:00 Toprol Xl PO DAILY SANDRA Non-Formulary Medication 650 mg 06/06/19 18:48 Acetaminophen [Tylenol] PO Q6HR PRN Analgesia Non-Formulary Medication 1 each 06/06/19 18:48 Sennosides-Docusate Sodium [Senna-S] PO Q12HR PRN Constipation Oxycodone/Acetaminophen 1 tab 06/06/19 19:00 Percocet 5-325 PO Q8H SANDRA Pantoprazole Sodium 40 mg 06/07/19 06:30 Protonix PO QDAC SANDRA Polyethylene Glycol 17 gm 06/06/19 18:48 Miralax PO DAILY PRN Constipation Sucralfate 1 gm 06/06/19 21:00 Carafate PO BEDTIME SANDRA Discontinued Medications Generic Name Dose Route Start Last Admin Trade Name Freq PRN Reason Stop Dose Admin Furosemide 20 mg 06/06/19 18:51 Lasix IVP 06/06/19 18:52 ONCE STA Vital Signs: Temp Pulse Resp BP Pulse Ox 06/06/19 16:32 98.5 F 98 H 16 126/59 L 94 L Discharge Plan Discharge Discharge Problem: Chronic anemia, Dehydration Prescriptions: No Action lovastatin 20 MG tablet 20 mg PO BEDTIME RF: 0 pantoprazole 40 MG tablet,delayed release (DR/EC) 40 mg PO QDAC RF: 0 sucralfate 1 GM tablet 1 g PO BEDTIME RF: 0 benazepril 10 MG tablet 10 mg PO DAILY Qty: 1 RF: 0 polyethylene glycol 3350 [Miralax] 17 GM powder in packet 17 g PO DAILY PRN (Reason: Constipation) Qty: 1 RF: 0 sennosides-docusate sodium [Senna-S] 1 EACH tablet 1 ea PO Q12HR PRN (Reason: Constipation) Qty: 1 RF: 0 docusate sodium 100 MG capsule 100 mg PO BID PRN (Reason: Constipation) Qty: 1 RF: 0 oxycodone-acetaminophen [Percocet] 5-325 mg Tablet 1 tab PO Q8H RF: 0 ipratropium-albuterol 0.5 mg-3 mg(2.5 mg base)/3 mL Solution For Nebulization 1 ml INHALATION TID RF: 0 metoprolol succinate 25 mg Tablet Extended Release 24 Hr 12.5 mg PO DAILY RF: 0 acetaminophen [Tylenol] 325 mg Capsule 650 mg PO Q6HR PRN (Reason: Analgesia) RF: 0 ED Provider: UNIQUE HDEZ Condition: Good
--- NOTE | 2019-06-06 19:16 | CT ---
EXAM: CT scan chest without contrast HISTORY: Cough. Failure to thrive COMPARISON: CT scan chest 05/12/2019 FINDINGS: Contiguous axial images were obtained through the thorax without contrast utilizing 5-mm c ollimation. Sagittal and coronal reconstructions were imaged and reviewed.. Thoracic inlet is unrema rkable. Heart is normal in size with coronary artery calcification. The ascending aorta is ectatic measuring 3.6 cm. There are subcentimeter middle mediastinal lymph nodes. There has been interval i ncrease in right pleural effusion which measures 4.8 cm AP dimension with adjacent atelectasis and/or pneumonia. Atelectasis is seen within the right middle lobe. Scattered ground-glass opacity seen i n the upper lobes. . There is a trace left pleural effusion. Stable marked compression involving L 1.. Gallstones of ascites identified. IMPRESSION: Stable cardiac silhouette with coronary artery calcification. Interval increase in right pleural effusion with adjacent atelectasis and/or pneumonia. Atelectasis is seen in the right middle lobe . Trace left pleural effusion. Minimal ground-glass opacity in the upper lobes
--- NOTE | 2019-06-06 19:30 | CT ---
EXAM: CT scan abdomen pelvis without contrast HISTORY: Abdominal pain constipation COMPARISON: CT scan abdomen pelvis 05/12/2019 FINDINGS: Contiguous axial images obtained through the abdomen pelvis without contrast utilizing 3-m m collimation. Sagittal and coronal reconstructions were imaged and reviewed... Gallstones are seen within the gallbladder. There is an irregular cirrhotic appearing liver with splenomegaly. There h as been interval increase in abdominal pelvic ascites Stable 1.7 hyperdense nodule along the posteri or margin of the inferior right lobe of liver.. Pancreas adrenal glands is stable. Diffuse mesenter ic edema. There is simple cyst lower pole left kidney. The right kidney is unremarkable. Dense ath erosclerotic changes are seen involving the abdominal aorta and mesenteric vessels.. There is divert iculosis without diverticulitis. Mild thickening of the ascending colon which may be sac very to a a scites versus colitis. The bladder is unremarkable. There is moderate anasarca. Stable compression deformities and osteopenia is seen within the lumbar spine. Prior augmentation at L4- and L5. IMPRESSION: Cirrhotic appearing liver with sequela of portal hypertension. Interval increase in abdominal pelvic ascites. Cholelithiasis. Diverticulosis without diverticulitis. Thickening of the right colon which may be related to colitis versus secondary changes from ascites
[2019-06-06] MEDS ORDERED: TYLENOL PO PRN (20:00)
[2019-06-06 20:10] VITALS: BMI 23.2
[2019-06-06] MEDS ORDERED: DUONEB NEB SCH (21:00)
[2019-06-06] MEDS ORDERED: MEVACOR PO SCH (21:00)
[2019-06-06] MEDS: CARAFATE PO SCH (21:32)
[2019-06-06] MEDS: SODIUM CHLORIDE 1,000 ML IV SCH (21:32)
[2019-06-06] MEDS: PERCOCET 5-325 PO SCH (21:32)
[2019-06-07] MEDS: PERCOCET 5-325 PO SCH ×3 (05:35→20:30)
[2019-06-07] MEDS: PROTONIX PO SCH (05:36)
[2019-06-07] MEDS: LOTENSIN PO SCH (08:06)
[2019-06-07] MEDS: TOPROL XL PO SCH (08:06)
[2019-06-07] MEDS ORDERED: SENNA PO PRN (08:43)
[2019-06-07] MEDS: SODIUM CHLORIDE 1,000 ML IV SCH (08:46)
[2019-06-07] MEDS ORDERED: CALMOSEPTINE OINTMENT TP ONE (10:41)
[2019-06-07] MEDS ORDERED: LASIX IVP STA (12:41)
[2019-06-07] MEDS ORDERED: TORADOL IVP STA (12:41)
[2019-06-07] MEDS ORDERED: DECADRON 4 MG/ML SDV IM STA (12:41)
[2019-06-07] MEDS ORDERED: CALMOSEPTINE OINTMENT TP PRN (12:48)
[2019-06-07] MEDS: DUONEB NEB SCH ×2 (14:15→19:15)
[2019-06-07] MEDS: MACROBID PO SCH (20:30)
[2019-06-07] MEDS: CARAFATE PO SCH (20:30)
[2019-06-07] MEDS: MEGACE PO SCH (20:35)
[2019-06-08] MEDS: DUONEB NEB SCH ×3 (04:40→20:05)
[2019-06-08] MEDS: PERCOCET 5-325 PO SCH ×3 (05:43→20:21)
[2019-06-08] MEDS: PROTONIX PO SCH (05:43)
[2019-06-08] MEDS: SODIUM CHLORIDE 1,000 ML IV SCH ×2 (05:44→23:43)
[2019-06-08] MEDS: MEGACE PO SCH ×2 (09:16→20:21)
[2019-06-08] MEDS: LOTENSIN PO SCH (09:17)
[2019-06-08] MEDS: TOPROL XL PO SCH (09:17)
[2019-06-08] MEDS: MACROBID PO SCH (09:17)
[2019-06-08] MEDS: ZAROXOLYN PO SCH (13:32)
[2019-06-08] MEDS: CARAFATE PO SCH (20:21)
[2019-06-09] MEDS: DUONEB NEB SCH ×3 (04:55→19:20)
[2019-06-09] MEDS: PERCOCET 5-325 PO SCH ×3 (05:32→21:00)
[2019-06-09] MEDS: PROTONIX PO SCH (05:33)
--- NOTE | 2019-06-09 08:22 | PCM.PROG ---
Attending Provider: ATTENDING PROVIDER: Dr. RONI GALVEZ This patient is seen with Geovanna Johnson, Nurse Practitioner. DATE OF SERVICE: 06/09/19 SUBJECTIVE: This 88 year old /WHITE M was hospitalized 06/06/19. The patient has had some moaning this morning. He slept through the night. The patient has significant swelling in the legs, arms as well as the abdomen. REVIEW OF SYSTEMS: CONSTITUTIONAL: No night sweats. No fatigue, malaise, lethargy. No fever or chills. Weakness. HEENT: Eyes: No visual changes. No eye pain. No eye discharge. ENT: No runny nose. No epistaxis. No sinus pain. No odynophagia. No congestion. RESPIRATORY: No cough, no congestion. No hemoptysis. No shortness of breath. CARDIOVASCULAR: No angina symptoms. No CHF symptoms. No atypical chest pain for CAD. No palpitations. No orthopnea.. GASTROINTESTINAL: No abdominal pain. No nausea or vomiting. No diarrhea or constipation. No hematemesis. No hematochezia. GENITOURINARY: No urgency. No frequency. No dysuria. No hematuria. No obstructive symptoms. No discharge. No pain. No significant abnormal bleeding. MUSCULOSKELETAL: No musculoskeletal pain; no joint swelling. NEUROLOGICAL: Awake, alert, oriented to time, place and person. No headache. No neck pain. No syncope. No seizures. No dizziness. PSYCHIATRIC: Not anxious. No depression. No suicidal thoughts. No homicidal thoughts. SKIN: No rash. No lesions. No wounds. Edema. ENDOCRINE: No unexplained weight loss. No weight gain. HEMATOLOGIC/LYMPHATIC: No anemia. No purpura. No petechiae. No prolonged or excessive bleeding. No palpable lymph nodes. PHYSICAL EXAMINATION: GENERAL: The patient is awake, alert and oriented, lying in bed in no distress. VITAL SIGNS: Temperature 98.1 F, Pulse 90, Respiratory Rate 18, BP 112/59, Pulse Ox 98% HEENT: Head normocephalic, atraumatic. Eyes: Extraocular muscles are intact. Pupils are equal, round and reactive to light and accommodation. Ears: No lesions. Nose appeared normal. Throat: No exudate or erythema. NECK: Supple. No JVD, no carotid bruit. No lymphadenopathy or thyromegaly. LUNGS: Diminished breath sounds. Clear to auscultation. Percussion note normal. Chest symmetrical. HEART: S1, S2, no S3. No murmurs. No cyanosis or clubbing. No ascites. Pulses: Dorsalis pedis and posterior tibial pulses +1 to +2 both sides. ABDOMEN: Soft. Non-tender. Bowel sounds active. No CVA tenderness. No mass felt. EXTREMITIES: +1 bilateral leg edema, +1 upper extremity edema. Full range of motion of all extremities, equal. NEUROLOGIC: No focal deficit. Cranial nerves II through XII are grossly intact. No headache, no double vision or headache. SKIN: Not dry. Intact. Turgor-normal. LYMPHATIC: No palpable lymph nodes/no lymphedema. MUSCULOSKELETAL: Normal joints with no swelling. Muscle tone is normal. LAB REVIEW: 06/09/19 05:02 06/09/19 05:02 06/09/19 05:02: Sodium 134.8, Potassium 4.37, Chloride 109.7 H, Carbon Dioxide 21.2 L, Anion Gap 8.27, BUN 54.9 H, Creatinine 1.79 H, Estimated GFR (MDRD) 36.00, BUN/Creatinine Ratio 30.67, Glucose 82.6, Calcium 7.14 L, Total Bilirubin 0.66, AST 35.5, ALT 19.5, Alkaline Phosphatase 124.3 H, Total Protein 4.44 L, Albumin 1.83 L, Globulin 2.61, Albumin/Globulin Ratio 0.70 06/09/19 05:02: WBC 6.03, RBC 2.74 L, Hgb 9.2 L, Hct 27.7 L, MCV 101.1 H, MCH 33.6 H, MCHC 33.2, RDW Coeff of Tika 15.6 H, Plt Count 100 L, Immature Gran % (Auto) 0.3, Neut % (Auto) 64.5, Lymph % (Auto) 23.7, [place] % (Auto) 7.6, Eos % (Auto) 3.6, Baso % (Auto) 0.3, Immature Gran # (Auto) 0.0, Neut # (Auto) 3.9, Lymph # (Auto) 1.4, [place] # (Auto) 0.5, Eos # (Auto) 0.2, Baso # (Auto) 0.0 ASSESSMENT: Please see below. 1. Acute renal failure 2. Failure to thrive 3. Anemia 4. Generalized edema 5. Ascites PLAN: 1. Restart IV fluids 2. Keep legs elevated PROGNOSIS: Poor I feel that we are at endstage of disease process. We will discuss with the patient and the POA. Plan and coordination of the patient's care discussed in the presence of Financial Services Internship and nurse. SCRIBED BY: EVA MCNEIL Assembly Cleaner scribed while in presence of service performed by Dr. Galvez/Geovanna Johnson APRN on 06/09/19 ([id number])
[2019-06-09] MEDS ORDERED: MACROBID PO SCH (09:00)
[2019-06-09] MEDS: LOTENSIN PO SCH (09:11)
[2019-06-09] MEDS: MEGACE PO SCH ×2 (09:13→21:00)
[2019-06-09] MEDS: TOPROL XL PO SCH (09:14)
[2019-06-09] MEDS: ZAROXOLYN PO SCH (09:17)
[2019-06-09] MEDS ORDERED: ZAROXOLYN PO SCH (11:56)
[2019-06-09] MEDS: SODIUM CHLORIDE 1,000 ML IV SCH (13:52)
[2019-06-09] MEDS ORDERED: URO-JET MUCOUSMEMB STA (18:00)
[2019-06-09] MEDS: FLOMAX PO SCH (21:00)
[2019-06-09] MEDS: CARAFATE PO SCH (21:00)
[2019-06-10] MEDS: DUONEB NEB SCH ×3 (04:40→19:52)
[2019-06-10] MEDS: PERCOCET 5-325 PO SCH ×3 (05:19→22:05)
[2019-06-10] MEDS: PROTONIX PO SCH (05:38)
--- NOTE | 2019-06-10 08:51 | PCM.PROG ---
Attending Provider: ATTENDING PROVIDER: Dr. RONI GALVEZ This patient is seen with Geovanna Johnson, Nurse Practitioner. DATE OF SERVICE: 06/10/19 SUBJECTIVE: This 88 year old /WHITE M was hospitalized 06/06/19. The patient is resting comfortably. Generalized edema has slightly improved. Kidney function slightly worse. Unable to void on his own yesterday, has no IV access due to generalized edema. REVIEW OF SYSTEMS: CONSTITUTIONAL: No night sweats. No fatigue, malaise, lethargy. No fever or chills. Weakness. HEENT: Eyes: No visual changes. No eye pain. No eye discharge. ENT: No runny nose. No epistaxis. No sinus pain. No odynophagia. No congestion. RESPIRATORY: No cough, no congestion. No hemoptysis. No shortness of breath. CARDIOVASCULAR: No angina symptoms. No CHF symptoms. No atypical chest pain for CAD. No palpitations. No orthopnea.. GASTROINTESTINAL: No abdominal pain. No nausea or vomiting. No diarrhea or constipation. No hematemesis. No hematochezia. GENITOURINARY: Decreased urine output. No urgency. No frequency. No dysuria. No hematuria. No obstructive symptoms. No discharge. No pain. No significant abnormal bleeding. MUSCULOSKELETAL: No musculoskeletal pain; no joint swelling. NEUROLOGICAL: Awake, alert, oriented to person. No headache. No neck pain. No syncope. No seizures. No dizziness. PSYCHIATRIC: Not anxious. No depression. No suicidal thoughts. No homicidal thoughts. SKIN: No rash. No lesions. No wounds. Generalized edema. ENDOCRINE: No unexplained weight loss. No weight gain. HEMATOLOGIC/LYMPHATIC: No anemia. No purpura. No petechiae. No prolonged or excessive bleeding. No palpable lymph nodes. PHYSICAL EXAMINATION: GENERAL: The patient is awake, alert and oriented to person, lying in bed in no distress. VITAL SIGNS: Temperature 97.5 F, Pulse 92, Respiratory Rate 16, BP 107/53, Pulse Ox 95% HEENT: Head normocephalic, atraumatic. Eyes: Extraocular muscles are intact. Pupils are equal, round and reactive to light and accommodation. Ears: No lesions. Nose appeared normal. Throat: No exudate or erythema. NECK: Supple. No JVD, no carotid bruit. No lymphadenopathy or thyromegaly. LUNGS: Diminished breath sounds. Clear to auscultation. Percussion note normal. Chest symmetrical. HEART: S1, S2, no S3. No murmurs. No cyanosis or clubbing. No ascites. Pulses: Dorsalis pedis and posterior tibial pulses +1 to +2 both sides. ABDOMEN: Soft. Non-tender. Bowel sounds active. No CVA tenderness. No mass felt. EXTREMITIES: +1 edema bilateral lower extremities. Trace edema upper extremities. Full range of motion of all extremities, equal. NEUROLOGIC: No focal deficit. Cranial nerves II through XII are grossly intact. No headache, no double vision or headache. SKIN: Not dry. Intact. Turgor-normal. LYMPHATIC: No palpable lymph nodes/no lymphedema. MUSCULOSKELETAL: Normal joints with no swelling. Muscle tone is normal. LAB REVIEW: 06/10/19 04:45 06/10/19 04:45 06/10/19 04:45: Sodium 135.6, Potassium 4.20, Chloride 111.2 H, Carbon Dioxide 19.8 L, Anion Gap 8.80, BUN 58.1 H, Creatinine 1.85 H, Estimated GFR (MDRD) 35.00, BUN/Creatinine Ratio 31.40, Glucose 75.8, Calcium 7.10 L, Total Bilirubin 0.80, AST 31.1, ALT 17.7, Alkaline Phosphatase 122.6 H, Total Protein 4.17 L, Albumin 1.69 L, Globulin 2.48, Albumin/Globulin Ratio 0.68 06/10/19 04:45: WBC 3.47 L, RBC 2.61 L, Hgb 8.6 L, Hct 26.0 L, MCV 99.6 H, MCH 33.0 H, MCHC 33.1, RDW Coeff of Tika 15.5 H, Plt Count 72 L, Immature Gran % (Auto) 0.3, Neut % (Auto) 60.6, Lymph % (Auto) 26.2, [place] % (Auto) 8.6, Eos % (Auto) 3.7, Baso % (Auto) 0.6, Immature Gran # (Auto) 0.0, Neut # (Auto) 2.1, Lymph # (Auto) 0.9, [place] # (Auto) 0.3 L, Eos # (Auto) 0.1, Baso # (Auto) 0.0 ASSESSMENT: Please see below. 1. Acute renal failure 2. Failure to thrive 3. Anemia 4. Generalized edema 5. Ascites PLAN: 1. Rocephin 1 gram IM daily for 3 days 2. Hold Zaroxolyn today 3. Encourage fluids Plan and coordination of the patient's care discussed in the presence of Market Superintendent and nurse. PROGNOSIS: Poor give age and multiple comorbidities SCRIBED BY: Virgil JANE scribed while in presence of service performed by Dr. Galvez/Geovanna Johnson APRN on 06/10/19 ([id number])
[2019-06-10] MEDS: FLOMAX PO SCH ×2 (09:12→22:04)
[2019-06-10] MEDS: TOPROL XL PO SCH (09:12)
[2019-06-10] MEDS: LOTENSIN PO SCH (09:12)
[2019-06-10] MEDS: MEGACE PO SCH ×2 (09:13→22:05)
[2019-06-10] MEDS: ROCEPHIN 1 GM VIAL IM SCH (09:13)
[2019-06-10] MEDS: LIDOCAINE HCL 1% SDV IM SCH ×2 (09:13→09:42)
--- NOTE | 2019-06-10 13:31 | PN ---
DATE OF SERVICE: 06/09/19 SUBJECTIVE: The patient was seen and examined with the Nurse Practitioner. Pedal edema is less. The patient's generalized anasarca is multifactorial. He is being given Zaroxolyn. CONDITION: Stable PROGNOSIS: Poor TIME SPENT: More than 30 minutes. Plan and coordination of the patient's care discussed in the presence of nurse. HERMES
[2019-06-10] MEDS: CARAFATE PO SCH (22:04)
[2019-06-11] MEDS: DUONEB NEB SCH ×3 (04:40→19:30)
[2019-06-11] MEDS: PROTONIX PO SCH (05:43)
[2019-06-11] MEDS: PERCOCET 5-325 PO SCH ×3 (05:43→20:45)
--- NOTE | 2019-06-11 08:10 | HP ---
DATE OF SERVICE: 06/06/19 HISTORY OF PRESENT ILLNESS: 88-year-old white male who is a resident of [facility] brought in with decreased urinary output, decreased oral intake and generalized worsening edema. 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 diff History of recurrent UTI PAST SURGICAL HISTORY: Kyphoplasty (Dr. Nirav Lechuga) REVIEW OF SYSTEMS: CONSTITUTIONAL: Positive for weakness. No night sweats. No fatigue, malaise, lethargy. No fever or chills. HEENT: Eyes: No visual changes. No eye pain. No eye discharge. ENT: No runny nose. No epistaxis. No sinus pain. No sore throat. No odynophagia. No ear pain. No congestion. RESPIRATORY: No cough, no congestion. No hemoptysis. No shortness of breath. CARDIOVASCULAR: No angina symptoms. No CHF symptoms. No atypical chest pain for CAD. No palpitations. No PND. No orthopnea. Generalized edema of legs into abdomen. GASTROINTESTINAL: Decreased oral intake. No abdominal pain. No nausea or vomiting. No diarrhea or constipation. No hematemesis. No hematochezia. GENITOURINARY: Decreased urinary output. MUSCULOSKELETAL: No musculoskeletal pain. No joint swelling. No arthritis. NEUROLOGICAL: No headache. No neck pain. No syncope. No seizures. No dizziness. PSYCHIATRIC: Not anxious. No depression. No suicidal thoughts. No homicidal thoughts. SKIN: No rash. No lesions. No wounds. ENDOCRINE: No unexplained weight loss. No weight gain. HEMATOLOGIC/LYMPHATIC: No anemia. No purpura. No petechiae. No prolonged or excessive bleeding. No palpable lymph nodes. PERSONAL/FAMILY/SOCIAL HISTORY: Nonsmoker, he has never . He lives in the care home. No alcohol or ilicit drug use. MEDICATIONS: (CURRENT HOME) Lovastatin 20 mg p.o. bedtime Pantoprazole 40 mg p.o. q.d a.c. Sucralfate 1 gm p.o. bedtime Benazepril 10 mg p.o. daily Docusate Sodium 100 mg p.o. b.i.d. p.r.n. Polyethylene Glycol 17 mg p.o. daily p.r.n. Sennosides-Docusate Sodium one each p.o. q.12h p.r.n. Oxycodone-Acetaminophen 5-325 mg tablet one tab p.o. q.8h Metoprolol 12.5 mg p.o. daily Acetaminophen 650 mg p.o. q.6hr p.r.n. Ipratropium 1 mL inhalation t.i.d. ALLERGIES: NKDA PHYSICAL EXAMINATION: VITAL SIGNS: Temperature 98.5, heart rate 98, respirations 16, blood pressure 126/59, pulse ox 94%. HEENT: Head normocephalic, atraumatic. Eyes: Extraocular muscles are intact. Pupils are equal, round and reactive to light and accommodation. Ears: No lesions. Nose appeared normal. Throat: No exudate or erythema. NECK: Supple. No JVD, no carotid bruit. No lymphadenopathy or thyromegaly. LUNGS: Diminished breath sounds. Clear to auscultation. Percussion note normal. Chest symmetrical. HEART: S1, S2, no S3. No murmur. No cyanosis or clubbing. No ascites. Pulses: Dorsalis pedis and posterior tibial pulses +1 to +2 bilaterally. ABDOMEN: Soft. Nontender. Bowel sounds active. No CVA tenderness. No mass felt. EXTREMITIES: +2 bilateral lower extremity edema extending up to the thighs. Abdominal ascites. Full range of motion of all extremities, equal. NEUROLOGIC: Alert and oriented to person. No focal deficit. Cranial nerves II through XII are grossly intact. No headache, no double vision or headache. SKIN: Not dry. Intact. Turgor - normal. LYMPHATIC: No palpable lymph nodes/no lymphedema. MUSCULOSKELETAL: Normal joints with no swelling. Muscle tone is normal. LABS/IMAGING/ABGS: ABGs on room air: pH 7.4, pc02 28, p02 85, base excess of -7, bicarb 18.1, TC02 19, 02 sat 97. Sodium 133, chloride 110, c02 19, BUN 45, creatinine 1.7, calcium 7.22, total protein 4.2, albumin 1.75, globulin 2.4, alkaline phosphatase 134, lactic acid 139, white count 4.9, hemoglobin 9, hematocrit 26.6, platelets 74,000. CT of the abdomen and pelvis shows cirrhotic liver with portal hypertension, increase in abdominal/pelvic ascites, cholelithiasis, diverticulosis. CT of the chest shows stable cardiac silhouette, increase in right pleural effusion, trace left pleural effusion. ASSESSMENT: 1. GENERALIZED ANASARCA FROM INACTIVITY 2. MALNUTRITION 3. HYPOPROTEINEMIA SECONDARY TO MALNUTRITION 4. LIVER CIRRHOSIS 5. PORTAL HYPERTENSION 6. GENERALIZED EDEMA, LEG EDEMA 7. ACUTE ON CHRONIC RENAL FAILURE 8. SEVERE PERIPHERAL ARTERIAL DISEASE 9. CAROTID STENOSIS 10. DEMENTIA 11. HISTORY OF FALLS 12. HISTORY OF BILATERAL SUBDURAL HEMATOMA 13. MULTILEVEL COMPRESSION FRACTURES 14. CHRONIC PAIN 15. FAILURE TO THRIVE PLAN: 1. We will admit. 2. Routine telemetry orders. 3. CBC, CMP daily. 4. Oxygen at 1 to 2L as needed. 5. Continue all home medications. 6. Lasix 20 mg IV times one dose. 7. Normal Saline at 75 cc/hr IV. 8. UA with culture and sensitivity as needed. 9. Regular diet. 10. Will follow closely. TIME SPENT: More than 70 minutes. MTDD
--- NOTE | 2019-06-11 08:30 | PCM.PROG ---
Attending Provider: ATTENDING PROVIDER: Dr. RONI GALVEZ This patient is seen with Geovanna Johnson, Nurse Practitioner. DATE OF SERVICE: 06/11/19 SUBJECTIVE: This 88 year old /WHITE M was hospitalized 06/06/19. The patient is resting comfortably. Denies any pain. She has not been eating or drinking. Kidney function is steadily worsening. Discussed with the patient the poor prognosis. There is no room for improvement. Nurse discussed yesterday with POA possible Hospice. REVIEW OF SYSTEMS: CONSTITUTIONAL: No night sweats. No fatigue, malaise, lethargy. No fever or c hills. Weakness. HEENT: Eyes: No visual changes. No eye pain. No eye discharge. ENT: No runny nose. No epistaxis. No sinus pain. No odynophagia. No congestion. RESPIRATORY: No cough, no congestion. No hemoptysis. No shortness of breath. CARDIOVASCULAR: No angina symptoms. No CHF symptoms. No atypical chest pain for CAD. No palpitations. No orthopnea.. GASTROINTESTINAL: No abdominal pain. No nausea or vomiting. No diarrhea or constipation. No hematemesis. No hematochezia. GENITOURINARY: Decreased Input and output. No urgency. No frequency. No dysuria. No hematuria. No obstructive symptoms. No discharge. No pain. No significant abnormal bleeding. MUSCULOSKELETAL: No musculoskeletal pain; no joint swelling. NEUROLOGICAL: Awake, alert, oriented to time, place and person. No headache. No neck pain. No syncope. No seizures. No dizziness. PSYCHIATRIC: Not anxious. No depression. No suicidal thoughts. No homicidal thoughts. SKIN: No rash. No lesions. No wounds. Generalized edema. ENDOCRINE: No unexplained weight loss. No weight gain. HEMATOLOGIC/LYMPHATIC: No anemia. No purpura. No petechiae. No prolonged or excessive bleeding. No palpable lymph nodes. PHYSICAL EXAMINATION: GENERAL: The patient is awake, alert and oriented to person and place, lying in bed in no distress. VITAL SIGNS: Temperature 98.4 F, Pulse 84, Respiratory Rate 18, BP 100/00, Pulse Ox 96% HEENT: Head normocephalic, atraumatic. Eyes: Extraocular muscles are intact. Pupils are equal, round and reactive to light and accommodation. Ears: No lesions. Nose appeared normal. Throat: No exudate or erythema. NECK: Supple. No JVD, no carotid bruit. No lymphadenopathy or thyromegaly. LUNGS: Diminished breath sounds. Clear to auscultation. Percussion note normal. Chest symmetrical. HEART: S1, S2, no S3. No murmurs. No cyanosis or clubbing. No ascites. Pulses: Dorsalis pedis and posterior tibial pulses +1 to +2 both sides. ABDOMEN: Soft. Non-tender. Bowel sounds active. No CVA tenderness. No mass felt. EXTREMITIES: Generalized edema, lower extremities, upper extremities, abdomen and scrotum. Full range of motion of all extremities, equal. NEUROLOGIC: No focal deficit. Cranial nerves II through XII are grossly intact. No headache, no double vision or headache. SKIN: Not dry. Intact. Turgor-normal. LYMPHATIC: No palpable lymph nodes/no lymphedema. MUSCULOSKELETAL: Normal joints with no swelling. Muscle tone is normal. LAB REVIEW: 06/11/19 04:45 06/11/19 04:45 06/11/19 04:45: Sodium 134.1 L, Potassium 4.20, Chloride 110.6 H, Carbon Dioxide 17.6 L, Anion Gap 10.10, BUN 63.0 H*, Creatinine 2.14 H, Estimated GFR (MDRD) 29.00, BUN/Creatinine Ratio 29.43, Glucose 101.3, Calcium 7.35 L, Total Bilirubin 0.61, AST 37.6, ALT 20.4, Alkaline Phosphatase 110.5, Total Protein 4.01 L, Albumin 1.62 L, Globulin 2.39, Albumin/Globulin Ratio 0.67 06/11/19 04:45: WBC 5.87, RBC 2.62 L, Hgb 8.7 L, Hct 26.4 L, MCV 100.8 H, MCH 33.2 H, MCHC 33.0, RDW Coeff of Tika 15.6 H, Plt Count 91 L, Immature Gran % (Auto) 0.2, Neut % (Auto) 82.3, Lymph % (Auto) 12.4, Bond % (Auto) 4.6, Eos % (Auto) 0.3, Baso % (Auto) 0.2, Immature Gran # (Auto) 0.0, Neut # (Auto) 4.8, Lymph # (Auto) 0.7, Bond # (Auto) 0.3 L, Eos # (Auto) 0.0, Baso # (Auto) 0.0 ASSESSMENT: Please see below. 1. Failure to thrive 2. Generalized edema secondary to malnutrition 3. Hypoproteinemia 4. Generalized anasarca 5. Renal failure. PLAN: 1. Discussed Hospice referral, POA is still undecided 2. Discussed prognosis with patient he demonstrates understanding there is not much room for improvement. Plan and coordination of the patient's care discussed in the presence of Extension Work Instructor and nurse. SCRIBED BY: EVA MCNEIL Elementary Education Tutor scribed while in presence of service performed by Dr. Galvez/Geovanna Johnson APRN on 06/11/19 ([id number])
[2019-06-11] MEDS: LIDOCAINE HCL 1% SDV IM SCH (09:17)
[2019-06-11] MEDS: MEGACE PO SCH ×2 (09:18→20:45)
[2019-06-11] MEDS: LOTENSIN PO SCH (09:18)
[2019-06-11] MEDS: TOPROL XL PO SCH (09:18)
[2019-06-11] MEDS: ROCEPHIN 1 GM VIAL IM SCH (09:18)
[2019-06-11] MEDS: FLOMAX PO SCH ×2 (09:19→20:45)
[2019-06-11] MEDS: SODIUM CHLORIDE 1,000 ML IV SCH (11:13)
--- NOTE | 2019-06-11 13:17 | PN ---
DATE OF SERVICE: 06/06/19 ADMIT NOTE SUBJECTIVE: 88 year old white male brought to the emergency room with complaint of not eating, laying around, failure to thrive and poor urine output. On further workup in the emergency room the patient had renal azotemia and had generalized edema especially lower extremity +2 to +3 pitting edema. This patient has multiple medical problems and they are endstage. Last hospitalization a couple of weeks ago at one of the [facility] with multiple medical problems. The patient is DNR. The nephew doesn't want anything more heroic to be done. He wants comfort measures and treatment of usual medical problems that could be handled with medications. REVIEW OF SYSTEMS: CONSTITUTIONAL: No night sweats. No fatigue, malaise, lethargy. No fever or chills. HEENT: Eyes: No visual changes. No eye pain. No eye discharge. ENT: No runny nose. No epistaxis. No sinus pain. No sore throat. No odynophagia. No congestion. RESPIRATORY: No cough, no congestion. No hemoptysis. No shortness of breath. CARDIOVASCULAR: No angina symptoms. No CHF symptoms. No atypical chest pain for CAD. No palpitations. No PND. No orthopnea. GASTROINTESTINAL: No abdominal pain. No nausea or vomiting. No diarrhea or constipation. No hematemesis. No hematochezia. GENITOURINARY: No urgency. No frequency. No dysuria. No hematuria. No obstructive symptoms. No discharge. No pain. No significant abnormal bleeding. MUSCULOSKELETAL: No musculoskeletal pain; no joint swelling. NEUROLOGICAL: No headache. No neck pain. No syncope. No seizures. No dizziness. PSYCHIATRIC: Not anxious. No depression. No suicidal thoughts. No homicidal thoughts. SKIN: No rash. No lesions. No wounds. ENDOCRINE: No unexplained weight loss. No weight gain. HEMATOLOGIC/LYMPHATIC: No anemia. No purpura. No petechiae. No prolonged or excessive bleeding. No palpable lymph nodes. PHYSICAL EXAMINATION: GENERAL: The patient is oriented to person and place. VITAL SIGNS: Temperature 98.5, pulse 98, respiratory rate 16, blood pressure 126/60 and pulse 94% on room air. HEENT: Head normocephalic, atraumatic. Eyes: Extraocular muscles are intact. Pupils are equal, round and reactive to light and accommodation. Ears: No lesions. Nose appeared normal. Throat: No exudate or erythema. NECK: Supple. No JVD, no carotid bruit. No lymphadenopathy or thyromegaly. LUNGS:Decreased breath sounds with few crepitations bilaterally. Clear to auscultation. Percussion note normal. Chest symmetrical. HEART: S1, S2, no S3. No murmurs. No cyanosis or clubbing. No ascites. Pulses: Dorsalis pedis and posterior tibial pulses +1 to +2 bilaterally. ABDOMEN: Soft. Nontender. Bowel sounds active. No CVA tenderness. No mass felt. EXTREMITIES: Full range of motion of all extremities, equal. Scrotal edema along with +2 pitting edema on the thighs and +3 pitting edema on the legs. No ulcers. NEUROLOGIC: No focal deficit. Cranial nerves II through XII are grossly intact. No headache, no double vision or headache. SKIN: Not dry. Intact. Turgor - normal. Pale. LYMPHATIC: No palpable lymph nodes/no lymphedema. MUSCULOSKELETAL: Normal joints with no swelling. Muscle tone is normal. LABS: CT scan chest and abdomen showed no acute findings. ASSESSMENT: 1. Generalized anasarca likely hypoproteinemia and inactivity 2. Generalized osteoarthritis 3. Compression fracture with history of severe back pain 4. Anemia with myelodysplastic syndrome 5. Bilateral severe carotid artery stenosis 6. Peripheral arterial disease 7. Dyslipidemia 8. Hypertension PLAN: 1. Admit the patient 2. Elevate the legs 3. IV Lasix 4. Slow IV fluids 5. Watch for fluid overload 6. Telemetry The patient's cardiac markers are negative. TIME SPENT: More than 30 minutes. Plan and coordination of the patient's care discussed in the presence of nurse. HERMES
--- NOTE | 2019-06-11 13:57 | PN ---
DATE OF SERVICE: 06/07/19 SUBJECTIVE: 88 year old white male hospitalized with failure to thrive also has evidence of renal azotemia. Oral intake is poor. He has generalized edema especially +3 to +4 pitting edema. The patient greeted, it was dark. He is oriented to place and person. The patient was not in any distress. REVIEW OF SYSTEMS: CONSTITUTIONAL: No night sweats. Fatigue and tired feeling. No fever or chills. HEENT: Eyes: No visual changes. No eye pain. No eye discharge. ENT: No runny nose. No epistaxis. No sinus pain. No sore throat. No odynophagia. No congestion. RESPIRATORY: No cough, no congestion. No hemoptysis. No shortness of breath. CARDIOVASCULAR: No angina symptoms. No CHF symptoms. No atypical chest pain for CAD. No palpitations. No PND. No orthopnea. GASTROINTESTINAL: No abdominal pain. No nausea or vomiting. No diarrhea or constipation. No hematemesis. No hematochezia. Poor oral intake. GENITOURINARY: No urgency. No frequency. No dysuria. No hematuria. No obstructive symptoms. No discharge. No pain. No significant abnormal bleeding. MUSCULOSKELETAL: No musculoskeletal pain; no joint swelling. Back soreness and stiffness. NEUROLOGICAL: No headache. No neck pain. No syncope. No seizures. No dizziness. PSYCHIATRIC: Not anxious. No depression. No suicidal thoughts. No homicidal thoughts. SKIN: No rash. No lesions. No wounds. ENDOCRINE: No unexplained weight loss. No weight gain. HEMATOLOGIC/LYMPHATIC: No anemia. No purpura. No petechiae. No prolonged or excessive bleeding. No palpable lymph nodes. PHYSICAL EXAMINATION: GENERAL: The patient is pale. VITAL SIGNS: Temperature 98, pulse 80, respiratory rate 14, blood pressure 140/60 and pulse ox %. 9 HEENT: Head normocephalic, atraumatic. Eyes: Extraocular muscles are intact. Pupils are equal, round and reactive to light and accommodation. Ears: No lesions. Nose appeared normal. Throat: No exudate or erythema. NECK: Supple. No JVD, no carotid bruit. No lymphadenopathy or thyromegaly. LUNGS: Decreased breath sounds. Clear to auscultation. Percussion note normal. Chest symmetrical. HEART: S1, S2, no S3. No murmurs. No cyanosis or clubbing. No ascites. Pulses: Dorsalis pedis and posterior tibial pulses +1 to +2 bilaterally. ABDOMEN: Soft. Nontender. Bowel sounds active. No CVA tenderness. No mass felt. EXTREMITIES: Full range of motion of all extremities, equal. Scrotal edema noted. Thigh has +2 pitting edema. Legs +3 pitting edema. There is some puckering of the skin noted. NEUROLOGIC: No focal deficit. Cranial nerves II through XII are grossly intact. No headache, no double vision or headache. SKIN: Not dry. Intact. Turgor - normal. LYMPHATIC: No palpable lymph nodes/no lymphedema. MUSCULOSKELETAL: Normal joints with no swelling. Muscle tone is normal. ASSESSMENT: 1. Generalized edema likely from hypoproteinemia. The patient's proteins are low. Also bed ridden. 2. Severe DJD of the spine with compression fracture which seems to be under control 3. The patient had history of rib cage pain with rib fractures recently after a fall. 4. The patient has anemia, will monitor CBC with differential. The patient's anemia seems to be of myelodysplastic syndrome. 5. History of severe carotid artery stenosis bilaterally PLAN: 1. Needs to give IV Lasix 20mg 2. Watch for fluid overload with slow IV fluids 3. Monitor kidney functions 4. Encourage the patient to eat, Increase protein intake 5. Given 1/2cc Decadron and 30mg IV Toradol 6. Discontinue Mevacor PROGNOSIS: Poor. He is DNR. TIME SPENT: More than 30 minutes. Plan and coordination of the patient's care discussed in the presence of nurse. HERMES
--- NOTE | 2019-06-11 14:10 | PN ---
DATE OF SERVICE: 06/08/19 SUBJECTIVE: 88 year old white male hospitalized with failure to thrive, poor oral intake practically laying around. On further workup the patient has renal azotemia and generalized anasarca. The patient's generalized anasarca is based on malnutrition. Practically bed ridden and the patient had liver cirrhosis with history of ascites that might be contributing towards his generalized swelling. The patient is alert and he has been saying this his appetite has been not so good. He is unable to eat because of that. Back pain is somewhat under control. He says that it doesn't bother him. REVIEW OF SYSTEMS: CONSTITUTIONAL: No night sweats. No fatigue, malaise, lethargy. No fever or chills. HEENT: Eyes: No visual changes. No eye pain. No eye discharge. ENT: No runny nose. No epistaxis. No sinus pain. No sore throat. No odynophagia. No congestion. RESPIRATORY: No cough, no congestion. No hemoptysis. No shortness of breath. CARDIOVASCULAR: No angina symptoms. No CHF symptoms. No atypical chest pain for CAD. No palpitations. No PND. No orthopnea. GASTROINTESTINAL: No abdominal pain. No nausea or vomiting. No diarrhea or constipation. No hematemesis. No hematochezia. Poor oral intake and poor appetite. GENITOURINARY: No urgency. No frequency. No dysuria. No hematuria. No obstructive symptoms. No discharge. No pain. No significant abnormal bleeding. MUSCULOSKELETAL: No musculoskeletal pain; no joint swelling. Mild soreness of the back. NEUROLOGICAL: No headache. No neck pain. No syncope. No seizures. No dizziness. PSYCHIATRIC: Not anxious. No depression. No suicidal thoughts. No homicidal thoughts. SKIN: No rash. No lesions. No wounds. ENDOCRINE: No unexplained weight loss. No weight gain. HEMATOLOGIC/LYMPHATIC: No anemia. No purpura. No petechiae. No prolonged or excessive bleeding. No palpable lymph nodes. PHYSICAL EXAMINATION: VITAL SIGNS: Temperature 98.7, pulse 86, respiratory rate 16, blood pressure 114/60 and pulse ox 93% HEENT: Head normocephalic, atraumatic. Eyes: Extraocular muscles are intact. Pupils are equal, round and reactive to light and accommodation. Ears: No lesions. Nose appeared normal. Throat: No exudate or erythema. NECK: Supple. No JVD, no carotid bruit. No lymphadenopathy or thyromegaly. LUNGS: Decreased breath sounds but clear to auscultation. Percussion note normal. Chest symmetrical. HEART: S1, S2, no S3. Grade II/ systolic murmurs. No cyanosis or clubbing. Questionable ascites. Pulses: Dorsalis pedis and posterior tibial pulses +1 to +2 bilaterally. ABDOMEN: Soft. Nontender. Bowel sounds active. No CVA tenderness. No mass felt. EXTREMITIES: +2 pitting edema. Full range of motion of all extremities, equal. NEUROLOGIC: No focal deficit. Cranial nerves II through XII are grossly intact. No headache, no double vision or headache. SKIN: Not dry. Intact. Turgor - normal. Looks somewhat pale. LYMPHATIC: No palpable lymph nodes/no lymphedema. MUSCULOSKELETAL: Normal joints with no swelling. Muscle tone is normal. LABS: Hgb 9.5, hct 29, WBC 5,300 normal differential, creatinine 1.8, BUN 50, potassium 4.5 and glucose 94. ASSESSMENT: 1. Generalized anasarca with combination of malnutrition, inactivity and liver cirrhosis 2. Liver cirrhosis with ascites and swelling of the legs 3. Severe peripheral arterial disease and carotid stenosis 4. Renal azotemia with underlined chronic kidney disease PLAN: 1. Elevate the legs 2. U/A showed +1 bacteria the patient is on Macrobid and we will decrease the Macrobid to 100mg PO daily 3. Zaroxolyn 2.5mg daily for three days. CONDITION: Stable The patient is DNR. TIME SPENT: More than 30 minutes. Plan and coordination of the patient's care discussed in the presence of nurse. HERMES
--- NOTE | 2019-06-11 14:17 | PN ---
DATE OF SERVICE: 06/10/19 SUBJECTIVE: The patient was seen and examined with Nurse Practitioner. The patient's condition is stable. His leg edema is much less than before. He is oriented to person and place. His appetite is still not up to par. The patient says that he doesn't want any further testing. He is ready for comfort care. He is doing his best to eat but he is not able to eat because of no desire. Back pain is somewhat better. TIME SPENT: More than 30 minutes. Plan and coordination of the patient's care discussed in the presence of nurse. HERMES
[2019-06-11] MEDS: CARAFATE PO SCH (20:45)
[2019-06-12] MEDS: DUONEB NEB SCH ×3 (04:30→19:55)
[2019-06-12] MEDS: SODIUM CHLORIDE 1,000 ML IV SCH ×2 (05:10→23:40)
[2019-06-12] MEDS: PERCOCET 5-325 PO SCH ×3 (05:11→20:18)
[2019-06-12] MEDS: PROTONIX PO SCH (05:54)
[2019-06-12] MEDS: TOPROL XL PO SCH (09:00)
[2019-06-12] MEDS: LOTENSIN PO SCH (09:00)
[2019-06-12] MEDS: FLOMAX PO SCH ×2 (09:00→20:18)
[2019-06-12] MEDS: MEGACE PO SCH ×2 (09:00→20:18)
[2019-06-12] MEDS: ROCEPHIN 1 GM VIAL IM SCH (09:03)
[2019-06-12] MEDS: LIDOCAINE HCL 1% SDV IM SCH (09:03)
[2019-06-12] MEDS: CARAFATE PO SCH (20:19)
[2019-06-12] MEDS ORDERED: DILAUDID 1 MG/ML SYRINGE IVP PRN (22:59)
[2019-06-12] MEDS ORDERED: ZOFRAN ODT PO PRN (23:57)
[2019-06-13] MEDS: SODIUM CHLORIDE 1,000 ML IV SCH ×3 (00:08→12:19)
[2019-06-13] MEDS: DUONEB NEB SCH ×3 (04:52→19:24)
[2019-06-13] MEDS: PROTONIX PO SCH (05:38)
[2019-06-13] MEDS: PERCOCET 5-325 PO SCH ×3 (05:38→21:40)
[2019-06-13] MEDS: MEGACE PO SCH ×2 (09:21→21:47)
[2019-06-13] MEDS: ROCEPHIN 1 GM/50 ML D5W 1 GM/50 ML BAG IV SCH (09:21)
[2019-06-13] MEDS: FLOMAX PO SCH ×2 (09:21→21:41)
[2019-06-13] MEDS: LIDOCAINE HCL 1% SDV IM SCH (09:33)
[2019-06-13] MEDS ORDERED: LASIX IVP STA (11:17)
--- NOTE | 2019-06-13 13:28 | PN ---
DATE OF SERVICE: 06/12/19 SUBJECTIVE: 88 year old white male hospitalized with failure to thrive and renal failure. The patient's condition seems to be worsening with hypotension. The patient is not able to eat. His appetite is very poor. He is mumbling but oriented to person and place. REVIEW OF SYSTEMS: CONSTITUTIONAL: No night sweats. No fatigue, malaise, lethargy. No fever or chills. Moaning. HEENT: Eyes: No visual changes. No eye pain. No eye discharge. ENT: No runny nose. No epistaxis. No sinus pain. No sore throat. No odynophagia. No congestion. RESPIRATORY: No cough, no congestion. No hemoptysis. No shortness of breath. CARDIOVASCULAR: No angina symptoms. No CHF symptoms. No atypical chest pain for CAD. No palpitations. No PND. No orthopnea. GASTROINTESTINAL: No abdominal pain. No nausea or vomiting. No diarrhea or constipation. No hematemesis. No hematochezia. Poor appetite. GENITOURINARY: No urgency. No frequency. No dysuria. No hematuria. No obstructive symptoms. No discharge. No pain. No significant abnormal bleeding. MUSCULOSKELETAL: No musculoskeletal pain; no joint swelling. NEUROLOGICAL: No headache. No neck pain. No syncope. No seizures. No dizziness. PSYCHIATRIC: Not anxious. No depression. No suicidal thoughts. No homicidal thoughts. SKIN: No rash. No lesions. No wounds. ENDOCRINE: No unexplained weight loss. No weight gain. HEMATOLOGIC/LYMPHATIC: No anemia. No purpura. No petechiae. No prolonged or excessive bleeding. No palpable lymph nodes. PHYSICAL EXAMINATION: VITAL SIGNS: Temperature 96.4, pulse 86, respiratory rate 16, blood pressure 80/32 and pulse ox 94% HEENT: Head normocephalic, atraumatic. Eyes: Extraocular muscles are intact. Pupils are equal, round and reactive to light and accommodation. Ears: No lesions. Nose appeared normal. Throat: No exudate or erythema. NECK: Supple. No JVD, no carotid bruit. No lymphadenopathy or thyromegaly. LUNGS:Decreased breath sounds. Clear to auscultation. Percussion note normal. Chest symmetrical. HEART: S1, S2, distant. no S3. No murmurs. No cyanosis or clubbing. No ascites. Pulses: Dorsalis pedis and posterior tibial pulses +1 to +2 bilaterally. ABDOMEN: Soft. Nontender. Bowel sounds active. No CVA tenderness. No mass felt. EXTREMITIES: Trace edema but the patient has a lot of edema on the sacral area dependant along with upper extremities. Full range of motion of all extremities, equal. NEUROLOGIC: No focal deficit. Cranial nerves II through XII are grossly intact. No headache, no double vision or headache. SKIN: Not dry. Intact. Turgor - normal. Looks pale. LYMPHATIC: No palpable lymph nodes/no lymphedema. MUSCULOSKELETAL: Normal joints with no swelling. Muscle tone is normal. LABS: Hgb 8.1, hct 23, WBC 6,800 normal differential, creatinine 2.2, BUN 68. The patient had IV fluids started. I talked to the patient and he seems to be understanding that his health and vitals are fading. He doesn't want any other measures to be take or done. I talked to him about Vasopressor to increase his blood pressure but he declined any. Nephew is considering Hospice. The patient's condition is declining, critical. Kidney function are deteriorating. Hgb has fallen. I talked to the patient about blood transfusion and he wants to think about. PROGNOSIS: Poor ADDENDUM: Called at around 10:00pm. The patient's condition is somewhat better. He is more alert and oriented to place and person. Systolic blood pressure is 90. We will increase the IV rate to 125cc per hour. We will have to watch him for fluid overload. Instruction was given to the nursing staff. If his hgb in the morning falls below 8 we will give him two units of packed red cells. The reason for blood transfusion is failure to thrive, shortness of breath and history of fluid overload and hypoproteinemia. TIME SPENT: More than 30 minutes. Plan and coordination of the patient's care discussed in the presence of nurse. HERMES
--- NOTE | 2019-06-13 14:44 | PN ---
DATE OF SERVICE: 06/11/19 SUBJECTIVE: The patient was seen and examined with Nurse Practitioner. Earlier the decision was made to discharge the patient but later on the decision was changed. The patient's kidney functions are deteriorated a long with very poor oral intake. The patient is going to be on IV fluids. We will call shipping and receiving weigher Nurse Practitioner to start an IV. The patient I had a talk with him and explained to him that he needs to eat but his appetite has been poor. The patient's health is failing. His leg edema is practically trace. His edema in other sites like sacral area and hands have increased. Hypoproteinemia along with malnutrition, liver and inactivity make it more difficult for the patient to get rid of edema. Any aggressive measures will further deteriorate his kidney function beside that the patient has severe peripheral arterial disease and early dementia with severe carotid artery stenosis bilateral. Nephew is power of assistant city attorney for health. He is thinking about Hospice. The patient still feels like he may turn around with his appetite which I doubt it. The patient also has a Wells catheter from [facility]. He has been started on Flomax 0.4mg twice a day. we will keep the Wells Catheter for the next couple of days. PROGNOSIS: POOR. TIME SPENT: More than 30 minutes. Plan and coordination of the patient's care discussed in the presence of nurse. HERMES
[2019-06-13] MEDS: CARAFATE PO SCH (21:40)
[2019-06-14] MEDS: PERCOCET 5-325 PO SCH (05:42)
[2019-06-14] MEDS: PROTONIX PO SCH (05:42)
[2019-06-14 05:45] VITALS: BP 86/43; TEMP 98
[2019-06-14] MEDS: DUONEB NEB SCH (05:51)
[2019-06-14] MEDS: FLOMAX PO SCH (08:52)
[2019-06-14] MEDS: ROCEPHIN 1 GM/50 ML D5W 1 GM/50 ML BAG IV SCH (08:52)
[2019-06-14] MEDS: MEGACE PO SCH (08:53)
--- NOTE | 2019-06-14 09:22 | PCM.PROG ---
Time of : 09:21 Preliminary Cause of : respiratory , heart collpase
[2019-06-14] MEDS: SODIUM CHLORIDE 1,000 ML IV SCH (10:15)
[2019-06-14] MEDS: LIDOCAINE HCL 1% SDV IM SCH (10:15)
--- NOTE | 2019-06-17 13:12 | PN ---
DATE OF SERVICE: 06/13/19 SUBJECTIVE: 88 year old white male hospitalized with failure to thrive. The patient's oral intake has been declining. His overall status medical has declined. The patient is oriented to place and person. Practically has given up. The patient is for comfort measures. REVIEW OF SYSTEMS: CONSTITUTIONAL: No night sweats. No fatigue, malaise, lethargy. No fever or chills. Not much strength left. HEENT: Eyes: No visual changes. No eye pain. No eye discharge. ENT: No runny nose. No epistaxis. No sinus pain. No sore throat. No odynophagia. No congestion. RESPIRATORY: No cough, no congestion. No hemoptysis. No shortness of breath. CARDIOVASCULAR: No angina symptoms. No CHF symptoms. No atypical chest pain for CAD. No palpitations. No PND. No orthopnea. GASTROINTESTINAL: No abdominal pain. No nausea or vomiting. No diarrhea or constipation. No hematemesis. No hematochezia. Poor appetite. GENITOURINARY: No urgency. No frequency. No dysuria. No hematuria. No obstructive symptoms. No discharge. No pain. No significant abnormal bleeding. MUSCULOSKELETAL: No musculoskeletal pain; no joint swelling. NEUROLOGICAL: No headache. No neck pain. No syncope. No seizures. No dizziness. Mumbling. PSYCHIATRIC: Not anxious. No depression. No suicidal thoughts. No homicidal thoughts. SKIN: No rash. No lesions. No wounds. ENDOCRINE: No unexplained weight loss. No weight gain. HEMATOLOGIC/LYMPHATIC: No anemia. No purpura. No petechiae. No prolonged or excessive bleeding. No palpable lymph nodes. PHYSICAL EXAMINATION: GENERAL: The patient is oriented to place and person. VITAL SIGNS: Temperature 98.5, pulse 70, respiratory rate 18, blood pressure 86/43 and pulse ox 94%. HEENT: Head normocephalic, atraumatic. Eyes: Extraocular muscles are intact. Pupils are equal, round and reactive to light and accommodation. Ears: No lesions. Nose appeared normal. Throat: No exudate or erythema. NECK: Supple. No JVD, no carotid bruit. No lymphadenopathy or thyromegaly. LUNGS: Decreased breath sounds. Clear to auscultation. Percussion note normal. Chest symmetrical. HEART: S1, S2 distant, no S3. No murmurs. No cyanosis or clubbing. Questionable ascites. Pulses: Dorsalis pedis and posterior tibial pulses +1 to +2 bilaterally. ABDOMEN: Soft. Nontender. Bowel sounds active. No CVA tenderness. No mass felt. EXTREMITIES: Edema of sacral area, scrotal area and thigh. Lower extremities has +1 pitting edema. Full range of motion of all extremities, equal. NEUROLOGIC: No focal deficit. Cranial nerves II through XII are grossly intact. No headache, no double vision or headache. SKIN: Not dry. Intact. Turgor - normal. Looks pale. LYMPHATIC: No palpable lymph nodes/no lymphedema. MUSCULOSKELETAL: Normal joints with no swelling. Muscle tone is normal. LABS: Hgb 8.6, hct 24, creatinine 2.2 with BUN of 76. The patient is on IV fluids 50cc which was increased to 125 for 7-8 hours and that caused more generalized edema. ASSESSMENT: 1. Generalized anasarca which is a combination of hypoproteinemia, liver cirrhosis and inactivity. 2. 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 3. Severe peripheral arterial disease Overall health has declined. The patient says that he doesn't know what to do. Not ready for Hospice, looks like that. The nephew is POA for health. He is ready for Hospice. The patient's prognosis is poor. TIME SPENT: More than 30 minutes. Plan and coordination of the patient's care discussed in the presence of nurse. HERMES
--- NOTE | 2019-06-17 13:17 | PN ---
DATE OF SERVICE: 06/14/19 SUBJECTIVE: This morning the patient was seen. His temperature was 98, pulse 83, respiratory 16, blood pressure 90/40 with 93% saturation. The patient had shallow respirations. He was not much responding. HGB was 8.9, hct 27. His creatinine 2.9 with BUN of 81. His CO2 14 with potassium of 4.1. The patient's condition deteriorated and passed aways. 6:00am he was pronounced by the ER physician Dr. Morton. CAUSE OF : Renal and respiratory failure. TIME SPENT: More than 30 minutes. Plan and coordination of the patient's care discussed in the presence of nurse. HERMES
--- NOTE | 2019-06-17 13:35 | PN ---
06/06/19: Level 5 06/07/19: Intermediate 06/08/19: Intermediate 06/09/19: Intermediate 06/10/19: Intermediate 06/11/19: Intermediate 06/12/19: Intermediate 06/13/19: Intermediate 06/14/19: D as in discharge MTDD
--- NOTE | 2019-06-17 13:35 | DS ---
DATE OF SERVICE: 06/14/19 FINAL DIAGNOSIS: 1. Respiratory failure 2. Renal failure 3. Generalized anasarca from multiple factors 4. Liver cirrhosis 5. Malnutrition 6. Severe atherosclerotic disease 7. Severe bilateral carotid stenosis 8. Anemia 9. Chronic kidney disease 10.Dyslipidemia 11.Dementia. HOSPITAL COURSE: 88 year old white male hospitalized with failure to thrive with generalized edema and poor kidney function. The patient had poor oral intake which continued through the stay in the hospital. The patient was oriented to person and place. He wanted a DNR and didn't want any more investigations to be done. The power of attorney general for health was considering Hospice in the later part of his stay. The patient had hypotension two days prior to demise. The patient was given IV fluids to which he didn't respond. The patient in fact developed more edema. His generalized edema was dependant mostly from hypoproteinemia and liver cirrhosis and inactivity. The patient was given IV Lasix with practically no response. As the patient continued to have deterioration of his kidney functions. His Co2 was 14 indicating metabolic acidosis. The patient's respirations were shallow. Heart sounds were muffled from past couple of days with hypotension which in turn caused hypoperfusion of vital functions. His breath sounds became shallow. Cause was respiratory failure brought on by renal failure and generalized debilitation with malnutrition and generalized edema. Labs tests on the day that he ; hgb 8.9, hct 27, WBC 9,400 normal differential, creatinine 2.9, BUN 81, potassium 4.1, CO2 14. TIME SPENT: More than 60 minutes. [facility]
== END 2019-06-14 10:52 | disposition expired | DRG 641 ==
LOC: ED 16:31 → MEDSURG B 19:18
PROVIDERS: ADMIT Internal Medicine; ATTEND Internal Medicine
DX: R05 Cough; R53.1 Weakness; I10 Essential (primary) hypertension; N18.9 Chronic kidney disease, unspecified; E78.5 Hyperlipidemia, unspecified; E77.8 Other disorders of glycoprotein metabolism; R60.1 Generalized edema; F03.90 Unspecified dementia, unspecified severity, without behavioral disturbance, psychotic disturbance, mood disturbance, and anxiety; M19.90 Unspecified osteoarthritis, unspecified site; I73.9 Peripheral vascular disease, unspecified; K74.60 Unspecified cirrhosis of liver; R62.7 Adult failure to thrive; E46 Unspecified protein-calorie malnutrition; R10.9 Unspecified abdominal pain; E86.0 Dehydration